=== PATIENT | female | born 1940 | race African-American/Black ===

== ENCOUNTER → 2016-09-28 | Outpatient (CLI) | payer MEDICARE ==
[~2016-09-28] MED LIST: LIDOCAINE 1% MDV 20ML VIAL As Ordered ONE
--- NOTE | 2016-09-28 15:00 | REP ---
SPECIMEN RADIOGRAPHY: Single view. HISTORY: This patient is status post stereotactic needle biopsy of the left breast for microcalcifications. FINDINGS: Specimen radiography demonstrates numerous microcalcifications in two of the removed specimens. IMPRESSION: Specimen radiography demonstrates microcalcifications from the target grouping. Signed by Brandyn Alberts MD 09/28/2016 03:21 P
--- NOTE | 2016-09-28 15:00 | REP ---
DIGITAL DIAGNOSTIC UNILATERAL LEFT BREAST MAMMOGRAPHY WITH CAD: Two views. HISTORY: Marker clip placement views post stereotactic needle biopsy for microcalcifications. Comparison mammography is from March 10, 2016. FINDINGS: The needle biopsy marker clip is in good position in relation to some remaining calcifications from the target grouping in the superior and medial quadrant of the left breast on post biopsy images. There is a 2.5 cm soft tissue density consistent with the biopsy cavity and a small amount of hematoma adjacent to the marker clip. IMPRESSION: Marker clip in good position. Some of the target microcalcifications remain. Signed by Brandyn Alberts MD 09/28/2016 03:21 P
--- NOTE | 2016-09-28 16:54 | REP ---
STEREOTACTIC LEFT BREAST BIOPSY: The procedure was performed under the direct supervision of Dr. Alberts. The patient has a history of a suspicious cluster of microcalcifications in the left breast near the 9 o'clock position seen on a previous mammogram from [facility] performed on 03/10/2016. The risks and benefits of the procedure were explained to the patient and informed consent was obtained. A cranial caudal approach was utilized. The calcifications were localized using stereotactic mammographic guidance. The skin was prepped and draped in a sterile fashion 1% Xylocaine was used as a local anesthetic. A 10-gauge suction assisted Mammotome needle was inserted and 6 core biopsy samples were obtained. Specimen radiograph demonstrates the presence of calcifications to be within the specimen. A marker clip was placed at the biopsy site. The patient tolerated the procedure well and there were no immediate complications. After the appropriate amount of monitored convalescence the patient was discharged from the department. Reviewed by EROS Thomas 09/28/2016 05:03 PEdited and Signed by Brandyn Alberts MD 09/29/2016 12:29 P
== END ==
LOC: M RADPRO 12:24
PROVIDERS: ATTEND Surgery
DX: D24.2 Benign neoplasm of left breast (principal); R92.0 Mammographic microcalcification found on diagnostic imaging of breast; I10 Essential (primary) hypertension; E78.5 Hyperlipidemia, unspecified; E11.9 Type 2 diabetes mellitus without complications; F32.9 Major depressive disorder, single episode, unspecified; F41.9 Anxiety disorder, unspecified; K57.30 Diverticulosis of large intestine without perforation or abscess without bleeding; Z79.4 Long term (current) use of insulin; Z79.84 Long term (current) use of oral hypoglycemic drugs; Z79.899 Other long term (current) drug therapy
CPT/HCPCS: 19081; 88305; G0206

== ENCOUNTER → 2016-11-16 | Outpatient (CLI) | payer MEDICAID, OTHER ==
--- NOTE | 2016-11-16 14:11 | REP ---
Clinical: Dermatitis and venous insufficiency . Technique: Haddad scale and color Doppler evaluation using linear high frequency transducer. Findings: Ultrasound examination of the right lower extremity deep venous structures from the common femoral vein to the popliteal vein demonstrates normal compressibility flow and wave patterns in response to respiration and augmentation. There is no evidence for deep venous thrombosis. Impression: No evidence for deep venous thrombosis. Signed by Julián Rapp MD 11/16/2016 02:03 P
== END ==
LOC: M RAD 12:27
DX: I83.12 Varicose veins of left lower extremity with inflammation (principal)

== ENCOUNTER 2016-11-17 12:45 | Outpatient (RCR) | payer OTHER, MEDICAID | END 2016-11-27 | LOC: M PT 12:45 | PROVIDERS: ATTEND Surgery | DX: Z51.89 Encounter for other specified aftercare (principal); I83.12 Varicose veins of left lower extremity with inflammation | CPT/HCPCS: 97162; G8978; G8979 ==

== ENCOUNTER → 2016-11-18 | Outpatient (CLI) | payer OTHER, MEDICAID ==
--- NOTE | 2016-11-18 12:31 | REP ---
LEFT LOWER EXTREMITY DUPLEX DOPPLER VENOUS ULTRASOUND WITH EVALUATION FOR VENOUS REFLUX: Real-time compression and duplex Doppler interrogation of left lower extremity deep venous system is performed. Left common femoral, superficial femoral and popliteal veins are fully compressible with transducer pressure and demonstrate normal spontaneous and phasic flow without evidence of deep venous thrombosis. Evaluation for venous reflux demonstrates reflux in the common femoral vein. There is no evidence of anterior accessory greater saphenous vein. There is significant reflux in the proximal greater saphenous vein with a duration of 4.8 seconds, AP diameter 10 mm. There is also significant reflux in the mid greater saphenous vein in the thigh, duration over 9 seconds, AP diameter 6 mm. No reflux is seen in the greater saphenous vein at the level of the knee, AP diameter 4 mm. There is no reflux in the superficial femoral vein. There is significant reflux in the left popliteal vein. There is no reflux in the lesser saphenous vein, AP diameter 5 mm. Perforating venous structure is seen in the mid to distal thigh communicating with the greater saphenous vein, with no reflux in that venous structure. The study is limited due to patient body habitus. Signed by Ayden Haddad MD 11/18/2016 12:45 P
== END ==
LOC: M RAD 10:12
DX: I83.892 Varicose veins of left lower extremity with other complications (principal)

== ENCOUNTER → 2016-12-16 | Outpatient (CLI) | payer OTHER, MEDICAID ==
[2016-12-16 13:39] LABS: ALBUMIN 3.4 GM/DL (3.2-5.2); ALBUMIN/GLOBULIN RATIO 0.81 (1.00-1.93); ALKALINE PHOSPHATASE 420 U/L (45-117); ALT/SGPT 40 U/L (12-78); ANION GAP 6 MEQ/L (8-16); AST/SGOT 28 U/L (15-37); BILIRUBIN,TOTAL 0.6 MG/DL (0.2-1.0); BLOOD UREA NITROGEN 19 MG/DL (7-18); CARBON DIOXIDE LEVEL 30 MEQ/L (21-32); CHLORIDE LEVEL 102 MEQ/L (98-107); CREATININE FOR GFR 1.03 MG/DL (0.55-1.02); GLOMERULAR FILTRATION RATE > 60.0 (>39); GLUCOSE, FASTING 162 MG/DL (83-110); POTASSIUM SERUM 4.6 MEQ/L (3.5-5.1); SODIUM LEVEL 138 MEQ/L (136-145); TOTAL PROTEIN 7.6 GM/DL (6.4-8.2)
== END ==
LOC: M LAB 11:16
PROVIDERS: ATTEND Physician Assistant Medical
DX: E11.621 Type 2 diabetes mellitus with foot ulcer (principal); E55.9 Vitamin D deficiency, unspecified; R30.0 Dysuria; E11.40 Type 2 diabetes mellitus with diabetic neuropathy, unspecified; I10 Essential (primary) hypertension; E78.2 Mixed hyperlipidemia

== ENCOUNTER → 2016-12-16 | Outpatient (CLI) | payer OTHER ==
[2016-12-16 13:44] LABS: ALBUMIN 3.5 GM/DL (3.2-5.2); ALBUMIN/GLOBULIN RATIO 0.85 (1.00-1.93); ALKALINE PHOSPHATASE 431 U/L (45-117); ALT/SGPT 40 U/L (12-78); ANION GAP 7 MEQ/L (8-16); AST/SGOT 28 U/L (15-37); BILIRUBIN,TOTAL 0.6 MG/DL (0.2-1.0); BLOOD UREA NITROGEN 20 MG/DL (7-18); CALCIUM LEVEL 9.1 MG/DL (8.8-10.2); CARBON DIOXIDE LEVEL 31 MEQ/L (21-32); CHLORIDE LEVEL 101 MEQ/L (98-107); CHOLESTEROL LEVEL 166 MG/DL (<200); CREATININE FOR GFR 1.02 MG/DL (0.55-1.02); GLOMERULAR FILTRATION RATE > 60.0 (>39); GLUCOSE, FASTING 159 MG/DL (83-110); POTASSIUM SERUM 4.7 MEQ/L (3.5-5.1); SODIUM LEVEL 139 MEQ/L (136-145); TOTAL PROTEIN 7.6 GM/DL (6.4-8.2); TRIGLYCERIDES LEVEL 45 MG/DL (<150)
== END ==
LOC: M LAB 11:35
PROVIDERS: ATTEND Emergency Medicine
DX: E11.40 Type 2 diabetes mellitus with diabetic neuropathy, unspecified (principal); I10 Essential (primary) hypertension; E78.2 Mixed hyperlipidemia; E55.9 Vitamin D deficiency, unspecified

== ENCOUNTER 2016-12-25 11:05 | Outpatient (RCR) | payer MEDICARE, MEDICAID | END 2016-12-27 | LOC: M PT 11:05 | PROVIDERS: ATTEND Surgery | DX: Z51.89 Encounter for other specified aftercare (principal); I83.12 Varicose veins of left lower extremity with inflammation; I89.0 Lymphedema, not elsewhere classified ==

== ENCOUNTER → 2017-01-27 | Outpatient (RCR) | payer MEDICARE, OTHER | LOC: M PT 12-28 11:15 | PROVIDERS: ATTEND Surgery | DX: Z51.89 Encounter for other specified aftercare (principal); I83.12 Varicose veins of left lower extremity with inflammation | CPT/HCPCS: 97140; G8978; G8979 ==

== ENCOUNTER 2017-02-03 11:15 | Outpatient (RCR) | payer MEDICARE, OTHER | END 2017-02-26 | LOC: M PT 11:15 | PROVIDERS: ATTEND Surgery | DX: Z51.89 Encounter for other specified aftercare (principal); I83.12 Varicose veins of left lower extremity with inflammation ==

== ENCOUNTER → 2017-03-30 | Outpatient (CLI) | payer MEDICARE, OTHER ==
--- NOTE | 2017-03-30 13:28 | REP ---
BILATERAL DIGITAL SCREENING MAMMOGRAM, 03/30/2017. Clinical history: Status post stereotactic biopsy 09/28/2016 with benign results for microcalcific cluster. Comparison post biopsy mammogram 09/28/2016 left breast: Diagnostic left mammogram 03/10/2016, screening mammogram 02/13/2016. Findings the standard two-view mammography performed. There are scattered fibroglandular elements in a pattern and distribution grossly unchanged and which may obscure a lesion. Lower inner quadrant left breast there is a stereotactic clip with some calcifications remaining from the clustered microcalcific group sampled in August. Small amount of soft tissue density adjacent to in an area where there was a larger hematoma postbiopsy. I see no new or dominant mass, or other areas of clustered microcalcification, architectural distortion, skin thickening or secondary sign of malignancy. A few arterial calcifications are also present. Impression: 1. BI-RADS ACR category 2 mammogram: Benign findings. No evidence of malignancy. Much improved appearance of the postbiopsy hematoma in the lower inner quadrant left breast as well as a stereotactic clip at that site. Fewer calcifications than on the screening and diagnostic mammogram last year. 2. Recommend annual mammogram for followup. This mammogram was interpreted with the aid of an FDA-approved computer-aided detection system. The patient states that she/he has not had a clinical breast exam in over a year. The patient letter being requested is M1. Signed by Abelino Ashraf MD 03/30/2017 07:02 P
[2017-03-30 13:35] LABS: ALBUMIN 3.4 GM/DL (3.2-5.2); ALBUMIN/GLOBULIN RATIO 0.76 (1.00-1.93); ALKALINE PHOSPHATASE 398 U/L (45-117); ALT/SGPT 33 U/L (12-78); ANION GAP 9 MEQ/L (8-16); AST/SGOT 34 U/L (15-37); BILIRUBIN,TOTAL 0.5 MG/DL (0.2-1.0); BLOOD UREA NITROGEN 17 MG/DL (7-18); CALCIUM LEVEL 9.3 MG/DL (8.8-10.2); CARBON DIOXIDE LEVEL 30 MEQ/L (21-32); CHLORIDE LEVEL 101 MEQ/L (98-107); CHOLESTEROL LEVEL 145 MG/DL (<200); CREATININE FOR GFR 1.09 MG/DL (0.55-1.02); GLOMERULAR FILTRATION RATE > 60.0 (>39); GLUCOSE, FASTING 114 MG/DL (83-110); POTASSIUM SERUM 4.3 MEQ/L (3.5-5.1); SODIUM LEVEL 140 MEQ/L (136-145); TOTAL PROTEIN 7.9 GM/DL (6.4-8.2); TRIGLYCERIDES LEVEL 67 MG/DL (<150)
== END ==
LOC: M RAD 10:23 → M LAB 10:23
PROVIDERS: ATTEND Emergency Medicine
DX: Z12.31 Encounter for screening mammogram for malignant neoplasm of breast (principal); Z13.820 Encounter for screening for osteoporosis; E11.40 Type 2 diabetes mellitus with diabetic neuropathy, unspecified; I10 Essential (primary) hypertension; E78.2 Mixed hyperlipidemia; E55.9 Vitamin D deficiency, unspecified; R30.0 Dysuria; Z92.89 Personal history of other medical treatment
CPT/HCPCS: 36415; 80053; 80061; 81001; 82306; 83036; 87088; 87186; G0202

== ENCOUNTER 2017-05-06 10:46 | Outpatient (RCR) | payer MEDICARE, OTHER | END 2017-05-29 | LOC: M PT 10:46 | PROVIDERS: ATTEND Surgery | DX: Z51.89 Encounter for other specified aftercare (principal); I89.0 Lymphedema, not elsewhere classified | CPT/HCPCS: 97161; G8978; G8979; G8980 ==

== ENCOUNTER → 2017-07-27 | Outpatient (CLI) | payer MEDICARE, OTHER ==
[2017-07-27 15:06] LABS: ALBUMIN 3.6 GM/DL (3.2-5.2); ALBUMIN/GLOBULIN RATIO 0.8 (1.00-1.93); BILIRUBIN,TOTAL 0.6 MG/DL (0.2-1.0); CALCIUM LEVEL 9.4 MG/DL (8.8-10.2); CREATININE FOR GFR 1.24 MG/DL (0.55-1.02); GLOMERULAR FILTRATION RATE 54.4 (>39); POTASSIUM SERUM 4.4 MEQ/L (3.5-5.1); TOTAL PROTEIN 8.1 GM/DL (6.4-8.2)
[2017-07-27 16:49] LABS: MICROSCOPIC INDICATED? MAN YES (NO)
[2017-07-27 21:18] LABS: SQUAMOUS EPITHELIAL CELL URINE LARGE AMOUNT /hpf (SMALL AMT); WBC, URINE TNTC /hpf (0-3)
[2017-07-27 21:19] LABS: BACTERIA, URINE LARGE AMOUNT; HYALINE CAST, URINE NONE SEEN /lpf (0-1); TRANSITIONAL EPI CELLS, URINE SMALL AMOUNT /hpf
[2017-07-27 21:20] LABS: MICROSCOPIC EXAM PERFORMED
== END ==
LOC: M LAB 12:03
PROVIDERS: ATTEND Emergency Medicine
DX: N30.81 Other cystitis with hematuria (principal); E11.40 Type 2 diabetes mellitus with diabetic neuropathy, unspecified; I10 Essential (primary) hypertension; E78.2 Mixed hyperlipidemia; E55.9 Vitamin D deficiency, unspecified

== ENCOUNTER 2017-09-06 11:18 | Outpatient (RCR) | payer MEDICARE, OTHER | END 2017-09-29 | LOC: M PT 11:18 | DX: Z51.89 Encounter for other specified aftercare (principal); I89.1 Lymphangitis; I83.12 Varicose veins of left lower extremity with inflammation | CPT/HCPCS: 97163 ==

== ENCOUNTER → 2018-01-21 | Outpatient (CLI) | payer MEDICARE, OTHER ==
[2018-01-21 15:02] LABS: BASO % 0.4 % (0.0-1.0); EOS # 0.1 10^3/uL (0.0-0.50); HEMATOCRIT 40.2 % (36.0-47.0); HEMOGLOBIN 12.4 g/dl (12.0-15.5); IMMATURE GRANULOCYTE % 0.3 % (0-3.0); LYMPH # 1.2 10^3/uL (1.5-4.5); LYMPH % 18.4 % (24.0-44.0); MEAN CORPUSCULAR HEMOGLOBIN 27.5 pg (27.0-33.0); MEAN CORPUSCULAR HGB CONC 30.8 g/dl (32.0-36.5); MEAN CORPUSCULAR VOLUME 89.1 fl (80.0-96.0); MONO # 0.4 10^3/uL (0.0-0.8); MONO % 6.1 % (0.0-5.0); NEUTROPHILS # 4.9 10^3/uL (1.8-7.7); NEUTROPHILS % 73.8 % (36.0-66.0); PLATELET COUNT, AUTOMATED 154 10^3/uL (150-450); RED BLOOD COUNT 4.51 10^6/uL (4.00-5.40); RED CELL DISTRIBUTION WIDTH 14.9 % (11.5-14.5); WHITE BLOOD COUNT 6.7 10^3/uL (4.0-10.0)
[2018-01-21 15:30] LABS: ESTIMATED AVERAGE GLUCOSE 203 MG/DL (60-110); HEMOGLOBIN A1c 8.7 %
[2018-01-21 15:32] LABS: ALBUMIN 3.2 GM/DL (3.2-5.2); ALBUMIN/GLOBULIN RATIO 0.74 (1.00-1.93); ALKALINE PHOSPHATASE 419 U/L (45-117); ALT/SGPT 51 U/L (12-78); ANION GAP 6 MEQ/L (8-16); AST/SGOT 33 U/L (7-37); BILIRUBIN,TOTAL 0.6 MG/DL (0.2-1.0); BLOOD UREA NITROGEN 17 MG/DL (7-18); CALCIUM LEVEL 8.8 MG/DL (8.8-10.2); CARBON DIOXIDE LEVEL 30 MEQ/L (21-32); CHLORIDE LEVEL 103 MEQ/L (98-107); CHOLESTEROL LEVEL 141 MG/DL (<200); CHOLESTEROL RISK RATIO 1.719 (<5); CREATININE FOR GFR 1.06 MG/DL (0.55-1.30); GLOMERULAR FILTRATION RATE > 60.0 (>39); GLUCOSE, FASTING 184 MG/DL (70-100); HDL CHOLESTEROL 82 MG/DL (>40); NON-HDL-C 59 MG/DL; SODIUM LEVEL 139 MEQ/L (136-145); TOTAL PROTEIN 7.5 GM/DL (6.4-8.2); TRIGLYCERIDES LEVEL 55 MG/DL (<150)
[2018-01-21 15:39] LABS: TOTAL 25(OH) VITAMIN D 37.2 NG/ML (30.0-100.0)
== END ==
LOC: M LAB 14:14
DX: I10 Essential (primary) hypertension (principal); M05.70 Rheumatoid arthritis with rheumatoid factor of unspecified site without organ or systems involvement; E78.2 Mixed hyperlipidemia; E55.9 Vitamin D deficiency, unspecified; E11.40 Type 2 diabetes mellitus with diabetic neuropathy, unspecified
CPT/HCPCS: 71046

== ENCOUNTER 2018-03-28 10:29 | Outpatient (RCR) | payer MEDICARE, OTHER | END 2018-03-29 | LOC: M PT 10:29 | DX: Z51.89 Encounter for other specified aftercare (principal); I83.12 Varicose veins of left lower extremity with inflammation; I89.0 Lymphedema, not elsewhere classified | CPT/HCPCS: 97163 ==

== ENCOUNTER 2018-10-19 09:51 | Outpatient (RCR) | payer MEDICARE, OTHER | END 2018-10-27 | LOC: M PT 09:51 | PROVIDERS: ATTEND Surgery | DX: I83.12 Varicose veins of left lower extremity with inflammation (principal) ==

== ENCOUNTER → 2018-10-19 | Outpatient (CLI) | payer MEDICARE, OTHER ==
[2018-10-19 11:26] LABS: BASO % 0.7 % (0.0-1.0); EOS # 0.1 10^3/uL (0.0-0.50); EOS % 1.5 % (0.0-3.0); HEMATOCRIT 41.5 % (36.0-47.0); HEMOGLOBIN 12.8 g/dl (12.0-15.5); LYMPH # 1.6 10^3/uL (1.5-4.5); LYMPH % 26.6 % (24.0-44.0); MEAN CORPUSCULAR HEMOGLOBIN 27.4 pg (27.0-33.0); MEAN CORPUSCULAR HGB CONC 30.8 g/dl (32.0-36.5); MEAN CORPUSCULAR VOLUME 88.7 fl (80.0-96.0); MONO # 0.4 10^3/uL (0.0-0.8); MONO % 6.9 % (0.0-5.0); NEUTROPHILS # 3.8 10^3/uL (1.8-7.7); NEUTROPHILS % 64.1 % (36.0-66.0); PLATELET COUNT, AUTOMATED 142 10^3/uL (150-450); RED BLOOD COUNT 4.68 10^6/uL (4.00-5.40); WHITE BLOOD COUNT 5.9 10^3/uL (4.0-10.0)
[2018-10-19 11:49] LABS: HEMOGLOBIN A1c 7.1 %
[2018-10-19 11:51] LABS: ALBUMIN 3.3 GM/DL (3.2-5.2); BILIRUBIN,TOTAL 0.5 MG/DL (0.2-1.0); CALCIUM LEVEL 8.9 MG/DL (8.8-10.2); CHOLESTEROL RISK RATIO 1.835 (<5); CREATININE FOR GFR 1.15 MG/DL (0.55-1.30); GLOMERULAR FILTRATION RATE 59.2 (>39); POTASSIUM SERUM 4.4 MEQ/L (3.5-5.1); TOTAL PROTEIN 7.7 GM/DL (6.4-8.2)
[2018-10-19 11:59] LABS: TOTAL 25(OH) VITAMIN D 42.3 NG/ML (30.0-100.0)
[2018-10-19 12:07] LABS: MALB URINE SIEMENS 14.9 MG/L; MAU/CREAT RATIO 8.8 MCG/MG (0.0-30.0)
== END ==
LOC: M LAB 10:38
PROVIDERS: ATTEND Emergency Medicine
DX: I10 Essential (primary) hypertension (principal); M05.70 Rheumatoid arthritis with rheumatoid factor of unspecified site without organ or systems involvement; E78.2 Mixed hyperlipidemia; E55.9 Vitamin D deficiency, unspecified; E11.40 Type 2 diabetes mellitus with diabetic neuropathy, unspecified

== ENCOUNTER 2019-04-18 10:43 | Outpatient (RCR) | payer MEDICARE, OTHER | END 2019-04-29 | LOC: M PT 10:43 | PROVIDERS: ATTEND Emergency Medicine | DX: I83.12 Varicose veins of left lower extremity with inflammation (principal); I89.0 Lymphedema, not elsewhere classified ==

== ENCOUNTER → 2019-04-18 | Outpatient (CLI) | payer MEDICARE, OTHER ==
[2019-04-18 13:07] LABS: APPEARANCE, URINE HAZY (CLEAR); BACTERIA, URINE AUTO 3+ (NEGATIVE); BILIRUBIN, URINE AUTO NEGATIVE (NEGATIVE); BLOOD, URINE BLOOD NEGATIVE (NEGATIVE); COLOR, URINE YELLOW (YELLOW); GLUCOSE, URINE (UA) AUTO NEGATIVE (NEGATIVE); KETONE, URINE AUTO NEGATIVE (NEGATIVE); LEUKOCYTE ESTERASE, URINE AUTO 2+ (NEGATIVE); MUCUS, URINE SMALL (NEGATIVE); NITRITE, URINE AUTO POSITIVE (NEGATIVE); PROTEIN, URINE AUTO NEGATIVE (NEGATIVE); RBC, URINE AUTO 2 /HPF (0-3); SPECIFIC GRAVITY URINE AUTO 1.009 (1.002-1.035); SQUAMOUS EPITHELIAL CELL UR AU 0 /HPF (0-6); UROBILINOGEN, URINE AUTO 0.2 mg/dL (0.0-2.0); WBC, URINE AUTO 43 /HPF (0-3)
[2019-04-18 13:10] LABS: BASO # 0.1 10^3/uL (0.0-0.2); BASO % 0.8 % (0.0-1.0); EOS # 0.1 10^3/uL (0.0-0.50); EOS % 2.1 % (0.0-3.0); HEMATOCRIT 41.4 % (36.0-47.0); HEMOGLOBIN 12.8 g/dl (12.0-15.5); LYMPH # 1.7 10^3/uL (1.5-4.5); MEAN CORPUSCULAR HEMOGLOBIN 27.5 pg (27.0-33.0); MEAN CORPUSCULAR HGB CONC 30.9 g/dl (32.0-36.5); MONO # 0.4 10^3/uL (0.0-0.8); MONO % 5.9 % (0.0-5.0); NEUTROPHILS # 4.3 10^3/uL (1.8-7.7); NEUTROPHILS % 64.9 % (36.0-66.0); PLATELET COUNT, AUTOMATED 168 10^3/uL (150-450); RED BLOOD COUNT 4.65 10^6/uL (4.00-5.40); WHITE BLOOD COUNT 6.6 10^3/uL (4.0-10.0)
[2019-04-18 13:47] LABS: BLOOD UREA NITROGEN 19 MG/DL (7-18); CALCIUM LEVEL 9.4 MG/DL (8.8-10.2); CARBON DIOXIDE LEVEL 29 MEQ/L (21-32); CHLORIDE LEVEL 105 MEQ/L (98-107); CHOLESTEROL LEVEL 131 MG/DL (<200); CHOLESTEROL RISK RATIO 1.723 (<5); CREATININE FOR GFR 1.09 MG/DL (0.55-1.30); GLOMERULAR FILTRATION RATE > 60.0 (>39); GLUCOSE, FASTING 146 MG/DL (70-100); HDL CHOLESTEROL 76 MG/DL (>40); LDL CHOLESTEROL 44 MG/DL (<100); NON-HDL-C 55 MG/DL; SODIUM LEVEL 139 MEQ/L (136-145); TRIGLYCERIDES LEVEL 57 MG/DL (<150)
[2019-04-18 13:48] LABS: CREATININE, URINE 76.1 MG/DL; MALB URINE SIEMENS 12.3 MG/L; MAU/CREAT RATIO 16.1 MCG/MG (0.0-30.0)
== END ==
LOC: M LAB 11:40
PROVIDERS: ATTEND Physician Assistant Medical
DX: E78.2 Mixed hyperlipidemia (principal); I10 Essential (primary) hypertension; Z00.00 Encounter for general adult medical examination without abnormal findings; R30.0 Dysuria

== ENCOUNTER → 2019-05-26 | Outpatient (CLI) | payer MEDICARE, OTHER | LOC: M LAB 11:45 | PROVIDERS: ATTEND Internal Medicine Rheumatology | DX: Z87.39 Personal history of other diseases of the musculoskeletal system and connective tissue (principal) ==

== ENCOUNTER → 2019-06-20 | Outpatient (CLI) | payer MEDICARE, MEDICAID ==
--- NOTE | 2019-06-21 04:56 | REP ---
Clinical: Rheumatoid arthritis. Technique: AP, lateral, bilateral oblique views of the right and left hand. Findings: Symmetric osteopenia is appreciated. Right hand demonstrates moderate osteoarthritic changes including subchondral sclerosis, joint space narrowing, and very subtle early spurring primarily involving the interphalangeal joints. There is moderate/advanced chronic subluxation along with subchondral sclerosis/heterogeneity and cystic changes at the first carpometacarpal joint. No significant periarticular soft tissue swelling or erosive changes and no obvious periarticular loose bodies identified. No acute fracture dislocation. Left hand demonstrates moderate osteoarthritic degenerative changes including subchondral sclerosis and joint space narrowing involving the interphalangeal joints. No periarticular soft tissue swelling, erosive changes or loose bodies are identified. There is mild/moderate chronic subluxation along the first carpometacarpal joint with cortical irregularities/subchondral heterogeneity and spurring. No acute fracture dislocation. Impression: Osteopenia and changes suggesting osteoarthritic disease. Electronically Signed by Julián Rapp MD 06/21/2019 04:47 A
== END ==
LOC: M LAB 14:36
PROVIDERS: ATTEND Internal Medicine Rheumatology
DX: M85.841 Other specified disorders of bone density and structure, right hand (principal); M85.842 Other specified disorders of bone density and structure, left hand; M19.041 Primary osteoarthritis, right hand; M19.042 Primary osteoarthritis, left hand; Z87.39 Personal history of other diseases of the musculoskeletal system and connective tissue

== ENCOUNTER → 2019-06-20 | Outpatient (CLI) | payer MEDICARE, MEDICAID ==
--- NOTE | 2019-06-20 14:55 | REPMRS ---
Patient History The patient states she has not had a clinical breast exam in over a year. Family history of liver cancer at age 85 in mother, prostate cancer at age 70 in brother. Benign radio exam breast specimen of the left breast, September 28, 2016. Benign stereotatic loc for ea lesion of the left breast, September 28, 2016. [facility] lifetime risk for breast cancer is 3.3%. Digital Mammo Screening Bilat: June 20, 2019 - Exam #: [id number] Bilateral CC and MLO view(s) were taken. Technologist: Chantelle Bray, Technologist Prior study comparison: March 30, 2017, bilateral digital mammo screening bilat performed at [facility]. FINDINGS: There are scattered fibroglandular densities. There has been no change in the appearance of the mammogram from the prior studies. There is a mild amount of residual fibroglandular tissue which is fairly symmetric. There is no interval development of dominant mass, architectural distortion, or clustered microcalcification suggestive of malignancy. Assessment: BI-RADS/ACR category 1 mammogram. Negative Mammogram. Recommendation Routine screening mammogram in 1 year (for women over age 40). This mammogram was interpreted with the aid of an FDA-approved computer-aided dectection system. Electronically Signed By: Ayden Haddad MD 06/20/19 [id number]
== END ==
LOC: M RAD 13:58
PROVIDERS: ATTEND Family Medicine
DX: Z12.31 Encounter for screening mammogram for malignant neoplasm of breast (principal); Z80.42 Family history of malignant neoplasm of prostate; Z86.018 Personal history of other benign neoplasm; M85.841 Other specified disorders of bone density and structure, right hand; M85.842 Other specified disorders of bone density and structure, left hand; M19.041 Primary osteoarthritis, right hand; M19.042 Primary osteoarthritis, left hand; Z87.39 Personal history of other diseases of the musculoskeletal system and connective tissue

== ENCOUNTER 2019-11-06 12:53 | Outpatient (RCR) | payer MEDICARE, OTHER ==
[~2019-11-06 12:53] MED LIST changes: +LIDO1CRE2 TOP; -LIDOCAINE 1% MDV 20ML VIAL As Ordered ONE
== END 2019-11-28 ==
LOC: M PT 12:53
PROVIDERS: ATTEND Emergency Medicine
DX: Z51.89 Encounter for other specified aftercare (principal); I83.12 Varicose veins of left lower extremity with inflammation; I89.0 Lymphedema, not elsewhere classified

== ENCOUNTER → 2020-01-11 | Outpatient (CLI) | payer MEDICARE | LOC: M LABSMTC 13:04 | PROVIDERS: ATTEND Family Medicine | DX: Z11.59 Encounter for screening for other viral diseases (principal) | CPT/HCPCS: C9803; U0003 ==

== ENCOUNTER → 2020-02-23 | Outpatient (CLI) | payer MEDICARE ==
[~2020-02-23] MED LIST changes: +AMMO12LO TOP; +ASPI-161 PO; +ATOR40TA75 PO; +AZEL1SPR3; +FLON1SPR; +GLIP10TA6 PO; +HYDR200T3 PO; +INCR1INH INH; +INSU100I9 SC; +LISI40TA PO; +LORA-622 PO; +METF500T13 PO; +OMEP-218 PO; +OXYB10TA23 PO; +PROAAER10 INH; +PROVEX CV PO; +REPLENEX PO; +TRIA37.53 PO; +VITA50005 PO; +[UNRECOGNIZED DRUG - CODE] PO
[2020-02-23 14:56] LABS: BASO % 0.8 % (0.0-1.0); EOS # 0.2 10^3/uL (0.0-0.5); HEMATOCRIT 38.2 % (36.0-47.0); HEMOGLOBIN 11.7 g/dl (12.0-15.5); LYMPH % 18.5 % (24.0-44.0); MEAN CORPUSCULAR HEMOGLOBIN 27.6 pg (27.0-33.0); MEAN CORPUSCULAR HGB CONC 30.6 g/dl (32.0-36.5); MEAN CORPUSCULAR VOLUME 90.1 fl (80.0-96.0); MONO # 0.3 10^3/uL (0.0-0.8); MONO % 6.3 % (0.0-5.0); NEUTROPHILS # 3.6 10^3/uL (1.5-8.5); PLATELET COUNT, AUTOMATED 167 10^3/uL (150-450); RED BLOOD COUNT 4.24 10^6/uL (4.00-5.40); WHITE BLOOD COUNT 5.2 10^3/uL (4.0-10.0)
[2020-02-23 15:16] LABS: ALBUMIN 2.9 GM/DL (3.2-5.2); ALT/SGPT 36 U/L (12-78); BILIRUBIN,TOTAL 0.6 MG/DL (0.2-1.0); BLOOD UREA NITROGEN 16 MG/DL (7-18); CALCIUM LEVEL 8.9 MG/DL (8.8-10.2); CARBON DIOXIDE LEVEL 28 MEQ/L (21-32); CHLORIDE LEVEL 106 MEQ/L (98-107); CHOLESTEROL LEVEL 127 MG/DL (<200); CHOLESTEROL RISK RATIO 1.924 (<5); CREATININE FOR GFR 0.94 MG/DL (0.55-1.30); GLOMERULAR FILTRATION RATE > 60.0 (>39); GLUCOSE, FASTING 146 MG/DL (70-100); HDL CHOLESTEROL 66 MG/DL (>40); LDL CHOLESTEROL 54 MG/DL (<100); NON-HDL-C 61 MG/DL; POTASSIUM SERUM 4.8 MEQ/L (3.5-5.1); SODIUM LEVEL 139 MEQ/L (136-145); TOTAL PROTEIN 7.2 GM/DL (6.4-8.2); TRIGLYCERIDES LEVEL 37 MG/DL (<150)
[2020-02-23 15:20] LABS: MALB URINE SIEMENS 13.5 MG/L; MAU/CREAT RATIO 8.4 MCG/MG (0.0-30.0)
== END ==
LOC: M LAB 12:36
PROVIDERS: ATTEND Physician Assistant
DX: R30.0 Dysuria (principal); N39.0 Urinary tract infection, site not specified; E78.2 Mixed hyperlipidemia; E11.621 Type 2 diabetes mellitus with foot ulcer; E11.40 Type 2 diabetes mellitus with diabetic neuropathy, unspecified; I10 Essential (primary) hypertension

== ENCOUNTER 2020-03-07 21:38 | Inpatient (IN) | payer MEDICARE ==
[~2020-03-07] VITALS: Ht 167.6 cm; Wt 167.7 kg
[~2020-03-07 21:38] MED LIST changes: -AMMO12LO TOP; -ASPI-161 PO; -ATOR40TA75 PO; -AZEL1SPR3; -FLON1SPR; -GLIP10TA6 PO; -HYDR200T3 PO; -INCR1INH INH; -INSU100I9 SC; -LISI40TA PO; -LORA-622 PO; -METF500T13 PO; -OMEP-218 PO; -OXYB10TA23 PO; -PROAAER10 INH; -PROVEX CV PO; -REPLENEX PO; -TRIA37.53 PO; -VITA50005 PO; -[UNRECOGNIZED DRUG - CODE] PO
[2020-03-07] MEDS ORDERED: NS 500 ML IV ONE (22:00)
[2020-03-07 22:22] LABS: BASO # 0.1 10^3/uL (0.0-0.2); BASO % 0.8 % (0.0-1.0); EOS # 0.2 10^3/uL (0.0-0.5); EOS % 3.1 % (0.0-3.0); HEMATOCRIT 37.3 % (36.0-47.0); HEMOGLOBIN 11.7 g/dl (12.0-15.5); LYMPH # 1.9 10^3/uL (1.5-5.0); LYMPH % 30.1 % (24.0-44.0); MEAN CORPUSCULAR HEMOGLOBIN 28.4 pg (27.0-33.0); MEAN CORPUSCULAR HGB CONC 31.4 g/dl (32.0-36.5); MEAN CORPUSCULAR VOLUME 90.5 fl (80.0-96.0); MONO # 0.4 10^3/uL (0.0-0.8); MONO % 5.9 % (0.0-5.0); NEUTROPHILS # 3.8 10^3/uL (1.5-8.5); NEUTROPHILS % 59.6 % (36.0-66.0); PLATELET COUNT, AUTOMATED 165 10^3/uL (150-450); RED BLOOD COUNT 4.12 10^6/uL (4.00-5.40); WHITE BLOOD COUNT 6.4 10^3/uL (4.0-10.0)
--- NOTE | 2020-03-07 22:36 | REPVR ---
PROCEDURE INFORMATION: Exam: CT Head Without Contrast Exam date and time: 03/07/2020 10:18 PM Age: 80 years old Clinical indication: Injury or trauma; Fall; Initial encounter; Blunt trauma (contusions or hematomas); Additional info: Fall, head injury TECHNIQUE: Imaging protocol: Computed tomography of the head without contrast. Axial and coronal reformatted images were created and reviewed. Radiation optimization: All CT scans at this facility use at least one of these dose optimization techniques: automated exposure control; mA and/or kV adjustment per patient size (includes targeted exams where dose is matched to clinical indication); or iterative reconstruction. COMPARISON: No relevant prior studies available. FINDINGS: Brain: Patchy areas of hypoattenuation in the periventricular and subcortical white matter, consistent with chronic small vessel ischemic disease. No CT evidence of acute intracranial hemorrhage or acute territorial infarction. No significant mass effect or midline shift. Basal cisterns patent. Ventricles: Prominence of the cortical sulci, cisterns and ventricular system, consistent with cerebral and cerebellar volume loss. Bones/joints: No acute osseous abnormality. Sinuses: Mild ethmoid mucosal thickening. Mastoid air cells: Grossly unremarkable. Soft tissues: Left periorbital soft tissue swelling. IMPRESSION: 1. No CT evidence of acute intracranial pathology. 2. Additional findings, as above. Electronically signed by: Salvador Barrios On 03/07/2020 22:35:27 PM
--- NOTE | 2020-03-07 22:39 | REPVR ---
PROCEDURE INFORMATION: Exam: CT Maxillofacial Without Contrast Exam date and time: 03/07/2020 10:18 PM Age: 80 years old Clinical indication: Injury or trauma; Fall; Initial encounter; Blunt trauma (contusions or hematomas); Cheek bone and orbit/periorbital; Left; Additional info: Fall, head injury TECHNIQUE: Imaging protocol: Computed tomography images of the face without contrast. Axial, coronal and sagittal reformatted images were created and reviewed. Radiation optimization: All CT scans at this facility use at least one of these dose optimization techniques: automated exposure control; mA and/or kV adjustment per patient size (includes targeted exams where dose is matched to clinical indication); or iterative reconstruction. COMPARISON: No relevant prior studies available. FINDINGS: Orbits: No acute intraorbital abnormality. Globes intact. Bones/joints: No acute fracture. Sinuses: Mild right greater than left ethmoid mucosal thickening. Soft tissues: Left periorbital soft tissue swelling. IMPRESSION: 1. No acute facial bone fracture. 2. Additional findings, as above. Electronically signed by: Salvador Barrios On 03/07/2020 22:39:18 PM
--- NOTE | 2020-03-07 22:41 | REPVR ---
PROCEDURE INFORMATION: Exam: CT Cervical Spine Without Contrast Exam date and time: 03/07/2020 10:18 PM Age: 80 years old Clinical indication: Injury or trauma; Fall; Initial encounter; Blunt trauma; Additional info: Fall, head injury TECHNIQUE: Imaging protocol: Computed tomography images of the cervical spine without contrast. Axial, coronal and sagittal reformatted images were created and reviewed. Radiation optimization: All CT scans at this facility use at least one of these dose optimization techniques: automated exposure control; mA and/or kV adjustment per patient size (includes targeted exams where dose is matched to clinical indication); or iterative reconstruction. COMPARISON: No relevant prior studies available. FINDINGS: Vertebrae: Osteopenia. Normal cervical lordosis. Minimal retrolisthesis of C3 on C4. Alignment otherwise anatomic. Dextroscoliosis. No CT evidence of acute fracture, dislocation or subluxation. Vertebral body heights maintained. Discs/Spinal canal/Neural foramina: Multilevel degenerative changes, characterized by disc space narrowing, osteophytosis and uncovertebral and facet joint hypertrophy. Mild resultant multilevel spinal canal and neural foraminal narrowing. Soft tissues: Grossly unremarkable. Lungs: Grossly unremarkable. IMPRESSION: 1. No CT evidence of acute cervical spine traumatic injury. 2. Additional findings, as above. Electronically signed by: Salvador Barrois On 03/07/2020 22:41:07 PM
[2020-03-07] MEDS ORDERED: LIDOCAINE W/EPINEPHRINE 1% 20ML VIAL SC ONE (22:45)
[2020-03-07] MEDS ORDERED: BOOSTRIX/ADACEL VACCINE (DIPHTH/PERTUSS/ACELL/TETANUS) 0.5ML SYR IM ONE (22:45)
[2020-03-07] MEDS: MORPHINE 2 MG/ML 1ML VIAL (J2270) IV PRN (23:22)
[2020-03-08] VITALS (12 sets, daily range): BP systolic 110–172; BP diastolic 64–86; O2SAT 100
--- NOTE | 2020-03-08 00:17 | REPVR ---
PROCEDURE INFORMATION: Exam: CT Left Lower Extremity Without Contrast, Knee Exam date and time: 03/07/2020 11:50 PM Age: 80 years old Clinical indication: Injury or trauma; Fall; Initial encounter; Fracture, traumatic; Closed fracture; Patella or knee; Left TECHNIQUE: Imaging protocol: CT of the Left lower extremity without contrast was performed. Exam focused on the knee. Axial, coronal and sagittal reformatted images were created and reviewed. Radiation optimization: All CT scans at this facility use at least one of these dose optimization techniques: automated exposure control; mA and/or kV adjustment per patient size (includes targeted exams where dose is matched to clinical indication); or iterative reconstruction. COMPARISON: CR Femur LEFT 03/07/2020 10:22 PM FINDINGS: Bones/joints: Osteopenia. Comminuted, moderately displaced and impacted fracture of the distal femoral metadiaphysis with apex posterior and lateral angulation at the fracture site. No definite intra-articular extension. No dislocation. Moderate tricompartmental osteoarthrosis. Small suprapatellar effusion. Soft tissues: Moderate, diffuse soft tissue swelling with a small amount of subcutaneous blood products along the posteromedial aspect of the knee. Vasculature: Moderate atherosclerotic disease. IMPRESSION: 1. Comminuted, displaced and impacted fracture of the distal femoral metadiaphysis, as described above. 2. Additional findings, as above. Electronically signed by: Salvador Barrios On 03/08/2020 00:17:01 AM
[2020-03-08] MEDS ORDERED: GLUCAGON INJ 1MG VIAL SC PRN ×2 (01:15→16:45)
[2020-03-08] MEDS ORDERED: DEXTROSE 50% 50 ML SYRINGE IV PRN ×2 (01:15→16:45)
[2020-03-08] MEDS ORDERED: GLUCOSE 4GM CHEW TABLET PO PRN ×3 (01:15→17:45)
[2020-03-08] MEDS ORDERED: ACETAMINOPHEN *IV* 1,000 MG in IV 1 EA IV PRN (01:15)
[2020-03-08] MEDS ORDERED: MORPHINE 2 MG/ML 1ML VIAL (J2270) IV PRN ×2 (01:15→04:15)
[2020-03-08] MEDS ORDERED: ATOR40TA75 PO (01:38)
[2020-03-08] MEDS ORDERED: [UNRECOGNIZED DRUG - CODE] PO (01:38)
[2020-03-08] MEDS ORDERED: FLON1SPR (01:38)
[2020-03-08] MEDS ORDERED: METF500T13 PO (01:38)
[2020-03-08] MEDS ORDERED: AZEL1SPR3 (01:38)
[2020-03-08] MEDS ORDERED: PROAAER10 INH (01:38)
[2020-03-08] MEDS ORDERED: VITA50005 PO (01:38)
[2020-03-08] MEDS ORDERED: REPLENEX PO (01:38)
[2020-03-08] MEDS ORDERED: LISI40TA PO (01:38)
[2020-03-08] MEDS ORDERED: OXYB10TA23 PO (01:38)
[2020-03-08] MEDS ORDERED: HYDR200T3 PO (01:38)
[2020-03-08] MEDS ORDERED: INCR1INH INH (01:38)
[2020-03-08] MEDS ORDERED: OMEP-218 PO (01:38)
[2020-03-08] MEDS ORDERED: INSU100I9 SC (01:38)
[2020-03-08] MEDS ORDERED: TRIA37.53 PO (01:38)
[2020-03-08] MEDS ORDERED: ASPI-161 PO (01:38)
[2020-03-08] MEDS ORDERED: AMMO12LO TOP (01:38)
[2020-03-08] MEDS ORDERED: LORA-622 PO (01:38)
[2020-03-08] MEDS ORDERED: PROVEX CV PO (01:38)
[2020-03-08] MEDS ORDERED: GLIP10TA6 PO ×2 (01:38)
[2020-03-08 01:50] LABS: INR 1.2; PROTHROMBIN TIME 14.9 SECONDS (11.8-14.0)
[2020-03-08 01:51] LABS: HEMOGLOBIN A1c 6.5 %; PARTIAL THROMBOPLASTIN TIME 29.2 SECONDS (25.0-38.4)
[2020-03-08 01:53] LABS: BLOOD UREA NITROGEN 13 MG/DL (7-18); CARBON DIOXIDE LEVEL 28 MEQ/L (21-32); CHLORIDE LEVEL 107 MEQ/L (98-107); CREATININE FOR GFR 0.93 MG/DL (0.55-1.30); FERRITIN 142 NG/ML (8-252); GLOMERULAR FILTRATION RATE > 60.0 (>39); GLUCOSE, FASTING 196 MG/DL (70-100); IRON (FE) 48 UG/DL (50-170); NT-PRO BNP 268 PG/ML (<450); PERCENT SATURATION 18.3 % (13.2-45.0); SODIUM LEVEL 140 MEQ/L (136-145); TOTAL IRON BINDING CAPACITY 263 UG/DL (250-450)
--- NOTE | 2020-03-08 02:09 | HPEPDOC ---
[facility] Medical History & Physical Date of Admission Mar 08, 2020 Date of Service: Mar 08, 2020 Primary Care Physician: Rosalia Cantu MD Attending Physician: DANIELLE MILLER MD History and Physical TIME OF SERVICE: 4:30 AM CHIEF COMPLAINT: Fall HISTORY OF PRESENT ILLNESS: This is a 80-year-old female to fall after trying to stand up to get her dinner last night. She denies having chest pain, change in her chronic dizziness, nausea, vomiting, diarrhea, fever or chills prior to the fall. As a result of the fall, she developed left distal femur fracture and will be going to the OR later on today. Currently, her left lower extremity pain is severe. 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 Siblings had/have CAD blood clots, diabetes, DVT Grandfather had lung cancer, diabetes and hypertension ALLERGIES: Please see below. HOME MEDICATIONS: Please see below. PHYSICAL EXAMINATION: Vital Signs Date Time Temp Pulse Resp B/P (MAP) Pulse Ox O2 Delivery O2 Flow Rate FiO2 03/07/20 21:55 176/77 (110) 03/07/20 22:04 97.0 95 18 93 Room Air GEN: Obese / well developed/ appears to be in pain INTEGUMENT: not flushed/ not jaundice HEENT: NCAT / lips acyanotic /mucus membranes dry CVS: RRR/NMRG/ no JVP / radial pulses intact LUNGS: able to speak full sentences without stopping to take a breath / lungs are clear to auscultation bilaterally on room air NEURO: CN 2-12 are grossly intact / speech is not dysarthric PSYCH: alert and oriented / able to understand and follow all commands LABORATORY DATA: Immature Granulocyte % (Auto) 0.5, Neutrophils (%) (Auto) 59.6, Lymphocytes (%) (Auto) 30.1, Monocytes (%) (Auto) 5.9H, Eosinophils (%) (Auto) 3.1H, Basophils ( %) (Auto) 0.8, Neutrophils # (Auto) 3.8, Lymphocytes # (Auto) 1.9, Monocytes # (Auto) 0.4, Eosinophils # (Auto) 0.2, Basophils # (Auto) 0.1, Nucleated Red Blood Cells % (auto) 0.0 03/08/20 00:17: Coronavirus (COVID-19)(PCR) NEGATIVE 03/08/20 01:13: Anion Gap 5L, Glomerular Filtration Rate > 60.0, Calcium Level 8.0L, Iron Level 48L, Total Iron Binding Capacity 263, Transferrin % Saturation 18.3, Ferritin 142, GG-Bvs-F-Type Natriuretic Peptide 268 03/08/20 01:17: Reticulocyte # (auto) 50.5, Percent Reticulocyte Count 1.4, Reticulocyte Hemoglobin Equivalent 31.6, Prothrombin Time 14.9H, Prothromb Time International Ratio 1.20, Activated Partial Thromboplast Time 29.2, Estimated Mean Plasma Glucose 140H, Hemoglobin A1c 6.5 03/08/20 01:50: Bedside Glucose (Misc Panel) 196H IMAGING: Maxillofacial CT "IMPRESSION: 1. No acute facial bone fracture. 2. Additional findings, as above." CT of the cervical spine " IMPRESSION: 1. No CT evidence of acute cervical spine traumatic injury. 2. Additional findings, as above. " CT of the left knee without contrast "IMPRESSION: 1. Comminuted, displaced and impacted fracture of the distal femoral metadiaphysis, as described above. 2. Additional findings, as above. " X-ray of hip and pelvis report pending.... Chest x-ray shows poor aeration, possible cardiomegaly and stomach close, but the final report is pending... X-ray of left femur appears to show distal left femur fracture, but the final report is pending ... X-ray of the left knee, there appears to be a distal left femur fracture, but the final report is pending... ASSESSMENT: Ms. Schultz is a 80-year-old with a history of rheumatoid arthritis, and IDDM with neuropathy, HTN, dyslipidemia, asthma, cataracts, sleep apnea, and multiple abdominal surgeries, who will be admitted for management of the left distal femur fracture. PLAN: 1. Spontaneous Left Distal Femur Fracture resulting in a Fall I was unable to identify any acute triggers of the fall Plan: admit to [facility] / NPO after midnight w IVF for surgery tomorrow / Ortho consult / PT/OT consult / pain control w Ofrimev and Morphine 2. Osteoporosis By definition the patient has osteoporosis bc of the fragility fracture The only risk factors she has for osteoporosis are vitamin D deficiency and PPI; use her TSH is wnl Plan: calcium 1000-1200mg daily / c/w Ergocalciferol 50,000 / f/u phosphorus, mag, SPEP / she can f/u her PCP for DEXA scan & repeat Vitamin D levels / d/c omeprazole 3. Perioperative Assessment Revised Cardiac Index to asses risk of MACE from surgery score = 0 = Class 1 risk Plan: pre and post-operative testing per RCI score includes BNP because she is older tracy 67, if the pro-BNP is wnl she will not need additional testing priot to proceeding with surgery, if it is elevated she will need to be put on telemetry and have troponin checked daily / per [facility] guidelines discontinue ACEI/ARBs 24H prior to surgery in patients chronically on theses meds to reduce perioperative risk of hypotension & resume ACEI/ARB on day #2 after surgery 4. NN Anemia Plan: f/u iron studies and stool occult 5. Rheumatoid Arthritis Plan: Plaquenil 6. DM2 with neuropathy Plan: f/u accuchecks & A1C / hypoglycemia protocol / sliding scale insulin / hold oral anti-glycemics 7. Chronic Hypertension Plan: c/w triamterene 37.5 and HTCZ 25 / hold lisinopril during the perioperative period / the day time team may consider starting amoldipine in if her BP becomes acutely elevated 8. Dyslipidemia Plan: atorvastatin 9.Chronic Asthma Plan: breo ellipta w albuterol PRN 10. Sleep apnea Plan: own CPAP / nocturnal O2 w pulse ox 11. Obesity BMI or 55 with co-existing DM and BERRY complicates care DVT PROPHYLAXIS: SCDs pending surgery DISPOSITION: likely transfer to ARU after more than 2 midnight's stay / PFS con sult has been placed Home Medications Scheduled Amino Acids (Complete Amino Acid Mix) 200 Gm Powder, 1 POW PO DAILY Aspirin (Aspirin EC) 81 Mg Tablet.dr, 81 MG PO DAILY Atorvastatin Calcium (Atorvastatin Calcium) 40 Mg Tablet, 40 MG PO DAILY Ergocalciferol (Vitamin D2) (Vitamin D2) 50,000 Units Cap, 50,000 UNITS PO QMONTH FIRST WEDNESDAY OF THE MONTH Fluticasone Propionate (Flonase Allergy Relief) 9.9 Ml Buena.susp, 1 SPRAY NA DAILY Glipizide (Glipizide) 10 Mg Tablet, 10 MG PO DAILY Glipizide (Glipizide) 10 Mg Tablet, 5 MG PO QPM 1700 Hydroxychloroquine Sulfate (Hydroxychloroquine Sulfate) 200 Mg Tablet, 200 MG PO BID 0800, 1700 Insulin Lispro (Insulin Lispro Kwikpen U-100) 100 Unit/1 Ml Insuln.pen, 1 DOSE SC AC PER SLIDING SCALE Lisinopril (Lisinopril) 40 Mg Tablet, 40 MG PO DAILY Loratadine (Loratadine) 10 Mg Tablet, 10 MG PO DAILY Metformin HCl (Metformin HCl) 500 Mg Tablet, 1,000 MG PO BID 0800, 1700 Omeprazole (Omeprazole) 20 Mg Capsule.dr, 20 MG PO QPM 1700 Oxybutynin Chloride (Oxybutynin Chloride ER) 10 Mg Tab.er.24, 10 MG PO DAILY Triamterene/Hydrochlorothiazid (Triamterene-Hctz 37.5-25 mg Cp) 1 Each Capsule, 1 CAP PO DAILY Umeclidinium [place] (Incruse Ellipta) 62.5 Mcg Blst.w.dev, 1 PUFF INH DAILY [Provex Cv] , 2 CAP PO BID [Replenex] , 2 TAB PO BID Scheduled PRN Albuterol Sulfate (Proair Hfa) 8.5 Gm Hfa.aer.ad, 2 PUFF INH Q4H PRN for WHEEZING/COUGHING Ammonium Lactate (Ammonium Lactate) 12% Lotion, 1 DOSE TOP BID PRN for DRY SKIN USES ON FEET AND LEGS NEEDED Azelastine HCl (Azelastine HCl) 0.1% Buena.pump, 2 SPRAY NA BID PRN for NASAL CONGESTION Allergies Coded Allergies: amoxicillin (Verified Allergy, Unknown, 08/10/19) clavulanic acid (Verified Allergy, Unknown, 08/10/19) A-FIB/CHADSVASC A-FIB History Current/History of A-Fib/PAF?: No Current PO Anticoag Therapy: No DANIELLE MILLER MD Mar 08, 2020 02:09
[2020-03-08 02:13] LABS: ALBUMIN 2.6 GM/DL (3.2-5.2); ALT/SGPT 30 U/L (12-78); BILIRUBIN,DIRECT 0.4 MG/DL (0.0-0.2); BILIRUBIN,TOTAL 0.6 MG/DL (0.2-1.0); CK-MB VALUE MASS < 1.0 NG/ML (<3.6); CPK CREATINE PHOSPHOKINASE 59 U/L (26-192); FREE T4 1.68 NG/DL (0.76-1.46); LIPASE 72 U/L (73-393); MB/CK RELATIVE INDEX 1.69 (< OR =4); TOTAL PROTEIN 6.7 GM/DL (6.4-8.2); TROPONIN I 0.04 NG/ML (< 0.10)
[2020-03-08] MEDS: LR 1,000 ML IV SCH ×2 (02:16→17:55)
[2020-03-08] MEDS: MORPHINE 2 MG/ML 1ML VIAL (J2270) IV PRN (02:24)
[2020-03-08] MEDS: HumaLOG INSULIN (NovoLOG) PER UNIT SC SCH ×5 (02:36→21:00)
[2020-03-08] MEDS ORDERED: PERCOCET 5MG/325MG TAB PO PRN (04:15)
[2020-03-08] MEDS: PERCOCET 5MG/325MG TAB PO PRN (04:30)
[2020-03-08] MEDS ORDERED: ALBUTEROL 90 MCG/ACT 8GM HFA INHALER INH PRN ×2 (05:30→06:15)
[2020-03-08] MEDS ORDERED: ONDANSETRON 4MG/2ML VIAL IV PRN ×2 (05:45→14:15)
[2020-03-08] MEDS ORDERED: AZELASTINE 137MCG NASAL SPY 30 ML (ASTELIN) PRN (06:15)
[2020-03-08] MEDS ORDERED: LACTIC ACID 12% LOTION 225 GM BTL TOP PRN (06:15)
[2020-03-08] MEDS ORDERED: CALCIUM CARBONATE 500 MG CHEW U/D PO PRN (06:15)
[2020-03-08 06:38] LABS: HEMATOCRIT 28.2 % (36.0-47.0); MEAN CORPUSCULAR HEMOGLOBIN 27.6 pg (27.0-33.0); MEAN CORPUSCULAR HGB CONC 30.5 g/dl (32.0-36.5); MEAN CORPUSCULAR VOLUME 90.4 fl (80.0-96.0); PLATELET COUNT, AUTOMATED 138 10^3/uL (150-450); RED BLOOD COUNT 3.12 10^6/uL (4.00-5.40); WHITE BLOOD COUNT 8.5 10^3/uL (4.0-10.0)
[2020-03-08 06:41] LABS: HEMOGLOBIN 8.6 g/dl (12.0-15.5)
[2020-03-08] MEDS ORDERED: ceFAZolin SOD 2 GM in IV 1 EA IV ONE (07:00)
[2020-03-08] MEDS ORDERED: ceFAZolin SOD 1 GM in D5W MINI-BAG PLUS 50 ML IV ONE (07:00)
[2020-03-08 07:03] LABS: BLOOD UREA NITROGEN 14 MG/DL (7-18); CALCIUM LEVEL 7.7 MG/DL (8.8-10.2); CARBON DIOXIDE LEVEL 28 MEQ/L (21-32); CHLORIDE LEVEL 108 MEQ/L (98-107); GLOMERULAR FILTRATION RATE > 60.0 (>39); GLUCOSE, FASTING 193 MG/DL (70-100); POTASSIUM SERUM 4.4 MEQ/L (3.5-5.1); SODIUM LEVEL 140 MEQ/L (136-145)
[2020-03-08 07:51] LABS: MAGNESIUM LEVEL 1.5 MG/DL (1.8-2.4); PHOSPHORUS LEVEL 3.1 MG/DL (2.5-4.9); TOTAL PROTEIN 5.6 GM/DL (6.4-8.2)
[2020-03-08] MEDS ORDERED: HYDROXYCHLOROQUINE 200 MG TAB PO SCH (08:00)
--- NOTE | 2020-03-08 08:20 | REP ---
REASON: Trauma. PRIORS: None. There is a comminuted distal femoral fracture and due to the limitations of the exam, I cannot completely rule out an intra-articular component. The proximal femur is completely obscured by overlying soft tissue. Findings and limitations as described above. Electronically Signed by Mihir Wong DO 03/08/2020 09:17 A
--- NOTE | 2020-03-08 08:22 | REP ---
REASON FOR EXAM: Chest pain and hypertension. COMPARISON: 01/21/2018 the latest prior. The technique utilized in obtaining the radiograph has magnified the cardiac silhouette and accentuated the interstitial markings. There is cardiomegaly accentuated by technique status quo. There is persistent elevation of the diaphragmatic surface of the right lung status quo. There is no change in the lung sr. No acute patchy parenchymal opacities or pleural effusions have developed. There is no change in the appearance of the osseous structures. IMPRESSION: Stable chronic changes as described above. Electronically Signed by Mihir Wong DO 03/08/2020 09:17 A
--- NOTE | 2020-03-08 08:24 | REP ---
REASON: Trauma. AP pelvis and frog lateral view of the left hip were obtained. Bilateral hip degenerative changes are noted. There is no acute fracture, dislocation or subluxation. Degenerative changes are seen involving the imaged portions of the spine. IMPRESSION: Chronic changes. Electronically Signed by Mihir Wong DO 03/08/2020 09:17 A
--- NOTE | 2020-03-08 08:28 | REP ---
REASON: Trauma. There is a comminuted distal femoral fracture. This limited exam shows no evidence of a definite intra-articular component. There is advanced degenerative changes seen involving the knee. IMPRESSION: Findings and limitations as described above. Electronically Signed by Mihir Wong DO 03/08/2020 09:18 A
[2020-03-08] MEDS ORDERED: ASPIRIN 81 MG ENTERIC TAB PO SCH (09:00)
[2020-03-08] MEDS ORDERED: ENTER DRUG NAME HERE (PATIENT'S OWN MED) INH SCH (09:00)
[2020-03-08] MEDS: oxyBUTYnin *DITROPAN XL* 5 MG TABCR PO SCH (09:00)
--- NOTE | 2020-03-08 09:15 | IPNPDOC ---
Date Seen The patient was seen on 03/08/20. Progress Note medical clearance -Per Dr. Dawson, Echo: aortic valve sclerosis. no aortic stenosis. normal LV function. -transfuse rbc, but medically optimized for surgery. VS, I&O, 24H, Fishbone Vital Signs/I&O Vital Signs Date Time Temp Pulse Resp B/P (MAP) Pulse Ox O2 Delivery O2 Flow Rate FiO2 03/08/20 06:00 98.2 91 18 110/72 (85) 100 Nasal Cannula 2.0 I&O- Last 24 Hours up to 6 AM 03/08/20 06:00 Intake Total 100 ml Output Total 0 ml Balance 100 ml Laboratory Data 24H LABS Laboratory Tests 2 03/07/20 22:13: Immature Granulocyte % (Auto) 0.5, Neutrophils (%) (Auto) 59.6, Lymphocytes (%) (Auto) 30.1, Monocytes (%) (Auto) 5.9H, Eosinophils (%) (Auto) 3.1H, Basophils (%) (Auto) 0.8, Neutrophils # (Auto) 3.8, Lymphocytes # (Auto) 1.9, Monocytes # (Auto) 0.4, Eosinophils # (Auto) 0.2, Basophils # (Auto) 0.1, Nucleated Red Blood Cells % (auto) 0.0, Total Bilirubin 0.6, Direct Bilirubin 0.4H, Aspartate Amino Transf (AST/SGOT) 37, Alanine Aminotransferase (ALT/SGPT) 30, Alkaline Phosphatase 384H, Total Creatine Kinase 59, Creatine Kinase MB < 1.0, Creatine Kinase MB Relative Index 1.69, Troponin I 0.04, Total Protein 6.7, Albumin 2.6L, Albumin/Globulin Ratio 0.6L, Lipase 72L, Thyroid Stimulating Hormone (TSH) 1.590, Free Thyroxine 1.68H 03/08/20 00:17: Coronavirus (COVID-19)(PCR) NEGATIVE 03/08/20 01:13: Anion Gap 5L, Glomerular Filtration Rate > 60.0, Calcium Level 8.0L, Iron Level 48L, Total Iron Binding Capacity 263, Transferrin % Saturation 18.3, Ferritin 142, AW-Bbt-Z-Type Natriuretic Peptide 268 03/08/20 01:17: Reticulocyte # (auto) 50.5, Percent Reticulocyte Count 1.4, Reticulocyte Hemoglobin Equivalent 31.6, Prothrombin Time 14.9H, Prothromb Time International Ratio 1.20, Activated Partial Thromboplast Time 29.2, Estimated Mean Plasma Glucose 140H, Hemoglobin A1c 6.5 03/08/20 01:50: Bedside Glucose (Misc Panel) 196H 03/08/20 06:07: Bedside Glucose (Misc Panel) 191H 03/08/20 06:13: Nucleated Red Blood Cells % (auto) 0.0, Anion Gap 4L, Glomerular Filtration Rate > 60.0, Calcium Level 7.7L, Phosphorus Level 3.1, Magnesium Level 1.5L, Total Protein (PEP) 5.6L CBC/BMP Laboratory Tests 03/07/20 22:13 03/08/20 01:13 03/08/20 06:13 JOY RIOS MD Mar 08, 2020 09:15
[2020-03-08] MEDS: LORATADINE 10 MG TAB PO SCH (09:54)
[2020-03-08] MEDS: DYAZIDE 37.5/25 CAP (TRIAM/HCTZ) PO SCH (09:54)
[2020-03-08] MEDS: FLUTICASONE PROP 0.05% NASAL SPRAY 16 GM (FLONASE) SCH (09:55)
[2020-03-08] MEDS: MAG SULF 1GM/100ML (MAG RUN) 1 GM in IV 1 EA IV SCH ×10 (10:07→17:00)
--- NOTE | 2020-03-08 10:37 | ECGEPIP ---
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
[2020-03-08] MEDS ORDERED: ceFAZolin 2 GM/D5W 50 ML IV BAG (J0690 PER 500MG) As Ordered ONE (10:53)
[2020-03-08] MEDS ORDERED: ceFAZolin 1GM VIAL (J0690 PER 500MG) As Ordered ONE (10:54)
[2020-03-08] MEDS: TIOTROPIUM INHALER/CAPSULE (SPIRIVA) INH SCH (11:11)
[2020-03-08] MEDS ORDERED: fentaNYL 100 MCG/2 ML INJECTION (J3010) As Ordered ONE ×4 (12:03→14:00)
[2020-03-08] MEDS ORDERED: LIDOCAINE 2% 100MG/5ML SDV (FOR ANES.) As Ordered ONE (12:27)
[2020-03-08] MEDS ORDERED: SUGAMMADEX SODIUM 500 MG/5 ML VIAL (BRIDION) As Ordered ONE (12:27)
[2020-03-08] MEDS ORDERED: propofoL 200 MG/20 ML VIAL As Ordered ONE (12:27)
[2020-03-08] MEDS ORDERED: ONDANSETRON 4MG/2ML VIAL As Ordered ONE (12:27)
[2020-03-08] MEDS ORDERED: ROCURONIUM BROMIDE 50 MG/5 ML VIAL As Ordered ONE (12:27)
[2020-03-08] MEDS ORDERED: dexameTHASONE 4 MG/ML 1ML VIAL (J1100 PER 1MG) As Ordered ONE (12:27)
[2020-03-08] MEDS ORDERED: MIDAZOLAM INJ 2MG/2ML VIAL (J2250 PER 1MG) As Ordered ONE (12:28)
[2020-03-08] MEDS ORDERED: HYDROMORPHONE HCL 0.5 MG/ 0.5 ML SYRINGE (J1170 PER 1) As Ordered ONE (14:01)
[2020-03-08] MEDS ORDERED: LR 1,000 ML IV SCH (14:15)
[2020-03-08] MEDS ORDERED: HYDROMORPHONE HCL 0.5 MG/ 0.5 ML SYRINGE (J1170 PER 1) IV PRN (14:15)
[2020-03-08] MEDS ORDERED: fentaNYL 100 MCG/2 ML INJECTION (J3010) IV PRN (14:15)
[2020-03-08] MEDS ORDERED: METOCLOPRAMIDE INJ 10MG/2ML VIAL (J2765 PER 1) IV PRN (14:15)
--- NOTE | 2020-03-08 15:32 | IPN ---
DATE: 03/08/2020 Patient has had a hip fracture and is scheduled for surgery. However, she does say that she has had dyspnea on exertion with activity. She is able to ambulate well, about 50 feet, but limited by her knees. She does not have any prior history of coronary artery disease (CAD) or myocardial infarction (SD) but does have a history of peripheral vascular disease in the past. She does have risk factors including diabetes, hypertension, dyslipidemia, and has documented history of peripheral vascular disease. Patient was found to have a systolic ejection murmur and was due to have an echocardiogram done. However, she has not had any prior history of CAD, SD, or congestive heart failure. Currently, has no shortness of breath, chest pain, pressure or tightness, lightheadedness, or dizziness. Patient's pain is currently controlled at 2/10 when she is not moving. No other issues overnight. No fever, chills, or cough. PHYSICAL EXAMINATION: VITAL SIGNS: Temperature 98.2, pulse 91, respiratory rate 18, blood pressure 110/72, 100% on two liters nasal cannula. GENERALLY: Patient is awake, alert, oriented to person, place, and time. No jugular venous distention (JVD), no thyromegaly. Dry mucous membranes with some chapped lips. LUNGS: Diminished but clear to auscultation bilaterally. HEART: S1, S2, sinus rhythm. There is a systolic ejection murmur with radiation to the carotids. ABDOMEN: Obese, soft, nontender, nondistended, positive bowel sounds. No rebound, no guarding. Patient does not have any abdominal bruits. EXTREMITIES: Chronic pitting edema. Chronic venous stasis changes. Left hip with tenderness externally rotated. LABORATORY DATA: White count 8.5, hemoglobin 8.6, hematocrit 28, platelet count 138, sodium 140, potassium 4.4, chloride 108, bicarbonate 28, BUN 14, creatinine 0.8, glucose of 193. Input of 100, output of 0. IMAGING STUDIES: CT of the extremity, comminuted moderately displaced and impacted fracture distal femoral metadiaphysis with apex posterior and lateral angulation at the fracture site. No definite intra-articular extension. Moderate tricompartmental osteoarthrosis. Small suprapatellar fusion on the left hip. ASSESSMENT AND PLAN: This is a 80-year-old female with a history of diabetes, rheumatoid arthritis, hypertension, dyslipidemia, liver abscess, asthma, peripheral vascular disease with morbid obesity, body mass index (BMI) of 55.7, and probable obstructive sleep apnea, presents to the emergency room on 03/08/2020 after a fall trying to stand up and get her dinner last night without prodromal symptoms. Patient was found to have a left femoral fracture. CURRENT ISSUES: 1. Preoperative medical clearance. At this time, patient does have risk factors for coronary artery disease but not exhibiting any symptoms of myocardial infarction (SD) or congestive heart failure. I have spoken with Dr. Cornelius Yoder who will be reading her echocardiogram, but if she does not have severe aortic stenosis she is medically cleared for surgery. An updated addendum will be added to this progress note to clear the patient. She is currently hemodynamically stable. CT of the spine due to history of rheumatoid arthritis is also negative for any atlantoaxial subluxation and would be okay for intubation. 2. Type 2 diabetes. Currently nothing by mouth. On fingersticks and hypoglycemic protocol. 3. Hypertension. Controlled and hemodynamically stable at the bedside. 4. History of rheumatoid arthritis on chronic Plaquenil. Patient had a CT of the cervical spine which does not show any atlantoaxial subluxation and would be able to proceed with intubation for surgical intervention for her left hip fracture. She is continued on hydroxychloroquine. 5. Obesity. Body mass index (BMI) of 55.7 with probable obstructive sleep apnea. Patient is to be placed obstructive sleep apnea (BERRY) protocol. High risk of hypercapnic respiratory failure post-surgery. Continue on oxygen for now. 6. History of peripheral arterial disease. On chronic aspirin to be held for now. 7. Anemia. Will check hemoccult stools type and cross. transfuse 2 units rbc. 8. History of asthma. Nebulizers as needed. Addendum will be placed regarding the results of echocardiogram. If no severe aortic stenosis on the echo, patient may proceed for surgical intervention. [facility]
[2020-03-08] MEDS: ATORVASTATIN 20 MG TAB PO SCH (16:15)
--- NOTE | 2020-03-08 18:33 | CR ---
DATE OF CONSULTATION: 03/08/2020 REASON FOR CONSULTATION: Distal femur fracture in a 80-year-old severely morbidly obese female. PRESENT ILLNESS: She is a 80-year-old female who had a mechanical fall at home, tripping in her kitchen carrying her food and landed on her left side. She struck her head and hit the left side of her face. Complains of pain on the left side of her face and her left thigh, and was transferred to the emergency room and evaluated by Dr. Cornelius Park and found to have a femur fracture on the left side, and I was called because of this injury. She lives alone here in [place], has a supportive son. She complains only of soreness of the left knee predominantly. Orthopedically does not complain of numbness or tingling of the lower extremities. Does not complain of neck pain or any other injury other than the left side of her face near her left eye. She has a past medical history of: 1. Severe morbid obesity. 2. Diabetes. 3. Hypertension. 4. Hypercholesterolemia. 5. Chronic lymphedema. 6. Asthma. 7. Sleep apnea, using continuous positive airway pressure (CPAP) machine. 8. History of angina and arrhythmia. 9. History of a liver abscess and phlebitis. 10. Presently has a colostomy in the left lower quadrant from a remote sigmoid colon resection in 1988. ALLERGIES: CIPRO and AUGMENTIN. MEDICATION LIST: As of March of 2019, she was on: - amlodipine - lisinopril - metformin - atorvastatin Previously was on hydroxychloroquine and Plaquenil, but those medications have been discontinued after visiting with rheumatology. SOCIAL HISTORY: She does not smoke or drink alcohol excessively. She is originally from [place], moved here with her son, who is retired from the [employer], many ears ago. She has a supportive daughter and son. Her daughter lives in [place]. SURGICAL HISTORY: Tonsillectomy. Colostomy in 1988. Hysterectomy in 1987. Cholecystectomy in 1978. Collar bone surgery in the remote past. PHYSICAL EXAMINATION: On examination, she is an alert female lying in her stretcher with severe obesity. Her vital signs show a temperature of 97, pulse 95, respirations are 18, blood pressure is 176/77. Her oxygen saturation on room air is 93%. She weight 154.55 kg by her report, which is 340 pounds, 66 inches tall with a body mass index (BMI) of 55. HEENT: Shows left periorbital edema. Neck: Nontender. Chest: Clear. Abdomen: Morbidly obese with a colostomy bag in the left lower quadrant. Lower Extremities: Her lower extremities were very large, and palpation about the left knee created tenderness. No crepitance was palpable. However, distally she had some mild pitting edema, but I could remarkably palpate her dorsalis pedis pulse. I could Doppler the posterior tibial pulse but her feet were well perfused. She had good and normal dorsiflexion ability of the ankles, as well as her extensor hallucis longus (EHL) and flexor hallucis longus (FHL) and sensory testing dorsum of the plantar surface of her feet were intact. Toes were pink with good capillary refill. RADIOGRAPHIC STUDIES: CT C-spine was negative for fracture. CT of her face was negative for fracture. CT of her head was negative for any acute pathology. Left femur x-rays: I did not see a left hip fracture; however, in the distal femur, you could see a comminuted distal extraarticular femur fracture above an arthritic knee. LABORATORY STUDIES: White count of 6.4, hematocrit 37.3, platelets 165. Sodium 139, potassium 4.8, chloride 106, bicarbonate 28, glucose 146, BUN 16, creatinine 0.94, calcium 8.9, bilirubin 0.6, alkaline phosphatase was elevated at 445 but was also elevated a year ago about the same level. Albumin was 2.9, cholesterol 127. She has had a rheumatoid factor in the past which was negative and a negative citrulline protein in the past, essentially negative for rheumatoid arthritis. IMPRESSION: She is a morbidly obese female with a distal femur fracture; it is comminuted, unstable. This is a very difficult challenge for the patient, and it would be very difficult to manage this unstable fracture in a closed fashion, and it is technically very difficult to consider fixing and stabilizing surgically as well. I talked to her about this dilemma, as well as her daughter who lives in [place], [place]. I think it would be very difficult for her to manage without some attempt at stabilization of her fracture, but I do not think it feasible to do this with an external bracing because of the size of her leg. It is possible we could attempt a retrograde nail insertion, but doing this type of procedure in someone like her carries significant risk of the anesthetic that is required, as well as the risk of the surgical site for infection, damage to nerves and blood vessels and technically may be very difficult to insert it properly. There is also the risk of fracture not to heal properly or to not heal at all, amongst others, which I discussed with her in detail. At conclusion of our conversation here in the emergency room this evening, I think it is best if we give it a try and to get it stabilized as best we can understanding the risks, and she understands that. We plan then to have the hospitalist see her and make sure that she is admitted properly and medically optimized, and proceed when we have proper equipment available and extra help. I will need extra assistance to manage this in the operating room.
--- NOTE | 2020-03-08 18:58 | ECHO ---
DATE OF PROCEDURE: 03/08/2020 REFERRING PHYSICIAN: Dr. Isa Smith INDICATION: Cardiac murmur, unspecified. HEIGHT: 168 cm WEIGHT: 157 kg 2D MEASUREMENTS: Left atrium: 2.8 cm Ventricular septum: 1.53 cm Posterior wall: 1.60 cm Left ventricle diastole: 4.0 cm Aortic root: 3.2 cm LVOT: 2.2 cm Inferior vena cava: 2.1 cm DOPPLER MEASUREMENTS: Trace aortic regurgitation. Mild aortic stenosis. Peak aortic valve velocity: 277 cm/s Aortic valve VTI: 54.1 cm Peak aortic valve gradient: 31 mmHg Mean aortic valve gradient: 17 mmHg LVOT velocity: 102 cm/s LVOT VTI: 24.2 cm No mitral regurgitation. No mitral stenosis. Mitral E velocity: 88.3 cm/s Mitral A velocity: 108 cm/s Mitral deceleration time: 235 ms Very mild tricuspid regurgitation. No pulmonic regurgitation. Pulmonary acceleration time: 87 ms MITRAL ANNULAR TISSUE DOPPLER: E prime septal: 6.2 cm/s E prime lateral: 6.5 cm/s DESCRIPTION: Rhythm was sinus. This was a supine acquired echocardiogram. Image quality was fair. No pericardial effusion. CONCLUSIONS: 1. Extensive focal thickening and focal calcific deposits involving a 3-cusp aortic valve with mild reduction in aortic cusp mobility. Mild aortic stenosis and trace aortic regurgitation. 2. Moderately-severe concentric left ventricle hypertrophy with normal LV systolic function. Left ventricular ejection fraction (LVEF) 70% by visual estimate. No regional wall motion abnormalities of the left ventricle. Grade 1 LV diastolic dysfunction (impaired relaxation filling pattern). 3. Suggestive of mild elevation of pulmonary artery systolic pressure. 4. Mild mitral annular calcification. No mitral regurgitation. 5. Otherwise normal appearing echocardiogram Doppler findings.
[2020-03-08] MEDS: ceFAZolin SOD 1 GM in D5W MINI-BAG PLUS 50 ML IV SCH (20:08)
[2020-03-08] MEDS: ceFAZolin SOD 2 GM in IV 1 EA IV SCH (21:45)
[2020-03-09 01:45] VITALS: BP 108/53
[2020-03-09] MEDS ORDERED: CEPACOL LOZENGE PO PRN (02:00)
[2020-03-09] MEDS: PERCOCET 5MG/325MG TAB PO PRN ×4 (02:02→18:55)
[2020-03-09] MEDS: ceFAZolin SOD 1 GM in D5W MINI-BAG PLUS 50 ML IV SCH ×2 (03:28→13:41)
[2020-03-09] MEDS: ceFAZolin SOD 2 GM in IV 1 EA IV SCH ×2 (04:39→13:42)
[2020-03-09 06:55] VITALS: BP 107/53
[2020-03-09 07:25] LABS: HEMATOCRIT 27.1 % (36.0-47.0); HEMOGLOBIN 8.5 g/dl (12.0-15.5); MEAN CORPUSCULAR HEMOGLOBIN 28.5 pg (27.0-33.0); MEAN CORPUSCULAR HGB CONC 31.4 g/dl (32.0-36.5); MEAN CORPUSCULAR VOLUME 90.9 fl (80.0-96.0); PLATELET COUNT, AUTOMATED 122 10^3/uL (150-450); RED BLOOD COUNT 2.98 10^6/uL (4.00-5.40)
--- NOTE | 2020-03-09 07:36 | REP ---
C-ARM VIEWS LEFT FEMUR: Two C-arm views left femur performed. Linear metallic structure is seen in the distal femur. Osseous structures are grossly well aligned, although there is mild distraction of fracture fragments. 2 minutes 6 seconds of fluoroscopy time is utilized. Electronically Signed by Ayden Haddad MD 03/10/2020 11:22 P
[2020-03-09 07:51] LABS: BLOOD UREA NITROGEN 19 MG/DL (7-18); CALCIUM LEVEL 7.5 MG/DL (8.8-10.2); CARBON DIOXIDE LEVEL 27 MEQ/L (21-32); CHLORIDE LEVEL 104 MEQ/L (98-107); CREATININE FOR GFR 1.07 MG/DL (0.55-1.30); GLOMERULAR FILTRATION RATE > 60.0 (>39); GLUCOSE, FASTING 180 MG/DL (70-100); POTASSIUM SERUM 4.3 MEQ/L (3.5-5.1); SODIUM LEVEL 136 MEQ/L (136-145)
[2020-03-09] MEDS: TIOTROPIUM INHALER/CAPSULE (SPIRIVA) INH SCH (07:53)
[2020-03-09] MEDS: HumaLOG INSULIN (NovoLOG) PER UNIT SC SCH ×4 (08:30→20:26)
[2020-03-09] MEDS: oxyBUTYnin *DITROPAN XL* 5 MG TABCR PO SCH (08:30)
[2020-03-09] MEDS: LORATADINE 10 MG TAB PO SCH (08:31)
[2020-03-09] MEDS: ATORVASTATIN 20 MG TAB PO SCH (08:31)
[2020-03-09] MEDS: DYAZIDE 37.5/25 CAP (TRIAM/HCTZ) PO SCH (08:31)
[2020-03-09] MEDS: MOM 30ML SUSPENSION UDC PO SCH (08:32)
[2020-03-09] MEDS: MIRALAX *UNIT DOSE* 17GM PACKET PO SCH (08:32)
[2020-03-09] MEDS: FLUTICASONE PROP 0.05% NASAL SPRAY 16 GM (FLONASE) SCH (08:33)
--- NOTE | 2020-03-09 13:15 | IPNPDOC ---
Text Note Date of Service The patient was seen on 03/09/20. NOTE Subjective: Feels ok this morning, no complaints at this time EN: Obese, NAD HEENT: NCAT, PERRLA, EOMI, MMM CVS: RRR, systolic ejection murmur LUNGS: CTAB NEURO: CN 2-12 are grossly intact, speech is not dysarthric PSYCH: AOx3 LABORATORY DATA: WBC 10 hgb 8.5 platelets 122 na 136 k 4.3 Cr 1.07 IMAGING: Maxillofacial CT "IMPRESSION: 1. No acute facial bone fracture. 2. Additional findings, as above." CT of the cervical spine " IMPRESSION: 1. No CT evidence of acute cervical spine traumatic injury. 2. Additional findings, as above. " CT of the left knee without contrast "IMPRESSION: 1. Comminuted, displaced and impacted fracture of the distal femoral metadiaphysis, as described above. 2. Additional findings, as above. " X-ray of hip and pelvis report pending.... Chest x-ray shows poor aeration, possible cardiomegaly and stomach close, but the final report is pending... X-ray of left femur appears to show distal left femur fracture, but the final report is pending ... X-ray of the left knee, there appears to be a distal left femur fracture, but the final report is pending... TTE: 1. Extensive focal thickening and focal calcific deposits involving a 3-cusp aortic valve with mild reduction in aortic cusp mobility. Mild aortic stenosis and trace aortic regurgitation. 2. Moderately-severe concentric left ventricle hypertrophy with normal LV systolic function. Left ventricular ejection fraction (LVEF) 70% by visual estimate. No regional wall motion abnormalities of the left ventricle. Grade 1 LV diastolic dysfunction (impaired relaxation filling pattern). 3. Suggestive of mild elevation of pulmonary artery systolic pressure. 4. Mild mitral annular calcification. No mitral regurgitation. 5. Otherwise normal appearing echocardiogram Doppler findings. ASSESSMENT: 80-year-old W with a history of diabetes, rheumatoid arthritis, hypertension, dyslipidemia, liver abscess, asthma, peripheral vascular disease with morbid obesity, body mass index (BMI) of 55.7, and probable BERRY, who presented on 03/08 after a mechanical fall and was found to have a left femoral fracture s/p surgery. Plan: 1. L hip fracture s/p surgery 03/08. -Pain management and DVT ppx per surgical team -PT/OT 2. Type 2 diabetes. -Consistent carb diet -On fingersticks ACHS -hypoglycemic protocol. -SSI 3. Hypertension. -Controlled and hemodynamically stable 4. History of rheumatoid arthritis on chronic Plaquenil. -s/p CT of the cervical spine which does not show any atlantoaxial subluxation and would be able to proceed with intubation for surgical intervention for her left hip fracture. -She is continued on hydroxychloroquine. 5. Obesity. Body mass index (BMI) of 55.7 with probable BERRY. -High risk of hypercapnic respiratory failure post-surgery. -Continue on oxygen for now and BERRY protocol. 6. History of peripheral arterial disease. -On chronic aspirin 7. Anemia. -s/p 2u pRBCs -f/u FOBT 8. History of asthma. -Nebulizers as needed. DVT ppx: xarelto VS,Fishbone, I+O VS, Fishbone, I+O Laboratory Tests 03/09/20 06:34 Vital Signs Date Time Temp Pulse Resp B/P (MAP) Pulse Ox O2 Delivery O2 Flow Rate FiO2 03/09/20 08:32 18 Room Air 03/09/20 06:55 98.7 81 107/53 (71) 100 2.0 03/08/20 15:00 100 I&O- Last 24 Hours up to 6 AM 03/09/20 06:00 Intake Total 3240 ml Output Total 1025 ml Balance 2215 ml PADILLA SHOEMAKER MD Mar 09, 2020 09:33
[2020-03-09 14:00] VITALS: BP 105/50
[2020-03-09] MEDS: RIVAROXABAN 10 MG TAB (XARELTO) PO SCH (18:55)
[2020-03-09 19:55] VITALS: BP 102/70
[2020-03-10] MEDS: PERCOCET 5MG/325MG TAB PO PRN ×3 (05:18→14:54)
[2020-03-10 05:21] VITALS: BP 103/52
[2020-03-10] MEDS: TIOTROPIUM INHALER/CAPSULE (SPIRIVA) INH SCH (07:25)
[2020-03-10] MEDS: MIRALAX *UNIT DOSE* 17GM PACKET PO SCH (08:58)
[2020-03-10] MEDS: MOM 30ML SUSPENSION UDC PO SCH (08:58)
[2020-03-10] MEDS: HumaLOG INSULIN (NovoLOG) PER UNIT SC SCH ×4 (08:58→21:00)
[2020-03-10] MEDS: oxyBUTYnin *DITROPAN XL* 5 MG TABCR PO SCH (08:59)
[2020-03-10] MEDS: LORATADINE 10 MG TAB PO SCH (08:59)
[2020-03-10] MEDS: DYAZIDE 37.5/25 CAP (TRIAM/HCTZ) PO SCH (08:59)
[2020-03-10] MEDS: ATORVASTATIN 20 MG TAB PO SCH (08:59)
[2020-03-10] MEDS: FLUTICASONE PROP 0.05% NASAL SPRAY 16 GM (FLONASE) SCH (09:00)
[2020-03-10 09:24] LABS: HEMATOCRIT 24.6 % (36.0-47.0); HEMOGLOBIN 7.6 g/dl (12.0-15.5); MEAN CORPUSCULAR HEMOGLOBIN 28.7 pg (27.0-33.0); MEAN CORPUSCULAR HGB CONC 30.9 g/dl (32.0-36.5); MEAN CORPUSCULAR VOLUME 92.8 fl (80.0-96.0); PLATELET COUNT, AUTOMATED 112 10^3/uL (150-450); RED BLOOD COUNT 2.65 10^6/uL (4.00-5.40); WHITE BLOOD COUNT 9.9 10^3/uL (4.0-10.0)
[2020-03-10 09:44] LABS: CALCIUM LEVEL 7.6 MG/DL (8.8-10.2); CREATININE FOR GFR 1.52 MG/DL (0.55-1.30); GLOMERULAR FILTRATION RATE 42.7 (>39); POTASSIUM SERUM 4.6 MEQ/L (3.5-5.1)
--- NOTE | 2020-03-10 13:28 | REP ---
RIGHT FEMUR: 03/09/2020. COMPARISON: Intraoperative C-arm 03/08/2020, x-ray 03/07/2020. CLINICAL HISTORY: Status post ORIF distal femoral fracture. FINDINGS: Four views are provided. There is an intramedullary jhoan extending from the distal femur to the level of the lesser trochanter where a single screw transfixes its proximal course. Distally, there is a blade-paddle device and a single screw transfixing the severely comminuted distal diametaphyseal and metaphyseal fracture. Multiple butterfly fragments are seen displaced alignment of the distal major fragment at the knee joint with the diaphysis near anatomic. Skin alissa are seen at the level of the tibial plateau. Degenerative changes are noted at the hip without acute fracture there. IMPRESSION: 1. Status post intramedullary jhoan with fixation of a severely comminuted distal femoral diametaphyseal and metaphyseal fracture with multiple butterfly fragments and that IM jhoan extending from the intercondylar notch to the level of the lesser trochanter. Alignment of the two major fragments is nearly anatomic. Electronically Signed by Abelino Ashraf MD 03/10/2020 06:57 P
--- NOTE | 2020-03-10 14:41 | IPNPDOC ---
Text Note Date of Service The patient was seen on 03/10/20. NOTE Subjective: No complaints at this time EN: Obese, NAD HEENT: NCAT, PERRLA, EOMI, MMM CVS: RRR, systolic ejection murmur LUNGS: CTAB NEURO: CN 2-12 are grossly intact, speech is not dysarthric PSYCH: AOx3 LABORATORY DATA: Reviewed Hgb 7.6 WBC 9.9 Cr 1.52 IMAGING: Maxillofacial CT "IMPRESSION: 1. No acute facial bone fracture. 2. Additional findings, as above." CT of the cervical spine " IMPRESSION: 1. No CT evidence of acute cervical spine traumatic injury. 2. Additional findings, as above. " CT of the left knee without contrast "IMPRESSION: 1. Comminuted, displaced and impacted fracture of the distal femoral metadiaphysis, as described above. 2. Additional findings, as above. " X-ray of hip and pelvis report pending.... Chest x-ray shows poor aeration, possible cardiomegaly and stomach close, but the final report is pending... X-ray of left femur appears to show distal left femur fracture, but the final report is pending ... X-ray of the left knee, there appears to be a distal left femur fracture, but the final report is pending... TTE: 1. Extensive focal thickening and focal calcific deposits involving a 3-cusp aortic valve with mild reduction in aortic cusp mobility. Mild aortic stenosis and trace aortic regurgitation. 2. Moderately-severe concentric left ventricle hypertrophy with normal LV systolic function. Left ventricular ejection fraction (LVEF) 70% by visual estimate. No regional wall motion abnormalities of the left ventricle. Grade 1 LV diastolic dysfunction (impaired relaxation filling pattern). 3. Suggestive of mild elevation of pulmonary artery systolic pressure. 4. Mild mitral annular calcification. No mitral regurgitation. 5. Otherwise normal appearing echocardiogram Doppler findings. ASSESSMENT: 80-year-old W with a history of diabetes, rheumatoid arthritis, hypertension, dyslipidemia, liver abscess, asthma, peripheral vascular disease with morbid obesity, body mass index (BMI) of 55.7, and probable BERRY, who presented on 03/08 after a mechanical fall and was found to have a left femoral fracture s/p surgery. Plan: 1. L hip fracture s/p surgery 03/08. -Pain management and DVT ppx per surgical team -PT/OT 2. Type 2 diabetes. -Consistent carb diet -On fingersticks ACHS -hypoglycemic protocol. -SSI 3. Hypertension. -Controlled and hemodynamically stable 4. History of rheumatoid arthritis on chronic Plaquenil. -s/p CT of the cervical spine which does not show any atlantoaxial subluxation and would be able to proceed with intubation for surgical intervention for her left hip fracture. -She is continued on hydroxychloroquine. 5. Obesity. Body mass index (BMI) of 55.7 with probable BERRY. -High risk of hypercapnic respiratory failure post-surgery. -Continue on oxygen for now and BERRY protocol. 6. History of peripheral arterial disease. -On chronic aspirin 7. Acute on chronic Anemia. -s/p 2u pRBCs, will give 1 more unit of blood today, with goal hgb >8 8. History of asthma. -Nebulizers as needed. 9. MEKA: likely prerenal -monitor Cr, giving blood today. DVT ppx: xarelto VS,Fishbone, I+O VS, Fishbone, I+O Vital Signs Date Time Temp Pulse Resp B/P (MAP) Pulse Ox O2 Delivery O2 Flow Rate FiO2 03/10/20 05:48 16 03/10/20 05:21 98.7 93 103/52 (69) 99 Nasal Cannula 2.0 03/08/20 15:00 100 I&O- Last 24 Hours up to 6 AM 03/10/20 06:00 Intake Total 1820 ml Output Total 400 ml Balance 1420 ml PADILLA SHOEMAKER MD Mar 10, 2020 08:38
[2020-03-10] MEDS: RIVAROXABAN 10 MG TAB (XARELTO) PO SCH (18:35)
[2020-03-10 20:06] VITALS: BP 114/54
[2020-03-10 22:28] VITALS: BP 117/55
[2020-03-10 22:43] VITALS: BP 118/56
[2020-03-10 23:28] VITALS: BP 117/57
[2020-03-11 00:27] VITALS: BP 116/57
[2020-03-11 01:32] VITALS: BP 118/57
[2020-03-11] MEDS: PERCOCET 5MG/325MG TAB PO PRN ×5 (01:36→21:25)
[2020-03-11 05:46] VITALS: BP 121/59
[2020-03-11 06:19] LABS: HEMATOCRIT 27.3 % (36.0-47.0); HEMOGLOBIN 8.6 g/dl (12.0-15.5); MEAN CORPUSCULAR HEMOGLOBIN 28.7 pg (27.0-33.0); MEAN CORPUSCULAR HGB CONC 31.5 g/dl (32.0-36.5)
[2020-03-11 06:42] LABS: CALCIUM LEVEL 7.5 MG/DL (8.8-10.2); CREATININE FOR GFR 1.24 MG/DL (0.55-1.30); POTASSIUM SERUM 4.8 MEQ/L (3.5-5.1)
[2020-03-11 07:04] LABS: PLATELET COUNT, AUTOMATED 107 10^3/uL (150-450)
[2020-03-11] MEDS: TIOTROPIUM INHALER/CAPSULE (SPIRIVA) INH SCH (07:48)
[2020-03-11] MEDS: HumaLOG INSULIN (NovoLOG) PER UNIT SC SCH ×4 (08:04→20:04)
[2020-03-11] MEDS: MIRALAX *UNIT DOSE* 17GM PACKET PO SCH (08:05)
[2020-03-11] MEDS: MOM 30ML SUSPENSION UDC PO SCH (08:07)
[2020-03-11] MEDS: ATORVASTATIN 20 MG TAB PO SCH (08:07)
[2020-03-11] MEDS: oxyBUTYnin *DITROPAN XL* 5 MG TABCR PO SCH (08:08)
[2020-03-11] MEDS: LORATADINE 10 MG TAB PO SCH (08:08)
[2020-03-11] MEDS: DYAZIDE 37.5/25 CAP (TRIAM/HCTZ) PO SCH (08:09)
[2020-03-11] MEDS: FLUTICASONE PROP 0.05% NASAL SPRAY 16 GM (FLONASE) SCH (08:09)
--- NOTE | 2020-03-11 11:40 | IPNPDOC ---
Text Note Date of Service The patient was seen on 03/11/20. NOTE Subjective: -No complaints at this time Objective: General: NAD, morbidly obese HEENT: NCAT, PERRLA, EOMI, MMM CVS: RRR, systolic ejection murmur LUNGS: CTAB NEURO: CN 2-12 are grossly intact, speech is not dysarthric PSYCH: AOx3 LABORATORY DATA: Reviewed Hgb 8.6 WBC 11 Cr 1.24 K 4.8 IMAGING: Maxillofacial CT "IMPRESSION: 1. No acute facial bone fracture. 2. Additional findings, as above." CT of the cervical spine " IMPRESSION: 1. No CT evidence of acute cervical spine traumatic injury. 2. Additional findings, as above. " CT of the left knee without contrast "IMPRESSION: 1. Comminuted, displaced and impacted fracture of the distal femoral metadiaphysis, as described above. 2. Additional findings, as above. " X-ray of hip and pelvis report pending.... Chest x-ray shows poor aeration, possible cardiomegaly and stomach close, but the final report is pending... X-ray of left femur appears to show distal left femur fracture, but the final report is pending ... X-ray of the left knee, there appears to be a distal left femur fracture, but the final report is pending... TTE: 1. Extensive focal thickening and focal calcific deposits involving a 3-cusp aortic valve with mild reduction in aortic cusp mobility. Mild aortic stenosis and trace aortic regurgitation. 2. Moderately-severe concentric left ventricle hypertrophy with normal LV systolic function. Left ventricular ejection fraction (LVEF) 70% by visual estimate. No regional wall motion abnormalities of the left ventricle. Grade 1 LV diastolic dysfunction (impaired relaxation filling pattern). 3. Suggestive of mild elevation of pulmonary artery systolic pressure. 4. Mild mitral annular calcification. No mitral regurgitation. 5. Otherwise normal appearing echocardiogram Doppler findings. ASSESSMENT: 80-year-old W with a history of diabetes, rheumatoid arthritis, hypertension, dyslipidemia, liver abscess, asthma, peripheral vascular disease with morbid obesity, body mass index (BMI) of 55.7, and probable BERRY, who presented on 03/08 after a mechanical fall and was found to have a left femoral fracture s/p surgery. Plan: 1. L hip fracture s/p surgery 03/08. -Pain management and DVT ppx per surgical team -PT/OT 2. Type 2 diabetes. -Consistent carb diet -On fingersticks ACHS -hypoglycemic protocol -SSI 3. Hypertension. -Controlled and hemodynamically stable 4. History of rheumatoid arthritis on chronic Plaquenil. -s/p CT of the cervical spine which does not show any atlantoaxial subluxation and would be able to proceed with intubation for surgical intervention for her left hip fracture. -She is continued on hydroxychloroquine. 5. Obesity. Body mass index (BMI) of 55.7 with probable BERRY. -High risk of hypercapnic respiratory failure post-surgery. -Continue on oxygen for now and BERRY protocol. 6. History of peripheral arterial disease. -On chronic aspirin 7. Acute on chronic Anemia. -s/p 3u pRBCs, goal hgb >8 8. History of asthma. -Nebulizers as needed. 9. MEKA: improved -monitor Cr DVT ppx: xarelto Dispo planning: ongoing PT/OT with pending evaluation by [facility] Brittanie MUNIZ, I+O VS, Brittanie I+O Laboratory Tests 03/10/20 09:03 03/11/20 06:01 Vital Signs Date Time Temp Pulse Resp B/P (MAP) Pulse Ox O2 Delivery O2 Flow Rate FiO2 03/11/20 06:17 16 03/11/20 05:46 98.4 91 121/59 (79) 95 Nasal Cannula 2.0 03/08/20 15:00 100 I&O- Last 24 Hours up to 6 AM 03/11/20 06:00 Intake Total 1960 ml Output Total 0 ml Balance 1960 ml PADILLA SHOEMAKER MD Mar 11, 2020 07:31
[2020-03-11 14:00] VITALS: BP 117/41
[2020-03-11] MEDS: RIVAROXABAN 10 MG TAB (XARELTO) PO SCH (17:22)
[2020-03-11 22:00] VITALS: BP 117/43
[2020-03-11 22:44] VITALS: O2SAT 100
[2020-03-12] MEDS ORDERED: diphenhydrAMINE CREAM 30GM TOP PRN (01:30)
[2020-03-12] MEDS ORDERED: diphenhydrAMINE 25MG CAP PO ONE (01:30)
[2020-03-12 05:29] VITALS: BP 116/67
[2020-03-12] MEDS: PERCOCET 5MG/325MG TAB PO PRN ×2 (05:30→12:51)
[2020-03-12] MEDS: TIOTROPIUM INHALER/CAPSULE (SPIRIVA) INH SCH (06:09)
[2020-03-12 07:04] LABS: HEMATOCRIT 28.1 % (36.0-47.0); HEMOGLOBIN 8.6 g/dl (12.0-15.5); MEAN CORPUSCULAR HEMOGLOBIN 28.5 pg (27.0-33.0); MEAN CORPUSCULAR HGB CONC 30.6 g/dl (32.0-36.5); PLATELET COUNT, AUTOMATED 126 10^3/uL (150-450); RED BLOOD COUNT 3.02 10^6/uL (4.00-5.40); WHITE BLOOD COUNT 8.3 10^3/uL (4.0-10.0)
[2020-03-12 07:21] LABS: BLOOD UREA NITROGEN 32 MG/DL (7-18); CALCIUM LEVEL 7.8 MG/DL (8.8-10.2); CARBON DIOXIDE LEVEL 28 MEQ/L (21-32); CHLORIDE LEVEL 98 MEQ/L (98-107); CREATININE FOR GFR 1.03 MG/DL (0.55-1.30); GLOMERULAR FILTRATION RATE > 60.0 (>39); GLUCOSE, FASTING 164 MG/DL (70-100); POTASSIUM SERUM 4.8 MEQ/L (3.5-5.1); SODIUM LEVEL 131 MEQ/L (136-145)
[2020-03-12] MEDS: MOM 30ML SUSPENSION UDC PO SCH (09:24)
[2020-03-12] MEDS: MIRALAX *UNIT DOSE* 17GM PACKET PO SCH (09:24)
[2020-03-12] MEDS: ATORVASTATIN 20 MG TAB PO SCH (09:25)
[2020-03-12] MEDS: HumaLOG INSULIN (NovoLOG) PER UNIT SC SCH ×4 (09:25→20:38)
[2020-03-12] MEDS: oxyBUTYnin *DITROPAN XL* 5 MG TABCR PO SCH (09:26)
[2020-03-12] MEDS: DYAZIDE 37.5/25 CAP (TRIAM/HCTZ) PO SCH (09:26)
[2020-03-12] MEDS: LORATADINE 10 MG TAB PO SCH (09:26)
[2020-03-12] MEDS: FLUTICASONE PROP 0.05% NASAL SPRAY 16 GM (FLONASE) SCH (09:26)
--- NOTE | 2020-03-12 16:14 | IPNPDOC ---
Text Note Date of Service The patient was seen on 03/12/20. NOTE Subjective: No complaints at this time Objective: General: NAD, morbidly obese HEENT: NCAT, PERRLA, EOMI, MMM CVS: RRR, systolic ejection murmur LUNGS: Bilateral basal crackles. Abdomen; obese, has colostomy bag in place, bowel sounds normal. NEURO: CN 2-12 are grossly intact, speech is not dysarthric PSYCH: AOx3 Extremities: Bilateral 2+ edema. LABORATORY DATA: Reviewed IMAGING: Maxillofacial CT "IMPRESSION: 1. No acute facial bone fracture. 2. Additional findings, as above." CT of the cervical spine " IMPRESSION: 1. No CT evidence of acute cervical spine traumatic injury. 2. Additional findings, as above. " CT of the left knee without contrast "IMPRESSION: 1. Comminuted, displaced and impacted fracture of the distal femoral metadiaphysis, as described above. 2. Additional findings, as above. " X-ray of hip and pelvis report pending.... Chest x-ray shows poor aeration, possible cardiomegaly and stomach close, but the final report is pending... X-ray of left femur appears to show distal left femur fracture, but the final report is pending ... X-ray of the left knee, there appears to be a distal left femur fracture, but the final report is pending... TTE: 1. Extensive focal thickening and focal calcific deposits involving a 3-cusp aortic valve with mild reduction in aortic cusp mobility. Mild aortic stenosis and trace aortic regurgitation. 2. Moderately-severe concentric left ventricle hypertrophy with normal LV systolic function. Left ventricular ejection fraction (LVEF) 70% by visual estimate. No regional wall motion abnormalities of the left ventricle. Grade 1 LV diastolic dysfunction (impaired relaxation filling pattern). 3. Suggestive of mild elevation of pulmonary artery systolic pressure. 4. Mild mitral annular calcification. No mitral regurgitation. 5. Otherwise normal appearing echocardiogram Doppler findings. ASSESSMENT and PLAN: 80-year-old W with a history of diabetes, rheumatoid arthritis, hypertension, dyslipidemia, liver abscess, asthma, peripheral vascular disease with morbid obesity, body mass index (BMI) of 55.7, and probable BERRY, who presented on 03/08 after a mechanical fall and was found to have a left femoral neck fracture s/p surgery. L hip fracture s/p surgery 03/08. Pain management and DVT ppx per surgical team PT/OT Continued Rehab Type 2 diabetes. Consistent carb diet On fingersticks ACHS hypoglycemic protocol SSI Hypertension. Controlled and hemodynamically stable History of rheumatoid arthritis on chronic Plaquenil. She is continued on hydroxychloroquine. Obesity. Body mass index (BMI) of 55.7 with BERRY. High risk of hypercapnic respiratory failure post-surgery. Continue on oxygen for now and BERRY protocol. CPAP when available. History of peripheral arterial disease. On chronic aspirin, Acute on chronic Anemia. s/p 3u pRBCs, goal hgb >8 History of asthma. Nebulizers as needed. 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 Mild thrombocytopenia Hyponatremia. mild on diuretics will continue for now will monitor. DVT ppx: xarelto Dispo planning: ongoing PT/OT with pending evaluation by Brittanie HESS, I+O VS, Brittanie I+O Laboratory Tests 03/12/20 06:28 Vital Signs Date Time Temp Pulse Resp B/P (MAP) Pulse Ox O2 Delivery O2 Flow Rate FiO2 03/12/20 13:21 20 03/12/20 09:30 2.0 03/12/20 05:29 97.4 81 116/67 (83) 100 Nasal Cannula 03/08/20 15:00 100 I&O- Last 24 Hours up to 6 AM 03/12/20 06:00 Intake Total 1870 ml Output Total 0 ml Balance 1870 ml JONES HERNANDEZ MD Mar 12, 2020 16:14
[2020-03-12 16:29] LABS: ALBUMIN % 47.5 % (55.8-66.1); ALPHA-1-GLOBULIN % 4.2 % (2.9-4.9); BETA-1-GLOBULINS % 7.7 % (4.7-7.2); BETA-2-GLOBULINS % 9.4 % (3.2-6.5)
[2020-03-12 16:30] LABS: ALBUMIN 2.66 GM/DL (3.29-5.55); ALPHA-1-GLOBULINS 0.24 GM/DL (0.17-0.41); ALPHA-2-GLOBULINS 0.62 GM/DL (0.42-0.99); BETA-1-GLOBULINS 0.43 GM/DL (0.28-0.60); BETA-2-GLOBULINS 0.53 GM/DL (0.19-0.55); GAMMA GLOBULIN % 20.2 % (11.1-18.8); GAMMA GLOBULINS 1.13 GM/DL (0.65-1.58)
[2020-03-12 16:45] VITALS: BP 161/59
[2020-03-12] MEDS: RIVAROXABAN 10 MG TAB (XARELTO) PO SCH (18:47)
[2020-03-12 21:20] VITALS: O2SAT 98
[2020-03-12 22:00] VITALS: BP 128/55
[2020-03-13] MEDS: PERCOCET 5MG/325MG TAB PO PRN ×3 (04:32→18:44)
[2020-03-13] MEDS: TIOTROPIUM INHALER/CAPSULE (SPIRIVA) INH SCH (05:53)
[2020-03-13 06:00] VITALS: BP 129/53
[2020-03-13 06:14] LABS: HEMATOCRIT 31.2 % (36.0-47.0); HEMOGLOBIN 9.8 g/dl (12.0-15.5); MEAN CORPUSCULAR HEMOGLOBIN 29.1 pg (27.0-33.0); MEAN CORPUSCULAR HGB CONC 31.4 g/dl (32.0-36.5); MEAN CORPUSCULAR VOLUME 92.6 fl (80.0-96.0); PLATELET COUNT, AUTOMATED 168 10^3/uL (150-450); RED BLOOD COUNT 3.37 10^6/uL (4.00-5.40); WHITE BLOOD COUNT 10.5 10^3/uL (4.0-10.0)
[2020-03-13 06:38] LABS: BLOOD UREA NITROGEN 25 MG/DL (7-18); CALCIUM LEVEL 8.4 MG/DL (8.8-10.2); CARBON DIOXIDE LEVEL 28 MEQ/L (21-32); CHLORIDE LEVEL 98 MEQ/L (98-107); GLOMERULAR FILTRATION RATE > 60.0 (>39); GLUCOSE, FASTING 177 MG/DL (70-100); POTASSIUM SERUM 5.5 MEQ/L (3.5-5.1); SODIUM LEVEL 131 MEQ/L (136-145)
[2020-03-13] MEDS ORDERED: FUROSEMIDE 40MG/4ML VIAL (J1940) IV ONE (08:00)
[2020-03-13] MEDS: MOM 30ML SUSPENSION UDC PO SCH (08:19)
[2020-03-13] MEDS: HumaLOG INSULIN (NovoLOG) PER UNIT SC SCH ×4 (08:19→20:23)
[2020-03-13] MEDS: MIRALAX *UNIT DOSE* 17GM PACKET PO SCH (08:21)
[2020-03-13] MEDS: LORATADINE 10 MG TAB PO SCH (08:22)
[2020-03-13] MEDS: ATORVASTATIN 20 MG TAB PO SCH (08:22)
[2020-03-13] MEDS: oxyBUTYnin *DITROPAN XL* 5 MG TABCR PO SCH (08:22)
[2020-03-13] MEDS: FLUTICASONE PROP 0.05% NASAL SPRAY 16 GM (FLONASE) SCH (08:25)
[2020-03-13 14:39] VITALS: BP 137/54
--- NOTE | 2020-03-13 15:02 | IPNPDOC ---
Text Note Date of Service The patient was seen on 03/13/20. NOTE Subjective: No complaints this am. now complaining of chest pain. RShe relates this to her pneumonia before. Will get EKG, CXR, cardiac markers with bmp. Patient's mobility extremely limited. Patient unable to roll over on the bed Objective: General: NAD, morbidly obese HEENT: NCAT, PERRLA, EOMI, MMM CVS: RRR, systolic ejection murmur LUNGS: Bilateral basal crackles. Abdomen; obese, has colostomy bag in place, bowel sounds normal. NEURO: CN 2-12 are grossly intact, speech is not dysarthric PSYCH: AOx3 Extremities: Bilateral 2+ edema. LABORATORY DATA: Reviewed IMAGING: Maxillofacial CT "IMPRESSION: 1. No acute facial bone fracture. 2. Additional findings, as above." CT of the cervical spine " IMPRESSION: 1. No CT evidence of acute cervical spine traumatic injury. 2. Additional findings, as above. " CT of the left knee without contrast "IMPRESSION: 1. Comminuted, displaced and impacted fracture of the distal femoral metadiaphysis, as described above. 2. Additional findings, as above. " X-ray of hip and pelvis report pending.... Chest x-ray shows poor aeration, possible cardiomegaly and stomach close, but the final report is pending... X-ray of left femur appears to show distal left femur fracture, but the final report is pending ... X-ray of the left knee, there appears to be a distal left femur fracture, but the final report is pending... TTE: 1. Extensive focal thickening and focal calcific deposits involving a 3-cusp aortic valve with mild reduction in aortic cusp mobility. Mild aortic stenosis and trace aortic regurgitation. 2. Moderately-severe concentric left ventricle hypertrophy with normal LV systolic function. Left ventricular ejection fraction (LVEF) 70% by visual estimate. No regional wall motion abnormalities of the left ventricle. Grade 1 LV diastolic dysfunction (impaired relaxation filling pattern). 3. Suggestive of mild elevation of pulmonary artery systolic pressure. 4. Mild mitral annular calcification. No mitral regurgitation. 5. Otherwise normal appearing echocardiogram Doppler findings. ASSESSMENT and PLAN: 80-year-old W with a history of diabetes, rheumatoid arthritis, hypertension, dyslipidemia, liver abscess, asthma, peripheral vascular disease with morbid obesity, body mass index (BMI) of 55.7, and probable BERRY, who presented on 03/08 after a mechanical fall and was found to have a left femoral neck fracture s/p surgery. Chest pain EKG, cardiac makers, CXR. L hip fracture s/p surgery 03/08. Pain management and DVT ppx per surgical team PT/OT Continued Rehab Hyponatremia and hyperkalemia will hold HCTZ/ triamterene and give Lasix 1 dose. will monitor. Elevated right hemidiaphragm chronic. Type 2 diabetes. Consistent carb diet On fingersticks ACHS hypoglycemic protocol SSI Hypertension. Controlled and hemodynamically stable History of rheumatoid arthritis on chronic Plaquenil. She is continued on hydroxychloroquine. Obesity. Body mass index (BMI) of 55.7 with BERRY. High risk of hypercapnic respiratory failure post-surgery. Continue on oxygen for now and BERRY protocol. CPAP when available. History of peripheral arterial disease. On chronic aspirin, Acute on chronic Anemia. s/p 3u pRBCs, goal hgb >8 History of asthma. Nebulizers as needed. 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 Mild thrombocytopenia resolved DVT ppx: xarelto Dispo planning: ongoing PT/OT with pending evaluation by Brittanie HESS I+O Brittanie MUNIZ I+O Laboratory Tests 03/13/20 05:56 Vital Signs Date Time Temp Pulse Resp B/P (MAP) Pulse Ox O2 Delivery O2 Flow Rate FiO2 03/13/20 14:50 16 03/13/20 07:39 0.5 03/13/20 06:00 98.1 91 129/53 (78) 98 Nasal Cannula 03/08/20 15:00 100 I&O- Last 24 Hours up to 6 AM 03/13/20 07:00 Intake Total 1710 ml Output Total 250 ml Balance 1460 ml JONES HERNANDEZ MD Mar 13, 2020 15:02
[2020-03-13 16:10] LABS: BLOOD UREA NITROGEN 26 MG/DL (7-18); CALCIUM LEVEL 8.7 MG/DL (8.8-10.2); CARBON DIOXIDE LEVEL 31 MEQ/L (21-32); CHLORIDE LEVEL 98 MEQ/L (98-107); CPK CREATINE PHOSPHOKINASE 52 U/L (26-192); CREATININE FOR GFR 0.95 MG/DL (0.55-1.30); GLOMERULAR FILTRATION RATE > 60.0 (>39); GLUCOSE, FASTING 235 MG/DL (70-100); MB/CK RELATIVE INDEX 1.92 (< OR =4); POTASSIUM SERUM 4.9 MEQ/L (3.5-5.1); SODIUM LEVEL 134 MEQ/L (136-145); TROPONIN I < 0.02 NG/ML (< 0.10)
[2020-03-13] MEDS: RIVAROXABAN 10 MG TAB (XARELTO) PO SCH (17:26)
[2020-03-13 20:16] VITALS: BP 140/56
[2020-03-13 21:00] VITALS: O2SAT 99
--- NOTE | 2020-03-14 00:21 | REP ---
CHEST, SINGLE VIEW: Single view of the chest is performed and compared to prior study of 03/07/2020. There is cardiomegaly. There is pulmonary venous hypertension. Linear fibroatelectasis is seen in the right lung base. There is calcification and ectasia of the thoracic aorta. Mediastinal silhouette is unchanged. IMPRESSION: Cardiomegaly and venous hypertension. Right base atelectatic change. Electronically Signed by Ayden Haddad MD 03/15/2020 10:06 A
[2020-03-14] MEDS ORDERED: diphenhydrAMINE 25MG CAP PO ONE ×2 (00:30→15:45)
[2020-03-14 05:22] VITALS: BP 134/58
[2020-03-14] MEDS: TIOTROPIUM INHALER/CAPSULE (SPIRIVA) INH SCH (07:23)
[2020-03-14 07:39] LABS: HEMATOCRIT 30.5 % (36.0-47.0); HEMOGLOBIN 9.6 g/dl (12.0-15.5); MEAN CORPUSCULAR HGB CONC 31.5 g/dl (32.0-36.5); MEAN CORPUSCULAR VOLUME 92.1 fl (80.0-96.0); PLATELET COUNT, AUTOMATED 167 10^3/uL (150-450); RED BLOOD COUNT 3.31 10^6/uL (4.00-5.40); WHITE BLOOD COUNT 8.8 10^3/uL (4.0-10.0)
[2020-03-14 08:01] LABS: BLOOD UREA NITROGEN 26 MG/DL (7-18); CALCIUM LEVEL 8.6 MG/DL (8.8-10.2); CARBON DIOXIDE LEVEL 29 MEQ/L (21-32); CHLORIDE LEVEL 97 MEQ/L (98-107); CREATININE FOR GFR 0.94 MG/DL (0.55-1.30); GLOMERULAR FILTRATION RATE > 60.0 (>39); GLUCOSE, FASTING 183 MG/DL (70-100); POTASSIUM SERUM 4.7 MEQ/L (3.5-5.1); SODIUM LEVEL 132 MEQ/L (136-145)
[2020-03-14] MEDS: ATORVASTATIN 20 MG TAB PO SCH (08:28)
[2020-03-14] MEDS: MIRALAX *UNIT DOSE* 17GM PACKET PO SCH (08:28)
[2020-03-14] MEDS: oxyBUTYnin *DITROPAN XL* 5 MG TABCR PO SCH (08:28)
[2020-03-14] MEDS: HumaLOG INSULIN (NovoLOG) PER UNIT SC SCH ×4 (08:28→21:00)
[2020-03-14] MEDS: LORATADINE 10 MG TAB PO SCH (08:28)
[2020-03-14] MEDS: MOM 30ML SUSPENSION UDC PO SCH (08:29)
[2020-03-14] MEDS: FLUTICASONE PROP 0.05% NASAL SPRAY 16 GM (FLONASE) SCH (08:29)
[2020-03-14] MEDS: PERCOCET 5MG/325MG TAB PO PRN ×2 (08:31→16:33)
[2020-03-14] MEDS ORDERED: FUROSEMIDE 40 MG TAB PO SCH (09:00)
[2020-03-14] MEDS: DYAZIDE 37.5/25 CAP (TRIAM/HCTZ) PO SCH (09:00)
--- NOTE | 2020-03-14 11:50 | IPNPDOC ---
Text Note Date of Service The patient was seen on 03/14/20. NOTE Subjective: No complaints this am. Chest pain has resolved. Feels the incentive spirometry is helping, No ekg changes, No elevation of cardia enzymes. CXR atelectasis and mild vascular congestion. Objective: General: NAD, morbidly obese HEENT: NCAT, PERRLA, EOMI, MMM CVS: RRR, systolic ejection murmur LUNGS: Bilateral basal crackles. Also crackes on michelle left ant chest wall. Abdomen; obese, has colostomy bag in place, bowel sounds normal. NEURO: CN 2-12 are grossly intact, speech is not dysarthric PSYCH: AOx3 Extremities: Bilateral 2+ edema. LABORATORY DATA: Reviewed IMAGING: Maxillofacial CT "IMPRESSION: 1. No acute facial bone fracture. 2. Additional findings, as above." CT of the cervical spine " IMPRESSION: 1. No CT evidence of acute cervical spine traumatic injury. 2. Additional findings, as above. " CT of the left knee without contrast "IMPRESSION: 1. Comminuted, displaced and impacted fracture of the distal femoral metadiaphysis, as described above. 2. Additional findings, as above. " X-ray of hip and pelvis report pending.... Chest x-ray shows poor aeration, possible cardiomegaly and stomach close, but the final report is pending... X-ray of left femur appears to show distal left femur fracture, but the final report is pending ... X-ray of the left knee, there appears to be a distal left femur fracture, but the final report is pending... TTE: 1. Extensive focal thickening and focal calcific deposits involving a 3-cusp aortic valve with mild reduction in aortic cusp mobility. Mild aortic stenosis and trace aortic regurgitation. 2. Moderately-severe concentric left ventricle hypertrophy with normal LV systolic function. Left ventricular ejection fraction (LVEF) 70% by visual estimate. No regional wall motion abnormalities of the left ventricle. Grade 1 LV diastolic dysfunction (impaired relaxation filling pattern). 3. Suggestive of mild elevation of pulmonary artery systolic pressure. 4. Mild mitral annular calcification. No mitral regurgitation. 5. Otherwise normal appearing echocardiogram Doppler findings. ASSESSMENT and PLAN: 80-year-old W with a history of diabetes, rheumatoid arthritis, hypertension, dyslipidemia, liver abscess, asthma, peripheral vascular disease with morbid obesity, body mass index (BMI) of 55.7, and probable BERRY, who presented on 03/08 after a mechanical fall and was found to have a left femoral neck fracture s/p surgery. Chest pain EKG, cardiac makers negative for any cardiac event. CXR atelectasis and congestion will give lasix bid, incentive spirometry. L hip fracture s/p surgery 03/08. Pain management and DVT ppx per surgical team PT/OT Continued Rehab Hyponatremia and hyperkalemia resolved will stop triamterone / HCTZ and start lasix bid Diastolic dysfunction and Mild Aortic stenosis possible some acute on chronic CHF. signs of fluid overload will start on lasix bid. Elevated right hemidiaphragm chronic. Type 2 diabetes. Consistent carb diet On fingersticks ACHS hypoglycemic protocol SSI Hypertension. Controlled and hemodynamically stable History of rheumatoid arthritis on chronic Plaquenil. She is continued on hydroxychloroquine. Obesity. Body mass index (BMI) of 55.7 with BERRY. High risk of hypercapnic respiratory failure post-surgery. Continue on oxygen for now and BERRY protocol. CPAP when available. History of peripheral arterial disease. On chronic aspirin, Acute on chronic Anemia. s/p 3u pRBCs, goal hgb >8 History of asthma. Nebulizers as needed. 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 Mild thrombocytopenia resolved DVT ppx: xarelto Dispo planning: ongoing PT/OT with pending evaluation by Brittanie HESS, I+O Brittanie MUNIZ I+O Laboratory Tests 03/13/20 15:28 03/14/20 07:18 Vital Signs Date Time Temp Pulse Resp B/P (MAP) Pulse Ox O2 Delivery O2 Flow Rate FiO2 03/14/20 08:31 18 Nasal Cannula 1.0 03/14/20 05:22 97.9 86 134/58 (83) 98 03/08/20 15:00 100 I&O- Last 24 Hours up to 6 AM 03/14/20 06:00 Intake Total 1920 ml Output Total 1800 ml Balance 120 ml JONES HERNANDEZ MD Mar 14, 2020 11:50
[2020-03-14] MEDS: FUROSEMIDE 40MG/4ML VIAL (J1940) IV SCH ×2 (12:18→17:51)
[2020-03-14 14:00] VITALS: BP 131/59
--- NOTE | 2020-03-14 14:59 | ECGEPIP ---
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
[2020-03-14] MEDS: RIVAROXABAN 10 MG TAB (XARELTO) PO SCH (17:52)
[2020-03-14 22:00] VITALS: BP 109/57
[2020-03-15 06:00] VITALS: BP 129/72
[2020-03-15] MEDS: TIOTROPIUM INHALER/CAPSULE (SPIRIVA) INH SCH (07:45)
[2020-03-15 08:09] LABS: BLOOD UREA NITROGEN 27 MG/DL (7-18); CALCIUM LEVEL 8.8 MG/DL (8.8-10.2); CARBON DIOXIDE LEVEL 31 MEQ/L (21-32); CHLORIDE LEVEL 97 MEQ/L (98-107); CREATININE FOR GFR 0.98 MG/DL (0.55-1.30); GLOMERULAR FILTRATION RATE > 60.0 (>39); GLUCOSE, FASTING 203 MG/DL (70-100); POTASSIUM SERUM 4.6 MEQ/L (3.5-5.1); SODIUM LEVEL 134 MEQ/L (136-145)
[2020-03-15] MEDS: FUROSEMIDE 40MG/4ML VIAL (J1940) IV SCH ×2 (08:45→17:42)
[2020-03-15] MEDS: MOM 30ML SUSPENSION UDC PO SCH (08:45)
[2020-03-15] MEDS: ATORVASTATIN 20 MG TAB PO SCH (08:46)
[2020-03-15] MEDS: HumaLOG INSULIN (NovoLOG) PER UNIT SC SCH ×4 (08:46→20:53)
[2020-03-15] MEDS: oxyBUTYnin *DITROPAN XL* 5 MG TABCR PO SCH (08:46)
[2020-03-15] MEDS: LORATADINE 10 MG TAB PO SCH (08:46)
[2020-03-15] MEDS: FLUTICASONE PROP 0.05% NASAL SPRAY 16 GM (FLONASE) SCH (08:47)
[2020-03-15] MEDS: MIRALAX *UNIT DOSE* 17GM PACKET PO SCH (08:47)
[2020-03-15] MEDS: PERCOCET 5MG/325MG TAB PO PRN ×3 (08:48→22:07)
[2020-03-15 14:00] VITALS: BP 110/61
--- NOTE | 2020-03-15 16:09 | NOCOX ---
DATE OF PROCEDURE: 03/13/2020 Study was performed on oxygen supplementation at 2 to 1 liters a minute. The total valid sampling time was approximately 7 hours and 30 minutes. The patient's oxygen saturation ranged from 100% to a low of 73%. His heart rate ranged from a high of 114 to a low of 56. The total time spent with an oxygen saturation less than 88% was 1 minute and 44 seconds. Graphically, the patient had a few episodes of variable desaturations overnight with minimal heart rate variability. IMPRESSION: Nocturnal oximetry study was performed on nasal cannula oxygen supplementation. The patient did not have significant desaturation noted overnight. On his SpO2 waveform there was a few episodes of variable desaturation noted suspicious for sleep disordered breathing. Can consider more formal sleep testing if clinically indicated.
[2020-03-15] MEDS: RIVAROXABAN 10 MG TAB (XARELTO) PO SCH (17:43)
[2020-03-15] MEDS: diphenhydrAMINE 50MG/ML VIAL (J1200) IV PRN (23:25)
[2020-03-16 06:00] VITALS: BP 160/76
[2020-03-16] MEDS: TIOTROPIUM INHALER/CAPSULE (SPIRIVA) INH SCH (07:56)
[2020-03-16] MEDS: MIRALAX *UNIT DOSE* 17GM PACKET PO SCH (08:37)
[2020-03-16] MEDS: MOM 30ML SUSPENSION UDC PO SCH (08:37)
[2020-03-16] MEDS: HumaLOG INSULIN (NovoLOG) PER UNIT SC SCH ×4 (08:38→21:00)
[2020-03-16] MEDS: FUROSEMIDE 40MG/4ML VIAL (J1940) IV SCH ×2 (08:38→17:25)
[2020-03-16] MEDS: PERCOCET 5MG/325MG TAB PO PRN ×2 (08:40→21:39)
[2020-03-16] MEDS: LORATADINE 10 MG TAB PO SCH (08:41)
[2020-03-16] MEDS: ATORVASTATIN 20 MG TAB PO SCH (08:41)
[2020-03-16] MEDS: oxyBUTYnin *DITROPAN XL* 5 MG TABCR PO SCH (08:41)
[2020-03-16] MEDS: FLUTICASONE PROP 0.05% NASAL SPRAY 16 GM (FLONASE) SCH (08:42)
[2020-03-16] MEDS: diphenhydrAMINE 50MG/ML VIAL (J1200) IV PRN (17:25)
[2020-03-16] MEDS: RIVAROXABAN 10 MG TAB (XARELTO) PO SCH (17:25)
[2020-03-17 06:00] VITALS: BP 124/64
[2020-03-17] MEDS: TIOTROPIUM INHALER/CAPSULE (SPIRIVA) INH SCH (08:15)
[2020-03-17] MEDS: MOM 30ML SUSPENSION UDC PO SCH (10:13)
[2020-03-17] MEDS: MIRALAX *UNIT DOSE* 17GM PACKET PO SCH (10:13)
[2020-03-17] MEDS: HumaLOG INSULIN (NovoLOG) PER UNIT SC SCH ×4 (10:13→19:56)
[2020-03-17] MEDS: FUROSEMIDE 40MG/4ML VIAL (J1940) IV SCH ×2 (10:16→17:44)
[2020-03-17] MEDS: PERCOCET 5MG/325MG TAB PO PRN ×2 (10:16→20:06)
[2020-03-17] MEDS: oxyBUTYnin *DITROPAN XL* 5 MG TABCR PO SCH (10:16)
[2020-03-17] MEDS: ATORVASTATIN 20 MG TAB PO SCH (10:17)
[2020-03-17] MEDS: FLUTICASONE PROP 0.05% NASAL SPRAY 16 GM (FLONASE) SCH (10:17)
[2020-03-17] MEDS: LORATADINE 10 MG TAB PO SCH (10:17)
[2020-03-17] MEDS: RIVAROXABAN 10 MG TAB (XARELTO) PO SCH (17:45)
[2020-03-17] MEDS: diphenhydrAMINE 50MG/ML VIAL (J1200) IV PRN (20:05)
[2020-03-18] MEDS: PERCOCET 5MG/325MG TAB PO PRN ×2 (03:21→12:23)
[2020-03-18 06:00] VITALS: BP 122/60
[2020-03-18 07:37] LABS: HEMATOCRIT 27.5 % (36.0-47.0); HEMOGLOBIN 8.8 g/dl (12.0-15.5); MEAN CORPUSCULAR HEMOGLOBIN 29.5 pg (27.0-33.0); MEAN CORPUSCULAR VOLUME 92.3 fl (80.0-96.0); PLATELET COUNT, AUTOMATED 205 10^3/uL (150-450); RED BLOOD COUNT 2.98 10^6/uL (4.00-5.40); WHITE BLOOD COUNT 9.4 10^3/uL (4.0-10.0)
[2020-03-18] MEDS: TIOTROPIUM INHALER/CAPSULE (SPIRIVA) INH SCH (07:55)
[2020-03-18 08:00] LABS: CALCIUM LEVEL 7.6 MG/DL (8.8-10.2); CREATININE FOR GFR 1.17 MG/DL (0.55-1.30); GLOMERULAR FILTRATION RATE 57.7 (>39); POTASSIUM SERUM 4.9 MEQ/L (3.5-5.1)
[2020-03-18] MEDS: MIRALAX *UNIT DOSE* 17GM PACKET PO SCH (08:09)
[2020-03-18] MEDS: HumaLOG INSULIN (NovoLOG) PER UNIT SC SCH ×2 (08:09→12:14)
[2020-03-18] MEDS: MOM 30ML SUSPENSION UDC PO SCH (08:09)
[2020-03-18] MEDS: oxyBUTYnin *DITROPAN XL* 5 MG TABCR PO SCH (08:10)
[2020-03-18] MEDS: LORATADINE 10 MG TAB PO SCH (08:10)
[2020-03-18] MEDS: FUROSEMIDE 40MG/4ML VIAL (J1940) IV SCH (08:10)
[2020-03-18] MEDS: ATORVASTATIN 20 MG TAB PO SCH (08:10)
[2020-03-18] MEDS: FLUTICASONE PROP 0.05% NASAL SPRAY 16 GM (FLONASE) SCH (08:11)
[2020-03-18] MEDS ORDERED: PERCOCET PO ×2 (10:09)
[2020-03-18] MEDS ORDERED: LISI10TA4 PO (10:09)
[2020-03-18] MEDS ORDERED: LASI40TA9 PO (10:09)
[2020-03-18] MEDS ORDERED: XARE10TA PO (10:09)
--- NOTE | 2020-03-18 22:25 | RO ---
DATE OF PROCEDURE: 03/08/2020 PREPROCEDURE DIAGNOSES: 1. Comminuted unstable left distal femur fracture. 2. Supermorbid obesity. POSTPROCEDURE DIAGNOSES: 1. Comminuted unstable left distal femur fracture. 2. Supermorbid obesity. PROCEDURE: Open reduction internal fixation left comminuted unstable distal femur fracture with a retrograde Synthes nail. SURGEON: Tariq Delgado MD SILK SPOOLER: None. ANESTHESIA: General endotracheal anesthesia. COMPLICATIONS: None. ESTIMATED BLOOD LOSS: 100 mL. INDICATIONS: She is a 80-year-old supermorbid female with a body mass index (BMI) of over 55, who has extremely large thighs and abdomen. She has a colostomy bag as well and chronic lymphedema. Presented after a mechanical fall at home and sustained a comminuted unstable displaced fracture of the distal femur above an arthritic knee, and presents for attempt at repair, and plan is for retrograde nailing. DESCRIPTION OF PROCEDURE: She was given 3 grams of Kefzol intravenously preoperatively, a unit of blood was also transfused, and then taken to the operating room where successful general endotracheal tube anesthetic was established. She was positioned onto the Mateo table, and because of her size, we had to use extra sled skids to help secure the right side of her body and right leg from falling off the table. Then, her pannus had to be taped upward out of the way of the proximal thigh on the left side with plans of potentially using a locking screw in that location. Once that had been secured, we performed a formal sterile prep, first of the thigh and then the leg was elevated and the posterior aspect of the thigh was prepped, and then sterile drapes were placed, and the leg was placed back down onto the sterile drapes. Then, we prepped the remaining portions of the lower leg in the usual fashion. A medium size triangle was used to support the operative leg to help with closed reduction of the femur. At this point, fluoroscopic imaging was performed in the AP and lateral planes, confirming that we could get reasonable reduction of this highly comminuted unstable fracture. Then, under fluoroscopic guidance, I estimated the incision through the tendon approach to the starting point of the distal femur. The starting point was right at the junction of Blumensaat's line with the anterior intercondylar notch. I advanced the pin, and then under a combination of AP and lateral planes, fluoroscopic imaging, I manipulated the fracture as best I could and tried to get it as anatomic as possible and advancing the guide pin across the fracture site. Once I was satisfied that I could get a reasonable reduction, I opened the distal end of the femur with a 13 mm drill and then exchanged the guide pin for the ball-tip guide pin, and then again passed the guide pin up to the lesser trochanteric area on the proximal femur. I then measured for a 380 mm jhoan and then looked at the diameter of the femoral shaft, and it looked as if 15 mm was roughly the diameter. Thus, I estimated I would be using a 13 mm diameter nail. But for safe keeping, I did first pass the 12 mm reamer. There was no bony cortical contact. Then, I passed the 13, had slight contact, and then passed the 14 and had just a little bit more bony contact, so I felt the 13 mm nail was appropriate. The nail was opened and then inserted. I did have to add a bolster underneath the knee to help bring her out of some extension deformity of the fracture site, as well as add a little varus thrust to help more anatomically reduce the fracture as I advanced the nail. Once the nail was felt to be in good position, the drill guides were attached to the U-shaped portion of the nail and a small stab incision was made. We advanced the drill sleeve down to the lateral femoral cortex and drilled under fluoroscopic imaging and measured for a 68 mm locking screw, and that was advanced under fluoroscopic imaging with good purchase. I then used the drill sleeve for the twist blade and made a small incision and advanced the guide against the lateral femoral cortex, drilled with a drill pin and measured for a 75 mm twist blade. I opened the lateral cortex with a drill and then advanced the twist blade under fluoroscopic imaging with a guide pin. Then, I secured it to the interlocking end cap through the distal end of the femur. Fluoroscopic imaging at this point confirmed I felt the reduction was very reasonable in the AP and lateral planes. I then turned our attention to the proximal locking hole. I got a perfect napaimute on the AP view. Then, I made a small stab incision, and advanced bluntly down to the femur, and then used the endotracheal tube to advance down to the femur and then introduce the drill through the endotracheal tube. And then under fluoroscopic imaging after getting perfect circles, I advanced the drill across the fracture sit and I measured initially for a 40. The screw was passed using the securing screw cryogenic transport driver, and I froglegged the leg to get the lateral, and the screw was too long. Thus, I had to remove that by carefully inserting the capturing screwdriver back to the screw head and unscrewed it and removed it, and then replaced it with a 36 mm depth screw. Excellent purchase was provided, and the screw was noted to be in good position. At this point, I felt that no further fixation was necessary. I did not plan to dynamize this fracture because it seemed to be well impacted already. Thus, I left it with a single statically locked construct proximally. At this point, I copiously irrigated all the wounds, closed the patellar tendon defect with a #0 PDS suture, closed the peritenon with a #0 PDS suture as well, then closed the deep subdermal tissues with a #2-0 PDS suture, as well as the lateral wound, and then closed the skin incisions with alissa and covered them with Optifoam dressings. The patient was then transferred to her bed, and then awakened from general endotracheal tube anesthesia after having tolerated the procedure well, transferred to the recovery room in stable condition. There are no intraoperative complications.
[2020-04-01] MEDS ORDERED: VITAMIN D 50,000 UNITS CAPSULE (ERGOCALCIFEROL 1.25MG) PO SCH (09:00)
== END 2020-03-18 14:20 | DRG 480 ==
LOC: M ED 21:38 → M ED INP 03-08 01:15 → ENRESERV 03-08 02:13 → M MS5PR 03-08 03:40
PROVIDERS: ADMIT Internal Medicine; ATTEND Internal Medicine Nephrology
PROC: 30233N1 Transfusion of Nonautologous Red Blood Cells into Peripheral Vein, Percutaneous Approach (ICD-10-PCS; 2020-03-08)
PROC: 0QSC06Z Reposition Left Lower Femur with Intramedullary Internal Fixation Device, Open Approach (ICD-10-PCS; principal; 2020-03-08 15:30)
DX: M84.452A Pathological fracture, left femur, initial encounter for fracture (principal); I50.33 Acute on chronic diastolic (congestive) heart failure; Z68.43 Body mass index [BMI] 50.0-59.9, adult; N17.9 Acute kidney failure, unspecified; E87.1 Hypo-osmolality and hyponatremia; J98.11 Atelectasis; M06.9 Rheumatoid arthritis, unspecified; E66.01 Morbid (severe) obesity due to excess calories; E11.40 Type 2 diabetes mellitus with diabetic neuropathy, unspecified; I11.0 Hypertensive heart disease with heart failure; E78.5 Hyperlipidemia, unspecified; Z79.899 Other long term (current) drug therapy; Z79.82 Long term (current) use of aspirin; Z79.4 Long term (current) use of insulin; Z88.0 Allergy status to penicillin; Z88.8 Allergy status to other drugs, medicaments and biological substances; Z93.3 Colostomy status; D64.9 Anemia, unspecified; D69.6 Thrombocytopenia, unspecified; E87.5 Hyperkalemia

== ENCOUNTER 2020-03-28 11:30 | Inpatient (IN) | payer MEDICARE, MEDICAID ==
[~2020-03-28 11:30] MED LIST changes: +AMMO12LO TOP; +ASPI-161 PO; +ATOR40TA75 PO; +AZEL1SPR3; +FLON1SPR; +GLIP10TA6 PO; +HYDR200T3 PO; +INCR1INH INH; +INSU100I9 SC; +LASI40TA9 PO; +LISI10TA4 PO; +LISI40TA PO; +LORA-622 PO; +METF500T13 PO; +OMEP-218 PO; +OXYB10TA23 PO; +PERCOCET PO; +PROAAER10 INH; +PROVEX CV PO; +REPLENEX PO; +TRIA37.53 PO; +VITA50005 PO; +XARE10TA PO; +[UNRECOGNIZED DRUG - CODE] PO
[2020-03-28] MEDS ORDERED: FLUTICASONE PROP 0.05% NASAL SPRAY 16 GM (FLONASE) ONE (11:31)
[2020-03-28] MEDS ORDERED: RIVAROXABAN 20 MG TAB (XARELTO) As Ordered ONE (17:30)
[2020-03-28] MEDS ORDERED: ATORVASTATIN 20 MG TAB As Ordered ONE (17:30)
[2020-03-28] MEDS ORDERED: ATORVASTATIN 20 MG TAB ONE (17:30)
[2020-03-28] MEDS ORDERED: DEXTROSE 50% 50 ML SYRINGE ONE (17:30)
[2020-03-28] MEDS ORDERED: ASPIRIN 81 MG CHEW TABLET As Ordered ONE (17:30)
[2020-03-28] MEDS ORDERED: RIVAROXABAN 10 MG TAB (XARELTO) ONE (17:30)
[2020-03-28] MEDS ORDERED: RIVAROXABAN 20 MG TAB (XARELTO) ONE (17:30)
[2020-03-28] MEDS ORDERED: ASPIRIN 81 MG CHEW TABLET ONE (17:30)
[2020-03-28] MEDS ORDERED: ACETAMINOPHEN TAB 650MG DOSE (2X325MG) ONE (17:30)
[2020-03-28] MEDS ORDERED: ACETAMINOPHEN TAB 650MG DOSE (2X325MG) As Ordered ONE (17:32)
[2020-03-28] MEDS ORDERED: RIVAROXABAN 10 MG TAB (XARELTO) As Ordered ONE (17:38)
[2020-03-28] MEDS ORDERED: DEXTROSE 50% 50 ML SYRINGE As Ordered ONE (18:01)
[2020-03-29] MEDS ORDERED: LIDOCAINE 1% MDV 20ML VIAL ONE (08:33)
[2020-03-29] MEDS ORDERED: ACETAMINOPHEN TAB 650MG DOSE (2X325MG) ONE ×2 (08:33→16:48)
[2020-03-29] MEDS ORDERED: LIDOCAINE 1% MDV 20ML VIAL As Ordered ONE (08:36)
[2020-03-29] MEDS ORDERED: ACETAMINOPHEN TAB 650MG DOSE (2X325MG) As Ordered ONE ×2 (10:01→16:49)
[2020-03-29] MEDS ORDERED: oxyBUTYnin *DITROPAN XL* 5 MG TABCR ONE (11:00)
[2020-03-29] MEDS ORDERED: RIVAROXABAN 10 MG TAB (XARELTO) ONE (11:00)
[2020-03-29] MEDS ORDERED: ASPIRIN 81 MG CHEW TABLET ONE (16:48)
[2020-03-29] MEDS ORDERED: ATORVASTATIN 20 MG TAB As Ordered ONE (16:48)
[2020-03-29] MEDS ORDERED: ASPIRIN 81 MG CHEW TABLET As Ordered ONE (16:48)
[2020-03-29] MEDS ORDERED: ATORVASTATIN 20 MG TAB ONE (16:48)
[2020-03-30] MEDS ORDERED: TIOTROPIUM INHALER/CAPSULE (SPIRIVA) ONE (09:00)
[2020-03-30] MEDS ORDERED: HumaLOG INSULIN (NovoLOG) PER UNIT As Ordered ONE (17:06)
[2020-03-30] MEDS ORDERED: HumaLOG INSULIN (NovoLOG) PER UNIT ONE (17:06)
[2020-03-30] MEDS ORDERED: LevoFLOXacin 500MG/100ML IV BAG (J1956 PER 250MG) ONE (20:40)
[2020-03-30] MEDS ORDERED: LevoFLOXacin 500MG/100ML IV BAG (J1956 PER 250MG) As Ordered ONE (20:40)
[2020-03-30] MEDS ORDERED: ACETAMINOPHEN TAB 650MG DOSE (2X325MG) ONE (20:40)
[2020-03-30] MEDS ORDERED: ACETAMINOPHEN TAB 650MG DOSE (2X325MG) As Ordered ONE (20:40)
[2020-03-31] MEDS ORDERED: TIOTROPIUM INHALER/CAPSULE (SPIRIVA) ONE (09:00)
[2020-03-31] MEDS ORDERED: POTASSIUM CHLORIDE 10 MEQ SR TABLET As Ordered ONE (10:31)
[2020-03-31] MEDS ORDERED: ATORVASTATIN 20 MG TAB As Ordered ONE (10:32)
[2020-03-31] MEDS ORDERED: POTASSIUM CHLORIDE 10 MEQ SR TABLET ONE (10:32)
[2020-03-31] MEDS ORDERED: HumaLOG INSULIN (NovoLOG) PER UNIT ONE ×3 (10:32→17:48)
[2020-03-31] MEDS ORDERED: ACETAMINOPHEN TAB 650MG DOSE (2X325MG) ONE ×2 (10:32→21:12)
[2020-03-31] MEDS ORDERED: ATORVASTATIN 20 MG TAB ONE (10:32)
[2020-03-31] MEDS ORDERED: FUROSEMIDE 40MG/4ML VIAL (J1940) ONE (10:32)
[2020-03-31] MEDS ORDERED: ASPIRIN 81 MG ENTERIC TAB ONE (10:32)
[2020-03-31] MEDS ORDERED: HumaLOG INSULIN (NovoLOG) PER UNIT As Ordered ONE ×3 (10:33→17:48)
[2020-03-31] MEDS ORDERED: ASPIRIN 81 MG ENTERIC TAB As Ordered ONE (10:33)
[2020-03-31] MEDS ORDERED: FUROSEMIDE 40MG/4ML VIAL (J1940) As Ordered ONE (10:34)
[2020-03-31] MEDS ORDERED: ACETAMINOPHEN TAB 650MG DOSE (2X325MG) As Ordered ONE ×2 (11:19→23:55)
[2020-03-31] MEDS ORDERED: IRON SUCROSE 100MG 5ML VIAL (J1756 PER 1MG) ONE (12:00)
[2020-03-31] MEDS ORDERED: LevoFLOXacin 500MG/100ML IV BAG (J1956 PER 250MG) ONE (21:12)
[2020-03-31] MEDS ORDERED: LevoFLOXacin 500MG/100ML IV BAG (J1956 PER 250MG) As Ordered ONE (21:12)
[2020-04-01] MEDS ORDERED: RIVAROXABAN 10 MG TAB (XARELTO) ONE (08:10)
[2020-04-01] MEDS ORDERED: FUROSEMIDE 40MG/4ML VIAL (J1940) ONE (08:10)
[2020-04-01] MEDS ORDERED: HumaLOG INSULIN (NovoLOG) PER UNIT ONE ×3 (08:10→17:09)
[2020-04-01] MEDS ORDERED: ATORVASTATIN 20 MG TAB As Ordered ONE (08:10)
[2020-04-01] MEDS ORDERED: FUROSEMIDE 40MG/4ML VIAL (J1940) As Ordered ONE ×2 (08:10→22:01)
[2020-04-01] MEDS ORDERED: ATORVASTATIN 20 MG TAB ONE (08:10)
[2020-04-01] MEDS ORDERED: ASPIRIN 81 MG ENTERIC TAB ONE (08:10)
[2020-04-01] MEDS ORDERED: oxyBUTYnin *DITROPAN XL* 5 MG TABCR ONE (08:10)
[2020-04-01] MEDS ORDERED: oxyBUTYnin *DITROPAN XL* 5 MG TABCR As Ordered ONE (08:11)
[2020-04-01] MEDS ORDERED: RIVAROXABAN 10 MG TAB (XARELTO) As Ordered ONE (08:12)
[2020-04-01] MEDS ORDERED: HumaLOG INSULIN (NovoLOG) PER UNIT As Ordered ONE ×3 (08:12→17:09)
[2020-04-01] MEDS ORDERED: ASPIRIN 81 MG ENTERIC TAB As Ordered ONE (08:12)
[2020-04-01] MEDS ORDERED: ACETAMINOPHEN TAB 650MG DOSE (2X325MG) As Ordered ONE ×3 (10:44→22:23)
[2020-04-01] MEDS ORDERED: ACETAMINOPHEN TAB 650MG DOSE (2X325MG) ONE ×3 (10:44→20:01)
[2020-04-01] MEDS ORDERED: IRON SUCROSE 100MG 5ML VIAL (J1756 PER 1MG) ONE (12:00)
[2020-04-01] MEDS ORDERED: VANCOMYCIN 1000MG/20ML VIAL As Ordered ONE ×2 (13:43→22:01)
[2020-04-01] MEDS ORDERED: VANCOMYCIN 1000MG/20ML VIAL ONE ×2 (13:43→20:01)
[2020-04-01] MEDS ORDERED: VANCOMYCIN 750MG/25ML VIAL ONE (15:40)
[2020-04-01] MEDS ORDERED: VANCOMYCIN 750MG/25ML VIAL As Ordered ONE (15:40)
[2020-04-02] MEDS ORDERED: VANCOMYCIN 1000MG/20ML VIAL ONE (06:11)
[2020-04-02] MEDS ORDERED: MAGNESIUM SULFATE 1GM/100ML D5W BAG (10MG/ML) As Ordered ONE ×4 (06:11→19:44)
[2020-04-02] MEDS ORDERED: MAGNESIUM SULFATE 1GM/100ML D5W BAG (10MG/ML) ONE ×4 (06:11→19:44)
[2020-04-02] MEDS ORDERED: VANCOMYCIN 1000MG/20ML VIAL As Ordered ONE (07:38)
[2020-04-02] MEDS ORDERED: oxyBUTYnin *DITROPAN XL* 5 MG TABCR ONE (08:22)
[2020-04-02] MEDS ORDERED: RIVAROXABAN 10 MG TAB (XARELTO) ONE (08:22)
[2020-04-02] MEDS ORDERED: ASPIRIN 81 MG ENTERIC TAB ONE (08:22)
[2020-04-02] MEDS ORDERED: FUROSEMIDE 40MG/4ML VIAL (J1940) ONE (08:22)
[2020-04-02] MEDS ORDERED: ATORVASTATIN 20 MG TAB As Ordered ONE (08:22)
[2020-04-02] MEDS ORDERED: HumaLOG INSULIN (NovoLOG) PER UNIT ONE ×3 (08:22→17:30)
[2020-04-02] MEDS ORDERED: ATORVASTATIN 20 MG TAB ONE (08:22)
[2020-04-02] MEDS ORDERED: oxyBUTYnin *DITROPAN XL* 5 MG TABCR As Ordered ONE (08:22)
[2020-04-02] MEDS ORDERED: RIVAROXABAN 10 MG TAB (XARELTO) As Ordered ONE (08:23)
[2020-04-02] MEDS ORDERED: ASPIRIN 81 MG ENTERIC TAB As Ordered ONE (08:23)
[2020-04-02] MEDS ORDERED: HumaLOG INSULIN (NovoLOG) PER UNIT As Ordered ONE ×3 (08:23→17:31)
[2020-04-02] MEDS ORDERED: TIOTROPIUM INHALER/CAPSULE (SPIRIVA) ONE (09:00)
[2020-04-02] MEDS ORDERED: FUROSEMIDE 40MG/4ML VIAL (J1940) As Ordered ONE (09:09)
[2020-04-02] MEDS ORDERED: ACETAMINOPHEN 325 MG TAB As Ordered ONE ×2 (10:27→21:12)
[2020-04-02] MEDS ORDERED: IRON SUCROSE 100MG 5ML VIAL (J1756 PER 1MG) ONE (12:00)
[2020-04-02] MEDS ORDERED: ACETAMINOPHEN 325 MG TAB ONE ×2 (12:00→21:11)
[2020-04-02] MEDS ORDERED: POTASSIUM CHLORIDE 10 MEQ SR TABLET As Ordered ONE (15:15)
[2020-04-02] MEDS ORDERED: VANCOMYCIN 750MG/25ML VIAL ONE (15:15)
[2020-04-02] MEDS ORDERED: POTASSIUM CHLORIDE 10 MEQ SR TABLET ONE (15:15)
[2020-04-02] MEDS ORDERED: VANCOMYCIN 750MG/25ML VIAL As Ordered ONE (16:08)
[2020-04-02] MEDS ORDERED: VANCOMYCIN 500MG/10ML VIAL ONE (17:30)
[2020-04-02] MEDS ORDERED: VANCOMYCIN 500MG/10ML VIAL As Ordered ONE (17:30)
[2020-04-02] MEDS ORDERED: FUROSEMIDE 100MG/10ML VIAL (J1940) ONE (21:11)
[2020-04-02] MEDS ORDERED: FUROSEMIDE 100MG/10ML VIAL (J1940) As Ordered ONE (21:11)
[2020-04-03] MEDS ORDERED: VANCOMYCIN 750MG/25ML VIAL As Ordered ONE (03:59)
[2020-04-03] MEDS ORDERED: VANCOMYCIN 750MG/25ML VIAL ONE (03:59)
[2020-04-03] MEDS ORDERED: ACETAMINOPHEN 325 MG TAB ONE (03:59)
[2020-04-03] MEDS ORDERED: ACETAMINOPHEN 325 MG TAB As Ordered ONE (04:50)
[2020-04-03] MEDS ORDERED: VANCOMYCIN 500MG/10ML VIAL As Ordered ONE (05:28)
[2020-04-03] MEDS ORDERED: VANCOMYCIN 500MG/10ML VIAL ONE (05:28)
[2020-04-03] MEDS ORDERED: TIOTROPIUM INHALER/CAPSULE (SPIRIVA) ONE (09:00)
[2020-04-03] MEDS ORDERED: RIVAROXABAN 10 MG TAB (XARELTO) ONE (09:12)
[2020-04-03] MEDS ORDERED: ATORVASTATIN 20 MG TAB ONE (09:12)
[2020-04-03] MEDS ORDERED: FUROSEMIDE 40MG/4ML VIAL (J1940) As Ordered ONE (09:12)
[2020-04-03] MEDS ORDERED: HumaLOG INSULIN (NovoLOG) PER UNIT ONE ×2 (09:12→13:20)
[2020-04-03] MEDS ORDERED: oxyBUTYnin *DITROPAN XL* 5 MG TABCR ONE (09:12)
[2020-04-03] MEDS ORDERED: ASPIRIN 81 MG ENTERIC TAB ONE (09:12)
[2020-04-03] MEDS ORDERED: FUROSEMIDE 40MG/4ML VIAL (J1940) ONE (09:12)
[2020-04-03] MEDS ORDERED: oxyBUTYnin *DITROPAN XL* 5 MG TABCR As Ordered ONE (09:13)
[2020-04-03] MEDS ORDERED: ATORVASTATIN 20 MG TAB As Ordered ONE (09:13)
[2020-04-03] MEDS ORDERED: HumaLOG INSULIN (NovoLOG) PER UNIT As Ordered ONE ×2 (09:14→13:20)
[2020-04-03] MEDS ORDERED: ASPIRIN 81 MG ENTERIC TAB As Ordered ONE (09:14)
[2020-04-03] MEDS ORDERED: RIVAROXABAN 10 MG TAB (XARELTO) As Ordered ONE (09:14)
[2020-05-05 11:52] LABS: INR 1.19; PROTHROMBIN TIME 15.4 SECONDS (11.8-14.0)
[2020-05-05 12:23] LABS: APPEARANCE, URINE CLEAR (CLEAR); BACTERIA, URINE AUTO 1+ (NEGATIVE); BILIRUBIN, URINE AUTO NEGATIVE (NEGATIVE); BLOOD, URINE BLOOD NEGATIVE (NEGATIVE); COLOR, URINE YELLOW (YELLOW); GLUCOSE, URINE (UA) AUTO NEGATIVE (NEGATIVE); KETONE, URINE AUTO NEGATIVE (NEGATIVE); LEUKOCYTE ESTERASE, URINE AUTO 1+ (NEGATIVE); MUCUS, URINE SMALL (NEGATIVE); NITRITE, URINE AUTO NEGATIVE (NEGATIVE); PROTEIN, URINE AUTO NEGATIVE (NEGATIVE); RBC, URINE AUTO 1 /HPF (0-3); SPECIFIC GRAVITY URINE AUTO 1.004 (1.002-1.035); SQUAMOUS EPITHELIAL CELL UR AU 0 /HPF (0-6); UROBILINOGEN, URINE AUTO 0.2 mg/dL (0.0-2.0); WBC, URINE AUTO 1 /HPF (0-3)
[2020-05-05 13:41] LABS: BASO % 0.3 % (0.0-1.0); EOS # 0.1 10^3/uL (0.0-0.5); EOS % 1.1 % (0.0-3.0); HEMATOCRIT 32.2 % (36.0-47.0); HEMOGLOBIN 10.7 g/dl (12.0-15.5); LYMPH # 0.7 10^3/uL (1.5-5.0); LYMPH % 9.4 % (24.0-44.0); MEAN CORPUSCULAR HEMOGLOBIN 29.2 pg (27.0-33.0); MEAN CORPUSCULAR HGB CONC 33.2 g/dl (32.0-36.5); MONO # 0.5 10^3/uL (0.0-0.8); MONO % 6.7 % (0.0-5.0); NEUTROPHILS # 5.8 10^3/uL (1.5-8.5); NEUTROPHILS % 81.9 % (36.0-66.0); PLATELET COUNT, AUTOMATED 292 10^3/uL (150-450); RED BLOOD COUNT 3.66 10^6/uL (4.00-5.40); WHITE BLOOD COUNT 7.1 10^3/uL (4.0-10.0)
[2020-05-16 01:37] LABS: HEMOGLOBIN A1c 5.8 %
--- NOTE | 2020-05-17 09:08 | REP ---
CT OF THE HEAD WITHOUT CONTRAST: HISTORY: Altered mental status. TECHNIQUE: Axial noncontrast images from the skull base to the vertex with coronal reformations. FINDINGS: Mild age related atrophy and periventricular leukomalacia noted. The ventricles, sulci and cisterns are symmetric and relatively normal. Haddad-white differentiation is maintained. No acute intracranial hemorrhage, mass or mass effect. No extra-axial fluid collection. The calvarium is intact. The paranasal sinuses and mastoid air cells are clear. IMPRESSION: Negative noncontrast head CT. No evidence for acute intracranial pathology or trauma/injury MTDD
--- NOTE | 2020-05-17 09:11 | REP ---
PORTABLE CHEST X-RAY: SINGLE VIEW: COMPARISON: None available. HISTORY: Altered mental status. This report was delayed due to a malware attack on this facility. FINDINGS: Monitoring electrodes are seen. There are surgical clips in the left upper quadrant of the abdomen. Cardiomegaly is observed. The right hemidiaphragm is elevated. Pulmonary vasculature is somewhat congested. No infiltrate is seen. IMPRESSION: Cardiomyopathy and congestion of the pulmonary vasculature. Elevated right hemidiaphragm MTDD
--- NOTE | 2020-05-20 09:28 | REP ---
PICC LINE INSERTION WITH SITE-RITE: The procedure was performed under the direct supervision of Dr. Alberts. The risks and benefits of the procedure were explained to the patient and informed consent was obtained. The procedure was performed in the ICU at the bedside. PROCEDURE: The right basilic vein was localized using ultrasound guidance. The skin was prepped and draped in a sterile fashion. 1% lidocaine was used as a local anesthetic. Using ultrasound guidance, the basilic vein was cannulated and a 0.018 guidewire was inserted. The needle was removed and a 5.5 Syriac dilator and peel-away sheath was inserted over the guidewire. A 5.5 Syriac dual lumen catheter was cut to a length of 41 cm. The dilator was removed and the catheter was inserted over the guidewire. A portable chest X-ray was performed and the image demonstrates the tip of the catheter to be at the junction of the innominate vein and the superior vena cava. The peel-away sheath was removed and the catheter was flushed with heparinized saline, as per hospital protocol. The catheter was affixed to the skin and a sterile dressing was applied. The patient tolerated the procedure well and there were no immediate complications. JOLENE
[2020-05-20 14:26] LABS: HEMATOCRIT 27.5 % (36.0-47.0); HEMOGLOBIN 8.9 g/dl (12.0-15.5); MEAN CORPUSCULAR HGB CONC 32.4 g/dl (32.0-36.5); MEAN CORPUSCULAR VOLUME 89.6 fl (80.0-96.0); PLATELET COUNT, AUTOMATED 211 10^3/uL (150-450); RED BLOOD COUNT 3.07 10^6/uL (4.00-5.40); WHITE BLOOD COUNT 6.7 10^3/uL (4.0-10.0)
[2020-05-21 13:46] LABS: HEMOGLOBIN 8.2 g/dl (12.0-15.5); MEAN CORPUSCULAR HGB CONC 31.5 g/dl (32.0-36.5); MEAN CORPUSCULAR VOLUME 91.9 fl (80.0-96.0); PLATELET COUNT, AUTOMATED 190 10^3/uL (150-450); RED BLOOD COUNT 2.83 10^6/uL (4.00-5.40); WHITE BLOOD COUNT 5.5 10^3/uL (4.0-10.0)
[2020-05-22 09:36] LABS: HEMATOCRIT 26.8 % (36.0-47.0); HEMOGLOBIN 8.5 g/dl (12.0-15.5); MEAN CORPUSCULAR HGB CONC 31.7 g/dl (32.0-36.5); MEAN CORPUSCULAR VOLUME 91.5 fl (80.0-96.0); PLATELET COUNT, AUTOMATED 181 10^3/uL (150-450); RED BLOOD COUNT 2.93 10^6/uL (4.00-5.40); WHITE BLOOD COUNT 5.6 10^3/uL (4.0-10.0)
--- NOTE | 2020-05-28 12:06 | ECGEPIP ---
NORMAL SINUS RHYTHM WITH SINUS ARRHYTHMIA DELAYED ANTERIOR R WAVE PROGRESSION COMPARISON NOT AVAILABLE SEE SCANNED DOWNTIME REPORT MTDD
[2020-05-29 15:41] LABS: PERCENT SATURATION 32.2 % (13.2-45.0)
[2020-06-01 08:37] LABS: HEMOGLOBIN 9.3 g/dl (12.0-15.5); MEAN CORPUSCULAR HEMOGLOBIN 29.4 pg (27.0-33.0); MEAN CORPUSCULAR HGB CONC 32.1 g/dl (32.0-36.5); MEAN CORPUSCULAR VOLUME 91.8 fl (80.0-96.0); PLATELET COUNT, AUTOMATED 179 10^3/uL (150-450); RED BLOOD COUNT 3.16 10^6/uL (4.00-5.40); WHITE BLOOD COUNT 5.5 10^3/uL (4.0-10.0)
[2020-06-07 12:55] LABS: AMPHETAMINES LEVEL URINE NEGATIVE (NEGATIVE); BARBITURATES URINE NEGATIVE (NEGATIVE); BENZODIAZEPINES URINE NEGATIVE (NEGATIVE); CANNABINOIDS URINE NEGATIVE (NEGATIVE); COCAINE METABOLITE URINE NEGATIVE (NEGATIVE); METHADONE URINE NEGATIVE (NEGATIVE); OPIATES URINE NEGATIVE (NEGATIVE); PHENCYCLIDINE URINE NEGATIVE (NEGATIVE)
[2020-06-07 12:56] LABS: CREATININE FOR GFR 1.29 MG/DL (0.55-1.30); GLOMERULAR FILTRATION RATE 51.6 (>39); POTASSIUM SERUM 4.7 MEQ/L (3.5-5.1)
[2020-06-07 12:57] LABS: ALBUMIN 2.3 GM/DL (3.2-5.2); BILIRUBIN,TOTAL 1.1 MG/DL (0.2-1.0); CALCIUM LEVEL 8.3 MG/DL (8.8-10.2); CK-MB VALUE MASS 1.4 NG/ML (<3.6); MB/CK RELATIVE INDEX 3.11 (< OR =4); TOTAL PROTEIN 7.3 GM/DL (6.4-8.2); TROPONIN I 0.05 NG/ML (< 0.10)
--- NOTE | 2020-06-07 15:22 | ECHO ---
DATE OF PROCEDURE: 03/29/2020 Age: 80 Gender: Female Height: 67 inches Weight: 360 pounds Body surface area: 2.59 meters squared. INPATIENT ICU ROOM: 3206 REFERRING PHYSICIAN: Dr. Rodriguez INDICATION: CVA MEASURMENTS: 2-D measurements: RV - 4.4 cm LV - 4.3 cm Septum 1.3 cm Posterior wall 1.3 cm Aortic root 3.6 cm LA - 4.0 cm LVEF 75% DOPPLER MEASUREMENTS:: AV 3.28 10 meters per second LVOT 1.09 meters per second LVOT diameter 1.8 cm MEAN: AV systolic gradient 25 mmHg Dimensional index 0.30. MV E 134, A 126, E/E ratio 1.1 Early mitral V acceleration time 214 milliseconds E prime medial 7.6, A prime medial 10.4, E prime lateral 8.7. Average E/E prime ratio 16.4/PCWP-22.3 mmHg. PV 1.0 meters per second Pulmonary acceleration time 108 milliseconds. RVSP 71 mmHg IVC 2.5 cm COMMENTS: Normal sinus rhythm without any ventricular conduction disturbance. M-mode and 2 dimensional echocardiography was performed with pulse, continuous wave, color flow and tissue Doppler studies. Mild concentric left ventricular hypertrophy with hyperkinetic wall motion. Mildly dilated left atrium with grade 2 LV diastolic dysfunction and elevated estimated mean left atrial pressure. Mild to moderately dilated right heart chambers with normal wall motion and severe pulmonary hypertension. Prominently dilated IVC with reduced respiratory collapse in keeping with elevated central venous pressures/right heart failure. Normal aortic dimensions. Mild moderate calcific aortic stenosis with only trace insufficiency. Could not rule out a small vegetation. Moderate mitral annular calcification without inflow tract obstruction. Minimally trace insufficiency. Normal appearing tricuspid valve with moderate insufficiency. No apparent pericardial effusion. Especially in light of the aortic valvular findings, would recommend consideration of a transesophageal echocardiogram to rule out vegetation. MTDD
[2020-06-09 14:37] LABS: HEMATOCRIT 29.2 % (36.0-47.0); HEMOGLOBIN 9.1 g/dl (12.0-15.5); MEAN CORPUSCULAR HEMOGLOBIN 28.9 pg (27.0-33.0); MEAN CORPUSCULAR HGB CONC 31.2 g/dl (32.0-36.5); MEAN CORPUSCULAR VOLUME 92.7 fl (80.0-96.0); PLATELET COUNT, AUTOMATED 181 10^3/uL (150-450); RED BLOOD COUNT 3.15 10^6/uL (4.00-5.40); WHITE BLOOD COUNT 5.3 10^3/uL (4.0-10.0)
[2020-06-19 09:37] LABS: OSMOLALITY URINE 133 MOSM/KG (500-800)
[2020-06-22 09:27] LABS: ALBUMIN 1.8 GM/DL (3.2-5.2); ALT/SGPT 20 U/L (12-78); BILIRUBIN,TOTAL 0.7 MG/DL (0.2-1.0); BLOOD UREA NITROGEN 26 MG/DL (7-18); CALCIUM LEVEL 7.5 MG/DL (8.8-10.2); CARBON DIOXIDE LEVEL 26 MEQ/L (21-32); CHLORIDE LEVEL 92 MEQ/L (98-107); CREATININE FOR GFR 0.94 MG/DL (0.55-1.30); GLOMERULAR FILTRATION RATE > 60.0 (>39); GLUCOSE, FASTING 96 MG/DL (70-100); SODIUM LEVEL 126 MEQ/L (136-145); TOTAL PROTEIN 5.3 GM/DL (6.4-8.2)
[2020-06-22 09:29] LABS: BLOOD UREA NITROGEN 27 MG/DL (7-18); CALCIUM LEVEL 7.8 MG/DL (8.8-10.2); CARBON DIOXIDE LEVEL 30 MEQ/L (21-32); CHLORIDE LEVEL 88 MEQ/L (98-107); GLOMERULAR FILTRATION RATE > 60.0 (>39); GLUCOSE, FASTING 80 MG/DL (70-100); POTASSIUM SERUM 4.6 MEQ/L (3.5-5.1); SODIUM LEVEL 123 MEQ/L (136-145)
[2020-06-22 09:33] LABS: ALBUMIN 2.1 GM/DL (3.2-5.2); ALT/SGPT 18 U/L (12-78); BILIRUBIN,TOTAL 0.7 MG/DL (0.2-1.0); BLOOD UREA NITROGEN 24 MG/DL (7-18); CALCIUM LEVEL 7.9 MG/DL (8.8-10.2); CARBON DIOXIDE LEVEL 29 MEQ/L (21-32); CHLORIDE LEVEL 91 MEQ/L (98-107); CREATININE FOR GFR 0.88 MG/DL (0.55-1.30); GLOMERULAR FILTRATION RATE > 60.0 (>39); GLUCOSE, FASTING 94 MG/DL (70-100); POTASSIUM SERUM 4.8 MEQ/L (3.5-5.1); SODIUM LEVEL 124 MEQ/L (136-145); TOTAL PROTEIN 5.6 GM/DL (6.4-8.2)
[2020-06-23 13:29] LABS: ALBUMIN 1.9 GM/DL (3.2-5.2); ALT/SGPT 19 U/L (12-78); BILIRUBIN,TOTAL 0.8 MG/DL (0.2-1.0); BLOOD UREA NITROGEN 17 MG/DL (7-18); CALCIUM LEVEL 7.5 MG/DL (8.8-10.2); CARBON DIOXIDE LEVEL 28 MEQ/L (21-32); CHLORIDE LEVEL 98 MEQ/L (98-107); CREATININE FOR GFR 0.72 MG/DL (0.55-1.30); FERRITIN 390 NG/ML (8-252); GLOMERULAR FILTRATION RATE > 60.0 (>39); GLUCOSE, FASTING 192 MG/DL (70-100); IRON (FE) 45 UG/DL (50-170); PERCENT SATURATION 19.6 % (13.2-45.0); POTASSIUM SERUM 4.5 MEQ/L (3.5-5.1); SODIUM LEVEL 130 MEQ/L (136-145); TOTAL IRON BINDING CAPACITY 230 UG/DL (250-450); TOTAL PROTEIN 5.2 GM/DL (6.4-8.2)
[2020-06-25 10:02] LABS: ALBUMIN 1.7 GM/DL (3.2-5.2); BLOOD UREA NITROGEN 13 MG/DL (7-18); CALCIUM LEVEL 7.6 MG/DL (8.8-10.2); CARBON DIOXIDE LEVEL 30 MEQ/L (21-32); CHLORIDE LEVEL 99 MEQ/L (98-107); CREATININE FOR GFR 0.73 MG/DL (0.55-1.30); GLOMERULAR FILTRATION RATE > 60.0 (>39); GLUCOSE, FASTING 146 MG/DL (70-100); PHOSPHORUS LEVEL 2.7 MG/DL (2.5-4.9); POTASSIUM SERUM 4.3 MEQ/L (3.5-5.1); SODIUM LEVEL 131 MEQ/L (136-145)
[2020-06-25 11:08] LABS: MAGNESIUM LEVEL 1.6 MG/DL (1.8-2.4); VANCOMYCIN LEVEL TROUGH 18.1 UG/ML (10.0-20.0)
[2020-06-25 11:08] LABS: BLOOD UREA NITROGEN 13 MG/DL (7-18); CALCIUM LEVEL 7.6 MG/DL (8.8-10.2); CARBON DIOXIDE LEVEL 31 MEQ/L (21-32); CHLORIDE LEVEL 100 MEQ/L (98-107); CREATININE FOR GFR 0.73 MG/DL (0.55-1.30); GLOMERULAR FILTRATION RATE > 60.0 (>39); GLUCOSE, FASTING 166 MG/DL (70-100); MAGNESIUM LEVEL 1.2 MG/DL (1.8-2.4); POTASSIUM SERUM 3.9 MEQ/L (3.5-5.1); SODIUM LEVEL 135 MEQ/L (136-145); TROPONIN I < 0.02 NG/ML (< 0.10)
[2020-06-26 12:13] LABS: HEMATOCRIT 29.6 % (36.0-47.0); HEMOGLOBIN 9.7 g/dl (12.0-15.5); INR 1.43; MEAN CORPUSCULAR HGB CONC 32.8 g/dl (32.0-36.5); MEAN CORPUSCULAR VOLUME 88.4 fl (80.0-96.0); PARTIAL THROMBOPLASTIN TIME 29.5 SECONDS (24.2-38.5); PLATELET COUNT, AUTOMATED 238 10^3/uL (150-450); PROTHROMBIN TIME 17.7 SECONDS (12.5-14.3); RED BLOOD COUNT 3.35 10^6/uL (4.00-5.40); WHITE BLOOD COUNT 7.1 10^3/uL (4.0-10.0)
[2020-06-26 16:24] LABS: BLOOD UREA NITROGEN 13 MG/DL (7-18); GLUCOSE, FASTING 183 MG/DL (70-100)
[2020-06-26 16:25] LABS: CALCIUM LEVEL 7.7 MG/DL (8.8-10.2); CARBON DIOXIDE LEVEL 33 mmol/L (20-29); CHLORIDE LEVEL 99 MEQ/L (98-107); CREATININE FOR GFR 0.67 MG/DL (0.55-1.30); GLOMERULAR FILTRATION RATE > 60.0 (>39); MAGNESIUM LEVEL 1.6 MG/DL (1.8-2.4); POTASSIUM SERUM 3.9 MEQ/L (3.5-5.1); SODIUM LEVEL 134 MEQ/L (136-145)
[2020-06-28 06:47] LABS: ALBUMIN 1.9 GM/DL (3.2-5.2); ALT/SGPT 26 U/L (12-78); BILIRUBIN,TOTAL 0.9 MG/DL (0.2-1.0); BLOOD UREA NITROGEN 13 MG/DL (7-18); CALCIUM LEVEL 7.6 MG/DL (8.8-10.2); CARBON DIOXIDE LEVEL 31 MEQ/L (21-32); CHLORIDE LEVEL 98 MEQ/L (98-107); CREATININE FOR GFR 0.68 MG/DL (0.55-1.30); GLOMERULAR FILTRATION RATE > 60.0 (>39); GLUCOSE, FASTING 157 MG/DL (70-100); POTASSIUM SERUM 4.3 MEQ/L (3.5-5.1); SODIUM LEVEL 130 MEQ/L (136-145); TOTAL PROTEIN 5.2 GM/DL (6.4-8.2)
== END 2020-04-03 10:00 | disposition home or self-care (01) | DRG 638 ==
LOC: M ED 11:30 → M ICU 13:00
PROVIDERS: ADMIT Internal Medicine Nephrology; ATTEND Internal Medicine Nephrology
PROC: 02HV33Z Insertion of Infusion Device into Superior Vena Cava, Percutaneous Approach (ICD-10-PCS; principal; 2020-03-29)
DX: E11.649 Type 2 diabetes mellitus with hypoglycemia without coma (principal); G93.40 Encephalopathy, unspecified; N39.0 Urinary tract infection, site not specified; E87.1 Hypo-osmolality and hyponatremia; I10 Essential (primary) hypertension; Z79.899 Other long term (current) drug therapy; M06.9 Rheumatoid arthritis, unspecified; G47.33 Obstructive sleep apnea (adult) (pediatric); D64.9 Anemia, unspecified; I35.0 Nonrheumatic aortic (valve) stenosis; E86.1 Hypovolemia; Z93.3 Colostomy status; J45.909 Unspecified asthma, uncomplicated; E78.5 Hyperlipidemia, unspecified; E11.51 Type 2 diabetes mellitus with diabetic peripheral angiopathy without gangrene; Z66 Do not resuscitate

== ENCOUNTER → 2020-04-05 | Outpatient (REF) | payer MEDICARE, MEDICAID ==
[2020-07-04 13:51] LABS: ALBUMIN 1.9 GM/DL (3.2-5.2); BLOOD UREA NITROGEN 16 MG/DL (7-18); CALCIUM LEVEL 7.9 MG/DL (8.8-10.2); CARBON DIOXIDE LEVEL 33 MEQ/L (21-32); CHLORIDE LEVEL 98 MEQ/L (98-107); CREATININE FOR GFR 0.84 MG/DL (0.55-1.30); GLOMERULAR FILTRATION RATE > 60.0 (>39); GLUCOSE, FASTING 224 MG/DL (70-100); PHOSPHORUS LEVEL 3.4 MG/DL (2.5-4.9); POTASSIUM SERUM 3.7 MEQ/L (3.5-5.1); SODIUM LEVEL 136 MEQ/L (136-145)
[2020-07-04 13:52] LABS: BLOOD UREA NITROGEN 16 MG/DL (7-18); CARBON DIOXIDE LEVEL 33 MEQ/L (21-32); CHLORIDE LEVEL 98 MEQ/L (98-107); CREATININE FOR GFR 0.82 MG/DL (0.55-1.30); GLOMERULAR FILTRATION RATE > 60.0 (>39); GLUCOSE, FASTING 205 MG/DL (70-100); PHOSPHORUS LEVEL 3.3 MG/DL (2.5-4.9); POTASSIUM SERUM 3.8 MEQ/L (3.5-5.1); SODIUM LEVEL 136 MEQ/L (136-145)
== END ==
LOC: SKLAB5 13:01
PROVIDERS: ATTEND Internal Medicine
DX: E87.1 Hypo-osmolality and hyponatremia (principal)

== ENCOUNTER → 2020-04-11 | Outpatient (REF) | payer MEDICARE, MEDICAID ==
[2020-07-06 12:09] LABS: BLOOD UREA NITROGEN 29 MG/DL (7-18); CALCIUM LEVEL 8.2 MG/DL (8.8-10.2); CARBON DIOXIDE LEVEL 36 MEQ/L (21-32); CHLORIDE LEVEL 99 MEQ/L (98-107); CREATININE FOR GFR 1.08 MG/DL (0.55-1.30); GLOMERULAR FILTRATION RATE > 60.0 (>39); GLUCOSE, FASTING 110 MG/DL (70-100); PHOSPHORUS LEVEL 3.5 MG/DL (2.5-4.9); POTASSIUM SERUM 3.9 MEQ/L (3.5-5.1); SODIUM LEVEL 138 MEQ/L (136-145)
== END ==
LOC: SKLAB5 09:54
PROVIDERS: ATTEND Internal Medicine
DX: E87.1 Hypo-osmolality and hyponatremia (principal)

== ENCOUNTER → 2020-04-18 | Outpatient (REF) | payer MEDICARE, MEDICAID ==
[2020-04-18 13:35] LABS: ALBUMIN 2.1 GM/DL (3.2-5.2); CALCIUM LEVEL 8.7 MG/DL (8.8-10.2); CREATININE FOR GFR 1.29 MG/DL (0.55-1.30); GLOMERULAR FILTRATION RATE 51.6 (>39); PHOSPHORUS LEVEL 3.8 MG/DL (2.5-4.9)
== END ==
LOC: SKLAB5 10:00
PROVIDERS: ATTEND Internal Medicine
DX: E87.1 Hypo-osmolality and hyponatremia (principal)

== ENCOUNTER → 2020-04-25 | Outpatient (REF) ==
[2020-04-25 11:01] LABS: ALBUMIN 2.3 GM/DL (3.2-5.2); BLOOD UREA NITROGEN 35 MG/DL (7-18); CALCIUM LEVEL 8.5 MG/DL (8.8-10.2); CARBON DIOXIDE LEVEL 37 MEQ/L (21-32); CHLORIDE LEVEL 99 MEQ/L (98-107); CREATININE FOR GFR 1.12 MG/DL (0.55-1.30); GLOMERULAR FILTRATION RATE > 60.0 (>39); GLUCOSE, FASTING 77 MG/DL (70-100); PHOSPHORUS LEVEL 3.9 MG/DL (2.5-4.9); POTASSIUM SERUM 4.5 MEQ/L (3.5-5.1); SODIUM LEVEL 138 MEQ/L (136-145)
== END ==
LOC: SKLAB5 07:34
PROVIDERS: ATTEND Internal Medicine
DX: I50.9 Heart failure, unspecified (principal)

== ENCOUNTER → 2020-05-02 | Outpatient (REF) ==
[2020-05-02 10:20] LABS: HEMOGLOBIN 10.4 g/dl (12.0-15.5); MEAN CORPUSCULAR HEMOGLOBIN 29.8 pg (27.0-33.0); MEAN CORPUSCULAR HGB CONC 30.6 g/dl (32.0-36.5); MEAN CORPUSCULAR VOLUME 97.4 fl (80.0-96.0); PLATELET COUNT, AUTOMATED 166 10^3/uL (150-450); RED BLOOD COUNT 3.49 10^6/uL (4.00-5.40); WHITE BLOOD COUNT 7.3 10^3/uL (4.0-10.0)
[2020-05-02 11:18] LABS: ALBUMIN 2.2 GM/DL (3.2-5.2); CALCIUM LEVEL 8.8 MG/DL (8.8-10.2); CREATININE FOR GFR 1.14 MG/DL (0.55-1.30); GLOMERULAR FILTRATION RATE 59.5 (>39); PHOSPHORUS LEVEL 4.3 MG/DL (2.5-4.9); POTASSIUM SERUM 3.9 MEQ/L (3.5-5.1)
== END ==
LOC: SKLAB5 06:42
PROVIDERS: ATTEND Internal Medicine
DX: D64.9 Anemia, unspecified (principal); N18.9 Chronic kidney disease, unspecified

== ENCOUNTER → 2020-05-29 | Outpatient (REF) | payer MEDICARE, MEDICAID ==
[2020-05-29 11:09] LABS: APPEARANCE, URINE TURBID (CLEAR); BACTERIA, URINE AUTO 2+ (NEGATIVE); BILIRUBIN, URINE AUTO NEGATIVE (NEGATIVE); BLOOD, URINE BLOOD 1+ (NEGATIVE); COLOR, URINE YELLOW (YELLOW); GLUCOSE, URINE (UA) AUTO NEGATIVE (NEGATIVE); KETONE, URINE AUTO NEGATIVE (NEGATIVE); LEUKOCYTE ESTERASE, URINE AUTO 3+ (NEGATIVE); NITRITE, URINE AUTO POSITIVE (NEGATIVE); PROTEIN, URINE AUTO 1+ mg/dL (NEGATIVE); RBC, URINE AUTO 12 /HPF (0-3); SPECIFIC GRAVITY URINE AUTO 1.006 (1.002-1.035); SQUAMOUS EPITHELIAL CELL UR AU 0 /HPF (0-6); UROBILINOGEN, URINE AUTO 0.2 mg/dL (0.0-2.0); WBC, URINE AUTO TNTC /HPF (0-3)
[2020-05-29 11:21] LABS: ALBUMIN 2.1 GM/DL (3.2-5.2); CALCIUM LEVEL 8.7 MG/DL (8.8-10.2); CREATININE FOR GFR 1.2 MG/DL (0.55-1.30); MAGNESIUM LEVEL 1.9 MG/DL (1.8-2.4); PHOSPHORUS LEVEL 4.3 MG/DL (2.5-4.9); POTASSIUM SERUM 4.8 MEQ/L (3.5-5.1)
== END ==
LOC: SKLAB5 09:31
PROVIDERS: ATTEND Internal Medicine
DX: N18.9 Chronic kidney disease, unspecified (principal)

== ENCOUNTER → 2020-05-30 | Outpatient (REF) | payer MEDICARE, MEDICAID | LOC: SKLAB5 10:12 | PROVIDERS: ATTEND Internal Medicine | DX: N39.0 Urinary tract infection, site not specified (principal) ==

== ENCOUNTER → 2020-06-06 | Outpatient (REF) | payer MEDICAID, MEDICARE ==
[2020-06-06 09:19] LABS: BLOOD UREA NITROGEN 31 MG/DL (7-18); CALCIUM LEVEL 8.8 MG/DL (8.8-10.2); CARBON DIOXIDE LEVEL 34 MEQ/L (21-32); CHLORIDE LEVEL 99 MEQ/L (98-107); GLOMERULAR FILTRATION RATE > 60.0 (>39); GLUCOSE, FASTING 117 MG/DL (70-100); POTASSIUM SERUM 3.9 MEQ/L (3.5-5.1); SODIUM LEVEL 138 MEQ/L (136-145)
== END ==
LOC: SKLAB5 08:00
PROVIDERS: ATTEND Internal Medicine
DX: E11.9 Type 2 diabetes mellitus without complications (principal)

== ENCOUNTER → 2020-07-04 | Outpatient (REF) | payer MEDICARE, MEDICAID ==
[2020-07-04 09:44] LABS: ALBUMIN 2.2 GM/DL (3.2-5.2); BLOOD UREA NITROGEN 35 MG/DL (7-18); CALCIUM LEVEL 9.2 MG/DL (8.8-10.2); CARBON DIOXIDE LEVEL 33 MEQ/L (21-32); CHLORIDE LEVEL 100 MEQ/L (98-107); CREATININE FOR GFR 1.11 MG/DL (0.55-1.30); GLOMERULAR FILTRATION RATE > 60.0 (>39); GLUCOSE, FASTING 100 MG/DL (70-100); PHOSPHORUS LEVEL 4.9 MG/DL (2.5-4.9); POTASSIUM SERUM 4.1 MEQ/L (3.5-5.1); SODIUM LEVEL 139 MEQ/L (136-145)
== END ==
LOC: SKLAB5 08:14
PROVIDERS: ATTEND Internal Medicine
DX: N18.30 Chronic kidney disease, stage 3 unspecified (principal)

== ENCOUNTER → 2020-07-17 | Outpatient (REF) | payer MEDICARE, MEDICAID ==
[~2020-07-17] MED LIST changes: +ACET500T15 PO; +AMMO12CR7 TOP; +APAP500T10 PO; +ELIQ5TAB PO; +ENEMENE PR; +FLUT11IN INH; +LISI10TA22 PO; -LISI10TA4 PO; -LISI40TA PO; +LISI40TA4 PO; +MAGN400T2 PO; +METF-729 PO; +MILKSUS3 PO; +MIRA3350 PO; +ONDA-83 PO; +POTA1TAB23 PO; +SENN1TAB41 PO; +TORS10TA3 PO
== END ==
LOC: SKLAB5 07-16 15:05 → EDSTATUS 08-20 09:46
PROVIDERS: ATTEND Internal Medicine
DX: Z20.828 Contact with and (suspected) exposure to other viral communicable diseases (principal)

== ENCOUNTER → 2020-07-18 | Outpatient (REF) | payer MEDICARE, MEDICAID ==
[~2020-07-18] MED LIST changes: -ACET500T15 PO; -AMMO12CR7 TOP; -APAP500T10 PO; -ELIQ5TAB PO; -ENEMENE PR; -FLUT11IN INH; -LISI10TA22 PO; +LISI10TA4 PO; +LISI40TA PO; -LISI40TA4 PO; -MAGN400T2 PO; -METF-729 PO; -MILKSUS3 PO; -MIRA3350 PO; -ONDA-83 PO; -POTA1TAB23 PO; -SENN1TAB41 PO; -TORS10TA3 PO
[2020-07-18 13:02] LABS: HEMOGLOBIN A1c 6.2 %
== END ==
LOC: SKLAB5 07:00
PROVIDERS: ATTEND Internal Medicine
DX: E11.9 Type 2 diabetes mellitus without complications (principal)

== ENCOUNTER → 2020-07-24 | Outpatient (REF) | payer MEDICARE, MEDICAID ==
[~2020-07-24] MED LIST changes: +ACET500T15 PO; +AMMO12CR7 TOP; +APAP500T10 PO; +ELIQ5TAB PO; +ENEMENE PR; +FLUT11IN INH; +LISI10TA22 PO; -LISI10TA4 PO; -LISI40TA PO; +LISI40TA4 PO; +MAGN400T2 PO; +METF-729 PO; +MILKSUS3 PO; +MIRA3350 PO; +ONDA-83 PO; +POTA1TAB23 PO; +SENN1TAB41 PO; +TORS10TA3 PO
== END ==
LOC: SKLAB5 08:00
PROVIDERS: ATTEND Internal Medicine
DX: Z20.828 Contact with and (suspected) exposure to other viral communicable diseases (principal)

== ENCOUNTER → 2020-07-27 | Outpatient (REF) | payer MEDICARE, MEDICAID ==
[~2020-07-27] MED LIST changes: -ELIQ5TAB PO; -LISI10TA22 PO; +LISI10TA4 PO; +LISI40TA PO; -LISI40TA4 PO
--- NOTE | 2020-07-27 12:27 | REP ---
INDICATION: VOMITTING/ABDOMINAL DISTENTION W/ CONSTIPATION COMPARISON: None. TECHNIQUE: Portable supine views of the abdomen and pelvis. FINDINGS: Examination is significantly limited by portable technique and incomplete evaluation of the abdomen and pelvis. There is evidence for colostomy and fecal stasis. No obvious obstruction pattern suggested. Skeletal structures demonstrate degenerative changes and osteopenia. IMPRESSION: Limited examination suggesting fecal stasis and ostomy. No definite obstruction. <Electronically signed by Julián Rapp > 07/27/20 [id number]
== END ==
LOC: SKLAB5 11:42
PROVIDERS: ATTEND Nurse Practitioner Family
DX: R11.10 Vomiting, unspecified (principal); R14.0 Abdominal distension (gaseous); K59.00 Constipation, unspecified

== ENCOUNTER 2020-07-28 16:59 | Inpatient (IN) | payer MEDICARE, MEDICAID ==
[~2020-07-28] VITALS: Ht 167.6 cm; Wt 154.6 kg
[~2020-07-28 16:59] MED LIST changes: -ACET500T15 PO; -AMMO12CR7 TOP; -APAP500T10 PO; -ENEMENE PR; -FLUT11IN INH; -MAGN400T2 PO; -METF-729 PO; -MILKSUS3 PO; -MIRA3350 PO; -ONDA-83 PO; -POTA1TAB23 PO; -SENN1TAB41 PO; -TORS10TA3 PO
[2020-07-28 18:04] LABS: HEMATOCRIT 41.4 % (36.0-47.0); HEMOGLOBIN 13.1 g/dl (12.0-15.5); MEAN CORPUSCULAR HEMOGLOBIN 29.2 pg (27.0-33.0); MEAN CORPUSCULAR HGB CONC 31.6 g/dl (32.0-36.5); MEAN CORPUSCULAR VOLUME 92.2 fl (80.0-96.0); PLATELET COUNT, AUTOMATED 207 10^3/uL (150-450); RED BLOOD COUNT 4.49 10^6/uL (4.00-5.40); WHITE BLOOD COUNT 19.5 10^3/uL (4.0-10.0)
[2020-07-28 18:36] LABS: BILIRUBIN,TOTAL 0.6 MG/DL (0.2-1.0); CALCIUM LEVEL 9.3 MG/DL (8.8-10.2); CREATININE FOR GFR 1.54 MG/DL (0.55-1.30); POTASSIUM SERUM 4.6 MEQ/L (3.5-5.1); TOTAL PROTEIN 7.3 GM/DL (6.4-8.2)
[2020-07-28] MEDS ORDERED: POTA1TAB23 PO (18:37)
[2020-07-28] MEDS ORDERED: ENEMENE PR (18:37)
[2020-07-28] MEDS ORDERED: SENN1TAB41 PO (18:37)
[2020-07-28] MEDS ORDERED: MILKSUS3 PO (18:37)
[2020-07-28] MEDS ORDERED: METF-729 PO (18:37)
[2020-07-28] MEDS ORDERED: APAP500T10 PO (18:37)
[2020-07-28] MEDS ORDERED: ACET500T15 PO (18:37)
[2020-07-28] MEDS ORDERED: MAGN400T2 PO (18:37)
[2020-07-28] MEDS ORDERED: TORS10TA3 PO (18:37)
[2020-07-28] MEDS ORDERED: ONDA-83 PO (18:37)
[2020-07-28] MEDS ORDERED: MIRA3350 PO (18:37)
[2020-07-28] MEDS ORDERED: AMMO12CR7 TOP (18:37)
[2020-07-28 18:40] LABS: ATYPICAL LYMPH 1 % (0-5); LYMPHOCYTES 4 % (16-44); METAMYELOCYTES 1 % (0-0); MONOCYTES 5 % (0-5); NEUTROPHILS 75 % (28-66)
[2020-07-28 18:41] LABS: PLATELET ESTIMATE NORMAL (NORMAL)
[2020-07-28] MEDS ORDERED: ISOVUE-370 76% 100ML VIAL As Ordered ONE (18:50)
--- NOTE | 2020-07-28 19:29 | REPVR ---
PROCEDURE INFORMATION: Exam: CT Abdomen And Pelvis With Contrast Exam date and time: 07/28/2020 7:17 PM Age: 80 years old Clinical indication: Abdominal pain; Additional info: Pain/distended/constipation TECHNIQUE: Imaging protocol: Computed tomography of the abdomen and pelvis with intravenous contrast. Radiation optimization: All CT scans at this facility use at least one of these dose optimization techniques: automated exposure control; mA and/or kV adjustment per patient size (includes targeted exams where dose is matched to clinical indication); or iterative reconstruction. Contrast material: ISO 370; Contrast volume: 100 ml; Contrast route: INTRAVENOUS (IV); COMPARISON: CR Hip,AP,LAT to include Pelvis 03/07/2020 10:22 PM FINDINGS: Liver: Normal. No mass. Gallbladder and bile ducts: There has been a cholecystectomy. Pancreas: Normal. No ductal dilation. Spleen: Normal. No splenomegaly. Adrenal glands: Normal. No mass. Kidneys and ureters: Normal. No hydronephrosis. Stomach and bowel: Surgical clips demonstrated near the GE junction of the stomach. 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 Appendix: No evidence of appendicitis. Intraperitoneal space: Unremarkable. No free air. No significant fluid collection. Vasculature: The aortoiliac vessels demonstrate mild atherosclerotic calcification. Lymph nodes: Unremarkable. No enlarged lymph nodes. Urinary bladder: Unremarkable as visualized. Reproductive: There has been a hysterectomy. Bones/joints: Severe central spinal stenosis L3-L4 and L4-L5. Soft tissues: Mid ventral abdominal wall hernia at the umbilicus contains a loop of the colon without evidence of incarceration. There is soft tissue edema demonstrated in the abdominal wall, flanks and buttock regions consistent with anasarca. Other findings: Osteoporosis. IMPRESSION: 1. There has been a cholecystectomy. 2. 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 3. Mid ventral abdominal wall hernia at the umbilicus contains a loop of the colon without evidence of incarceration. 4. There has been a hysterectomy. 5. Anasarca. Electronically signed by: Guillermo Juarez On 07/28/2020 19:29:26 PM
--- NOTE | 2020-07-28 20:45 | ECGEPIP ---
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
[2020-07-28] MEDS ORDERED: SODIUM CHLORIDE 0.9% 1000ML IV STA (21:57)
[2020-07-28] MEDS ORDERED: MOM 30ML SUSPENSION UDC PO PRN (22:00)
[2020-07-28] MEDS ORDERED: GLUCAGON INJ 1MG VIAL SC PRN (22:00)
[2020-07-28] MEDS ORDERED: MAALOX 30 ML SUSP *UDC PO PRN (22:00)
[2020-07-28] MEDS ORDERED: GLUCOSE 4GM CHEW TABLET PO PRN (22:00)
[2020-07-28] MEDS ORDERED: ACETAMINOPHEN TAB 650MG DOSE (2X325MG) PO PRN (22:00)
[2020-07-28] MEDS ORDERED: DEXTROSE 50% 50 ML SYRINGE IV PRN (22:00)
--- NOTE | 2020-07-28 22:06 | HPEPDOC ---
[facility] Medical History & Physical Date of Admission Jul 28, 2020 Date of Service: Jul 28, 2020 Primary Care Physician: ARTURO PARKS Attending Physician: DANIELLE MILLER MD History and Physical TIME OF SERVICE: 1055pm CHIEF COMPLAINT: vomiting HISTORY OF PRESENT ILLNESS: This 80 yr was last admitted on March 08 2 March 18 for open reduction internal fixation left comminuted unstable distal femur fracture with a retrograde Synthes nail after having a mechanical fall. She was discharged to senior living for rehabilitation and had been doing well until the last 2 days where she developed what she describes as "continuous" episodes of bloody vomiting. She had less output from her stoma,and denied having abdominal pain. REVIEW OF SYSTEMS: 12 point review of systems negative except as listed in HPI PMH/PSH Osteoporosis / Left distal femoral fracture Chronic HFpEF (grade 1) Mild Aortic Rheumatoid arthritis on Plaquenil IDDM2 with neuropathy Hypertension Dyslipidemia History of sepsis 2/2 liver abscess Cataracts Asthma PVD Class 3 Obesity Sleep apnea on CPAP Chronically elevated right hemidiaphragm Tonsillectomy Hysterectomy complicated by perforation of sigmoid colon requiring colostomy placement Cholecystectomy Collarbone surgery SOCIAL HISTORY: She doesn't smoke Her son lives in [place] & her daughter lives in [facility] FAMILY HISTORY: Father at 85, had diabetes Mother at 85, had liver cancer and diabetes Siblings had/have CAD blood clots, diabetes, DVT Grandfather had lung cancer, diabetes and hypertension ALLERGIES: Please see below. HOME MEDICATIONS: Please see below. PHYSICAL EXAMINATION: VITAL SIGNS: Please see below. GEN: obese/ well developed/ NAD INTEGUMENT: not flushed/ not jaundice / no rashes / no skin lesions HEENT: NG to suction in place draining brownish/red fluid /mucus membranes slightly and pink / sclera anicteric CVS: RRR/NMRG/ radial pulses intact LUNGS: able to speak full sentences without stopping to take a breath / lungs are clear to auscultation bilaterally on room air ABDOMEN: Contour ( obese) / there are no masses or lesions / bowel sounds are hypoactive / soft & not tender with palpation MSK/EXTREMITIES: NCAT NEURO: CN 2-12 are grossly intact / speech is not dysarthric PSYCH: alert and oriented to person place and time/ able to understand and follow all commands LABORATORY DATA: 07/28/20 17:12 11/29/20 17:12: Neutrophils (%) (Auto) , Nucleated Red Blood Cells % (auto) 0.0, Neutrophils 75H, Band Neutrophils 14H, Lymphocytes (Manual) 4L, Monocytes (Manual) 5, Metamyelocytes 1H, Atypical Lymphocytes 1, Platelet Estimate NORMAL, Anion Gap 9, Glomerular Filtration Rate 42.0, Calcium Level 9.3, Total Bilirubin 0.6, Aspartate Amino Transf (AST/SGOT) 33, Alanine Aminotransferase (ALT/SGPT) 54, Alkaline Phosphatase 626H, Total Protein 7.3, Albumin 2.0L, Albumin/Globulin Ratio 0.4L IMAGING: CT abd/pelvis "Other findings: Osteoporosis.....IMPRESSION: 1. There has been a cholecystectomy. 2. 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 3. Mid ventral abdominal wall hernia at the umbilicus contains a loop of the colon without evidence of incarceration. 4. There has been a hysterectomy. 5. Anasarca." MICROBIOLOGY: Please see below. ASSESSMENT: Ms. Schultz is a 80-year-old with a history of rheumatoid arthritis, and IDDM with neuropathy, HTN, dyslipidemia, asthma, cataracts, sleep apnea, osteoporosis with recent left distal femur fracture and multiple abdominal surgeries, who will be admitted for management of sepsis, proximal SBO, & MEKA. PLAN: 1. Sepsis Source likely abdominal SIRS criteria: HR 104 / bands 14% / WBC 19.5 QSOFA score = 1 = not high risk She is full code Plan: admit to pCU / telemetry / Sepsis protocol w add on lactic acid / Cefepime and Metronidazole / IVF /f/u blood cx, / Acetaminophen PRN for fever / target MAP at of least 65 to 70 / f/u Is and Os with target UOP of at least 0.5 ml/kg/H / f/u FSBS w target serum glucose 140-180 while acutely ill 2. SBO Per CT findings Plan: Admit to general medical floor/NG to suction/NPO/IVF /morphine PRN for pain /f/u w / follow-up repeat KUB and electrolytes in the morning / hold non-essential PO meds including stool softeners 3. MEKA Likely pre-renal 2/2 vomiting Cr 1.11 at baseline, today it is 1.54 Plan: monitor UOP/ IVF / f/u ulytes for FENa or FEUrea / renal US / hold torsemide & metformin 4. Lactic acidosis Likely 2/2 sepsis and dehydration Her serum CO2 is wnl Plan: abx/ IVF / trend latic acid 5. Hyponatremia Likely due to dehydration & chronic diuretic use Plan: f/u Uosmo, Griffin, Uosmo/ IVF 6. Osteoporosis Per CT and based on hx of fragility fracture Elevated alk Phos likely due to recent fx Plan: f/u her PCP for appropriate work-up and to start anti-resorptive meds/ she is on Ergocalceiferol 7. Rheumatoid Arthritis Plan: Plaquenil 8. DM2 with neuropathy a1C 6.2% on Jul 18 Plan: f/u accuchecks Q6 while NPO/ hypoglycemia protocol / sliding scale insulin / hold metformin 9. Chronic Hypertension Plan: hold torsemide/ the day time team may consider starting IV metoprolol if her BP becomes acutely elevated 10.Chronic Asthma Plan:umeclinidum bromide, albuterol PRN / per ESTEPHANIE 2019 guidelines for Asthma will add inhaled corticosteroid as part of maintenance/ chronic regimen 11. Sleep apnea Plan: own CPAP / nocturnal O2 w pulse ox 12. Obesity She has lost weight, her BMI is 52.9, during the previous admission it was 55 She has co-existing DM, HTN and BERRY which complicates her care DVT PROPHYLAXIS: SCDs pending surgery DISPOSITION: likely transfer back to [place] after more than 2 midnight's stay / PFS consult has been placed Home Medications Scheduled Acetaminophen (Acetaminophen) 500 Mg Tablet, 500 MG PO BID Ammonium Lactate (Ammonium Lactate) 12% Cream..g., 1 DOSE TOP DAILY Aspirin (Aspirin EC) 81 Mg Tablet.dr, 81 MG PO DAILY Atorvastatin Calcium (Atorvastatin Calcium) 40 Mg Tablet, 40 MG PO QHS Azelastine HCl (Azelastine HCl) 0.1% [place].pump, 2 SPRAY NA BID Ergocalciferol (Vitamin D2) (Vitamin D2) 50,000 Units Cap, 50,000 UNITS PO QMONTH FIRST WEDNESDAY OF THE MONTH Fluticasone Propionate (Flovent Hfa) 110 Mcg/Act Aer.w.adap, 2 PUFF INH BID Hydroxychloroquine Sulfate (Hydroxychloroquine Sulfate) 200 Mg Tablet, 200 MG PO BID Loratadine (Loratadine) 10 Mg Tablet, 10 MG PO DAILY Magnesium Oxide (Magnesium Oxide) 400 Mg Tablet, 400 MG PO BID Metformin HCl (Metformin ER Osmotic) 500 Mg Tab.er.24, 500 MG PO BID Oxybutynin Chloride (Oxybutynin Chloride ER) 10 Mg Tab.er.24, 10 MG PO DAILY Polyethylene Glycol 3350 (Miralax) 119 Gm Powder, 17 GM PO DAILY dilute in 8 ounces of water or juice Potassium Chloride (Potassium Chloride) 10 Meq Tablet.er, 20 MEQ PO DAILY Sennosides/Docusate Sodium (Senna-S Tablet) 1 Each Tablet, 2 TAB PO BID Torsemide (Torsemide) 10 Mg Tablet, 30 MG PO BID 0800/1400 Umeclidinium [place] (Incruse Ellipta) 62.5 Mcg Blst.w.dev, 1 PUFF INH DAILY Scheduled PRN Acetaminophen (Acetaminophen) 500 Mg Tablet, 1,000 MG PO Q8H PRN for PAIN Albuterol Sulfate (Proair Hfa) 8.5 Gm Hfa.aer.ad, 2 PUFF INH Q4H PRN for WHEEZING/COUGHING Magnesium Hydroxide (Milk of Magnesia) 400 Mg/5 Ml Oral.susp, 2,400 MG PO DAILY PRN for CONSTIPATION Ondansetron HCl (Ondansetron HCl) 4 Mg Tablet, 4 MG PO Q8H PRN for NAUSEA OR VOMITING Sodium Phosphate,[place]-Dibasic (Enema) 133 Ml Enema, 1 AKILA [place] DAILY PRN for CONSTIPATION Allergies Coded Allergies: amoxicillin (Verified Allergy, Unknown, 08/10/19) clavulanic acid (Verified Allergy, Unknown, 08/10/19) A-FIB/CHADSVASC A-FIB History Current/History of A-Fib/PAF?: No Current PO Anticoag Therapy: No DANIELLE MILLER MD Jul 28, 2020 22:06
[2020-07-28] MEDS ORDERED: CIPROFLOXACIN 400 MG in IV 1 EA IV ONE (22:15)
[2020-07-28] MEDS ORDERED: metroNIDAZOLE 750 MG in IV 1 EA IV ONE (22:15)
[2020-07-28 22:23] LABS: PARTIAL THROMBOPLASTIN TIME 28.2 SECONDS (24.2-38.5)
[2020-07-28 22:27] LABS: INR 1.11; PROTHROMBIN TIME 14.5 SECONDS (12.5-14.3)
[2020-07-28] MEDS ORDERED: NS IV ONE (23:00)
[2020-07-29] VITALS: BP 148/67
[2020-07-29] MEDS: HumaLOG INSULIN (NovoLOG) PER UNIT SC SCH ×4 (00:58→18:00)
[2020-07-29] MEDS ORDERED: ALBUTEROL 90 MCG/ACT 8GM HFA INHALER INH PRN (01:00)
[2020-07-29] MEDS ORDERED: FLUT11IN INH (01:10)
[2020-07-29] MEDS: metroNIDAZOLE 500 MG in IV 1 EA IV SCH ×3 (03:03→15:44)
[2020-07-29 04:00] VITALS: BP 135/71
[2020-07-29] MEDS ORDERED: VANCOMYCIN HCL 1,000 MG, VIAL MATE ADAPTER 1 EACH in D5W 250 ML IV ONE ×2 (04:00→05:00)
[2020-07-29 05:06] LABS: HEMATOCRIT 41.4 % (36.0-47.0); MEAN CORPUSCULAR HEMOGLOBIN 28.7 pg (27.0-33.0); MEAN CORPUSCULAR HGB CONC 31.4 g/dl (32.0-36.5); MEAN CORPUSCULAR VOLUME 91.4 fl (80.0-96.0); PLATELET COUNT, AUTOMATED 174 10^3/uL (150-450); RED BLOOD COUNT 4.53 10^6/uL (4.00-5.40)
[2020-07-29 05:25] LABS: BILIRUBIN,TOTAL 0.6 MG/DL (0.2-1.0); CALCIUM LEVEL 8.6 MG/DL (8.8-10.2); CREATININE FOR GFR 1.4 MG/DL (0.55-1.30); GLOMERULAR FILTRATION RATE 46.9 (>39); MAGNESIUM LEVEL 2.1 MG/DL (1.8-2.4); POTASSIUM SERUM 4.2 MEQ/L (3.5-5.1); TOTAL PROTEIN 7.1 GM/DL (6.4-8.2)
[2020-07-29] MEDS ORDERED: ACETAMINOPHEN 500 MG TAB NG ONE (05:45)
[2020-07-29] MEDS ORDERED: ACETAMINOPHEN 650MG ER TAB (TYLENOL ARTHRITIS) PO ONE (05:45)
[2020-07-29] MEDS: FLUTICASONE HFA 110 MCG 12 GM INHALER (FLOVENT) INH SCH ×2 (07:27→19:42)
[2020-07-29 07:34] VITALS: BP 138/63
[2020-07-29] MEDS: MORPHINE 2 MG/ML 1ML VIAL (J2270) IV PRN ×3 (08:42→15:44)
[2020-07-29] MEDS ORDERED: HYDROXYCHLOROQUINE 200 MG TAB PO SCH (09:00)
[2020-07-29] MEDS ORDERED: oxyBUTYnin *DITROPAN XL* 5 MG TABCR PO SCH (09:00)
[2020-07-29] MEDS ORDERED: ENTER DRUG NAME HERE (PATIENT'S OWN MED) INH SCH (09:00)
[2020-07-29] MEDS: NS 1,000 ML IV SCH ×3 (10:16→21:12)
[2020-07-29] MEDS: AZELASTINE 137MCG NASAL SPY 30 ML (ASTELIN) SCH ×2 (10:17→20:03)
[2020-07-29] MEDS: LACTIC ACID 12% LOTION 225 GM BTL TOP SCH (10:18)
[2020-07-29] MEDS: ONDANSETRON 4MG/2ML VIAL IV SCH ×3 (10:18→20:03)
--- NOTE | 2020-07-29 11:17 | REP ---
INDICATION: brissa COMPARISON: 08/21/2019 TECHNIQUE: Real time scale ultrasound examination using curved array transducer. FINDINGS: The bilateral kidneys are normal in contour, echogenicity, and reniform shape without hydronephrosis, nephrolithiasis, cystic or mass lesion. Right kidney measures 8.6 x 5.1 x 5.3 cm. Left kidney measures 10.7 x 4.7 x 5.1 cm. IMPRESSION: Somewhat asymmetric atrophic appearance of the right kidney. No hydronephrosis. <Electronically signed by Julián Rapp > 07/29/20 1117
--- NOTE | 2020-07-29 11:29 | REP ---
INDICATION: f/u on proximal SBO COMPARISON: 07/27/2020 TECHNIQUE: Supine view of the abdomen and pelvis. FINDINGS: Current examination demonstrates relatively nonspecific bowel gas pattern. Postsurgical changes noted. Contrast in the urinary tract system consistent with recent CT. IMPRESSION: Nonspecific bowel gas pattern. <Electronically signed by Julián Rapp > 07/29/20 1126
--- NOTE | 2020-07-29 11:34 | IPNPDOC ---
Text Note Date of Service The patient was seen on 07/29/20. NOTE SUBJECTIVE: The patient was seen at bedside. She is tired, and reports that she slept poorly last night. She has a grade 4/10 achy pain in the LLQ. She vomited once last night, and has low energy. She currently feels nauseous, has been burping and has some headache. OBJECTIVE: VITALS: See below GENERAL: The patient is a kind woman, NAD but is very tired. She is morbidly obese and bedridden. HEENT: There is an NG tube through the L nostril. Normocephalic, atraumatic. CV: RRR. S1 and S2 sounds are noted. No S3 or S4 sounds are appreciated. No murmurs, gallops or rubs are appreciated. LUNGS: Lungs are clear to auscultation bilaterally. No wheezes, rales or rhonchi are noted. Chest rise is symmetrical on inhalation. ABDOMEN: There is a colostomy in the LLQ. Bowel sounds are absent in all hour quadrants. The abdomen is obese, soft, and nondistended. EXTREMITIES: There is some swelling to the legs b/l. There is trace edema to the legs. No ulcers or lesions are noted. NEURO: No focal neurological deficits noted. PSYCH: AAOx3. Normal mood/affect. ASSESSMENT/PLAN: The patient is a 80yo female with a colostomy and a past medical history of rheumatoid arthritis, IDDM, HTN, HLD, and osteoporosis with recent left distal femur fracture, who presented as a transfer from the long term for bloody vomitus. She was found to have a bowel obstruction, and elevated WBC suspicious for sepsis. 1. 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 -Continue IV morphine for pain, IV zofran for nausea. -Continue IV fluids -Continue to hold oral meds -Lactic acid trended down to 2.3. Trend lactic acid q12h. -Surgery consulted, appreciate their input and recommendations 2. Sepsis -SIRS criteria met at admission. -HR 106, WBC reduced from 19.5 to 13. Patient is afebrile. RR 20. -Lactic Acid has decreased from 2.9 to 2.3. -Possible abdominal source of infection. -Blood cultures pending -Continue cefepime and metronidazole day #2 -Discontinue vancomycin 3. MEKA -Likely pre-renal -Creatinine 1.1 at baseline. Today Cr is reduced from 1.53 to 1.40 -Continue IV fluids. -Obtain urine electrolytes for FENa. -Hold nephrotoxic drugs, including torsemide and metformin. 4. Osteoporosis -Patient has a hx of distal L femur fracture -Alk Phos is 510. ALT and AST normal. -Hold Ergocalceiferol until patient can resume oral medications. 5. Rheumatoid Arthritis -Well controlled on home Plaquenil, resume once tolerating orals 6 IDDM2 with neuropathy -Well controlled on home medications, will hold during admission. -Hbg A1c 6.2% -POC Glucose checks q6h while NPO. Sliding scale insulin. 7. HTN -BP is 117/58 today. Torsemide held due to MEKA -Continue to hold Torsemide until resolution of MEKA. Consider IV antihypertensives if BP elevates. DVT PROPHYLAXIS: Surgery pending. SCDs DISPOSITION: pending clinical improvement, possible surgical intervention, plan to return to long term on discharge VS,Rodrigobone, I+O VS, Fishbone, I+O Laboratory Tests 07/28/20 17:12 07/29/20 04:50 Vital Signs Date Time Temp Pulse Resp B/P (MAP) Pulse Ox O2 Delivery O2 Flow Rate FiO2 07/29/20 08:52 20 07/29/20 08:42 Room Air 07/29/20 07:34 98.5 93 138/63 (88) 97 I&O- Last 24 Hours up to 6 AM 07/29/20 06:00 Intake Total 0 ml Output Total 0 ml Balance 0 ml GME ATTESTATION GME ATTESTATION My faculty preceptor for this patient encounter was physically present during the encounter and was fully available. All aspects of the patient interview, examination, medical decision making process, and medical care plan development were reviewed and approved by the faculty preceptor. The faculty preceptor is aware and concurs with the plan as stated in the body of this note and will attest to such by his/her cosignature. ATTENDING NOTE Pt was seen and examined at the bedside with the residents/students at the bedside by me personally. Agree with the assessment and plan. ASUNCION GEORGE Jul 29, 2020 11:34 SAMANTHA CAMPBELL D.O. Jul 29, 2020 15:46 CADY ESCOBAR MD Aug 05, 2020 11:13
[2020-07-29 12:18] VITALS: BP 117/58
[2020-07-29] MEDS: CEFEPIME HCL 2 GM in D5W MINI-BAG PLUS 50 ML IV SCH (12:52)
[2020-07-29] MEDS: TIOTROPIUM INHALER/CAPSULE (SPIRIVA) INH SCH (13:57)
[2020-07-29] MEDS ORDERED: NS 500 ML IV ONE (15:00)
[2020-07-29 16:00] VITALS: BP 133/67
--- NOTE | 2020-07-29 16:27 | CR.PDOC ---
General Surgery Consultation Date of Consultation 07/29/20 History and Physical CONSULT REPORT FOR: hospitalist service REASON FOR CONSULTATION: small bowel obstruction, parastomal hernia HISTORY OF PRESENT ILLNESS: Patient is a 80 F with a long standing colostomy (since 1988) following sigmoid perforation and has never been reversed. She has a long standing hernia around the colostomy site and also at the midline complicated with her morbid obesity. No prior repairs. She denies any previous episode of incarceration, bowel obstruction from her hernia. She is a resident of [facility] and was brought in to the emergency room last night with 2 days history of nausea, vomiting, abdominal distention, still with some semi liquid ouput from her ostomy. On speaking to her she reports she has a colostomy placed following a colon injury during hysterectomy which was done in [place]. She was quite ill at that time and took about 6 months to fully recover. She had an open wound in the midline abdomen that healed secondarily. Because it took a while for full recovery, she wasn't considered for reversal of her colostomy which is submitted had been in place since then. She has noted a long-standing hernia around the ostomy and also in the midline around her bellybutton but she denies any prior history of incarceration of her hernia nor of other bowel obstructions. She has not had any other intra-abdominal procedures following the laparotomy and colostomy placement. PAST MEDICAL HISTORY: 1. Morbid obesity with a BMI of 51.7 2. Diabetes 3. Obstructive sleep apnea on CPAP 4. Asthma 5. Chronic leg swelling and wound secondary to chronic venous insufficiency and lymphadenitis PAST SURGICAL HISTORY: INCLUDES: 1. Tonsillectomy 2. Hysterectomy 3. Colostomy placement following expiratory laparotomy 4. Cholecystectomy 5. IM Campbell left distal femoral fracture. PREVIOUS ANESTHESIA REACTIONS: Denies any previous problems with anesthesia ALLERGIES: Please see below. FAMILY HISTORY: Noncontributory. HOME MEDICATIONS: Please see below. REVIEW OF SYSTEMS: GENERAL: Patient was in her usual state of health prior to 2 days ago. She has been admitted to [facility] since her mechanical fall causing a left distal femoral fracture in February. Reports mainly bedridden though she could manage to transfer herself out of bed with about a 2 person assist. HEENT: [Denies blurred vision and double vision. Denies ear symptoms. Denies hoarseness]. NECK: Denies any neck pain CARDIOVASCULAR: [Denies chest pain and palpitations]. MUSCULOSKELETAL: Reports a history of rheumatoid arthritis though currently no joint swelling. SKIN: [Denies rash]. NEUROLOGIC: [Denies headache, stroke and transient ischemic attack]. HEMATOLOGY/ONCOLOGY: [Denies bleeding or clotting disorder]. Patient not on any blood thinners at the moment HEART: [Denies any chest pains, palpitations, paroxysmal dyspnea, orthopnea]. PULMONARY: [Denies chronic cough, dyspnea and wheezing]. GASTROINTESTINAL: See HPI. GENITOURINARY: [Denies dysuria, frequency, hematuria and nocturia]. ENDOCRINE: [Denies polydipsia, polyphagia, polyuria, heat or cold intolerance]. INFECTIOUS: [Denies any recent upper respiratory tract infection, UTI, need for use of antibiotics]. NUTRITION: Reports a fair appetite. PHYSICAL EXAMINATION: VITALS SIGNS: Please see below. GENERAL APPEARANCE: 72-year-old female, seen laying in bed relatively comfortable in appearance. She is pleasant and operative. Use of a large body habitus though the way her extra subcutaneous tissue flaps tells me that she has had some recent weight loss. SKIN: Warm and dry. HEENT: [Normocephalic, atraumatic. [place] palpebral conjunctiva, anicteric sclerae. Lips and mucosa appear mildly dry]. NECK: [Supple, no thyromegaly. No obvious jugular venous distention]. LUNGS: [Clear to auscultation bilaterally. No wheezing appreciated]. HEART: [No chest wall abnormalities. Regular rate and rhythm with no murmurs appreciated]. ABDOMEN: Abdomen is morbidly obese abdomen. She has a left side lower colostomy. The colostomy is flush to the skin has some semiliquid brown stool. Roughly about another 6-8 cm of bulging around the stoma which is not fully reducible though the area is soft. Mild discomfort with manipulation of the herniating portion around the ostomy. She has a midline incision scar. Around the umbilicus is a smaller hernia that is reducible. She is nontender in the midline or on the right lower quadrant area. She has a very floppy, and large but loose subcutaneous tissue and skin draping to the sides and to the upper thigh area/suprapubic area. No active hold. EXTREMITIES: Significant bilateral extremity swelling up to the mid thigh area which appears chronic with darkening of the skin on the lower portion of the extremities consistent with chronic venous insufficiency. ANCILLARIES: . LABORATORY DATA: Please see below. IMAGING STUDIES: CT abdomen and pelvis They reviewed the images myself and this shows an obstructed pattern related to distended loops of bowel inside of the stoma which is pushing somewhat the colostomy. No free air or fluid can be visualized. She overall has a small body cavity and a large subcutaneous tissue around her body/peritoneal cavity. . IMPRESSION AND PLAN: Colostomy status Parastomal hernia Midline incisional hernia Small bowel obstruction This is a tough case as the patient does have a long-standing colostomy and now fairly bedridden and so not a candidate for reversal of her colostomy. 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 She has multiple loops of small bowel herniating through this though it is not clear whether this is acute or chronic in appearance. My guess is this will be chronically herniating through the large 6 x 6 cm hernia defect around her colostomy. Despite this her colostomy continues to work and there are no skin or appliance issues related to the prior stomal hernia. She also has a smaller incisional hernia at the midline which was containing a nonobstructed loop of the transverse colon. Clinically this is reducible. She probably also has a primary fat-containing umbilical her christina. Aside from being bedridden she is morbidly obese with a BMI of 51.7. With a permanent colostomy, a durable and successful hernia repair on a BMI of 51.7 is very very low and in an elective basis she is not considered a candidate for hernia repair but again this is not a elective situation that she continues to show bowel obstruction as well as possibly some sort of chronic incarceration or may even the acutely worsening chronic incarceration of small bowel causing bowel obstruction in the prior stomal hernia. Thus, if she does not resolve this with NG tube bowel decompression short period of bowel rest she will need some operative intervention and I will have started looking for time to perform her surgery. So tentatively she will be scheduled on although if she does resolve her bowel obstruction and her hernia reduces spontaneously or with the help of the bowel decompression, IV hold off on none urgent repair on her. Vital Signs Vital Signs Date Time Temp Pulse Resp B/P (MAP) Pulse Ox O2 Delivery O2 Flow Rate FiO2 07/29/20 04:00 98.2 96 18 135/71 (92) 95 Room Air I&Os I&O- Last 24 Hours up to 6 AM 07/29/20 06:00 Intake Total 0 ml Balance 0 ml Laboratory Data Labs 24H Laboratory Tests 2 07/28/20 17:12: Neutrophils (%) (Auto) , Nucleated Red Blood Cells % (auto) 0.0, Neutrophils 75H, Band Neutrophils 14H, Lymphocytes (Manual) 4L, Monocytes (Manual) 5, Metamyelocytes 1H, Atypical Lymphocytes 1, Platelet Estimate NORMAL, Prothrombin Time 14.5H, Prothromb Time International Ratio 1.11, Activated Partial Thromboplast Time 28.2, Anion Gap 9, Glomerular Filtration Rate 42.0, Osmolality 305H, Lactic Acid Level 2.9*H, Calcium Level 9.3, Total Bilirubin 0.6, Aspartate Amino Transf (AST/SGOT) 33, Alanine Aminotransferase (ALT/SGPT) 54, Alkaline Phosphatase 626H, Total Protein 7.3, Albumin 2.0L, Albumin/Globulin Ratio 0.4L 07/28/20 22:11: Coronavirus (COVID-19)(PCR) NEGATIVE 07/28/20 23:48: Lactic Acid Level 2.6*H 07/29/20 00:48: Bedside Glucose (Misc Panel) 242H 07/29/20 04:50: Nucleated Red Blood Cells % (auto) 0.0, Anion Gap 8, Glomerular Filtration Rate 46.9, Lactic Acid Followup at 4 Hours 2.3*H, Calcium Level 8.6L, Magnesium Level 2.1, Total Bilirubin 0.6, Aspartate Amino Transf (AST/SGOT) 22, Alanine Aminotransferase (ALT/SGPT) 43, Alkaline Phosphatase 510H, Total Protein 7.1, Albumin 2.0L, Albumin/Globulin Ratio 0.4L 07/29/20 05:56: Bedside Glucose (Misc Panel) 224H CBC/BMP Laboratory Tests 07/28/20 17:12 07/29/20 04:50 Microbiology Microbiology 07/28/20 Blood Culture, Received Pending 07/28/20 Blood Culture, Received Pending Home Medications Scheduled Acetaminophen (Acetaminophen) 500 Mg Tablet, 500 MG PO BID, (Reported) Ammonium Lactate (Ammonium Lactate) 12% Cream..g., 1 DOSE TOP DAILY, (Reported) Aspirin (Aspirin EC) 81 Mg Tablet.dr, 81 MG PO DAILY, (Reported) Atorvastatin Calcium (Atorvastatin Calcium) 40 Mg Tablet, 40 MG PO QHS, (Repor elin) Azelastine HCl (Azelastine HCl) 0.1% [place].pump, 2 SPRAY NA BID, (Reported) Ergocalciferol (Vitamin D2) (Vitamin D2) 50,000 Units Cap, 50,000 UNITS PO QMONTH, (Reported) FIRST WEDNESDAY OF THE MONTH Fluticasone Propionate (Flovent Hfa) 110 Mcg/Act Aer.w.adap, 2 PUFF INH BID Hydroxychloroquine Sulfate (Hydroxychloroquine Sulfate) 200 Mg Tablet, 200 MG PO BID, (Reported) Loratadine (Loratadine) 10 Mg Tablet, 10 MG PO DAILY, (Reported) Magnesium Oxide (Magnesium Oxide) 400 Mg Tablet, 400 MG PO BID, (Reported) Metformin HCl (Metformin ER Osmotic) 500 Mg Tab.er.24, 500 MG PO BID, (Reported) Oxybutynin Chloride (Oxybutynin Chloride ER) 10 Mg Tab.er.24, 10 MG PO DAILY, (Reported) Polyethylene Glycol 3350 (Miralax) 119 Gm Powder, 17 GM PO DAILY, (Reported) dilute in 8 ounces of water or juice Potassium Chloride (Potassium Chloride) 10 Meq Tablet.er, 20 MEQ PO DAILY, (Reported) Sennosides/Docusate Sodium (Senna-S Tablet) 1 Each Tablet, 2 TAB PO BID, (Reported) Torsemide (Torsemide) 10 Mg Tablet, 30 MG PO BID, (Reported) 0800/1400 Umeclidinium [place] (Incruse Ellipta) 62.5 Mcg Blst.w.dev, 1 PUFF INH DAILY, (Reported) Scheduled PRN Acetaminophen (Acetaminophen) 500 Mg Tablet, 1,000 MG PO Q8H PRN for PAIN, (Reported) Albuterol Sulfate (Proair Hfa) 8.5 Gm Hfa.aer.ad, 2 PUFF INH Q4H PRN for WHEEZING/COUGHING, (Reported) Magnesium Hydroxide (Milk of Magnesia) 400 Mg/5 Ml Oral.susp, 2,400 MG PO DAILY PRN for CONSTIPATION, (Reported) Ondansetron HCl (Ondansetron HCl) 4 Mg Tablet, 4 MG PO Q8H PRN for NAUSEA OR VOMITING, (Reported) Sodium Phosphate,[place]-Dibasic (Enema) 133 Ml Enema, 1 AKILA CA DAILY PRN for CONST IPATION, (Reported) Allergies Coded Allergies: amoxicillin (Verified Allergy, Unknown, 08/10/19) clavulanic acid (Verified Allergy, Unknown, 08/10/19) ALTON GILLIAM MD Jul 29, 2020 07:21
--- NOTE | 2020-07-29 16:36 | ECGEPIP ---
[facility] Test Date: 2020-07-29 Pat Name: SARAH SILVA Department: Room: [place] [address] Gender: Female Outreach Rep: SHILPA : 1940 Requested By: SAMANTHA CAMPBELL D.O. Order Number: [id number] Reading MD: Joselyn Perales Measurements Intervals [place] Rate: 106 P: 36 [place]: 132 QRS: 1 QRSD: 102 T: 71 QT: 349 QTc: 464 Interpretive Statements SINUS TACHYCARDIA POSSIBLE ANTERIOR MYOCARDIAL INFARCTION, PROBABLY OLD POSSIBLE LVH,LAE SIMILAR TO 07/28/20 Electronically Signed on 07-29-2020 16:35:20 EST by Joselyn Perales
[2020-07-29 19:43] LABS: BASO % 0.4 % (0.0-1.0); EOS # 0.2 10^3/uL (0.0-0.5); EOS % 2.1 % (0.0-3.0); HEMATOCRIT 39.7 % (36.0-47.0); HEMOGLOBIN 12.2 g/dl (12.0-15.5); LYMPH # 2.1 10^3/uL (1.5-5.0); LYMPH % 21.4 % (24.0-44.0); MEAN CORPUSCULAR HEMOGLOBIN 28.7 pg (27.0-33.0); MEAN CORPUSCULAR HGB CONC 30.7 g/dl (32.0-36.5); MEAN CORPUSCULAR VOLUME 93.4 fl (80.0-96.0); MONO # 0.8 10^3/uL (0.0-0.8); MONO % 7.8 % (0.0-5.0); NEUTROPHILS # 6.5 10^3/uL (1.5-8.5); NEUTROPHILS % 67.9 % (36.0-66.0); PLATELET COUNT, AUTOMATED 167 10^3/uL (150-450); RED BLOOD COUNT 4.25 10^6/uL (4.00-5.40); WHITE BLOOD COUNT 9.6 10^3/uL (4.0-10.0)
[2020-07-29 19:48] LABS: ALBUMIN 2.2 GM/DL (3.2-5.2); BILIRUBIN,TOTAL 0.5 MG/DL (0.2-1.0); CALCIUM LEVEL 8.4 MG/DL (8.8-10.2); CREATININE FOR GFR 1.53 MG/DL (0.55-1.30); GLOMERULAR FILTRATION RATE 42.3 (>39); POTASSIUM SERUM 3.9 MEQ/L (3.5-5.1); TOTAL PROTEIN 6.3 GM/DL (6.4-8.2)
[2020-07-29 20:00] VITALS: BP 106/57
[2020-07-30] VITALS: BP 104/55
[2020-07-30] MEDS: metroNIDAZOLE 500 MG in IV 1 EA IV SCH ×4 (00:18→23:41)
[2020-07-30] MEDS: HumaLOG INSULIN (NovoLOG) PER UNIT SC SCH ×5 (00:20→23:44)
[2020-07-30] MEDS: CEPACOL LOZENGE PO PRN ×2 (00:22→22:20)
[2020-07-30] MEDS: ONDANSETRON 4MG/2ML VIAL IV SCH ×4 (03:48→22:20)
[2020-07-30 04:00] VITALS: BP 98/61
[2020-07-30] MEDS ORDERED: VANCOMYCIN HCL 1,000 MG, VIAL MATE ADAPTER 1 EACH in D5W 250 ML IV SCH (05:00)
[2020-07-30 06:00] LABS: BASO % 0.5 % (0.0-1.0); EOS # 0.2 10^3/uL (0.0-0.5); EOS % 2.3 % (0.0-3.0); HEMATOCRIT 38.6 % (36.0-47.0); HEMOGLOBIN 12.2 g/dl (12.0-15.5); LYMPH # 2.4 10^3/uL (1.5-5.0); LYMPH % 28.3 % (24.0-44.0); MEAN CORPUSCULAR HEMOGLOBIN 29.5 pg (27.0-33.0); MEAN CORPUSCULAR HGB CONC 31.6 g/dl (32.0-36.5); MEAN CORPUSCULAR VOLUME 93.2 fl (80.0-96.0); MONO # 0.9 10^3/uL (0.0-0.8); NEUTROPHILS # 5.1 10^3/uL (1.5-8.5); NEUTROPHILS % 58.7 % (36.0-66.0); PLATELET COUNT, AUTOMATED 180 10^3/uL (150-450); RED BLOOD COUNT 4.14 10^6/uL (4.00-5.40); WHITE BLOOD COUNT 8.6 10^3/uL (4.0-10.0)
[2020-07-30 06:44] LABS: ALBUMIN 2.2 GM/DL (3.2-5.2); BILIRUBIN,TOTAL 0.5 MG/DL (0.2-1.0); CALCIUM LEVEL 8.1 MG/DL (8.8-10.2); CREATININE FOR GFR 1.96 MG/DL (0.55-1.30); GLOMERULAR FILTRATION RATE 31.8 (>39); MAGNESIUM LEVEL 2.3 MG/DL (1.8-2.4); POTASSIUM SERUM 4.1 MEQ/L (3.5-5.1); TOTAL PROTEIN 5.9 GM/DL (6.4-8.2)
[2020-07-30] MEDS: TIOTROPIUM INHALER/CAPSULE (SPIRIVA) INH SCH (07:12)
[2020-07-30] MEDS: FLUTICASONE HFA 110 MCG 12 GM INHALER (FLOVENT) INH SCH ×2 (07:13→19:41)
[2020-07-30 08:00] VITALS: BP 100/52
[2020-07-30] MEDS: LACTIC ACID 12% LOTION 225 GM BTL TOP SCH (08:45)
[2020-07-30] MEDS: NS 1,000 ML IV SCH (08:45)
[2020-07-30] MEDS: AZELASTINE 137MCG NASAL SPY 30 ML (ASTELIN) SCH ×2 (08:45→21:30)
--- NOTE | 2020-07-30 08:57 | IPNPDOC ---
Text Note Date of Service The patient was seen on 07/30/20. NOTE SUBJECTIVE: The patient was seen at bedside. She is tired but feeling much better than yesterday. She has more energy and is not as sore. She still reports an achy 4/10 pain in the left abdomen, and states that the pain is a 10/10 when pressing on the ostomy. She has had some nausea that comes and goes, but it is reduced from yesterday. Mouth is dry, and she has a sore throat. OBJECTIVE: VITALS: See below GENERAL: NAD but is very tired. She is morbidly obese and bedridden after a fracture last February. HEENT: There is an NG tube through the L nostril. NC, AT CV: RRR. S1 and S2 sounds are noted. No S3 or S4 sounds are appreciated. No murmurs, gallops or rubs are appreciated. LUNGS: Lungs are clear to auscultation bilaterally. No wheezes, rales or rhonchi are noted. Chest rise is symmetrical on inhalation. ABDOMEN: There is a colostomy in the LUQ. Bowel sounds are absent in all four quadrants. The abdomen is obese, soft, and nondistended. EXTREMITIES: There is some swelling to the legs b/l. There is trace edema to the legs. No ulcers or lesions are noted. NEURO: No focal neurological deficits noted. PSYCH: AAOx3. Normal mood/affect. ASSESSMENT/PLAN: The patient is a 80yo female with a colostomy and a past medical history of rheumatoid arthritis, IDDM, HTN, HLD, and osteoporosis with recent left distal femur fracture, who presented as a transfer from the halfway for bloody vomitus. She was found to have a bowel obstruction, and elevated WBC suspicious for sepsis. She has had her stomach drained, and is pending surgery if she does not clinically improve by , as per Dr. Groves. 1. 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 1.8L of fluid drained from NG suction. -Continue IV morphine for pain and IV zofran for nausea. -Continue IV fluids for maintenance while NPO -Continue to hold oral meds -Last Lactic acid trended down to 1.1. -Surgery consulted, appreciate their input and recommendations. Scheduled for possible surgical intervention on 08/[address] Groves 2. Sepsis -HR intermittently tachycardic up to 130s, WBC reduced from 13 to 8.6. Patient is afebrile. RR 18. -Lactic Acid has decreased from 2.3 to 1.1 -Possible abdominal source of infection. -Blood cultures negative for growth -Continue cefepime and metronidazole day #3 3. MEKA -Likely pre-renal -Creatinine 1.1 at baseline. Today Cr is elevated 1.40 to 1.96, and GFR has decreased to 31.8. -Continue IV fluids. -Obtain urine electrolytes for FENa. -Hold nephrotoxic drugs, including torsemide and metformin. 4. Osteoporosis -Patient has a hx of distal L femur fracture -Alk Phos is down from 510 to 398. ALT and AST normal. -Hold Ergocalceiferol until patient can resume oral medications. 5. Rheumatoid Arthritis -Well controlled on home Plaquenil, resume once tolerating orals 6 IDDM2 with neuropathy -Well controlled on home medications, will hold during admission. -Hbg A1c 6.2% -FSBS q6h while NPO. Sliding scale insulin. 7. HTN -BP is 98/61 today. Torsemide held due to MEKA -Continue to hold Torsemide until resolution of MEKA. Consider IV antihypertensives if BP elevates. DVT PROPHYLAXIS: Heparin SC 5000 units q12h DISPOSITION: Pending clinical improvement with possible surgical intervention. Plan is to return the patient to the halfway on discharge. VS,Fishbone, I+O VS, Fishbone, I+O Laboratory Tests 07/29/20 18:56 07/29/20 19:00 07/30/20 05:37 Vital Signs Date Time Temp Pulse Resp B/P (MAP) Pulse Ox O2 Delivery O2 Flow Rate FiO2 07/30/20 04:00 97.6 117 18 98/61 (73) 90 Room Air I&O- Last 24 Hours up to 6 AM 07/30/20 06:00 Intake Total 9040 ml Output Total 1000 ml Balance 8040 ml GME ATTESTATION GME ATTESTATION My faculty preceptor for this patient encounter was physically present during the encounter and was fully available. All aspects of the patient interview, examination, medical decision making process, and medical care plan development were reviewed and approved by the faculty preceptor. The faculty preceptor is aware and concurs with the plan as stated in the body of this note and will attest to such by his/her cosignature. ATTENDING NOTE Pt was seen and examined at the bedside with the residents/students at the bedside by me personally. Agree with the assessment and plan. ASUNCION GEORGE Jul 30, 2020 08:56 SAMANTHA CAMPBELL D.O. Jul 30, 2020 16:03 CADY ESCOBAR MD Aug 05, 2020 11:14
[2020-07-30] MEDS: HEPARIN SOD (PORCINE) 5000UNITS/ML 1ML VIAL/SYRINGE SQ SCH ×2 (09:00→21:30)
[2020-07-30 12:00] VITALS: BP 103/61
[2020-07-30] MEDS: CEFEPIME HCL 2 GM in D5W MINI-BAG PLUS 50 ML IV SCH (12:42)
[2020-07-30] MEDS: D5W/0.45% SODIUM CHLORIDE 1,000 ML IV SCH ×2 (13:29→22:24)
[2020-07-30] MEDS: MORPHINE 2 MG/ML 1ML VIAL (J2270) IV PRN ×2 (14:08→21:30)
[2020-07-30 16:00] VITALS: BP 119/57
--- NOTE | 2020-07-30 17:29 | IPNPDOC ---
Text Note Date of Service The patient was seen on 07/30/20. NOTE Looks more comfortable this morning, NGT drained 1200 past 24 hours. not much new output from her colostomy. She denies nausea, VS stable comfortable skin warm and dry abdomen: less distended, the parastomal hernia is less prominent, minimal stool and air in bag, not reducible unclear if chronically not reducible. nontender on palpation. impression: VS,Rodrigobone, I+O VS, Rodrigobone, I+O Laboratory Tests 07/29/20 18:56 07/29/20 19:00 07/30/20 05:37 Vital Signs Date Time Temp Pulse Resp B/P (MAP) Pulse Ox O2 Delivery O2 Flow Rate FiO2 07/30/20 16:00 98.9 98 8 119/57 (77) 95 Room Air I&O- Last 24 Hours up to 6 AM 07/30/20 06:00 Intake Total 9040 ml Output Total 1000 ml Balance 8040 ml ALTON GILLIAM MD Jul 30, 2020 17:29
[2020-07-30 19:26] LABS: BASO # 0.1 10^3/uL (0.0-0.2); BASO % 0.7 % (0.0-1.0); EOS # 0.2 10^3/uL (0.0-0.5); EOS % 1.9 % (0.0-3.0); HEMATOCRIT 38.2 % (36.0-47.0); HEMOGLOBIN 11.9 g/dl (12.0-15.5); LYMPH # 1.9 10^3/uL (1.5-5.0); LYMPH % 21.6 % (24.0-44.0); MEAN CORPUSCULAR HEMOGLOBIN 29.2 pg (27.0-33.0); MEAN CORPUSCULAR HGB CONC 31.2 g/dl (32.0-36.5); MEAN CORPUSCULAR VOLUME 93.6 fl (80.0-96.0); MONO # 0.9 10^3/uL (0.0-0.8); MONO % 10.2 % (0.0-5.0); NEUTROPHILS # 5.8 10^3/uL (1.5-8.5); NEUTROPHILS % 65.1 % (36.0-66.0); PLATELET COUNT, AUTOMATED 157 10^3/uL (150-450); RED BLOOD COUNT 4.08 10^6/uL (4.00-5.40); WHITE BLOOD COUNT 8.9 10^3/uL (4.0-10.0)
[2020-07-30 20:00] VITALS: BP 132/68
[2020-07-30 20:53] LABS: ALBUMIN 2.3 GM/DL (3.2-5.2); BILIRUBIN,TOTAL 0.4 MG/DL (0.2-1.0); CALCIUM LEVEL 8.2 MG/DL (8.8-10.2); CREATININE FOR GFR 2.4 MG/DL (0.55-1.30); GLOMERULAR FILTRATION RATE 25.2 (>39); POTASSIUM SERUM 4.2 MEQ/L (3.5-5.1); TOTAL PROTEIN 6.6 GM/DL (6.4-8.2)
[2020-07-31 04:00] VITALS: BP 128/63
[2020-07-31] MEDS: ONDANSETRON 4MG/2ML VIAL IV SCH ×4 (05:21→23:49)
[2020-07-31] MEDS: HumaLOG INSULIN (NovoLOG) PER UNIT SC SCH ×4 (05:21→23:50)
[2020-07-31] MEDS: MORPHINE 2 MG/ML 1ML VIAL (J2270) IV PRN ×2 (05:27→10:54)
[2020-07-31] MEDS: D5W/0.45% SODIUM CHLORIDE 1,000 ML IV SCH (05:40)
[2020-07-31] MEDS: CEPACOL LOZENGE PO PRN ×4 (06:00→23:50)
[2020-07-31 06:44] LABS: SODIUM,RANDOM URINE < 10 MEQ/L; UREA NITROGEN RANDOM URINE 335 MG/DL
[2020-07-31 06:47] LABS: APPEARANCE, URINE CLOUDY (CLEAR); BACTERIA, URINE AUTO NEGATIVE (NEGATIVE); BILIRUBIN, URINE AUTO 1+ (NEGATIVE); BLOOD, URINE BLOOD NEGATIVE (NEGATIVE); COLOR, URINE AMBER (YELLOW); GLUCOSE, URINE (UA) AUTO NEGATIVE (NEGATIVE); KETONE, URINE AUTO TRACE mg/dL (NEGATIVE); LEUKOCYTE ESTERASE, URINE AUTO 1+ (NEGATIVE); NITRITE, URINE AUTO NEGATIVE (NEGATIVE); PROTEIN, URINE AUTO 1+ mg/dL (NEGATIVE); RBC, URINE AUTO 4 /HPF (0-3); SPECIFIC GRAVITY URINE AUTO 1.032 (1.002-1.035); SQUAMOUS EPITHELIAL CELL UR AU 17 /HPF (0-6); UROBILINOGEN, URINE AUTO 0.2 mg/dL (0.0-2.0); WBC, URINE AUTO 6 /HPF (0-3)
[2020-07-31 07:29] LABS: BASO # 0.1 10^3/uL (0.0-0.2); BASO % 0.7 % (0.0-1.0); EOS # 0.3 10^3/uL (0.0-0.5); EOS % 3.8 % (0.0-3.0); HEMATOCRIT 39.6 % (36.0-47.0); HEMOGLOBIN 11.8 g/dl (12.0-15.5); LYMPH # 2.1 10^3/uL (1.5-5.0); MEAN CORPUSCULAR HEMOGLOBIN 28.4 pg (27.0-33.0); MEAN CORPUSCULAR HGB CONC 29.8 g/dl (32.0-36.5); MEAN CORPUSCULAR VOLUME 95.4 fl (80.0-96.0); MONO # 0.7 10^3/uL (0.0-0.8); MONO % 10.6 % (0.0-5.0); NEUTROPHILS # 3.8 10^3/uL (1.5-8.5); NEUTROPHILS % 54.6 % (36.0-66.0); PLATELET COUNT, AUTOMATED 139 10^3/uL (150-450); RED BLOOD COUNT 4.15 10^6/uL (4.00-5.40); WHITE BLOOD COUNT 6.9 10^3/uL (4.0-10.0)
[2020-07-31 07:49] LABS: ALBUMIN 2.1 GM/DL (3.2-5.2); BILIRUBIN,TOTAL 0.3 MG/DL (0.2-1.0); CALCIUM LEVEL 7.9 MG/DL (8.8-10.2); CREATININE FOR GFR 2.84 MG/DL (0.55-1.30); GLOMERULAR FILTRATION RATE 20.7 (>39); POTASSIUM SERUM 3.6 MEQ/L (3.5-5.1); TOTAL PROTEIN 6.1 GM/DL (6.4-8.2)
[2020-07-31 08:00] VITALS: BP 123/58
[2020-07-31] MEDS: TIOTROPIUM INHALER/CAPSULE (SPIRIVA) INH SCH (08:12)
[2020-07-31] MEDS: FLUTICASONE HFA 110 MCG 12 GM INHALER (FLOVENT) INH SCH ×2 (08:12→19:56)
--- NOTE | 2020-07-31 08:20 | IPNPDOC ---
Text Note Date of Service The patient was seen on 07/31/20. NOTE S Patient was seen at bedside today. She noted her abd pain, N/V has improved. She reported about 6 episodes of nausea over the past day and usually occurs after using oral foam swabs to wet her mouth (to address her throat dryness). After nausea episodes, she usually bring up small amount of clear mucoid fluids. She denied abd pain at rest and reported some abd pain when she was turned on bed overnight. Per nursing staff, 200cc of gabriel colored urine and 200cc of greenish gastric content were collected overnight. It was noted that patient's external catheter failed yesterday evening and leaked into patient's bed. Review of Systems CONSTITUTIONAL: Denies chills, fever HEENT: Denies headaches, dizziness, but noted throat dryness (which patient manages but using oral swabs) CARDIOVASCULAR: Denies chest pain, palpitations RESPIRATORY: Denies wheezing, dyspnea, cough or hemoptysis GASTROINTESTINAL: Denies diarrhea, melena, hematochezia, but noted nausea, vomiting (small amount of clear mucoid fluids) and abd pain GENITAOURINARY: Denies dysuria, hematuria, urinary frequency, or retention. SKIN: Denies skin changes, rash, lesions, jaundice, bruising MUSCULOSKELETAL: Denies weakness, muscle or joint pain. NEUROLOGICAL: Denies focal weakness, numbness, tingling, change in Speech O Physical Examination VITAL SIGNS: See below GENERAL APPEARANCE: Alert & oriented x3, No Acute Distress. Patient morbidly obese, supine on bed with head elevated, appearance consistent with stated age. HEENT Exam: Normocephalic and atraumatic, PERRL, without sclera icteric, mucous membr. moist/pink, pharynx normal. NG tube in place in the left nostril with 150cc blackish-green fluid in the reservoir. NECK: Supple without lymphadenopathy, JVD, thyromegaly LUNGS: Clear to auscultation bilaterally with full breath sounds without rales, wheezing, and crackles. CARDIOVASCULAR: Regular rate and rhythm, normal S1 & S2 without gallops, murmurs, rubs. ABDOMEN: Obese abdomen with healed midline surgical scar and umbilical hernia noted. Colostomy bag noted in LLQ with approx. 20cc of soft mushy brown stool inside. Parastomal site mildly distended with mild tenderness upon deep palpat ion, rest of the abdomen soft, non-tender, non-distended. Bowel sounds absent in RU/LQ, hypoactive bowel sounds present GERSON/LQ. EXTREMITIES: 2+ pulses in all extremities. Trace pitting edema bilaterally extending up to 1/4 of tibia distally, worse on the left, LLE mildly tender to palpation. No clubbing, cyanosis. SKIN: Normal turgor and temperature. Dry skin in BLE. MUSCULOSKELETAL: Able to move all extremities without notable weakness. NEUROLOGICAL: Normal speech with intact sensation PSYCHIATRIC: Normal mood. 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 She was found to have bowel obstruction and NG tube was placed. 1. SBO with large parastomal hernia - Patient symptomatically improved but obstruction unresponsive to gastric decompression - Will take patient to the OR tomorrow morning for surgery - Cont NPO and NG tube 2. MEKA - Cr trend up to 2.84, baseline is 1.1 - FENa of 0.2% suggestive of pre-renal cause - Managed by internal medicine team - Cont maintenance fluid and hold nephrotoxic medications DVT Prophylaxis: Heparin SC 5000 units q12h Diet: NPO VS,Fishbone, I+O VS, Fishbone, I+O Laboratory Tests 07/30/20 19:09 07/30/20 19:56 07/31/20 07:01 Vital Signs Date Time Temp Pulse Resp B/P (MAP) Pulse Ox O2 Delivery O2 Flow Rate FiO2 07/31/20 05:37 18 07/31/20 05:27 Room Air 07/31/20 04:00 98.2 91 128/63 (84) 96 I&O- Last 24 Hours up to 6 AM 07/31/20 06:00 Intake Total 700 ml Output Total 1200 ml Balance -500 ml GME ATTESTATION GME ATTESTATION My faculty preceptor for this patient encounter was physically present during the encounter and was fully available. All aspects of the patient interview, examination, medical decision making process, and medical care plan development were reviewed and approved by the faculty preceptor. The faculty preceptor is aware and concurs with the plan as stated in the body of this note and will attest to such by his/her cosignature. ANDREA DUMONT OMS-3 Jul 31, 2020 08:20
[2020-07-31] MEDS: HEPARIN SOD (PORCINE) 5000UNITS/ML 1ML VIAL/SYRINGE SQ SCH ×2 (08:53→20:15)
[2020-07-31] MEDS: LACTIC ACID 12% LOTION 225 GM BTL TOP SCH (08:53)
[2020-07-31] MEDS: AZELASTINE 137MCG NASAL SPY 30 ML (ASTELIN) SCH ×2 (08:53→20:14)
[2020-07-31] MEDS: metroNIDAZOLE 500 MG in IV 1 EA IV SCH ×3 (08:54→23:49)
--- NOTE | 2020-07-31 09:11 | REP ---
INDICATION: ffup sbo. COMPARISON: July 29, 2020.. TECHNIQUE: KUB: Two views presented. FINDINGS: NG tube remains in place in the gastric fundal region. There are scattered surgical clips in the left abdomen. Bowel gas pattern is unremarkable. No small bowel dilation is appreciated. An air-filled loop of terminal ileum is seen and there is some gas in the nondistended right colon. Contrast enhancement in the kidneys persists and contrast enhanced urine is seen in the urinary bladder. Most recent CT, a contrast dose was July 28, 2020. Persistence of contrast enhancement may indicate renal insufficiency. No mass or organomegaly is seen. The known left lower quadrant colostomy is excluded from the left lateral margin of the field of view. IMPRESSION: No dilated small or large bowel loops are seen. Postoperative changes. NG tube in the gastric fundus. Persistent nephrogram phase contrast enhancement of the kidneys may correlate with renal insufficiency. <Electronically signed by Papi Alberts > 07/31/20 0907
[2020-07-31] MEDS: MIRALAX *UNIT DOSE* 17GM PACKET PO SCH ×2 (09:30→20:14)
[2020-07-31 10:20] VITALS: BP 119/64
[2020-07-31] MEDS ORDERED: NS 1,000 ML IV ONE (10:30)
[2020-07-31] MEDS ORDERED: MORPHINE 2 MG/ML 1ML VIAL (J2270) As Ordered ONE (10:42)
[2020-07-31] MEDS ORDERED: CEPACOL LOZENGE As Ordered ONE (10:42)
[2020-07-31] MEDS ORDERED: ONDANSETRON 4MG/2ML VIAL As Ordered ONE (10:43)
[2020-07-31] MEDS: D5W/0.9% SODIUM CHLORIDE 1,000 ML IV SCH (10:53)
--- NOTE | 2020-07-31 11:05 | IPNPDOC ---
Text Note Date of Service The patient was seen on 07/31/20. NOTE SUBJECTIVE: The patient was seen at bedside. She is feeling much better than yesterday, and reports a reduction in pain in her ostomy and improved energy levels. The nausea is reduced. Mouth dryness has been relieved with lozenges. She reports pain in her lateral L leg where she fractured her leg last February. OBJECTIVE: VITALS: See below GENERAL: NAD. She is morbidly obese, and bedridden after a fracture last February. HEENT: There is an NG tube through the L nostril. NC and AT. Mucus membranes are moist. CV: RRR. S1 and S2 sounds are noted. No S3 or S4 sounds are appreciated. No murmurs, gallops or rubs are appreciated. LUNGS: Lungs are clear to auscultation bilaterally. No wheezes, rales or rhonchi are noted. Chest rise is symmetrical on inhalation. ABDOMEN: There is a colostomy in the LUQ. Bowel sounds are absent in all four quadrants. The abdomen is obese, soft, and nondistended. EXTREMITIES: Trace swelling to the legs b/l. No ulcers or lesions are noted. There is a scar on the L knee, but no swelling or redness. NEURO: No focal neurological deficits noted. PSYCH: AAOx3. Normal mood and affect. ASSESSMENT/PLAN: The patient is a 80yo female with a colostomy and a past medical history of rheumatoid arthritis, IDDM, HTN, HLD, and osteoporosis with recent left distal femur fracture, who presented as a transfer from the long term for bloody vomitus. She was found to have a bowel obstruction. She has an NG tube, and is pending surgery if she does not clinically improve by Jul 02, as per Dr. Groves. 1. 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 2.6L of fluid cumulatively drained from NG suction. -Continue IV morphine for pain and IV zofran for nausea. -Continue IV fluids for maintenance while NPO -Continue to hold oral meds -Lactic acid trended down to 1.1. -Surgery consulted, appreciate their input and recommendations. Scheduled for possible surgical intervention on 08/[address] Barayuga 2. Sepsis -Tachycardia improved past 24 hours, WBC reduced from 8.6 to 6.9. Patient is afebrile. RR 18. -Last lactic acid 1.1. -Possible abdominal source of infection. -Blood cultures x2 negative for growth -Continue cefepime and metronidazole day #4 3. MEKA 2/2 contrast induced nephropathy -Likely pre-renal based on FENa -Cr continues to trend up to 2.84, baseline is 1.1 -Trend of Cr increase correlates to suspected contrast induced nephropathy with acute increase 2 days after contrast was given -Renal U/S showed right atrophic kidney -XR abdomen continues to show contrast in the left kidney pelvis, [address] with contrast -Hold nephrotoxic drugs, including torsemide and metformin. -Will give 1L NS bolus and continue maintenance fluids D5/NS 100ml/hr 4. Osteoporosis -Patient has a hx of distal L femur fracture -Alk Phos is down from 398 to 349. ALT and AST normal. -Hold Ergocalceiferol until patient can resume oral medications. 5. Rheumatoid Arthritis -Well controlled on home Plaquenil, resume once tolerating orals 6 IDDM2 with neuropathy -Well controlled on home medications, will hold during admission. -Hbg A1c 6.2% -FSBS q6h while NPO. Sliding scale insulin. 7. HTN -BP is 128/63 today. Torsemide held due to MEKA -Continue to hold Torsemide until resolution of MEKA. Consider IV antihypertensives if BP elevates. DVT PROPHYLAXIS: Heparin SC 5000 units q12h DISPOSITION: Pending clinical improvement with possible surgical intervention. Plan is to return the patient to the long term on discharge. VS,Rodrigobone, I+O VS, Fishbone, I+O Laboratory Tests 07/30/20 19:09 07/30/20 19:56 07/31/20 07:01 Vital Signs Date Time Temp Pulse Resp B/P (MAP) Pulse Ox O2 Delivery O2 Flow Rate FiO2 07/31/20 08:00 98.7 86 18 123/58 (79) 90 Room Air I&O- Last 24 Hours up to 6 AM 07/31/20 06:00 Intake Total 700 ml Output Total 1200 ml Balance -500 ml GME ATTESTATION GME ATTESTATION My faculty preceptor for this patient encounter was physically present during the encounter and was fully available. All aspects of the patient interview, examination, medical decision making process, and medical care plan development were reviewed and approved by the faculty preceptor. The faculty preceptor is aware and concurs with the plan as stated in the body of this note and will attest to such by his/her cosignature. ATTENDING NOTE Pt was seen and examined at the bedside with the residents/students at the bedside by me personally. Agree with the assessment and plan. ASUNCION GEORGE Jul 31, 2020 11:05 SAMANTHA CAMPBELL D.O. Jul 31, 2020 12:28 CADY ESCOBAR MD Aug 05, 2020 11:18
[2020-07-31] MEDS: CEFEPIME HCL 2 GM in D5W MINI-BAG PLUS 50 ML IV SCH (13:05)
[2020-07-31 14:00] VITALS: BP 103/57
[2020-07-31 18:00] VITALS: BP 102/58
[2020-07-31 19:12] LABS: BASO % 0.5 % (0.0-1.0); EOS # 0.2 10^3/uL (0.0-0.5); EOS % 3.6 % (0.0-3.0); HEMATOCRIT 40.3 % (36.0-47.0); HEMOGLOBIN 12.2 g/dl (12.0-15.5); LYMPH # 1.8 10^3/uL (1.5-5.0); LYMPH % 28.6 % (24.0-44.0); MEAN CORPUSCULAR HGB CONC 30.3 g/dl (32.0-36.5); MONO # 0.5 10^3/uL (0.0-0.8); MONO % 8.7 % (0.0-5.0); NEUTROPHILS # 3.6 10^3/uL (1.5-8.5); NEUTROPHILS % 58.3 % (36.0-66.0); WHITE BLOOD COUNT 6.1 10^3/uL (4.0-10.0)
[2020-07-31 19:26] LABS: ALBUMIN 1.7 GM/DL (3.2-5.2); BILIRUBIN,TOTAL 0.4 MG/DL (0.2-1.0); CALCIUM LEVEL 7.8 MG/DL (8.8-10.2); CREATININE FOR GFR 2.81 MG/DL (0.55-1.30); POTASSIUM SERUM 3.8 MEQ/L (3.5-5.1)
[2020-07-31 19:44] LABS: PLATELET COUNT, AUTOMATED 65 10^3/uL (150-450)
[2020-07-31 22:00] VITALS: BP 113/57
[2020-08-01] VITALS (9 sets, daily range): BP systolic 109–152; BP diastolic 56–83
[2020-08-01] MEDS: D5W/0.9% SODIUM CHLORIDE 1,000 ML IV SCH ×2 (01:47→06:30)
[2020-08-01] MEDS: ONDANSETRON 4MG/2ML VIAL IV SCH ×4 (05:38→22:29)
[2020-08-01] MEDS: CEPACOL LOZENGE PO PRN (05:38)
[2020-08-01] MEDS: HumaLOG INSULIN (NovoLOG) PER UNIT SC SCH ×3 (05:39→18:00)
[2020-08-01 06:27] LABS: BASO % 0.3 % (0.0-1.0); EOS # 0.2 10^3/uL (0.0-0.5); EOS % 3.5 % (0.0-3.0); HEMATOCRIT 38.4 % (36.0-47.0); HEMOGLOBIN 11.9 g/dl (12.0-15.5); LYMPH # 1.7 10^3/uL (1.5-5.0); LYMPH % 29.2 % (24.0-44.0); MEAN CORPUSCULAR HEMOGLOBIN 29.6 pg (27.0-33.0); MEAN CORPUSCULAR VOLUME 95.5 fl (80.0-96.0); MONO # 0.5 10^3/uL (0.0-0.8); MONO % 8.5 % (0.0-5.0); NEUTROPHILS # 3.4 10^3/uL (1.5-8.5); NEUTROPHILS % 58.3 % (36.0-66.0); PLATELET COUNT, AUTOMATED 133 10^3/uL (150-450); RED BLOOD COUNT 4.02 10^6/uL (4.00-5.40); WHITE BLOOD COUNT 5.8 10^3/uL (4.0-10.0)
[2020-08-01 06:56] LABS: ALBUMIN 2.1 GM/DL (3.2-5.2); BILIRUBIN,TOTAL 0.4 MG/DL (0.2-1.0); CALCIUM LEVEL 7.7 MG/DL (8.8-10.2); CREATININE FOR GFR 2.87 MG/DL (0.55-1.30); GLOMERULAR FILTRATION RATE 20.5 (>39); POTASSIUM SERUM 3.6 MEQ/L (3.5-5.1); TOTAL PROTEIN 5.8 GM/DL (6.4-8.2)
[2020-08-01] MEDS: TIOTROPIUM INHALER/CAPSULE (SPIRIVA) INH SCH (07:11)
[2020-08-01] MEDS: FLUTICASONE HFA 110 MCG 12 GM INHALER (FLOVENT) INH SCH ×2 (07:11→19:42)
[2020-08-01] MEDS: HEPARIN SOD (PORCINE) 5000UNITS/ML 1ML VIAL/SYRINGE SQ SCH ×2 (08:26→21:22)
[2020-08-01] MEDS: metroNIDAZOLE 500 MG in IV 1 EA IV SCH ×2 (08:26→16:00)
[2020-08-01] MEDS: MIRALAX *UNIT DOSE* 17GM PACKET PO SCH ×2 (08:26→21:21)
[2020-08-01] MEDS: LACTIC ACID 12% LOTION 225 GM BTL TOP SCH (08:29)
[2020-08-01] MEDS: AZELASTINE 137MCG NASAL SPY 30 ML (ASTELIN) SCH ×2 (08:30→21:22)
[2020-08-01] MEDS ORDERED: BUPIVACAINE HCL 0.25% 10ML VIAL As Ordered ONE (09:07)
[2020-08-01] MEDS ORDERED: BUPIVACAINE HCL 0.25% 30ML VIAL As Ordered ONE (09:07)
[2020-08-01] MEDS ORDERED: BUPIVACAINE LIPOSOME/PF 1.3% 20ML VIAL (13.3MG/ML)(EXPAREL)(C9290 PER1MG) As Ordered ONE (09:07)
[2020-08-01] MEDS ORDERED: LIDOCAINE 1% SDV 30ML VIAL As Ordered ONE (09:07)
[2020-08-01] MEDS ORDERED: propofoL 200 MG/20 ML VIAL As Ordered ONE (09:26)
[2020-08-01] MEDS ORDERED: LIDOCAINE 2% 100MG/5ML SDV (FOR ANES.) As Ordered ONE (09:26)
[2020-08-01] MEDS ORDERED: ROCURONIUM BROMIDE 50 MG/5 ML VIAL As Ordered ONE ×2 (09:26→12:02)
[2020-08-01] MEDS ORDERED: MIDAZOLAM INJ 2MG/2ML VIAL (J2250 PER 1MG) As Ordered ONE (09:27)
[2020-08-01] MEDS ORDERED: fentaNYL 250 MCG/5 ML INJECTION (J3010) As Ordered ONE (09:27)
--- NOTE | 2020-08-01 10:44 | IPNPDOC ---
Text Note Date of Service The patient was seen on 08/01/20. NOTE SUBJECTIVE: Patient was seen and examined this morning at bedside. She denies any worsening of her pain or nausea. Her sore throat is improved with the cepacol. She understand she will be going down to surgery this morning with Dr. Groves. OBJECTIVE: VITAL SIGNS: See below GENERAL: Alert, comfortable, morbidly obese, in no acute distress HEENT: Normocephalic, atraumatic, EOMI, moist mucous membranes NECK: Supple, trachea midline, no lymphadenopathy, no JVD CARDIOVASCULAR: Regular rate and rhythm, normal S1 and S2. No murmurs, rubs, or gallops RESPIRATORY: Clear to auscultation bilaterally with equal air entry bilaterally. No wheezing, rhonchi, or rales. ABDOMEN: Abdomen is obese and soft. Colostomy presented in the L lateral a bdominal wall with parastomal hernia which is tender to palpation and not easily reduced. No bowel sounds are appreciated. EXTREMITIES: Trace to 1+ bilateral leg edema. Pulses 2+/4 in bilateral upper and lower extremities NEUROLOGIC: Alert and oriented x3 to person, place and time. No focal deficits appreciated PSYCHIATRIC: Mood and affect appropriate ASSESSMENT/PLAN: The patient is a 80yo female with a colostomy and a past medical history of rheumatoid arthritis, IDDM, HTN, HLD, and osteoporosis with recent left distal femur fracture, who presented [facility] a [facility] from the [facility] for bloody vomitus. She was found to have a bowel obstruction. She has an NG tube, and is pending surgery if she does not clinically improve by Jul 02, as per Dr. Groves. # SBO -CT shows parastomal hernia with proximal small bowel obstruction -Lactic acid trended down to 1.1. -NPO, and continue NG tube with suction. -Continue IV morphine for pain and IV zofran for nausea. Continue to hold oral meds -Continue IV fluids for maintenance while NPO -Surgery consulted, appreciate their input and recommendations. Scheduled for surgical intervention this morning with Dr. Groves # Sepsis, improved -Tachycardia improved past 24 hours, WBC reduced from 8.6 to 6.9. Patient is a febrile. RR 18. -Last lactic acid 1.1. -Possible abdominal source of infection. -Blood cultures x2 negative for growth -Continue cefepime and metronidazole day #6 # MEKA 2/2 contrast induced nephropathy -Likely pre-renal based on FENa -Cr appears to be stabilizing at 2.87, baseline is 1.1 -Trend of Cr increase correlates to suspected contrast induced nephropathy with acute increase 2 days after contrast was given -Renal U/S showed right atrophic kidney -XR abdomen continues to show contrast in the left kidney pelvis, [address] with contrast -Hold nephrotoxic drugs, including torsemide and metformin. -Continue maintenance fluids D5/NS 100ml/hr # Osteoporosis -Patient has a hx of distal L femur fracture -Alk Phos is down from 398 to 349. ALT and AST normal. -Hold Ergocalceiferol until patient can resume oral medications. # Rheumatoid Arthritis -Well controlled on home Plaquenil, resume once tolerating orals # IDDM2 with neuropathy -Well controlled on home medications, will hold during admission. -Hbg A1c 6.2% -FSBS q6h while NPO. Sliding scale insulin. # HTN -BP is 128/63 today. Torsemide held due to MEKA -Continue to hold Torsemide until resolution of MEKA. Consider IV antihypertensives if BP elevates. DVT PROPHYLAXIS: Heparin SC 5000 units q12h DISPOSITION: Pending surgical intervention, will return to [facility] on discharge when clinically improved VS,Gwendolyne, I+O VS, Rodrigobone, I+O Laboratory Tests 07/31/20 18:54 08/01/20 06:13 Vital Signs Date Time Temp Pulse Resp B/P (MAP) Pulse Ox O2 Delivery O2 Flow Rate FiO2 08/01/20 06:00 97.4 91 21 109/59 (76) 93 Room Air I&O- Last 24 Hours up to 6 AM 08/01/20 06:00 Intake Total 3090 ml Output Total 960 ml Balance 2130 ml SAMANTHA CAMPBELL D.O. Aug 01, 2020 09:22
[2020-08-01] MEDS ORDERED: dexameTHASONE 4 MG/ML 1ML VIAL (J1100 PER 1MG) As Ordered ONE (10:59)
[2020-08-01] MEDS ORDERED: ONDANSETRON 4MG/2ML VIAL As Ordered ONE ×2 (11:48→18:04)
[2020-08-01] MEDS ORDERED: ACETAMINOPHEN 1000MG 100ML IV BTL (OFIRMEV) (J0131 PER 10MG) As Ordered ONE (11:49)
[2020-08-01] MEDS ORDERED: SUGAMMADEX SODIUM 500 MG/5 ML VIAL (BRIDION) As Ordered ONE ×2 (11:49→11:50)
[2020-08-01] MEDS ORDERED: METOCLOPRAMIDE INJ 10MG/2ML VIAL (J2765 PER 1) As Ordered ONE (11:49)
[2020-08-01] MEDS ORDERED: PHENYLephrine HCL 500 MCG/5 ML (100MCG/ML) SYRINGE (J2370) As Ordered ONE (12:26)
[2020-08-01] MEDS ORDERED: ePHEDrine SULFATE 25 MG/5 ML(5MG/ML) SYRINGE As Ordered ONE (12:28)
[2020-08-01] MEDS: CEFEPIME HCL 2 GM in D5W MINI-BAG PLUS 50 ML IV SCH (12:55)
[2020-08-01] MEDS ORDERED: fentaNYL 100 MCG/2 ML INJECTION (J3010) As Ordered ONE (17:03)
--- NOTE | 2020-08-01 17:50 | POST-OPPD ---
Postoperative Procedure Note Date Of Procedure: Aug 01, 2020 PREOPERATIVE DIAGNOSIS: small bowel obstruction, parastomal hernia POSTOPERATIVE DIAGNOSIS: same FINDINGS: mulitple loops of small bowel and omentum incarcerated within a 6 x 4 cm parastomal hernia, PROCEDURE: Robotic Assisted Laparoscopic lysis of adhesion, release of inca rcerated bowel, primary repair of parastomal hernia SURGEON: Alton Groves MD SHAREPOINT CONSULTANT: Elvia Harris NP ANESTHESIA: General anesthesia SPECIMENS: none ESTIMATED BLOOD LOSS: 100 mL DRAINS: 10 flat SUE drain at the parastomal hernia site COMPLICATIONS: none, extubated, stable to PACU POSTOPERATIVE CONDITION: stable ALTON GROVES MD Aug 01, 2020 17:50
[2020-08-01] MEDS ORDERED: oxyCODONE 5MG TAB PO PRN (18:30)
[2020-08-01] MEDS ORDERED: fentaNYL 100 MCG/2 ML INJECTION (J3010) IV PRN (18:30)
[2020-08-01] MEDS ORDERED: METOCLOPRAMIDE INJ 10MG/2ML VIAL (J2765 PER 1) IV PRN (18:30)
[2020-08-01] MEDS ORDERED: LR 1,000 ML IV SCH (18:30)
[2020-08-01] MEDS ORDERED: HYDROMORPHONE HCL 0.5 MG/ 0.5 ML SYRINGE (J1170 PER 1) IV PRN (18:30)
[2020-08-01] MEDS ORDERED: ONDANSETRON 4MG/2ML VIAL IV PRN (18:30)
[2020-08-01] MEDS: LR 1,000 ML IV SCH (19:19)
[2020-08-01 20:31] LABS: ALBUMIN 2.2 GM/DL (3.2-5.2); BILIRUBIN,TOTAL 0.6 MG/DL (0.2-1.0); CREATININE FOR GFR 2.92 MG/DL (0.55-1.30); GLOMERULAR FILTRATION RATE 20.1 (>39); POTASSIUM SERUM 4.4 MEQ/L (3.5-5.1); TOTAL PROTEIN 6.6 GM/DL (6.4-8.2)
[2020-08-02] VITALS: BP 154/82
[2020-08-02] MEDS: HumaLOG INSULIN (NovoLOG) PER UNIT SC SCH ×4 (00:11→18:28)
[2020-08-02 01:00] VITALS: BP 135/79
[2020-08-02] MEDS: LR 1,000 ML IV SCH ×4 (02:00→23:16)
[2020-08-02 04:58] LABS: BASO % 0.1 % (0.0-1.0); EOS % 0.2 % (0.0-3.0); HEMATOCRIT 34.7 % (36.0-47.0); HEMOGLOBIN 10.7 g/dl (12.0-15.5); LYMPH # 1.4 10^3/uL (1.5-5.0); LYMPH % 16.2 % (24.0-44.0); MEAN CORPUSCULAR HEMOGLOBIN 29.2 pg (27.0-33.0); MEAN CORPUSCULAR HGB CONC 30.8 g/dl (32.0-36.5); MEAN CORPUSCULAR VOLUME 94.8 fl (80.0-96.0); MONO # 0.8 10^3/uL (0.0-0.8); MONO % 8.9 % (0.0-5.0); NEUTROPHILS # 6.4 10^3/uL (1.5-8.5); NEUTROPHILS % 74.1 % (36.0-66.0); PLATELET COUNT, AUTOMATED 157 10^3/uL (150-450); RED BLOOD COUNT 3.66 10^6/uL (4.00-5.40); WHITE BLOOD COUNT 8.6 10^3/uL (4.0-10.0)
[2020-08-02] MEDS: ONDANSETRON 4MG/2ML VIAL IV SCH (05:00)
--- NOTE | 2020-08-02 05:08 | ROOPDOC ---
[facility] Report Of Operation Report of Operation DATE OF PROCEDURE: 08/03/20 PREOPERATIVE DIAGNOSIS: small bowel obstruction, parastomal hernia POSTOPERATIVE DIAGNOSIS: same FINDINGS: mulitple loops of small bowel and omentum incarcerated within a 6 x 4 cm parastomal hernia, PROCEDURE: Robotic Assisted Laparoscopic lysis of adhesion, release of in carcerated bowel, primary repair of parastomal hernia SURGEON: Kwabena Groves MD LOG RAFTER: Elvia Harris NP ANESTHESIA: General anesthesia SPECIMENS: none ESTIMATED BLOOD LOSS: 100 mL DRAINS: 10 flat SUE drain at the parastomal hernia site COMPLICATIONS: none, extubated, stable to PACU POSTOPERATIVE CONDITION: stable PROCEDURE NOTE: extensive adhesions of bowel to abdominal wall, bowel to bowel, essentially coccooning of the bowels within fibrous sacs of adhesions, tight incarceration of small bowel with thick adhesions of the small bowel to the hernia sac (add modifier 22). Total of 6 hrs for lysis of adhesions. DESCRIPTION OF PROCEDURE: Patient has already been receiving cefepime and metronidazole since her admission and this was continued perioperatively. She was brought to the operating room, placed supine on the table. Bilateral compression boots placed on both lower extremities were DVT prophylaxis. She received a dose of heparin 5000 units subcutaneously this morning for chemical prophylaxis for DVT. Gen. endotracheal anesthesia was established. She already came in with a Pitts catheter in place. I placed a 24 Cypriot Pitts catheter through her ostomy and a sterile occlusive dressing placed on top of the course of the pitts catheter and colostomy. her abdomen then widely prepped and draped in usual sterile fashion. her right arm was tucked the bed was flexed to increase the space to work on her abdomen.We paused for a surgical timeout using both pre-incision safety checklist to verify correct patient, procedure site and additional clinical information prior to beginning the procedure I initially tried again and tree via a Veress needle technique. Even with using a long Veress needle I was unable to establish pneumoperitoneum even though p lacement is confirmed with saline drop technique. I then used a 5 mm Kii Fios with a direct optical entry over the right upper quadrant area to successfully get inside of the belly. Insufflation and started to pressure 15 mmHg. Patient has a lot of this chronic fibrous adhesions preventing distention of the intra- abdominal space that I have to manually breakdown initially with my laparoscope to create space. After this looking around, I could see the transverse colon adhered to the midline upper abdomen entering into the midline incisional hernia and this appears decompressed. The small bowel is difficult to examine as the whole of the small bowel as it is encased in this thick fibrous coccoon like adhesions matted together. I continued to use the laparoscope to create space over the right side of the abdomen enough that I could introduce a long 5 mm trocar for working ports. Initially using this to port site use the laparoscopic dean mainly for cold cutting and creating further space inferiorly. I switched the initial 5 mm trocar for an 8 mm robotic trocar. I placed another long 8mm trocar through her thick lower abdominal wall pannus and was barely able to get into the abdomen this way. The second trocar was then exchanged for another 8 mm port. With this 3 ports I then positioned the da Rufino robotic tower in place and . I primarily used a forceps bipolar forceps connected to bipolar cautery and lap scopic scissors connected to a monopolar cautery and an 8 mm robotic camera. Then scrubbed in to control of the camera and instruments at the surgeon's console while my assistant speech language pathologist remains at bedside for adjustment of the robotic arms and instrument exchange. I continued working taking down the adhesions to the abdominal wall. The parastomal area is not visible as there is a matted loop of bowel and transverse colon on my view adhered to the midline incisional hernia so started working around this. I lysed the adhesions dropping the incarcerated omentum as well as the transverse colon off the anterior abdominal wall. After doing this I was able to create space over the left upper quadrant area with visualization of the left lobe of the liver. I was able to visualize my initial entry point with a Veress in this fashion I did not see any known injury. Patient was repositioned in a mild Trendelenburg position roughly about 8 tilted towards the right side to start working around the parastomal hernia area. Again bowels are matted including that of the omentum and this seems to be encased in this thick fibrous scar tissue/hernia sac. With my assistant speech language pathologist pushing on the parastomal area and this will not self reduce. I tried to create space around the parastomal hernia to try to get a sense of the configuration of the bowels as well as that of the hernia itself and this only proved partially successful. I was able to gain more space over towards the right side. I started cutting on the fibrous sac bit by bit as my assistant speech language pathologist places pressure on the abdominal wall to help me define the course of the bowels that are going in through this. Initially the bowels were decompressed but does be slowly reduced them from the parastomal hernia the s tarted getting more distended. There is a loop of omentum in the middle of all this and as I was trying to reduce them got into some bleeding with breaking of the crossing vessels within the omentum which was cauterized to control it. Once again a sense of the configuration of the bowel I slowly made my way around this while my assistant speech language pathologist has reducing the bowel from the hernia. At this point I asked one of my partners to help me make sense of the configuration of the bowel. Dr. Gold came in to provide some input on how to get around the incarcerated loops of bowel. This portion of the case took primarily about 4-5 hours to eventually reduce the bowel out of the hernia. The left over adhesions to the hernia sac was eventually able to be divided as we were able to reduce the bowels into the abdome. But upon full reduction of the small bowel there is no longer space left over inside of the abdominal cavity most likely both a reflection of a loss of domain but also more likely from the distention of the small bowel. At this point I decided to just close the parastomal defect. This is roughly about 6 x 5 cm. The underlying peritoneum was not so robot and likewise the muscle layers were not so evident. Full-thickness bites were created using a #0 Stratafix which I ran back and forth to eventually close the defect but not to strangulate the colostomy. The colostomy remains viable. Prior to doing this I scrubbed back in and inserted a 10 flat SUE drain in the left this coming off from the bottom of the colostomy and left the drain inside of the hernia defect expecting seroma to form around the area. After the defect was closed I chose not to place a mesh as I did not have any space to do this with the distended loops of bowel likewise with my concern that the bowels have been severely traumatized with the manipulation that it might put the mesh at risk for infection despite not grossly seeing any traumatic injury to the small bowel wall. I was not able to run the whole of the small bowel course as they remain adhered to one another and hadto work around the distended loops of bowel. At this point the procedure was terminated I scrubbed back in. The abdomen was deflated. All ports were removed. Skin incisions closed with 4-0 Monocryl in subsequent fashion. I secured the drain to the skin with 2-0 silk. Dermabond was used for dressing. Throughout the procedure patient remained stable and had made adequate urine. Patient was successfully awakened, extubated and brought to recovery room in stable condition. KWABENA GROVES MD Aug 02, 2020 05:08
[2020-08-02 05:22] LABS: ALBUMIN 2.1 GM/DL (3.2-5.2); BILIRUBIN,TOTAL 0.4 MG/DL (0.2-1.0); CALCIUM LEVEL 7.4 MG/DL (8.8-10.2); CREATININE FOR GFR 2.66 MG/DL (0.55-1.30); GLOMERULAR FILTRATION RATE 22.4 (>39); POTASSIUM SERUM 3.9 MEQ/L (3.5-5.1); TOTAL PROTEIN 5.6 GM/DL (6.4-8.2)
[2020-08-02 06:00] VITALS: BP 117/57
[2020-08-02] MEDS: ONDANSETRON 4 MG ORAL DISINTEGRATING TAB SL PRN (06:14)
[2020-08-02] MEDS: TIOTROPIUM INHALER/CAPSULE (SPIRIVA) INH SCH (07:17)
[2020-08-02] MEDS: FLUTICASONE HFA 110 MCG 12 GM INHALER (FLOVENT) INH SCH ×2 (07:17→20:32)
--- NOTE | 2020-08-02 09:09 | IPNPDOC ---
Text Note Date of Service The patient was seen on 08/02/20. NOTE Patient is POD1 after robotic assisted lap lysis of adhesion, reduction of in carcerated bowel from her parastomal hernia and primary parastomal hernia repair Patient with extensive luminal adhesions, very distended loops of small bowel. Over all doing well, quite comfortable lying down on bed, denies nausea VS stable O2 sats mid 90s on 2L NC nontachycardic, afebrile NGT not functioning clear breath sounds, slight shallow breath, no wheezing nontachycardic, regular rhythm abdomen is markedly obese, seems uniformly midly distended, parastomal hernia repair site seems intact, SUE drain within hernia sac only minimal serosanguenous ouput. Port sites dry. No point tenderness on palpation Plan: Patient is getting picc line today, will start her on tpn. I dont expect her bowels to work for the next few days to a week reinsert NGT agreee with incentives, try entereg dvt prophylaxis I have stopped the abx as there are no focus of infections I/O NGT ostomy 0 VS,Fishbone, I+O VS, Fishbone, I+O Laboratory Tests 08/01/20 19:18 08/02/20 04:43 Vital Signs Date Time Temp Pulse Resp B/P (MAP) Pulse Ox O2 Delivery O2 Flow Rate FiO2 08/02/20 06:00 98.0 90 18 117/57 (77) 100 Room Air 08/01/20 18:40 2 I&O- Last 24 Hours up to 6 AM 08/02/20 06:00 Intake Total 1619 ml Output Total 425 ml Balance 1194 ml ALTON GILLIAM MD Aug 02, 2020 09:09
[2020-08-02] MEDS: HEPARIN SOD (PORCINE) 5000UNITS/ML 1ML VIAL/SYRINGE SQ SCH ×2 (09:45→20:38)
[2020-08-02] MEDS: MIRALAX *UNIT DOSE* 17GM PACKET PO SCH ×2 (09:46→20:38)
[2020-08-02] MEDS: PERCOCET 5MG/325MG TAB PO PRN ×2 (09:46→17:03)
[2020-08-02] MEDS: LACTIC ACID 12% LOTION 225 GM BTL TOP SCH (09:47)
[2020-08-02] MEDS: AZELASTINE 137MCG NASAL SPY 30 ML (ASTELIN) SCH ×2 (09:47→20:39)
[2020-08-02] MEDS: ALVIMOPAN 12 MG CAPSULE (ENTEREG) PO SCH ×2 (10:17→20:38)
--- NOTE | 2020-08-02 11:37 | IPNPDOC ---
Text Note Date of Service The patient was seen on 08/02/20. NOTE SUBJECTIVE: The patient was seen at bedside. She is post op day #1 from parastomal hernia repair. She says that her abdominal pain is returning. She denies nausea or headache. Overnight her IV infiltrated and had to be removed. Multiple attempts were made to attain IV access but all were unsuccessful. OBJECTIVE: VITALS: See below GENERAL: The patient is lying in bed, uncomfortable but in no acute distress. She is morbidly obese. HEENT: Normocephalic, atraumatic, EOMI, moist mucous membranes CV: RRR. S1 and S2 are noted, and no murmurs gallops or rubs are appreciated. LUNGS: Lungs are clear to auscultation bilaterally. No rales, rhonchi or wheezing were noted. Chest rise is symmetrical with inhalation. ABDOMEN: Soft, obese, nondistended. Bowel sounds are absent. There is a colostomy at the LUQ, the parastomal hernia has been repaired. Tender to palpation just medial to the ostomy. EXTREMITIES: Trace edema is noted in the legs bilaterally. Pulses 2+/4 in bilateral upper and lower extremities NEURO: No focal deficits noted PSYCH: AAOx3, normal mood/affect. ASSESSMENT/PLAN: Mrs. Schultz is a 80yo female with a past medical history of IDDM, HTN, HLD, rheumatoid arthritis and osteoporosis with recent left distal femur fracture. She presented to the ED from the half-way with bloody vomitus, and was found to have a SBO and parastoma hernia. She is post op day #1 from parastomal hernia repair. # SBO 2/2 parastomal hernia -Surgery consulted, appreciate their input and recommendations. -s/p parastomal hernia repair, post op day #1 -Continues as NPO with NG tube to LIS per surgery. -Continue IV morphine for pain and IV zofran for nausea. Continue to hold oral meds -Will start on TPN today for nutrition while she remains NPO. # MEKA 2/2 contrast induced nephropathy -Likely pre-renal based on FENa -Cr improved to 2.6 (from 2.9). Baseline prior to admission was 1.1. -Renal U/S showed right atrophic kidney -XR abdomen continued to show contrast in the left kidney pelvis, [address] with contrast -Hold nephrotoxic drugs, including torsemide and metformin. -Continue maintenance fluids LR at 125 ml/hr # Poor peripheral access - hx of cut down on the left arm so we are unable to use this for IV access - ordered PICC line placement for today # Sepsis, improved -initially met SIRS criteria on admission -s/p IV abx with cefepime and metronidazole for 6 days for possible abdominal source -Dr. Groves did not see any evidence of infection during surgery and abx have been discontinued # HTN -BP is 117/57 today. Torsemide held due to MEKA -Continue to hold Torsemide until resolution of MEKA. Consider IV antihypertensives if BP elevates. # IDDM2 with neuropathy -Well controlled on home medications, will hold during admission. -Hbg A1c 6.2% -FSBS q6h while NPO. Sliding scale insulin. # Osteoporosis -Patient has a hx of distal L femur fracture -Alk Phos is down to 342. ALT and AST normal. -Hold Ergocalceiferol until patient can resume oral medications. # Rheumatoid Arthritis -Well controlled on home Plaquenil, resume once tolerating orals DVT PROPHYLAXIS: Heparin SC 5000 units q12h DISPOSITION: Pending post-op clinical improvement, tolerance of oral diet when appropriate, will return to half-way on discharge when clinically improved VS,Rodrigobone, I+O VS, Fishbone, I+O Laboratory Tests 08/01/20 19:18 08/02/20 04:43 Vital Signs Date Time Temp Pulse Resp B/P (MAP) Pulse Ox O2 Delivery O2 Flow Rate FiO2 08/02/20 10:16 16 08/02/20 06:00 98.0 90 117/57 (77) 100 Room Air 08/01/20 18:40 2 I&O- Last 24 Hours up to 6 AM 08/02/20 06:00 Intake Total 1619 ml Output Total 425 ml Balance 1194 ml GME ATTESTATION GME ATTESTATION My faculty preceptor for this patient encounter was physically present during the encounter and was fully available. All aspects of the patient interview, examination, medical decision making process, and medical care plan development were reviewed and approved by the faculty preceptor. The faculty preceptor is aware and concurs with the plan as stated in the body of this note and will attest to such by his/her cosignature. ASUNCION GEORGE Aug 02, 2020 11:37 SAMANTHA CAMPBELL D.O. Aug 02, 2020 11:56
[2020-08-02 12:25] LABS: MAGNESIUM LEVEL 2.7 MG/DL (1.8-2.4); PHOSPHORUS LEVEL 5.3 MG/DL (2.5-4.9)
[2020-08-02] MEDS ORDERED: LIDOCAINE 1% MDV 20ML VIAL As Ordered ONE (13:00)
[2020-08-02 14:00] VITALS: BP 133/69
--- NOTE | 2020-08-02 14:44 | REP ---
PROCEDURE NAME: PICC LINE INSERTION W/SITERITE CLINICAL INFORMATION: poor peripheral access, right arm only. COMPARISON: None. PROCEDURE DESCRIPTION: The procedure was performed by EROS Deal, under the direct supervision of Dr. Alberts. The risks and benefits of the procedure were explained to the patient and an informed consent was obtained both verbally and written. Directly prior to the start of the procedure a formal time-out was completed in the procedure room. The right basilic vein was localized using ultrasound guidance. The skin was prepped and draped in sterile fashion. Two ML of 1% lidocaine 10 mg/mL was used as a local anesthetic. Using ultrasound guidance the right basilic vein was cannulated, and a 0.018 guidewire was inserted and advanced to the level of SVC using fluoroscopic guidance. The needle was removed and a 5.5 Tristanian dilator and peel-away sheath was inserted over the guidewire. A 5.5 Tristanian dual lumen catheter was cut to a length of 35 cm. The dilator was removed and the catheter was inserted over the guidewire with the tip ending at the level of the SVC. The peel-away sheath was removed and the catheter was flushed with heparinized saline as per hospital protocol. The catheter was affixed to the skin and a sterile dressing was applied. The patient tolerated the procedure well and there were no immediate complications. CONCLUSION: PICC line insertion into the right basilic vein. 0.1 minutes of fluoroscopy time was utilized for this procedure. Some fluoroscopic images are performed with last image hold technology. These images require no additional radiation. <Electronically signed by Ruth Cunningham > 08/02/20 1438 <Electronically signed by Papi Alberts > 08/02/20 1447
[2020-08-02 18:00] VITALS: BP 134/71
[2020-08-02] MEDS ORDERED: MULTIVITAMIN -ADULT INJECTION 10 ML, CR/CU/SE/MN/ZN INJ 1 ML in AMINO AC/ELECTROLYTE/DE... IV SCH (18:00)
[2020-08-02] MEDS ORDERED: FAT EMULSION IV 20% 500 ML IV SCH (18:00)
[2020-08-02] MEDS: SODIUM CHLORIDE 0.9% INJ 10 ML SYR IV SCH (18:28)
[2020-08-02 22:00] VITALS: BP 126/63
[2020-08-03] MEDS: HumaLOG INSULIN (NovoLOG) PER UNIT SC SCH ×4 (00:17→18:22)
[2020-08-03] MEDS: CEPACOL LOZENGE PO PRN ×4 (00:24→21:31)
[2020-08-03 02:00] VITALS: BP 115/65
[2020-08-03 06:00] VITALS: BP 160/87
[2020-08-03] MEDS: SODIUM CHLORIDE 0.9% INJ 10 ML SYR IV SCH ×2 (06:00→18:20)
[2020-08-03 06:16] LABS: BASO % 0.3 % (0.0-1.0); EOS # 0.2 10^3/uL (0.0-0.5); EOS % 1.9 % (0.0-3.0); HEMATOCRIT 37.4 % (36.0-47.0); HEMOGLOBIN 11.6 g/dl (12.0-15.5); LYMPH # 1.4 10^3/uL (1.5-5.0); LYMPH % 17.1 % (24.0-44.0); MEAN CORPUSCULAR HEMOGLOBIN 29.6 pg (27.0-33.0); MEAN CORPUSCULAR VOLUME 95.4 fl (80.0-96.0); MONO # 0.7 10^3/uL (0.0-0.8); MONO % 8.9 % (0.0-5.0); NEUTROPHILS # 5.7 10^3/uL (1.5-8.5); NEUTROPHILS % 71.2 % (36.0-66.0); PLATELET COUNT, AUTOMATED 152 10^3/uL (150-450); RED BLOOD COUNT 3.92 10^6/uL (4.00-5.40)
[2020-08-03 06:40] LABS: ALBUMIN 2.1 GM/DL (3.2-5.2); BILIRUBIN,DIRECT 0.2 MG/DL (0.0-0.2); BILIRUBIN,TOTAL 0.4 MG/DL (0.2-1.0); CREATININE FOR GFR 1.85 MG/DL (0.55-1.30); MAGNESIUM LEVEL 2.6 MG/DL (1.8-2.4); PHOSPHORUS LEVEL 2.9 MG/DL (2.5-4.9); POTASSIUM SERUM 3.4 MEQ/L (3.5-5.1); TOTAL PROTEIN 5.9 GM/DL (6.4-8.2)
[2020-08-03] MEDS: FLUTICASONE HFA 110 MCG 12 GM INHALER (FLOVENT) INH SCH ×2 (08:11→19:48)
[2020-08-03] MEDS: TIOTROPIUM INHALER/CAPSULE (SPIRIVA) INH SCH (08:11)
[2020-08-03] MEDS: PERCOCET 5MG/325MG TAB PO PRN (08:20)
[2020-08-03] MEDS: HEPARIN SOD (PORCINE) 5000UNITS/ML 1ML VIAL/SYRINGE SQ SCH ×2 (08:21→20:16)
[2020-08-03] MEDS: AZELASTINE 137MCG NASAL SPY 30 ML (ASTELIN) SCH ×2 (08:22→20:18)
[2020-08-03] MEDS: ALVIMOPAN 12 MG CAPSULE (ENTEREG) PO SCH ×2 (08:22→20:15)
[2020-08-03] MEDS: LACTIC ACID 12% LOTION 225 GM BTL TOP SCH (08:22)
[2020-08-03] MEDS: MIRALAX *UNIT DOSE* 17GM PACKET PO SCH ×2 (08:28→20:16)
--- NOTE | 2020-08-03 08:56 | IPNPDOC ---
Text Note Date of Service The patient was seen on 08/03/20. NOTE SUBJECTIVE: The patient was seen at bedside on Med/Surg. She is post op day #2 from parastomal hernia repair. Yesterday, a PICC line was placed and TPN initiated. No events overnight. Continues to demonstrate resolution of her contrast-induced nephropathy as her creatinine has continued to return to fall from 2.66 to 1.85, GFR also improved from 22.4-34. Patient reports that she is comfortable and that her abdominal pain is well controlled this time. OBJECTIVE: VITALS: See below GENERAL: The patient is lying in bed, uncomfortable but in no acute distress. She is morbidly obese. HEENT: Normocephalic, atraumatic, EOMI, moist mucous membranes CV: RRR. S1 and S2 are noted, and no murmurs gallops or rubs are appreciated. LUNGS: Lungs are clear to auscultation bilaterally. No rales, rhonchi or wheezing were noted. Chest rise is symmetrical with inhalation. ABDOMEN: Soft, obese, nondistended. Bowel sounds are absent. There is a colostomy at the LUQ, the parastomal hernia has been repaired. Tender to palpation just medial to the ostomy. EXTREMITIES: Trace edema is noted in the legs bilaterally. Pulses 2+/4 in bilateral upper and lower extremities NEURO: No focal deficits noted PSYCH: AAOx3, normal mood/affect. ASSESSMENT: Mrs. Schultz is a 80yo female with a past medical history of IDDM, HTN, HLD, rheumatoid arthritis and osteoporosis with recent left distal femur fracture. She presented to the ED from the longterm with bloody vomitus, and was found to have a SBO and parastoma hernia. She is post op day #2 from parastomal hernia repair. PLAN: #SBO 2/2 parastomal hernia -Surgery consulted, appreciate their input and recommendations. -s/p parastomal hernia repair, post op day #1 -Continues as NPO with NG tube to LIS per surgery. -Continue IV morphine for pain and IV zofran for nausea. Continue to hold oral meds -TPN via PICC. #MEKA 2/2 contrast induced nephropathy -Likely pre-renal based on FENa -Cr improved to 1.85 (from 2.6). Baseline prior to admission was 1.1. -Renal U/S showed right atrophic kidney -XR abdomen continued to show contrast in the left kidney pelvis, [address] with contrast -Hold nephrotoxic drugs, including torsemide and metformin. -Continue maintenance fluids LR at 125 ml/hr #Poor peripheral access - hx of cut down on the left arm so we are unable to use this for IV access - Right-sided PICC in place, TPN. May be used for draws. #Sepsis, improved -initially met SIRS criteria on admission -s/p IV abx with cefepime and metronidazole for 6 days for possible abdominal source -Dr. Groves did not see any evidence of infection during surgery and abx have been discontinued #HTN -Blood pressure has been well controlled, all medications have been held -Consider IV antihypertensives if BP elevates. #IDDM2 with neuropathy -Well controlled on home medications, will hold during admission. -Hbg A1c 6.2% -FSBS q6h while NPO. Sliding scale insulin. #Osteoporosis -Patient has a hx of distal L femur fracture -Alk Phos is down to 342. ALT and AST normal. -Hold Ergocalceiferol until patient can resume oral medications. # Rheumatoid Arthritis -Well controlled on home Plaquenil, resume once tolerating orals DVT PROPHYLAXIS: Heparin SC 5000 units q12h DISPOSITION: Pending post-op clinical improvement, tolerance of oral diet when appropriate, will return to longterm on discharge when clinically improved VS,Fishbone, I+O VS, Fishbone, I+O Laboratory Tests 08/03/20 05:59 Vital Signs Date Time Temp Pulse Resp B/P (MAP) Pulse Ox O2 Delivery O2 Flow Rate FiO2 08/03/20 08:20 18 08/03/20 06:00 97.4 100 160/87 (111) 94 Room Air 08/01/20 18:40 2 I&O- Last 24 Hours up to 6 AM 08/03/20 06:00 Intake Total 0 ml Output Total 2325 ml Balance -2325 ml GME ATTESTATION GME ATTESTATION My faculty preceptor for this patient encounter was physically present during the encounter and was fully available. All aspects of the patient interview, examination, medical decision making process, and medical care plan development were reviewed and approved by the faculty preceptor. The faculty preceptor is aware and concurs with the plan as stated in the body of this note and will attest to such by his/her cosignature. ATTENDING NOTE I, Teofilo Mcgarry, saw and evaluated the patient. I agree with the findings and the plan of care as documented in the resident's note. NIKHIL MARTIN DO Aug 03, 2020 08:56 TEOFILO MCGARRY DO Aug 03, 2020 18:51
[2020-08-03 10:00] VITALS: BP 143/65
[2020-08-03] MEDS: LR 1,000 ML IV SCH (10:00)
[2020-08-03] MEDS ORDERED: CHLORASEPTIC SPRAY MT PRN ×2 (13:00→14:15)
[2020-08-03 14:00] VITALS: BP 141/65
[2020-08-03] MEDS: CHLORASEPTIC SPRAY MT PRN ×2 (16:09→20:16)
[2020-08-03 18:00] VITALS: BP 154/78
[2020-08-03] MEDS ORDERED: FAT EMULSION IV 20% 500 ML IV SCH (18:00)
[2020-08-03] MEDS ORDERED: AMINO AC/ELECTROLYTE/DEX/CALC 2,000 ML IV SCH (18:00)
[2020-08-03 22:00] VITALS: BP 147/85
[2020-08-04] MEDS: HumaLOG INSULIN (NovoLOG) PER UNIT SC SCH ×4 (00:40→17:41)
[2020-08-04] MEDS: CHLORASEPTIC SPRAY MT PRN ×3 (00:40→19:56)
[2020-08-04 02:00] VITALS: BP 151/88
[2020-08-04 06:00] VITALS: BP 144/80
[2020-08-04] MEDS: MORPHINE 2 MG/ML 1ML VIAL (J2270) IV PRN ×2 (06:08→12:27)
[2020-08-04] MEDS: SODIUM CHLORIDE 0.9% INJ 10 ML SYR IV SCH ×2 (06:10→17:40)
[2020-08-04] MEDS: CEPACOL LOZENGE PO PRN (06:17)
[2020-08-04 06:48] LABS: BASO % 0.3 % (0.0-1.0); EOS # 0.2 10^3/uL (0.0-0.5); EOS % 2.4 % (0.0-3.0); HEMATOCRIT 37.3 % (36.0-47.0); HEMOGLOBIN 11.2 g/dl (12.0-15.5); LYMPH # 2.1 10^3/uL (1.5-5.0); LYMPH % 23.5 % (24.0-44.0); MEAN CORPUSCULAR HEMOGLOBIN 28.6 pg (27.0-33.0); MEAN CORPUSCULAR VOLUME 95.2 fl (80.0-96.0); MONO # 0.9 10^3/uL (0.0-0.8); MONO % 9.7 % (0.0-5.0); NEUTROPHILS # 5.6 10^3/uL (1.5-8.5); NEUTROPHILS % 63.3 % (36.0-66.0); PLATELET COUNT, AUTOMATED 138 10^3/uL (150-450); RED BLOOD COUNT 3.92 10^6/uL (4.00-5.40); WHITE BLOOD COUNT 8.9 10^3/uL (4.0-10.0)
[2020-08-04 07:49] LABS: ALBUMIN 1.9 GM/DL (3.2-5.2); BILIRUBIN,DIRECT 0.2 MG/DL (0.0-0.2); BILIRUBIN,TOTAL 0.2 MG/DL (0.2-1.0); CALCIUM LEVEL 8.1 MG/DL (8.8-10.2); CREATININE FOR GFR 1.16 MG/DL (0.55-1.30); GLOMERULAR FILTRATION RATE 58.3 (>39); MAGNESIUM LEVEL 2.4 MG/DL (1.8-2.4); PHOSPHORUS LEVEL 2.4 MG/DL (2.5-4.9); POTASSIUM SERUM 3.4 MEQ/L (3.5-5.1); TOTAL PROTEIN 6.3 GM/DL (6.4-8.2)
[2020-08-04] MEDS ORDERED: BISACODYL 10 MG SUPP XX ONE (09:00)
[2020-08-04] MEDS: ALVIMOPAN 12 MG CAPSULE (ENTEREG) PO SCH ×2 (09:40→19:57)
[2020-08-04] MEDS: MIRALAX *UNIT DOSE* 17GM PACKET PO SCH ×2 (09:40→19:57)
[2020-08-04] MEDS: LACTIC ACID 12% LOTION 225 GM BTL TOP SCH (09:40)
[2020-08-04] MEDS: HEPARIN SOD (PORCINE) 5000UNITS/ML 1ML VIAL/SYRINGE SQ SCH ×2 (09:40→19:58)
[2020-08-04] MEDS: AZELASTINE 137MCG NASAL SPY 30 ML (ASTELIN) SCH ×2 (09:41→19:57)
[2020-08-04 10:00] VITALS: BP 156/79
[2020-08-04] MEDS: FLUTICASONE HFA 110 MCG 12 GM INHALER (FLOVENT) INH SCH ×2 (11:06→20:34)
[2020-08-04] MEDS: TIOTROPIUM INHALER/CAPSULE (SPIRIVA) INH SCH (11:06)
--- NOTE | 2020-08-04 12:31 | REP ---
INDICATION: follow up sbo. COMPARISON: Comparison radiographs July 31, 2020.. FINDINGS: Upright chest radiograph shows extrathoracic soft tissue emphysema along the right chest wall extending into the supraclavicular soft tissues. There is a right-sided PICC line in place. In place. NG tube enters the left upper quadrant. There is no evidence of infiltrate. Right hemidiaphragm is somewhat elevated. No free air is visible. Supine and cross-table lateral views of the abdomen show no evidence of free intraperitoneal air. There is a surgical drain in the left lower quadrant. There are 2 or 3 loops of air-filled mildly dilated small bowel in the central abdomen. There is a paucity of distal bowel gas. Sutures are noted in the right lower quadrant. Extrathoracic soft tissue emphysema is seen along the right lateral abdomen wall. IMPRESSION: There is no evidence of free air. There are 2 or 3 dilated loops of small bowel in the central abdomen consistent with some degree of small bowel obstruction. A paucity of distal bowel gas is seen. There is extra thoracic soft tissue emphysema along the right lateral abdominal and chest wall.. <Electronically signed by Papi Alberts > 08/04/20 0049
[2020-08-04 14:00] VITALS: BP 156/79
[2020-08-04] MEDS: ONDANSETRON 4 MG ORAL DISINTEGRATING TAB SL PRN (16:14)
[2020-08-04] MEDS ORDERED: FAT EMULSION IV 20% 500 ML IV SCH (18:00)
[2020-08-04] MEDS ORDERED: POTASSIUM CHLORIDE IV SCH (18:00)
[2020-08-04] MEDS ORDERED: [UNRECOGNIZED DRUG - OTHER] IV SCH (18:00)
[2020-08-04] MEDS ORDERED: INSULIN HUMAN REGULAR IV SCH (18:00)
[2020-08-04 22:00] VITALS: BP 157/80
--- NOTE | 2020-08-04 22:44 | IPNPDOC ---
Subjective Date Seen The patient was seen on 08/04/20. Subjective Chief Complaint/HPI Mrs. Schultz is a 80 year old female with rheumatoid arthritis, IDDM2, and obesity who is here for SBO s/p parastomal hernia repair. Today is post op day 3. She was seen in the morning. Denied any fever, chest pain, or dyspnea. There was no output from NGT and she felt like she could eat. Objective Physical Examination General Exam: Positive: Alert, Cooperative, No Acute Distress Eye Exam: Positive: EOMI; Negative: Sclera icteric ENT Exam: Positive: Atraumatic Neck Exam: Positive: Supple Chest Exam: Positive: Clear to auscultation Heart Exam: Positive: Rate Normal; Negative: Regular Rhythm Abdomen Exam: Positive: BS Hypoactive, Soft Extremity Exam: Positive: Edema Neuro Exam: Positive: Cranial Nerves 3-12 NL Psych Exam: Positive: Mental status NL, Mood NL Assessment /Plan Assessment Mrs. Schultz is a 80 year old female with rheumatoid arthritis, IDDM2, and obesity who is here for SBO s/p parastomal hernia repair. She is post op day 3 from repair. General surgery following, recommendations appreciated. NGT removed today. Pending ability to tolerate orals Plan/VTE VTE Prophylaxis Ordered?: Yes Plan 1. SBO 2/2 parastomal hernia -Surgery following, recommendations appreciated -Post op day 3 -NG tube removed today -Continue NPO status 2. MEKA 2/2 DORIS -Creatinine peaked at 2.92 -Near baseline, Today 1.16 -Avoid nephrotoxic drugs, maintain stable blood pressure, supportive care 3. IDDM2 with neuropathy -Continue insulin regimen and glucose checks 4. Rheumatoid arthritis -Previously controlled with Plaquenil, restart when able to take oral medication 5. DVT ppx -Heparin Disposition: Pending improvement in clinical status. Will return to long-term VS, I&O, 24H, Fishbone Vital Signs/I&O Vital Signs Date Time Temp Pulse Resp B/P (MAP) Pulse Ox O2 Delivery O2 Flow Rate FiO2 08/04/20 14:00 98.1 100 18 156/79 (104) 94 Room Air 08/01/20 18:40 2 I&O- Last 24 Hours up to 6 AM 08/04/20 06:00 Intake Total 1843 ml Output Total 1400 ml Balance 443 ml Laboratory Data 24H LABS Laboratory Tests 2 08/03/20 23:48: Bedside Glucose (Misc Panel) 276H 08/04/20 05:49: Bedside Glucose (Misc Panel) 236H 08/04/20 06:34: Immature Granulocyte % (Auto) 0.8, Neutrophils (%) (Auto) 63.3, Lymphocytes (%) (Auto) 23.5L, Monocytes (%) (Auto) 9.7H, Eosinophils (%) (Auto) 2.4, Basophils (%) (Auto) 0.3, Neutrophils # (Auto) 5.6, Lymphocytes # (Auto) 2.1, Monocytes # (Auto) 0.9H, Eosinophils # (Auto) 0.2, Basophils # (Auto) 0.0, Nucleated Red Blood Cells % (auto) 0.0, Anion Gap 5L, Glomerular Filtration Rate 58.3, Calcium Level 8.1L, Phosphorus Level 2.4L, Magnesium Level 2.4, Total Bilirubin 0.2, Direct Bilirubin 0.2, Aspartate Amino Transf (AST/SGOT) 10, Alanine Aminotransferase (ALT/SGPT) 13, Alkaline Phosphatase 338H, Total Protein 6.3L, Albumin 1.9L, Albumin/Globulin Ratio 0.4L 08/04/20 11:36: Bedside Glucose (Misc Panel) 301H 08/04/20 16:50: Bedside Glucose (Misc Panel) 254H CBC/BMP Laboratory Tests 08/04/20 06:34 Microbiology Microbiology 07/28/20 Blood Culture - Final, Complete NO GROWTH AFTER 5 DAYS 07/28/20 Blood Culture - Final, Complete NO GROWTH AFTER 5 DAYS KHLOE FORTE DO Aug 04, 2020 22:44
[2020-08-05] MEDS: HumaLOG INSULIN (NovoLOG) PER UNIT SC SCH ×4 (00:51→18:26)
[2020-08-05 02:00] VITALS: BP 147/76
[2020-08-05] MEDS: SODIUM CHLORIDE 0.9% INJ 10 ML SYR IV SCH ×2 (05:02→18:12)
[2020-08-05] MEDS: ONDANSETRON 4 MG ORAL DISINTEGRATING TAB SL PRN ×4 (05:07→20:44)
[2020-08-05] MEDS: PERCOCET 5MG/325MG TAB PO PRN ×2 (05:08→18:13)
[2020-08-05 06:00] VITALS: BP 142/73
[2020-08-05 06:22] LABS: BASO % 0.4 % (0.0-1.0); EOS # 0.2 10^3/uL (0.0-0.5); EOS % 2.1 % (0.0-3.0); HEMATOCRIT 37.3 % (36.0-47.0); HEMOGLOBIN 11.4 g/dl (12.0-15.5); LYMPH # 1.7 10^3/uL (1.5-5.0); LYMPH % 21.9 % (24.0-44.0); MEAN CORPUSCULAR HEMOGLOBIN 29.4 pg (27.0-33.0); MEAN CORPUSCULAR HGB CONC 30.6 g/dl (32.0-36.5); MEAN CORPUSCULAR VOLUME 96.1 fl (80.0-96.0); MONO # 0.8 10^3/uL (0.0-0.8); MONO % 10.3 % (0.0-5.0); NEUTROPHILS % 64.3 % (36.0-66.0); PLATELET COUNT, AUTOMATED 148 10^3/uL (150-450); RED BLOOD COUNT 3.88 10^6/uL (4.00-5.40); WHITE BLOOD COUNT 7.7 10^3/uL (4.0-10.0)
[2020-08-05 06:41] LABS: ALBUMIN 1.9 GM/DL (3.2-5.2); ALT/SGPT 15 U/L (12-78); BILIRUBIN,DIRECT 0.2 MG/DL (0.0-0.2); BILIRUBIN,TOTAL 0.2 MG/DL (0.2-1.0); BLOOD UREA NITROGEN 33 MG/DL (7-18); CALCIUM LEVEL 8.1 MG/DL (8.8-10.2); CARBON DIOXIDE LEVEL 27 MEQ/L (21-32); CHLORIDE LEVEL 111 MEQ/L (98-107); GLOMERULAR FILTRATION RATE > 60.0 (>39); GLUCOSE, FASTING 285 MG/DL (70-100); MAGNESIUM LEVEL 2.3 MG/DL (1.8-2.4); PHOSPHORUS LEVEL 2.4 MG/DL (2.5-4.9); POTASSIUM SERUM 3.4 MEQ/L (3.5-5.1); SODIUM LEVEL 141 MEQ/L (136-145); TOTAL PROTEIN 5.9 GM/DL (6.4-8.2)
[2020-08-05] MEDS ORDERED: CHLORASEPTIC SPRAY MT PRN (09:00)
[2020-08-05] MEDS ORDERED: POTASSIUM CHLORIDE 10 MEQ SR TABLET PO ONE (09:15)
[2020-08-05] MEDS: TIOTROPIUM INHALER/CAPSULE (SPIRIVA) INH SCH (09:17)
[2020-08-05] MEDS: FLUTICASONE HFA 110 MCG 12 GM INHALER (FLOVENT) INH SCH ×2 (09:18→19:26)
[2020-08-05 10:00] VITALS: BP 144/73
[2020-08-05] MEDS: AZELASTINE 137MCG NASAL SPY 30 ML (ASTELIN) SCH ×2 (10:06→20:37)
[2020-08-05] MEDS: MIRALAX *UNIT DOSE* 17GM PACKET PO SCH ×2 (10:06→20:36)
[2020-08-05] MEDS: ALVIMOPAN 12 MG CAPSULE (ENTEREG) PO SCH ×2 (10:07→20:36)
[2020-08-05] MEDS: LACTIC ACID 12% LOTION 225 GM BTL TOP SCH (10:07)
[2020-08-05] MEDS: HEPARIN SOD (PORCINE) 5000UNITS/ML 1ML VIAL/SYRINGE SQ SCH ×2 (10:08→20:36)
[2020-08-05] MEDS: CHLORASEPTIC SPRAY MT PRN (10:09)
--- NOTE | 2020-08-05 10:16 | IPNPDOC ---
Text Note Date of Service The patient was seen on 08/05/20. NOTE SUBJECTIVE: Mrs. Schultz was seen at beside. She reports intermittent pain around her ostomy which is controlled well with her current pain meds. Denies current pain. The NG tube was taken out yesterday, and her voice is hoarse. She reports a improvement of her nausea. OBJECTIVE: VITALS: See below GENERAL: Alert, lying in bed, uncomfortable but in no acute distress. She is morbidly obese. She whispers only, and her voice is hoarse. HEENT: Normocephalic, atraumatic, EOMI, moist mucous membranes CV: RRR, S1 and S2 sounds are appreciated. No murmurs, gallops or rubs are appreciated. LUNGS: lungs are clear to auscultation bilaterally. No wheezing, rhonchi, or rales are noted. ABDOMEN: Soft, obese, nondistended. Bowel sounds are absent. There is a colostomy at the LUQ, the parastomal hernia has been repaired. Tender to palpation just medial to the ostomy. Mild generalized tenderness over the abdomen. EXTREMITIES: There is trace bilateral leg edema. Radial pulses are equal and 2+ SKIN: Skin appears dry with dry lips and face NEUROLOGIC: AAOx3. No focal deficits appreciated PSYCHIATRIC: Normal mood and affect ASSESSMENT/PLAN: Mrs. Schultz is a 80 yo female with past medical history of rheumatoid arthritis, IDDM, HTN, HLD, and osteoporosis with recent left distal femur fracture who presented to the ED from the group home with bloody vomitus, found to have a SBO and parastomal hernia. She is currently status post hernia repair surgery. # SBO 2/2 parastomal hernia -Surgery consulted, appreciate their input and recommendations. -s/p parastomal hernia repair, post op day #4 -Currently NPO, will discuss diet progression with surgery. Continue TPN while she remains NPO. -Continue IV morphine for pain and IV zofran for nausea. -Continue maintenance fluids while NPO # MEKA 2/2 contrast induced nephropathy, resolved -Likely pre-renal based on FENa -Cr improved to 0.9. Baseline prior to admission was 1.1. -Renal U/S showed right atrophic kidney -Hold nephrotoxic drugs, including torsemide and metformin. # Poor peripheral access - hx of cut down on the left arm so we are unable to use this for IV access - PICC line in place, remove prior to discharge # Sepsis, resolved -initially met SIRS criteria on admission -s/p IV abx with cefepime and metronidazole for 6 days for possible abdominal source -Dr. Groves did not see any evidence of infection during surgery and abx have been discontinued # HTN -Continue to hold Torsemide until tolerating PO meds. # IDDM2 with neuropathy -Well controlled on home medications, will hold during admission. -Hbg A1c 6.2% -FSBS q6h while NPO. Sliding scale insulin. # Osteoporosis -Patient has a hx of distal L femur fracture -Hold Ergocalceiferol until patient can resume oral medications. # Rheumatoid Arthritis -Well controlled on home Plaquenil, resume once tolerating orals DVT PROPHYLAXIS: Heparin SC 5000 units q12h DISPOSITION: Pending post-op clinical improvement, tolerance of oral diet when appropriate, will return to group home on discharge when clinically improved VS,Fishbone, I+O VS, Fishbone, I+O Laboratory Tests 08/05/20 05:41 Vital Signs Date Time Temp Pulse Resp B/P (MAP) Pulse Ox O2 Delivery O2 Flow Rate FiO2 08/05/20 06:07 18 08/05/20 06:00 97.8 92 142/73 (96) 95 Room Air 08/01/20 18:40 2 I&O- Last 24 Hours up to 6 AM 08/05/20 06:00 Intake Total 0 ml Output Total 1925 ml Balance -1925 ml GME ATTESTATION GME ATTESTATION My faculty preceptor for this patient encounter was physically present during the encounter and was fully available. All aspects of the patient interview, examination, medical decision making process, and medical care plan development were reviewed and approved by the faculty preceptor. The faculty preceptor is aware and concurs with the plan as stated in the body of this note and will attest to such by his/her cosignature. ATTENDING NOTE I, Khloe Mcgarry, personally performed the physical exam and medical decision making and discussed the management with the Medical Student. I reviewed the Medical Students note and hereby verify the history, physical exam, and medical decision making documented by the Medical Student, the documented findings, and plan of care. ASUNCION GEORGE Aug 05, 2020 10:16 SAMANTHA CAMPBELL D.O. Aug 05, 2020 11:13 KHLOE MCGARRY DO Aug 05, 2020 16:25
--- NOTE | 2020-08-05 11:44 | IPNPDOC ---
Text Note Date of Service The patient was seen on 08/05/20. NOTE Patient so far tolerating removal of her ngt yesterday. Though after I saw her the nurse informed me that she threw up some bilious material this morning. She denies any nausea at the time I saw her, voice is hoarse this morning. VS stable Comfortable hoarse voice Relatively clear breath sounds, no wheezing very obese abdomen, seems less distended that it was a couple of days back, relatively soft, uniform distention, colostomy on left side is viable, has soft, nonformed brown stools in the bag now though only scant air in the bag. nontender on palpation, katy drain small amount of light pink serosanguenous fluid XR mid abdomen with 2 or 3 loops of mild distention Impression/Plan POD RA extensive lap lysis of adhesion, release of incarcerated small bowel from parastoma hernia, primary repair of parastomal hernia will advance to clears continue tpn - continue with insulin, kcl in tpn dvt prophylaxis VS,Fishbone, I+O VS, Fishbone, I+O Laboratory Tests 08/05/20 05:41 Vital Signs Date Time Temp Pulse Resp B/P (MAP) Pulse Ox O2 Delivery O2 Flow Rate FiO2 08/05/20 10:00 97.9 94 20 144/73 (96) 94 Room Air 08/01/20 18:40 2 I&O- Last 24 Hours up to 6 AM 08/05/20 06:00 Intake Total 0 ml Output Total 1925 ml Balance -1925 ml ALTON GILLIAM MD Aug 05, 2020 11:44
[2020-08-05 14:00] VITALS: BP 149/86
[2020-08-05 18:00] VITALS: BP 148/85
[2020-08-05] MEDS ORDERED: FAT EMULSION IV 20% 500 ML IV SCH (18:00)
[2020-08-05] MEDS ORDERED: MULTIVITAMIN -ADULT INJECTION 10 ML, CR/CU/SE/MN/ZN INJ 1 ML, POTASSIUM CHLORIDE INJ 40... IV SCH ×5 (18:00)
[2020-08-05 22:00] VITALS: BP 154/85
[2020-08-06] VITALS (11 sets, daily range): BP systolic 116–154; BP diastolic 61–86; O2SAT 94–97
[2020-08-06] MEDS: HumaLOG INSULIN (NovoLOG) PER UNIT SC SCH ×5 (00:20→23:59)
[2020-08-06] MEDS: ONDANSETRON 4 MG ORAL DISINTEGRATING TAB SL PRN ×2 (03:58→09:35)
[2020-08-06] MEDS: PERCOCET 5MG/325MG TAB PO PRN (03:59)
[2020-08-06] MEDS: SODIUM CHLORIDE 0.9% INJ 10 ML SYR IV SCH ×2 (05:41→17:53)
[2020-08-06 06:47] LABS: BASO % 0.2 % (0.0-1.0); EOS % 0.2 % (0.0-3.0); HEMOGLOBIN 12.2 g/dl (12.0-15.5); LYMPH # 0.8 10^3/uL (1.5-5.0); LYMPH % 8.6 % (24.0-44.0); MEAN CORPUSCULAR HGB CONC 30.5 g/dl (32.0-36.5); MONO # 0.9 10^3/uL (0.0-0.8); MONO % 10.1 % (0.0-5.0); NEUTROPHILS # 7.4 10^3/uL (1.5-8.5); NEUTROPHILS % 80.5 % (36.0-66.0); PLATELET COUNT, AUTOMATED 164 10^3/uL (150-450); RED BLOOD COUNT 4.21 10^6/uL (4.00-5.40); WHITE BLOOD COUNT 9.2 10^3/uL (4.0-10.0)
[2020-08-06 07:09] LABS: ALT/SGPT 25 U/L (12-78); BILIRUBIN,DIRECT 0.2 MG/DL (0.0-0.2); BILIRUBIN,TOTAL 0.4 MG/DL (0.2-1.0); BLOOD UREA NITROGEN 38 MG/DL (7-18); CALCIUM LEVEL 8.1 MG/DL (8.8-10.2); CARBON DIOXIDE LEVEL 25 MEQ/L (21-32); CHLORIDE LEVEL 110 MEQ/L (98-107); CREATININE FOR GFR 0.98 MG/DL (0.55-1.30); GLOMERULAR FILTRATION RATE > 60.0 (>39); GLUCOSE, FASTING 366 MG/DL (70-100); MAGNESIUM LEVEL 2.3 MG/DL (1.8-2.4); PHOSPHORUS LEVEL 2.3 MG/DL (2.5-4.9); POTASSIUM SERUM 4.2 MEQ/L (3.5-5.1); SODIUM LEVEL 140 MEQ/L (136-145); TOTAL PROTEIN 6.3 GM/DL (6.4-8.2)
[2020-08-06] MEDS: FLUTICASONE HFA 110 MCG 12 GM INHALER (FLOVENT) INH SCH ×2 (07:35→19:20)
[2020-08-06] MEDS: TIOTROPIUM INHALER/CAPSULE (SPIRIVA) INH SCH (07:35)
--- NOTE | 2020-08-06 09:07 | IPNPDOC ---
Text Note Date of Service The patient was seen on 08/06/20. NOTE SUBJECTIVE: Mrs. Schultz was seen at beside. Yesterday she vomited after drinking CocaCola, but she has been able to tolerate water and aniceto vee. Her abdominal pain returned after vomiting, and she reports moderate intermittent pain around her ostomy. Her voice remains hoarse with soreness in her throat. She states her nausea is about the same. She reports she has been passing gas through her ostomy bag. OBJECTIVE: VITALS: See below GENERAL: Alert, lying in bed, uncomfortable but in no acute distress. She is morbidly obese. She whispers only, and her voice is hoarse. HEENT: Normocephalic, atraumatic, EOMI, moist mucous membranes CV: RRR, S1 and S2 sounds are appreciated. No murmurs, gallops or rubs are appreciated. LUNGS: lungs are clear to auscultation bilaterally. No wheezing, rhonchi, or rales are noted. ABDOMEN: Soft, obese, nondistended. Hypoactive bowel sounds. There is a colostomy at the LUQ, the parastomal hernia has been repaired. Tender to palpation just medial to the ostomy. Mild generalized tenderness over the abdomen. EXTREMITIES: There is trace bilateral leg edema. Radial pulses are equal and 2+ SKIN: Skin appears dry with dry lips and face NEUROLOGIC: AAOx3. No focal deficits appreciated PSYCHIATRIC: Normal mood and affect ASSESSMENT/PLAN: Mrs. Schultz is a 80 yo female with past medical history of rheumatoid arthritis, IDDM, HTN, HLD, and osteoporosis with recent left distal femur fracture who presented to the ED from the shelter with bloody vomitus, found to have a SBO and parastomal hernia. She is currently status post hernia repair surgery. # SBO 2/2 parastomal hernia -Surgery consulted, appreciate their input and recommendations. -s/p parastomal hernia repair, post op day #5 -Clear liquid diet started yesterday. Is tolerating water and aniceto vee well. Progressed to full liquids diet by surgery. -Continue IV morphine for pain and IV zofran for nausea. -Continue TPN at this time until she is tolerating diet # HTN -BP 154/84 today. Torsemide paxton been held since admission. -continue to avoid diuretics at this point as she has poor oral intake -will start on lisinopril to assist with blood pressure control. # IDDM2 with neuropathy -Well controlled on home medications, will hold during admission. -Hbg A1c 6.2% -FSBS q6h until eating regular meals. Sliding scale insulin. # MEKA 2/2 contrast induced nephropathy, resolved -Likely pre-renal based on FENa -Cr improved to 0.98. Baseline prior to admission was 1.1. -Renal U/S showed right atrophic kidney # Poor peripheral access - hx of cut down on the left arm so we are unable to use this for IV access - PICC line in place, remove prior to discharge # Osteoporosis -Patient has a hx of distal L femur fracture -Ergocalceiferol 50,000 units once a month # Rheumatoid Arthritis -Well controlled on home Plaquenil, will restart today DVT PROPHYLAXIS: Heparin SC 5000 units q12h DISPOSITION: Pending post-op clinical improvement, tolerance of oral diet, will return to shelter on discharge when clinically improved VS,Fishbone, I+O VS, Fishbone, I+O Laboratory Tests 08/06/20 05:56 Vital Signs Date Time Temp Pulse Resp B/P (MAP) Pulse Ox O2 Delivery O2 Flow Rate FiO2 08/06/20 06:00 97.1 103 38 154/84 (107) 94 Room Air 08/01/20 18:40 2 I&O- Last 24 Hours up to 6 AM 08/06/20 06:00 Intake Total 2485 ml Output Total 2495 ml Balance -10 ml GME ATTESTATION GME ATTESTATION My faculty preceptor for this patient encounter was physically present during the encounter and was fully available. All aspects of the patient interview, examination, medical decision making process, and medical care plan development were reviewed and approved by the faculty preceptor. The faculty preceptor is aware and concurs with the plan as stated in the body of this note and will attest to such by his/her cosignature. ATTENDING NOTE Attending attestation: Patient seen and examined independently. Agree with student's note. ASUNCION GEORGE Aug 06, 2020 09:07 SAMANTHA CAMPBELL D.O. Aug 06, 2020 12:54 ISHMAEL SANCHEZ MD Aug 07, 2020 06:45
[2020-08-06] MEDS: ALVIMOPAN 12 MG CAPSULE (ENTEREG) PO SCH ×2 (09:28→21:28)
[2020-08-06] MEDS: MIRALAX *UNIT DOSE* 17GM PACKET PO SCH ×2 (09:28→21:00)
[2020-08-06] MEDS: HEPARIN SOD (PORCINE) 5000UNITS/ML 1ML VIAL/SYRINGE SQ SCH ×2 (09:28→21:30)
[2020-08-06] MEDS: LACTIC ACID 12% LOTION 225 GM BTL TOP SCH (09:29)
[2020-08-06] MEDS: AZELASTINE 137MCG NASAL SPY 30 ML (ASTELIN) SCH ×2 (09:29→21:29)
[2020-08-06] MEDS: METOCLOPRAMIDE INJ 10MG/2ML VIAL (J2765 PER 1) IV SCH ×3 (10:37→21:30)
[2020-08-06] MEDS: HYDROXYCHLOROQUINE 200 MG TAB PO SCH ×2 (14:36→21:29)
[2020-08-06] MEDS ORDERED: INSULIN LISPRO IV SCH (18:00)
[2020-08-06] MEDS ORDERED: CALC IV SCH ×2 (18:00)
[2020-08-06] MEDS ORDERED: INSULIN HUMAN REGULAR IV SCH (18:00)
[2020-08-06] MEDS ORDERED: ELECTROLYTE IV SCH ×2 (18:00)
[2020-08-06] MEDS ORDERED: AMINO AC IV SCH ×2 (18:00)
[2020-08-06] MEDS ORDERED: FAT EMULSION IV 20% 500 ML IV SCH ×2 (18:00)
[2020-08-06] MEDS ORDERED: DEX IV SCH ×2 (18:00)
[2020-08-06] MEDS: SODIUM CHLORIDE 0.9% INJ 10 ML SYR IV PRN (21:28)
[2020-08-06] MEDS: lisinopriL 10 MG TAB PO SCH (21:28)
[2020-08-06] MEDS: ACETAMINOPH W/CODEINE #3 TAB UD PO PRN (22:59)
[2020-08-07 02:00] VITALS: BP 117/56
[2020-08-07] MEDS: METOCLOPRAMIDE INJ 10MG/2ML VIAL (J2765 PER 1) IV SCH ×4 (05:45→21:30)
[2020-08-07] MEDS: HumaLOG INSULIN (NovoLOG) PER UNIT SC SCH ×3 (05:46→18:02)
[2020-08-07] MEDS: SODIUM CHLORIDE 0.9% INJ 10 ML SYR IV SCH ×2 (05:46→18:03)
[2020-08-07 06:00] VITALS: BP 117/56
[2020-08-07 06:49] LABS: HEMATOCRIT 33.7 % (36.0-47.0); MEAN CORPUSCULAR HEMOGLOBIN 28.4 pg (27.0-33.0); MEAN CORPUSCULAR HGB CONC 29.4 g/dl (32.0-36.5); MEAN CORPUSCULAR VOLUME 96.6 fl (80.0-96.0); PLATELET COUNT, AUTOMATED 134 10^3/uL (150-450); RED BLOOD COUNT 3.49 10^6/uL (4.00-5.40); WHITE BLOOD COUNT 6.3 10^3/uL (4.0-10.0)
[2020-08-07 06:54] LABS: HEMOGLOBIN 9.9 g/dl (12.0-15.5)
[2020-08-07 07:17] LABS: ALBUMIN 1.6 GM/DL (3.2-5.2); ALT/SGPT 49 U/L (12-78); BILIRUBIN,DIRECT 0.1 MG/DL (0.0-0.2); BILIRUBIN,TOTAL 0.2 MG/DL (0.2-1.0); BLOOD UREA NITROGEN 38 MG/DL (7-18); CALCIUM LEVEL 8.1 MG/DL (8.8-10.2); CARBON DIOXIDE LEVEL 26 MEQ/L (21-32); CHLORIDE LEVEL 110 MEQ/L (98-107); CREATININE FOR GFR 0.89 MG/DL (0.55-1.30); GLOMERULAR FILTRATION RATE > 60.0 (>39); GLUCOSE, FASTING 194 MG/DL (70-100); MAGNESIUM LEVEL 2.3 MG/DL (1.8-2.4); PHOSPHORUS LEVEL 2.5 MG/DL (2.5-4.9); POTASSIUM SERUM 3.4 MEQ/L (3.5-5.1); SODIUM LEVEL 139 MEQ/L (136-145); TOTAL PROTEIN 5.6 GM/DL (6.4-8.2)
[2020-08-07] MEDS: MIRALAX *UNIT DOSE* 17GM PACKET PO SCH ×2 (07:18→09:00)
--- NOTE | 2020-08-07 07:28 | IPNPDOC ---
Text Note Date of Service The patient was seen on 08/06/20. NOTE Patient slowly improving, now with output from her colostomy but still with e pisodes of nausea and not able to tolerate much oral intake because of the nausea, otherwise stable postoperatively. Plan: I have added scheduled doses of reglan to address the nausea, will try full liquids otherwise continue TPN VS,Fishbone, I+O VS, Fishbone, I+O Laboratory Tests 08/07/20 05:48 Vital Signs Date Time Temp Pulse Resp B/P (MAP) Pulse Ox O2 Delivery O2 Flow Rate FiO2 08/07/20 06:00 97.8 88 17 117/56 (76) 97 Nasal Cannula 0.5 I&O- Last 24 Hours up to 6 AM 08/07/20 06:00 Intake Total 1360 ml Output Total 3895 ml Balance -2535 ml ALTON GILLIAM MD Aug 07, 2020 07:28
[2020-08-07] MEDS ORDERED: POTASSIUM CHLORIDE 10 MEQ SR TABLET PO ONE (08:00)
[2020-08-07 08:12] LABS: HEPATITIS B SURFACE ANTIGEN NEGATIVE (NEGATIVE)
[2020-08-07 08:31] LABS: HEPATITIS B CORE ANTIBODY IGM NEGATIVE (NEGATIVE)
[2020-08-07 08:33] LABS: HEPATITIS A ANTIBODY IGM NEGATIVE (NEGATIVE)
[2020-08-07] MEDS: HEPARIN SOD (PORCINE) 5000UNITS/ML 1ML VIAL/SYRINGE SQ SCH ×2 (08:49→21:13)
[2020-08-07] MEDS: ALVIMOPAN 12 MG CAPSULE (ENTEREG) PO SCH (08:49)
[2020-08-07] MEDS: HYDROXYCHLOROQUINE 200 MG TAB PO SCH ×2 (08:49→21:12)
[2020-08-07] MEDS: LACTIC ACID 12% LOTION 225 GM BTL TOP SCH (08:50)
[2020-08-07] MEDS: AZELASTINE 137MCG NASAL SPY 30 ML (ASTELIN) SCH ×2 (08:50→21:13)
--- NOTE | 2020-08-07 08:51 | REP ---
INDICATION: elevated LFT. COMPARISON: Abdomen and pelvis CT dated 07/28/2020 TECHNIQUE: Multiple real-time ultrasonographic images FINDINGS: The patient has a cholecystectomy. There is no intrahepatic or extrahepatic biliary duct dilatation. The common duct measures 5.4 mm in diameter. The The hepatic parenchyma is homogeneous and otherwise unremarkable. There are limited views of the pancreas. The visualized areas of the pancreas are unremarkable. The right kidney is normal size measuring 10.1 x 5.6 x 5.0 cm. There is no right renal calculus or hydronephrosis there is no right renal solid or cystic mass. There is no right upper quadrant abdominal free fluid. IMPRESSION: Cholecystectomy. Otherwise, negative right upper quadrant abdominal ultrasound. Portions of the pancreas are not visualized. <Electronically signed by Ayden Dennison > 08/07/20 4544
[2020-08-07 10:00] VITALS: BP 135/71
--- NOTE | 2020-08-07 10:41 | IPNPDOC ---
Text Note Date of Service The patient was seen on 08/07/20. NOTE Patient seen this morning, looks quite comfortable. Denies any severe nausea. She tolerated aniceto vee and water this morning. Her colostomy continues to have loose liquid brown stool. HD stable, afebrile 97.8 88 17 117/56 Patient laying on bed, looks very comfortable Warm and dry skin Abdomen looks mildly distended but uniform contour of the body wall, does not suggest any hernia incarceration. The area around the stoma is relatively flat in contour. There is a SUE drain in there with a very light pink serosanguineous fluid drainage. The colostomy is fairly flat on the wall with loose brown stool and a lot of gas in the bag. Impression and plan: POD6 RA extensive lysis of adhesions, reduction and repair of parastomal hernia (primary repair no mesh) She is starting to demonstrate signs of bowel function though this does not seem to be effective yet as she is barely able to tolerate small amounts of liquids and she gets nauseated. I have started her on scheduled doses of Reglan to see if we can improve her food tolerance. I would like her to try some soft solid foods and try some high-protein containing foods. I will slow down on the laxatives for now. We can remove the SUE drain which is within the hernia site as this has not been putting out much. Unfortunately she does not ambulate so we will not be able to address that. Overall she seems to be progressing accordingly but slowly. VS,Fishbone, I+O VS, Fishbone, I+O Laboratory Tests 08/07/20 05:48 Vital Signs Date Time Temp Pulse Resp B/P (MAP) Pulse Ox O2 Delivery O2 Flow Rate FiO2 08/07/20 06:00 97.8 88 17 117/56 (76) 97 Nasal Cannula 0.5 I&O- Last 24 Hours up to 6 AM 08/07/20 06:00 Intake Total 1360 ml Output Total 3895 ml Balance -2535 ml ALTON GILLIAM MD Aug 07, 2020 10:41
--- NOTE | 2020-08-07 11:13 | IPNPDOC ---
Text Note Date of Service The patient was seen on 08/07/20. NOTE SUBJECTIVE: Mrs. Schultz was seen at beside. She reports having slept very well last night. Her voice is recovering and is able to speak well today. She had pain this morning, but is well controlled with current pain medications and she was not in pain at the time of interview. She reports loose stools and gas through her ostomy bag yesterday, but no blood. She is tolerating water, gingerale and jello well. OBJECTIVE: VITALS: See below GENERAL: Alert, lying in bed, uncomfortable but in no acute distress. She is morbidly obese. HEENT: Normocephalic, atraumatic, EOMI, moist mucous membranes CV: RRR, S1 and S2 sounds are appreciated. No murmurs, gallops or rubs are appreciated. LUNGS: lungs are clear to auscultation bilaterally. No wheezing, rhonchi, or rales are noted. ABDOMEN: Soft, obese, nondistended. Hypoactive bowel sounds. There is a colostomy at the LUQ, the parastomal hernia has been repaired. Tender to palpation just medial to the ostomy. Mild generalized tenderness over the abdomen. EXTREMITIES: There is trace bilateral leg edema. Radial pulses are equal and 2+ SKIN: Skin appears dry with dry lips and face NEUROLOGIC: AAOx3. No focal deficits appreciated PSYCHIATRIC: Normal mood and affect ASSESSMENT/PLAN: Mrs. Schultz is a 80 yo female with past medical history of rheumatoid arthritis, IDDM, HTN, HLD, and osteoporosis with recent left distal femur fracture who presented to the ED from the [facility] with bloody vomitus, found to have a SBO and parastomal hernia. She is currently status post hernia repair surgery. #SBO 2/2 parastomal hernia -Surgery consulted, appreciate their input and recommendation -s/p parastomal hernia repair, postop day #6 -Currently tolerating clear liquid diet well. Progressed to soft food diet by surgery -Continue TPN until she is tolerating adequate diet -Continue IV morphine for pain and IV zofran for nausea #HTN -hold home torsemide. continue to avoid diuretics at this point as she has poor oral intake -continue lisinopril for blood pressure control. #Elevated LFTs -Alk phos, AST, and ALT are trending up -Liver US showed no pathology. -Continue to trend daily # Chronic anemia -Hbg dropped from 12.2 to 9.9 in past 24hrs -Repeat H/H at noon -No obvious signs of bleeding. 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 Baseline prior to admission was 1.1 -Renal U/S showed right atrophic kidney # Poor peripheral access - history of a cut down the left arm so we are unable to use this for IV access - PICC line in place, remove prior to discharge # Osteoporosis -Patient has a hx of distal L femur fracture -Ergocalceiferol 50,000 units once a month # Rheumatoid Arthritis -Well controlled on home Plaquenil, will restart today DVT PROPHYLAXIS: Heparin SC 5000 units q12h DISPOSITION: Pending post-op clinical improvement, tolerance of oral diet, will return to [facility] on discharge when clinically improved VS,Fishbone, I+O VS, Fishbone, I+O Laboratory Tests 08/07/20 05:48 Vital Signs Date Time Temp Pulse Resp B/P (MAP) Pulse Ox O2 Delivery O2 Flow Rate FiO2 08/07/20 06:00 97.8 88 17 117/56 (76) 97 Nasal Cannula 0.5 I&O- Last 24 Hours up to 6 AM 08/07/20 06:00 Intake Total 1360 ml Output Total 3895 ml Balance -2535 ml GME ATTESTATION GME ATTESTATION My faculty preceptor for this patient encounter was physically present during the encounter and was fully available. All aspects of the patient interview, examination, medical decision making process, and medical care plan development were reviewed and approved by the faculty preceptor. The faculty preceptor is aware and concurs with the plan as stated in the body of this note and will attest to such by his/her cosignature. ATTENDING NOTE Attending attestation: Patient seen and examined independently. Agree with student's note. ASUNCION GEORGE Aug 07, 2020 11:13 SAMANTHA CAMPBELL D.O. Aug 07, 2020 19:16 ISHMAEL SANCHEZ MD Aug 08, 2020 07:07
[2020-08-07] MEDS: TIOTROPIUM INHALER/CAPSULE (SPIRIVA) INH SCH (11:50)
[2020-08-07] MEDS: FLUTICASONE HFA 110 MCG 12 GM INHALER (FLOVENT) INH SCH ×2 (11:50→19:10)
[2020-08-07 12:28] LABS: HEMATOCRIT 36.8 % (36.0-47.0); HEMOGLOBIN 11.2 g/dl (12.0-15.5)
[2020-08-07 14:00] VITALS: BP 135/71
[2020-08-07] MEDS ORDERED: [UNRECOGNIZED DRUG - MIXTURE] IV SCH ×4 (18:00)
[2020-08-07] MEDS ORDERED: FAT EMULSION IV 20% 500 ML IV SCH (18:00)
[2020-08-07] MEDS: lisinopriL 10 MG TAB PO SCH (21:12)
[2020-08-07] MEDS: SODIUM CHLORIDE 0.9% INJ 10 ML SYR IV PRN (21:13)
[2020-08-07 22:00] VITALS: BP 131/66
[2020-08-07 22:53] VITALS: O2SAT 96
[2020-08-08] VITALS (7 sets, daily range): BP systolic 132–143; BP diastolic 61–69; O2SAT 98–100
[2020-08-08] MEDS: HumaLOG INSULIN (NovoLOG) PER UNIT SC SCH ×5 (00:22→22:03)
[2020-08-08] MEDS: ACETAMINOPH W/CODEINE #3 TAB UD PO PRN (00:59)
[2020-08-08] MEDS: SODIUM CHLORIDE 0.9% INJ 10 ML SYR IV SCH ×2 (05:01→17:29)
[2020-08-08] MEDS: METOCLOPRAMIDE INJ 10MG/2ML VIAL (J2765 PER 1) IV SCH ×4 (05:01→22:56)
[2020-08-08 06:27] LABS: HEMATOCRIT 33.1 % (36.0-47.0); HEMOGLOBIN 9.9 g/dl (12.0-15.5); MEAN CORPUSCULAR HEMOGLOBIN 28.8 pg (27.0-33.0); MEAN CORPUSCULAR HGB CONC 29.9 g/dl (32.0-36.5); MEAN CORPUSCULAR VOLUME 96.2 fl (80.0-96.0); PLATELET COUNT, AUTOMATED 152 10^3/uL (150-450); RED BLOOD COUNT 3.44 10^6/uL (4.00-5.40); WHITE BLOOD COUNT 9.3 10^3/uL (4.0-10.0)
[2020-08-08 07:06] LABS: ALBUMIN 1.7 GM/DL (3.2-5.2); ALT/SGPT 36 U/L (12-78); BILIRUBIN,DIRECT 0.1 MG/DL (0.0-0.2); BILIRUBIN,TOTAL 0.2 MG/DL (0.2-1.0); BLOOD UREA NITROGEN 38 MG/DL (7-18); CALCIUM LEVEL 7.6 MG/DL (8.8-10.2); CARBON DIOXIDE LEVEL 27 MEQ/L (21-32); CHLORIDE LEVEL 109 MEQ/L (98-107); CREATININE FOR GFR 0.74 MG/DL (0.55-1.30); GLOMERULAR FILTRATION RATE > 60.0 (>39); GLUCOSE, FASTING 200 MG/DL (70-100); MAGNESIUM LEVEL 2.1 MG/DL (1.8-2.4); PHOSPHORUS LEVEL 3.1 MG/DL (2.5-4.9); POTASSIUM SERUM 3.9 MEQ/L (3.5-5.1); SODIUM LEVEL 139 MEQ/L (136-145); TOTAL PROTEIN 5.3 GM/DL (6.4-8.2)
[2020-08-08] MEDS: FLUTICASONE HFA 110 MCG 12 GM INHALER (FLOVENT) INH SCH ×2 (07:55→19:43)
[2020-08-08] MEDS: TIOTROPIUM INHALER/CAPSULE (SPIRIVA) INH SCH (07:55)
[2020-08-08] MEDS ORDERED: GLUCOSE 4GM CHEW TABLET PO PRN (09:00)
[2020-08-08] MEDS ORDERED: DEXTROSE 50% 50 ML SYRINGE IV PRN (09:00)
[2020-08-08] MEDS ORDERED: GLUCAGON INJ 1MG VIAL SC PRN (09:00)
[2020-08-08] MEDS: HYDROXYCHLOROQUINE 200 MG TAB PO SCH ×2 (09:32→21:59)
[2020-08-08] MEDS: HEPARIN SOD (PORCINE) 5000UNITS/ML 1ML VIAL/SYRINGE SQ SCH ×2 (09:32→22:00)
[2020-08-08] MEDS: MIRALAX *UNIT DOSE* 17GM PACKET PO SCH (09:32)
[2020-08-08] MEDS: AZELASTINE 137MCG NASAL SPY 30 ML (ASTELIN) SCH ×2 (09:33→22:00)
[2020-08-08] MEDS: LACTIC ACID 12% LOTION 225 GM BTL TOP SCH (09:34)
--- NOTE | 2020-08-08 10:18 | IPNPDOC ---
Text Note Date of Service The patient was seen on 08/08/20. NOTE Patient seen and examined this morning. She was reporting some abdominal dis comfort. She was able to tolerate some more solid food yesterday. No episodes of nausea or vomiting being reported. Her colostomy continues to function with mostly loose stools as well as gas in the ostomy. No other events noted for the past 24 hours. She remains on TPN. VS stable Examination Overall looks comfortable. Skin is warm and dry. Clear breath sounds auscultation bilaterally, no wheezing Regular heart rate and rhythm Abdomen is obese. Hard to really examine for degree of distention but she still does have some persistent mild distention centrally and abdomen is tympanitic to percussion. I removed the drain yesterday at the parastomal hernia site and the contour around the hernia site still remains uniformed to the whole of the abdomen. Colostomy is working with gas and semiliquid stool. Impression and plan Patient is now postoperative day #7 following a very complicated extensive lysis of adhesion and reduction of her small bowel that is broadly adhered and incarcerated in her parastomal hernia. The hernia was repaired primarily. She is now has consistent bowel function though probably not perfect yet Sr. is some degree of distention of the abdomen. She is able to tolerate more food with the help of Reglan. I have added Ensure to her diet. We will get some nutritional assessment. As long she is tolerating oral food, I would like to hold off on further TPN after this batch and see how she does orally. VS,Fishbone, I+O VS, Fishbone, I+O Laboratory Tests 08/07/20 12:10 08/08/20 05:25 Vital Signs Date Time Temp Pulse Resp B/P (MAP) Pulse Ox O2 Delivery O2 Flow Rate FiO2 08/08/20 06:18 98 Room Air 08/08/20 06:00 96.9 85 18 132/63 (86) 0.5 I&O- Last 24 Hours up to 6 AM 08/08/20 06:00 Intake Total 990 ml Output Total 2050 ml Balance -1060 ml ALTON GILLIAM MD Aug 08, 2020 10:18
--- NOTE | 2020-08-08 12:12 | REP ---
INDICATION: calf pain r/o dvt COMPARISON: None. TECHNIQUE: Real time compression and duplex Doppler interrogation of the bilateral lower extremity deep venous system is performed. FINDINGS: Bilaterally, the common femoral, superficial femoral and popliteal veins are fully compressible with transducer pressure and demonstrate normal spontaneous and phasic flow, without evidence of deep venous thrombosis. The study is limited due to patient body habitus. IMPRESSION: No evidence of deep venous thrombosis of the bilateral lower extremity femoral popliteal venous system. <Electronically signed by Ayden Haddad > 08/08/20 [id number]
--- NOTE | 2020-08-08 13:52 | IPNPDOC ---
Text Note Date of Service The patient was seen on 08/08/20. NOTE SUBJECTIVE: Patient was seen and examined at bedside. She states her appetite continues to improve. She was able to eat scrambled eggs this morning. She denies abdominal pain currently but states she has intermittent pain. She continues to have output in her colostomy bag. She also notes right leg pain which has been bother her overnight. No increased swelling or redness per patient. OBJECTIVE: VITAL SIGNS: See below GENERAL: Morbidly obese female, alert, comfortable, in no acute distress HEENT: Normocephalic, atraumatic, EOMI, moist mucous membranes CARDIOVASCULAR: Regular rate and rhythm, normal S1 and S2. No murmurs, rubs, or gallops RESPIRATORY: Clear to auscultation bilaterally with equal air entry bilaterally. No wheezing, rhonchi, or rales. ABDOMEN: Soft, obese, nondistended. Hypoactive bowel sounds. There is a colosto my at the LUQ, the parastomal hernia has been repaired. Tender to palpation just medial to the ostomy. Mild generalized tenderness over the abdomen. EXTREMITIES: 1+ pitting edema in bilateral lower extremities. Pulses 2+/4 in bilateral upper and lower extremities. bilateral calf tenderness to palpation NEUROLOGIC: Alert and oriented x3 to person, place and time. No focal deficits appreciated PSYCHIATRIC: Mood and affect appropriate ASSESSMENT/PLAN: 80 year old female with past medical history of rheumatoid arthritis, IDDM, HTN, HLD, and osteoporosis with recent left distal femur fracture who presented [facility] the ED [facility] with bloody vomitus, found to have a SBO and parastomal hernia. She is now status post parastomal hernia repair, slowly advancing diet as tolerated. #SBO 2/2 parastomal hernia -Surgery consulted, appreciate their input and recommendation -s/p parastomal hernia repair, postop day #7 -Currently tolerating soft food diet. Nutrition eval ordered. -Oral intake is improved, can likely d/c the TPN today -Continue Tylenol with codeine for pain. IV reglan and SL zofran for nausea # Bilateral calf tenderness -mildly worsened swelling bilaterally as well as tenderness - r/o DVT with U/S #HTN -hold home torsemide. continue to avoid diuretics at this point as she has poor oral intake -continue lisinopril for blood pressure control. #Elevated LFTs -Alk phos, AST, and ALT are trending up -Liver US showed no pathology. -Continue to trend daily # Chronic anemia -No obvious signs of bleeding. 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 Baseline prior to admission was 1.1 -Renal U/S showed right atrophic kidney # Poor peripheral access - history of a cut down the left arm so we are unable to use this for IV access - PICC line in place, remove prior to discharge # Osteoporosis -Patient has a hx of distal L femur fracture -Ergocalceiferol 50,000 units once a month # Rheumatoid Arthritis -Well controlled on home Plaquenil, will restart today DVT PROPHYLAXIS: Heparin SC 5000 units q12h DISPOSITION: Pending post-op clinical improvement, tolerance of oral diet, will return to [facility] on discharge when clinically improved VS,Rodrigobone, I+O VS, Fishbone, I+O Laboratory Tests 08/08/20 05:25 Vital Signs Date Time Temp Pulse Resp B/P (MAP) Pulse Ox O2 Delivery O2 Flow Rate FiO2 08/08/20 11:34 99.5 08/08/20 10:00 95 21 133/69 (90) 98 Room Air 08/08/20 06:00 0.5 I&O- Last 24 Hours up to 6 AM 08/08/20 06:00 Intake Total 990 ml Output Total 2050 ml Balance -1060 ml SAMANTHA CAMPBELL D.O. Aug 08, 2020 12:53
[2020-08-08 14:14] LABS: HEMATOCRIT 34.6 % (36.0-47.0); HEMOGLOBIN 10.8 g/dl (12.0-15.5)
[2020-08-08] MEDS: lisinopriL 10 MG TAB PO SCH (21:59)
[2020-08-08] MEDS: SODIUM CHLORIDE 0.9% INJ 10 ML SYR IV PRN (22:57)
[2020-08-09] MEDS: METOCLOPRAMIDE INJ 10MG/2ML VIAL (J2765 PER 1) IV SCH (05:38)
[2020-08-09] MEDS: SODIUM CHLORIDE 0.9% INJ 10 ML SYR IV SCH ×2 (05:39→17:37)
[2020-08-09 06:00] VITALS: BP 151/66
[2020-08-09 06:13] LABS: HEMATOCRIT 31.2 % (36.0-47.0); HEMOGLOBIN 9.9 g/dl (12.0-15.5); MEAN CORPUSCULAR HEMOGLOBIN 29.9 pg (27.0-33.0); MEAN CORPUSCULAR HGB CONC 31.7 g/dl (32.0-36.5); MEAN CORPUSCULAR VOLUME 94.3 fl (80.0-96.0); PLATELET COUNT, AUTOMATED 146 10^3/uL (150-450); RED BLOOD COUNT 3.31 10^6/uL (4.00-5.40)
[2020-08-09 06:44] LABS: ALBUMIN 1.8 GM/DL (3.2-5.2); ALT/SGPT 30 U/L (12-78); BILIRUBIN,DIRECT 0.2 MG/DL (0.0-0.2); BILIRUBIN,TOTAL 0.2 MG/DL (0.2-1.0); BLOOD UREA NITROGEN 34 MG/DL (7-18); CALCIUM LEVEL 7.9 MG/DL (8.8-10.2); CARBON DIOXIDE LEVEL 26 MEQ/L (21-32); CHLORIDE LEVEL 111 MEQ/L (98-107); GLOMERULAR FILTRATION RATE > 60.0 (>39); GLUCOSE, FASTING 219 MG/DL (70-100); MAGNESIUM LEVEL 2.1 MG/DL (1.8-2.4); PHOSPHORUS LEVEL 3.5 MG/DL (2.5-4.9); POTASSIUM SERUM 4.6 MEQ/L (3.5-5.1); PREALBUMIN 10.1 MG/DL (20.0-40.0); SODIUM LEVEL 139 MEQ/L (136-145); TOTAL PROTEIN 5.3 GM/DL (6.4-8.2)
[2020-08-09] MEDS: FLUTICASONE HFA 110 MCG 12 GM INHALER (FLOVENT) INH SCH ×2 (07:21→18:09)
[2020-08-09] MEDS: TIOTROPIUM INHALER/CAPSULE (SPIRIVA) INH SCH (07:21)
[2020-08-09] MEDS: HYDROXYCHLOROQUINE 200 MG TAB PO SCH ×2 (08:11→21:27)
[2020-08-09] MEDS: HumaLOG INSULIN (NovoLOG) PER UNIT SC SCH ×4 (08:12→21:26)
[2020-08-09] MEDS: MIRALAX *UNIT DOSE* 17GM PACKET PO SCH (08:12)
[2020-08-09] MEDS: HEPARIN SOD (PORCINE) 5000UNITS/ML 1ML VIAL/SYRINGE SQ SCH ×2 (08:12→21:27)
[2020-08-09] MEDS: AZELASTINE 137MCG NASAL SPY 30 ML (ASTELIN) SCH ×2 (08:13→21:31)
[2020-08-09] MEDS: LACTIC ACID 12% LOTION 225 GM BTL TOP SCH (08:13)
--- NOTE | 2020-08-09 09:00 | IPNPDOC ---
Text Note Date of Service The patient was seen on 08/09/20. NOTE SUBJECTIVE: The patient was seen and examined at bedside. She reports that she had not slept well the previous night. She had just finished a breakfast of eggs and pancakes without nausea or vomiting. She is experiencing an intermittent achy pain that runs across her stomach which is controlled with pain medications. She also reports R lateral leg pain that has been bothering her. OBJECTIVE: VITALS: See below GENERAL: Morbidly obese female, alert, comfortable, in no acute distress HEENT: Normocephalic, atraumatic, EOMI, moist mucous membranes CARDIOVASCULAR: Regular rate and rhythm, normal S1 and S2. No murmurs, rubs, or gallops RESPIRATORY: Clear to auscultation bilaterally with equal air entry bilaterally. No wheezing, rhonchi, or rales. ABDOMEN: Soft, obese, nondistended. Bowel sounds present. There is a colostomy at the LUQ, the parastomal hernia has been repaired. Mild generalized tenderness over the abdomen. EXTREMITIES: 1+ pitting edema in bilateral lower extremities. Pulses 2+/4 in bilateral upper and lower extremities. bilateral calf tenderness to palpation NEUROLOGIC: Alert and oriented x3 to person, place and time. No focal deficits appreciated PSYCHIATRIC: Mood and affect appropriate ASSESSMENT/PLAN: 80 year old female with past medical history of rheumatoid arthritis, IDDM, HTN, HLD, and osteoporosis with recent left distal femur fracture who [facility] with [facility], found to have a SBO and parastomal hernia. She is now status post parastomal hernia repair, slowly advancing diet as tolerated. #SBO 2/2 parastomal hernia -Surgery consulted, appreciate their input and recommendation -s/p parastomal hernia repair, postop day #8 -Currently tolerating soft food diet. Nutrition eval ordered. s/p TPN for nutrition -Continue Tylenol with codeine for pain. IV Reglan and SL Zofran for nausea # Bilateral calf tenderness - swelling and tenderness stable - U/S negative for DVT bilaterally #HTN -hold home torsemide. may restart if swelling worsens. -continue lisinopril for blood pressure control. #Elevated LFTs -Liver US showed no pathology. -Hepatitis profile negative -AST and ALT improved, Alk Phos remains elevated. Unclear etiology. -Continue to trend daily # Chronic anemia -No obvious signs of bleeding. No blood in colostomy, and surgical wounds are healing well -Consider transfusion for Hg less than 7.0 or symptomatic acute anemia -Monitor CBC daily #IDDM2 with neuropathy -Well controlled on home medications, continue to hold. Hbg A1c 6.2% -FSBS ACHS with SSI coverage for glucose control. Hypoglycemic protocol. 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 Baseline prior to admission was 1.1 -Renal U/S showed right atrophic kidney # Poor peripheral access - history of a cut down the left arm so we are unable to use this for IV access - PICC line in place, remove prior to discharge # Osteoporosis -Patient has a hx of distal L femur fracture -Ergocalceiferol 50,000 units once a month # Rheumatoid Arthritis -continue home Plaquenil DVT PROPHYLAXIS: Heparin SC 5000 units q12h DISPOSITION: Pending clinical improvement, PT/OT eval, will return to [facility] on discharge when clinically improved VS,Gwendolyne, I+O VS, Rodrigobone, I+O Laboratory Tests 08/08/20 14:05 08/09/20 05:28 Vital Signs Date Time Temp Pulse Resp B/P (MAP) Pulse Ox O2 Delivery O2 Flow Rate FiO2 08/09/20 06:00 97.6 94 18 151/66 (94) 96 Room Air 08/08/20 06:00 0.5 I&O- Last 24 Hours up to 6 AM 08/09/20 06:00 Intake Total 1650 ml Output Total 2050 ml Balance -400 ml GME ATTESTATION GME ATTESTATION My faculty preceptor for this patient encounter was physically present during the encounter and was fully available. All aspects of the patient interview, examination, medical decision making process, and medical care plan development were reviewed and approved by the faculty preceptor. The faculty preceptor is aware and concurs with the plan as stated in the body of this note and will attest to such by his/her cosignature. ATTENDING NOTE Attending note Patient seen and examined independently. Agree with student's note. ASUNCION GEORGE Aug 09, 2020 09:00 SAMANTHA CAMPBELL D.O. Aug 09, 2020 11:03 ISHMAEL SANCHEZ MD Aug 10, 2020 18:03
--- NOTE | 2020-08-09 11:12 | IPNPDOC ---
Text Note Date of Service The patient was seen on 08/09/20. NOTE I saw the patient this morning and she appears to have finished her breakfast. She has been tolerating regular foods at least for the past 24 hours now without any nausea or vomiting. Her colostomy continues to function. She reports some mild vague mid abdominal discomfort. On examination She looks very comfortable Awake, alert and oriented Warm dry skin Lung sounds are clear to auscultation bilaterally, no wheezing. Abdomen is protuberant and obese still looks somewhat distended but soft especially at the mid abdomen. Abdominal contour looks uniform and appropriate including that around the colostomy. Colostomy is functioning with a more semi- formed stool. Impression and plan She is now postop day 8 following an extensive lysis of the lesion, reduction of the incarcerated small bowel in her large peristomal hernia and primary repair of the parastomal hernia She continues to do well and has been tolerating oral diet at least for the past 24 hours, liquids for the past 72 hours. I will stop the regular doses of Reglan and just put her on an as-needed basis and see how she does over the next couple of days but overall she seems to be doing well. When medically stable she can be discharged back to [facility]. She will start PT and OT work again w [facility] she has been mainly bedridden for though all of the hospital stay. I have instructed her to continue with the ensure. VS,Fishbone, I+O VS, Fishbone, I+O Laboratory Tests 08/08/20 14:05 08/09/20 05:28 Vital Signs Date Time Temp Pulse Resp B/P (MAP) Pulse Ox O2 Delivery O2 Flow Rate FiO2 08/09/20 06:00 97.6 94 18 151/66 (94) 96 Room Air 08/08/20 06:00 0.5 I&O- Last 24 Hours up to 6 AM 08/09/20 06:00 Intake Total 1650 ml Output Total 2050 ml Balance -400 ml ALTON GILLIAM MD Aug 09, 2020 11:12
[2020-08-09] MEDS ORDERED: METOCLOPRAMIDE 5 MG TAB PO PRN (11:15)
[2020-08-09 14:00] VITALS: BP 155/67
[2020-08-09] MEDS: lisinopriL 10 MG TAB PO SCH (21:28)
[2020-08-09] MEDS: ACETAMINOPH W/CODEINE #3 TAB UD PO PRN (21:31)
[2020-08-09 22:00] VITALS: BP 155/68
[2020-08-10] MEDS: SODIUM CHLORIDE 0.9% INJ 10 ML SYR IV SCH ×2 (05:03→17:10)
[2020-08-10] MEDS: TIOTROPIUM INHALER/CAPSULE (SPIRIVA) INH SCH (05:40)
[2020-08-10] MEDS: FLUTICASONE HFA 110 MCG 12 GM INHALER (FLOVENT) INH SCH ×2 (05:40→18:39)
[2020-08-10 06:00] VITALS: BP 131/56
[2020-08-10 06:33] LABS: HEMATOCRIT 30.9 % (36.0-47.0); HEMOGLOBIN 9.4 g/dl (12.0-15.5); MEAN CORPUSCULAR HEMOGLOBIN 28.9 pg (27.0-33.0); MEAN CORPUSCULAR HGB CONC 30.4 g/dl (32.0-36.5); MEAN CORPUSCULAR VOLUME 95.1 fl (80.0-96.0); PLATELET COUNT, AUTOMATED 142 10^3/uL (150-450); RED BLOOD COUNT 3.25 10^6/uL (4.00-5.40)
[2020-08-10 07:06] LABS: ALBUMIN 1.8 GM/DL (3.2-5.2); ALT/SGPT 36 U/L (12-78); BILIRUBIN,DIRECT 0.2 MG/DL (0.0-0.2); BILIRUBIN,TOTAL 0.3 MG/DL (0.2-1.0); BLOOD UREA NITROGEN 25 MG/DL (7-18); CALCIUM LEVEL 7.5 MG/DL (8.8-10.2); CARBON DIOXIDE LEVEL 26 MEQ/L (21-32); CHLORIDE LEVEL 109 MEQ/L (98-107); CREATININE FOR GFR 0.72 MG/DL (0.55-1.30); GLOMERULAR FILTRATION RATE > 60.0 (>39); GLUCOSE, FASTING 236 MG/DL (70-100); MAGNESIUM LEVEL 1.8 MG/DL (1.8-2.4); PHOSPHORUS LEVEL 3.5 MG/DL (2.5-4.9); POTASSIUM SERUM 4.4 MEQ/L (3.5-5.1); SODIUM LEVEL 139 MEQ/L (136-145); TOTAL PROTEIN 5.3 GM/DL (6.4-8.2)
[2020-08-10] MEDS: HEPARIN SOD (PORCINE) 5000UNITS/ML 1ML VIAL/SYRINGE SQ SCH ×2 (08:39→22:20)
[2020-08-10] MEDS: HYDROXYCHLOROQUINE 200 MG TAB PO SCH ×2 (08:39→22:20)
[2020-08-10] MEDS: MIRALAX *UNIT DOSE* 17GM PACKET PO SCH (08:39)
[2020-08-10] MEDS: HumaLOG INSULIN (NovoLOG) PER UNIT SC SCH ×4 (08:40→22:23)
[2020-08-10] MEDS: AZELASTINE 137MCG NASAL SPY 30 ML (ASTELIN) SCH ×2 (08:42→22:24)
[2020-08-10] MEDS: LACTIC ACID 12% LOTION 225 GM BTL TOP SCH (08:42)
--- NOTE | 2020-08-10 10:18 | IPNPDOC ---
Text Note Date of Service The patient was seen on 08/10/20. NOTE SUBJECTIVE: Patient was seen and examined at bedside. She states her appetite continues to improve. She was able to eat scrambled eggs this morning. She denies abdominal pain currently but states she has intermittent pain. She continues to have output in her colostomy bag. She also notes right leg pain which has been bother her overnight. No increased swelling or redness per patient. OBJECTIVE: VITAL SIGNS: See below GENERAL: Morbidly obese female, alert, comfortable, in no acute distress HEENT: Normocephalic, atraumatic, EOMI, moist mucous membranes CARDIOVASCULAR: Regular rate and rhythm, normal S1 and S2. No murmurs, rubs, or gallops RESPIRATORY: Clear to auscultation bilaterally with equal air entry bilaterally. No wheezing, rhonchi, or rales. ABDOMEN: Soft, obese, nondistended. Hypoactive bowel sounds. There is a colosto my at the LUQ, the parastomal hernia has been repaired. Tender to palpation just medial to the ostomy. Mild generalized tenderness over the abdomen. EXTREMITIES: 1+ pitting edema in bilateral lower extremities. Pulses 2+/4 in bilateral upper and lower extremities. bilateral calf tenderness to palpation NEUROLOGIC: Alert and oriented x3 to person, place and time. No focal deficits appreciated PSYCHIATRIC: Mood and affect appropriate ASSESSMENT/PLAN: 80 year old female with past medical history of rheumatoid arthritis, IDDM, HTN, HLD, and osteoporosis with recent left distal femur fracture who presented to the ED from the [facility] with bloody vomitus, found to have a SBO and parastomal hernia. She is now status post parastomal hernia repair, slowly advancing diet as tolerated. #SBO 2/2 parastomal hernia -Surgery consulted, appreciate their input and recommendation -s/p parastomal hernia repair, postop day #9 -Currently tolerating soft food diet. Nutrition eval ordered. s/p TPN for nutrition -Continue Tylenol with codeine for pain. IV Reglan and SL Zofran for nausea #HTN -torsemide 30 mg held due to poor oral intake and MEKA. these have resolved and she has some edema - will restart a smaller dose of torsemide (10mg) today and monitor her renal function daily -continue lisinopril which was added during this admission for BP control #Elevated LFTs -Alk phos, AST, and ALT are trending up -Liver US showed no pathology. -Continue to trend daily # Chronic anemia -No obvious signs of bleeding. 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 Baseline prior to admission was 1.1 -Renal U/S showed right atrophic kidney # Poor peripheral access - history of a cut down the left arm so we are unable to use this for IV access - PICC line in place, remove prior to discharge # Osteoporosis -Patient has a hx of distal L femur fracture -Ergocalceiferol 50,000 units once a month # Rheumatoid Arthritis -continue home Plaquenil DVT PROPHYLAXIS: Heparin SC 5000 units q12h DISPOSITION: will return to residential on discharge when clinically improved Attending note: Patient seen and examined independently. Agree with resident's note. VS,Fishbone, I+O VS, Fishbone, I+O Laboratory Tests 08/10/20 06:16 Vital Signs Date Time Temp Pulse Resp B/P (MAP) Pulse Ox O2 Delivery O2 Flow Rate FiO2 08/10/20 06:00 98.7 89 18 131/56 (81) 97 Room Air 08/08/20 06:00 0.5 I&O- Last 24 Hours up to 6 AM 08/10/20 06:00 Intake Total 1670 ml Output Total 2600 ml Balance -930 ml SAMANTHA CAMPBELL D.O. Aug 10, 2020 10:18 ISHMAEL SANCHEZ MD Aug 10, 2020 18:09
[2020-08-10] MEDS: TORSEMIDE 10 MG TABLET PO SCH (10:42)
[2020-08-10 14:00] VITALS: BP 148/72
[2020-08-10 22:00] VITALS: BP 115/3
[2020-08-10] MEDS: lisinopriL 10 MG TAB PO SCH (22:23)
[2020-08-10] MEDS: ACETAMINOPH W/CODEINE #3 TAB UD PO PRN (22:33)
[2020-08-11 06:00] VITALS: BP 102/53
[2020-08-11] MEDS: SODIUM CHLORIDE 0.9% INJ 10 ML SYR IV SCH (06:00)
[2020-08-11 06:45] LABS: HEMATOCRIT 29.7 % (36.0-47.0); HEMOGLOBIN 9.2 g/dl (12.0-15.5); MEAN CORPUSCULAR HEMOGLOBIN 29.1 pg (27.0-33.0); PLATELET COUNT, AUTOMATED 140 10^3/uL (150-450); RED BLOOD COUNT 3.16 10^6/uL (4.00-5.40); WHITE BLOOD COUNT 8.2 10^3/uL (4.0-10.0)
[2020-08-11 07:13] LABS: ALBUMIN 1.7 GM/DL (3.2-5.2); ALT/SGPT 44 U/L (12-78); BILIRUBIN,DIRECT 0.2 MG/DL (0.0-0.2); BILIRUBIN,TOTAL 0.4 MG/DL (0.2-1.0); BLOOD UREA NITROGEN 23 MG/DL (7-18); CALCIUM LEVEL 7.6 MG/DL (8.8-10.2); CARBON DIOXIDE LEVEL 27 MEQ/L (21-32); CHLORIDE LEVEL 110 MEQ/L (98-107); CREATININE FOR GFR 0.73 MG/DL (0.55-1.30); GLOMERULAR FILTRATION RATE > 60.0 (>39); GLUCOSE, FASTING 194 MG/DL (70-100); MAGNESIUM LEVEL 1.8 MG/DL (1.8-2.4); PHOSPHORUS LEVEL 3.4 MG/DL (2.5-4.9); POTASSIUM SERUM 4.5 MEQ/L (3.5-5.1); SODIUM LEVEL 140 MEQ/L (136-145); TOTAL PROTEIN 5.3 GM/DL (6.4-8.2)
[2020-08-11] MEDS: FLUTICASONE HFA 110 MCG 12 GM INHALER (FLOVENT) INH SCH ×2 (07:49→18:06)
[2020-08-11] MEDS: TIOTROPIUM INHALER/CAPSULE (SPIRIVA) INH SCH (07:50)
[2020-08-11] MEDS: HEPARIN SOD (PORCINE) 5000UNITS/ML 1ML VIAL/SYRINGE SQ SCH (08:07)
[2020-08-11] MEDS: HumaLOG INSULIN (NovoLOG) PER UNIT SC SCH ×4 (08:07→21:13)
[2020-08-11] MEDS: MIRALAX *UNIT DOSE* 17GM PACKET PO SCH (08:07)
[2020-08-11] MEDS: TORSEMIDE 10 MG TABLET PO SCH (08:07)
[2020-08-11] MEDS: HYDROXYCHLOROQUINE 200 MG TAB PO SCH ×2 (08:07→21:12)
[2020-08-11] MEDS: AZELASTINE 137MCG NASAL SPY 30 ML (ASTELIN) SCH ×2 (08:08→21:12)
[2020-08-11] MEDS: LACTIC ACID 12% LOTION 225 GM BTL TOP SCH (08:08)
--- NOTE | 2020-08-11 09:23 | IPNPDOC ---
Text Note Date of Service The patient was seen on 08/11/20. NOTE SUBJECTIVE: Patient seen and examined at bedside. Overnight events significant for right upper extremity swelling. She does note some minimal pain also with her right upper extremity. She continues to tolerate her diet. No other new medical complaints OBJECTIVE: VITAL SIGNS: See below GENERAL: Morbidly obese female, alert, comfortable, in no acute distress HEENT: Normocephalic, atraumatic, EOMI, moist mucous membranes CARDIOVASCULAR: +S1S2, RRR, soft systolic murmur RESPIRATORY: CTA B/L ABDOMEN: Soft, obese, ND, NT; colostomy at the LUQ, the parastomal hernia has been repaired. EXTREMITIES: significant RUE swelling; b/l LE chronic venous stasis changes with edema A/P: 80F with PMHx RA, IDDM, HTN, HLD, OP with recent left distal femur fracture who presented to the ED from the group home with bloody vomitus, found to have a SBO and parastomal hernia. She is now status post parastomal hernia repair, tolerating diet. #SBO 2/2 parastomal hernia -Surgery consulted, appreciate their input and recommendation -s/p parastomal hernia repair, postop day #10 -Currently tolerating soft food diet. Nutrition eval ordered. s/p TPN for nutrition -Continue Tylenol with codeine for pain. IV Reglan and SL Zofran for nausea #RUE swelling - US shows extensive non-occlusive thrombus in subclavian/axillary system - PICC line in place - will discontinue - start therapeutic lovenox #HTN - home torsemide 30 mg held due to poor oral intake and MEKA - restarted torsemide 10 daily -continue lisinopril which was added during this admission for BP control #Elevated ALP -Liver US showed no pathology. -Continue to trend # Chronic anemia - slowly trending down -No obvious signs of bleeding. 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 Baseline prior to admission was 1.1 -Renal U/S showed right atrophic kidney # Poor peripheral access - history of a cut down the left arm so we are unable to use this for IV access - PICC line in place - given swelling will consider discontinuing - US pending # Osteoporosis -Patient has a hx of distal L femur fracture -Ergocalceiferol 50,000 units once a month # Rheumatoid Arthritis -continue home Plaquenil DVT PROPHYLAXIS: Heparin SC 5000 units q12h DISPOSITION: will return to group home on discharge when clinically improved VS,Fishbone, I+O VS, Fishbone, I+O Laboratory Tests 08/11/20 06:25 Vital Signs Date Time Temp Pulse Resp B/P (MAP) Pulse Ox O2 Delivery O2 Flow Rate FiO2 08/11/20 06:00 98.0 88 18 102/53 (69) 96 08/10/20 22:00 Nasal Cannula 0.5 I&O- Last 24 Hours up to 6 AM 08/11/20 06:00 Intake Total 1220 ml Output Total 2750 ml Balance -1530 ml ISHMAEL SANCHEZ MD Aug 11, 2020 09:22
--- NOTE | 2020-08-11 10:23 | REP ---
INDICATION: swelling/eval dvt COMPARISON: None. TECHNIQUE: Real time compression and duplex Doppler evaluation of the Right upper extremity deep venous system is performed. FINDINGS: The mid right basilic and brachial veins could not be seen due to overlying bandaging material. There is nonocclusive thrombus seen the visualized subclavian vein axillary vein. There is also nonocclusive thrombus the basilic and cephalic veins diffusely. No thrombus is seen in the brachial veins. IMPRESSION: Nonocclusive thrombus throughout the visualized right subclavian and axillary veins, as well as throughout the visualized cephalic and basilic veins. <Electronically signed by Ayden Haddad > 08/11/20 [id number]
[2020-08-11 14:00] VITALS: BP 97/40
[2020-08-11 15:22] VITALS: BP 112/60
[2020-08-11] MEDS: ENOXAPARIN 100MG/1ML SYRINGE (J1650 PER 10MG) SC SCH (21:11)
[2020-08-11] MEDS: lisinopriL 10 MG TAB PO SCH (21:12)
[2020-08-11 22:00] VITALS: BP 131/56
[2020-08-12] MEDS: ACETAMINOPH W/CODEINE #3 TAB UD PO PRN (04:43)
[2020-08-12 06:00] VITALS: BP 125/55
[2020-08-12 06:28] LABS: HEMATOCRIT 30.4 % (36.0-47.0); HEMOGLOBIN 9.6 g/dl (12.0-15.5); MEAN CORPUSCULAR HEMOGLOBIN 29.8 pg (27.0-33.0); MEAN CORPUSCULAR HGB CONC 31.6 g/dl (32.0-36.5); MEAN CORPUSCULAR VOLUME 94.4 fl (80.0-96.0); PLATELET COUNT, AUTOMATED 145 10^3/uL (150-450); RED BLOOD COUNT 3.22 10^6/uL (4.00-5.40); WHITE BLOOD COUNT 8.2 10^3/uL (4.0-10.0)
[2020-08-12 06:55] LABS: ALBUMIN 1.8 GM/DL (3.2-5.2); ALT/SGPT 56 U/L (12-78); BILIRUBIN,DIRECT 0.2 MG/DL (0.0-0.2); BILIRUBIN,TOTAL 0.6 MG/DL (0.2-1.0); BLOOD UREA NITROGEN 22 MG/DL (7-18); CALCIUM LEVEL 7.9 MG/DL (8.8-10.2); CARBON DIOXIDE LEVEL 28 MEQ/L (21-32); CHLORIDE LEVEL 108 MEQ/L (98-107); CREATININE FOR GFR 0.77 MG/DL (0.55-1.30); GLOMERULAR FILTRATION RATE > 60.0 (>39); GLUCOSE, FASTING 231 MG/DL (70-100); MAGNESIUM LEVEL 1.6 MG/DL (1.8-2.4); PHOSPHORUS LEVEL 3.2 MG/DL (2.5-4.9); POTASSIUM SERUM 4.9 MEQ/L (3.5-5.1); SODIUM LEVEL 138 MEQ/L (136-145); TOTAL PROTEIN 5.7 GM/DL (6.4-8.2)
[2020-08-12] MEDS: TIOTROPIUM INHALER/CAPSULE (SPIRIVA) INH SCH (07:47)
[2020-08-12] MEDS: FLUTICASONE HFA 110 MCG 12 GM INHALER (FLOVENT) INH SCH ×2 (07:47→17:50)
[2020-08-12] MEDS: HumaLOG INSULIN (NovoLOG) PER UNIT SC SCH ×4 (08:40→21:00)
[2020-08-12] MEDS: MIRALAX *UNIT DOSE* 17GM PACKET PO SCH (08:40)
[2020-08-12] MEDS: TORSEMIDE 10 MG TABLET PO SCH (08:41)
[2020-08-12] MEDS: HYDROXYCHLOROQUINE 200 MG TAB PO SCH ×2 (08:41→21:10)
[2020-08-12] MEDS: ENOXAPARIN 100MG/1ML SYRINGE (J1650 PER 10MG) SC SCH ×2 (08:41→21:12)
[2020-08-12] MEDS: LACTIC ACID 12% LOTION 225 GM BTL TOP SCH (08:42)
[2020-08-12] MEDS: AZELASTINE 137MCG NASAL SPY 30 ML (ASTELIN) SCH ×2 (08:42→21:12)
--- NOTE | 2020-08-12 11:19 | IPNPDOC ---
Subjective Date Seen The patient was seen on 08/12/20. Subjective Chief Complaint/HPI Pt was seen at bedside this am. Pt was eating her breakfast and seems to be tolerating a PO diet. She's does not have any acute complaints from overnight or this a.m. Denies any CP, SOB, abdominal pain, fever chills, n/v/d. The stoma site does not look infected and no pus around site. REVIEW OF SYSTEMS: Constitutional: Subjective fevers, chills, malaise, fatigue. No weight change ENT/Mouth: No Hearing Changes, No Ear Pain, No Nasal Congestion, No Sinus Pain, No Hoarseness, No sore throat, No Rhinorrhea, No Swallowing Difficulty Cardiovascular: Reports some chest pain in center of his chest, off-and-on Respiratory: No Cough, No Wheezing, No Dyspnea Gastrointestinal: No Nausea, No Vomiting, No Diarrhea, No Constipation, No Pain, No Heartburn, No Anorexia, No Dysphagia, No Hematochezia, No Melena Genitourinary: No Dysuria Musculoskeletal: No Arthralgias, No Myalgias, No Joint Swelling, No Joint Stiffness, No Back Pain, No Neck Pain Skin: No Skin Lesions, Some tenderness in bilateral groin at surgical site Neuro: No Weakness, No Numbness, No Paresthesias, No Loss of Consciousness, No Syncope, No Dizziness, No Headache, No Coordination Changes, No Recent Falls Psych: No Anxiety/Panic, No Depression, No Insomnia, No Personality Changes, No Delusions Heme/Lymph: No Bruising, No Bleeding, No Transfusions History, No Lymphadenopathy Endocrine: No Polyuria, No Polydipsia, No Temperature Intolerance PHYSICAL EXAM: VITAL SIGNS: Please see below GENERAL: Morbidly obese female, alert, comfortable, in no acute distress HEENT: Normocephalic, atraumatic, EOMI, moist mucous membranes CARDIOVASCULAR: Regular rate and rhythm, normal S1 and S2. No murmurs, rubs, or gallops RESPIRATORY: Clear to auscultation bilaterally with equal air entry bilaterally. No wheezing, rhonchi, or rales. ABDOMEN: Soft, obese, nondistended. Hypoactive bowel sounds. There is a colostomy at the LUQ, the parastomal hernia has been repaired. Tender to palpation just medial to the ostomy. Mild generalized tenderness over the abdomen. EXTREMITIES: RUE is swollen 2/2 to DVT which is being treated with therapeutic lovenox. Pulses 2+/4 in bilateral upper and lower extremities. bilateral calf tenderness to palpation NEUROLOGIC: Alert and oriented x3 to person, place and time. No focal deficits appreciated PSYCHIATRIC: Mood and affect appropriate Objective Physical Examination General Exam: Positive: Alert, Cooperative, No Acute Distress Eye Exam: Positive: EOMI; Negative: Sclera icteric ENT Exam: Positive: Atraumatic Neck Exam: Positive: Supple Chest Exam: Positive: Clear to auscultation Heart Exam: Positive: Rate Normal; Negative: Regular Rhythm Abdomen Exam: Positive: BS Hypoactive, Soft Extremity Exam: Positive: Edema Neuro Exam: Positive: Cranial Nerves 3-12 NL Psych Exam: Positive: Mental status NL, Mood NL Assessment /Plan Assessment This is an elderly 80 y.o female with PMHx RA, IDDM, HTN, HLD, OP with recent left distal femur fracture who presented to the ED from the custodial with bloody vomitus, and found to have a SBO and parastomal hernia. She is now status post parastomal hernia repair and tolerating diet. During hospitalization, she was found to have an RUE DVT for which she was started on heparin and now currently on therapeutic lovenox. #SBO 2/2 parastomal hernia -Surgery consulted, appreciate their input and recommendation -s/p parastomal hernia repair, postop day #10 -Currently tolerating solid food diet. Nutrition eval ordered. s/p TPN for nutrition -Continue Tylenol with codeine for pain. IV Reglan and SL Zofran for nausea #RUE DVT - US shows extensive non-occlusive thrombus in subclavian/axillary system - PICC line in place - will discontinue - Continue therapeutic Lovenox #HTN - Bp controlled 125/55 - She has 2+ lower extr edema but seems to be euvolemic at this point - Continue lisinopril which was added during this admission for BP control - Continue torsemide at current regimen #MEKA (resolved) - BUN/Cr 22/0.77 - continue current dose of torsemide - Seems to be in euvolemic state without significant lower extr edema in bilat extr - RUE swelling 2/2 to DVT #Elevated ALP -Liver US showed no pathology -LDH continues to be elevated in the 900s today #HypoMg2+ - 1.6 this am. - repleted with 400mg PO X2 doses - Will continue to monitor lytes closely and replete as needed # Chronic anemia -Stable h/h at this point 9.6/30.4 -No obvious signs of bleeding appreciated. 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 Baseline prior to admission was 1.1 -Renal U/S showed right atrophic kidney # Poor peripheral access - history of a cut down the left arm so we are unable to use this for IV access - PICC line d/c'd due to DVT in RUE confirmed by U/S # Osteoporosis -Patient has a hx of distal L femur fracture -Ergocalceiferol 50,000 units once a month # Rheumatoid Arthritis -continue home Plaquenil DVT PROPHYLAXIS: Lovenox therpauetically dosed GI PPX: none DIET: Regular Fluids: none Code status: Full DISPOSITION: will return to custodial on discharge when clinically improved. Plan/VTE VTE Prophylaxis Ordered?: Yes VS, I&O, 24H, Fishbone Vital Signs/I&O Vital Signs Date Time Temp Pulse Resp B/P (MAP) Pulse Ox O2 Delivery O2 Flow Rate FiO2 08/12/20 06:00 98.0 90 18 125/55 (78) 93 08/11/20 14:00 Room Air 08/10/20 22:00 0.5 I&O- Last 24 Hours up to 6 AM 08/12/20 06:00 Intake Total 2950 ml Output Total 2750 ml Balance 200 ml Laboratory Data 24H LABS Laboratory Tests 2 08/11/20 11:39: Bedside Glucose (Misc Panel) 274H 08/11/20 16:35: Bedside Glucose (Misc Panel) 312H 08/11/20 20:33: Bedside Glucose (Misc Panel) 318H 08/12/20 05:45: Nucleated Red Blood Cells % (auto) 0.0, Anion Gap 2L, Glomerular Filtration Rate > 60.0, Calcium Level 7.9L, Phosphorus Level 3.2, Magnesium Level 1.6L, Total Bilirubin 0.6, Direct Bilirubin 0.2, Aspartate Amino Transf (AST/SGOT) 54H, Alanine Aminotransferase (ALT/SGPT) 56, Alkaline Phosphatase 907H, Total Protein 5.7L, Albumin 1.8L, Albumin/Globulin Ratio 0.5L CBC/BMP Laboratory Tests 08/12/20 05:45 GME ATTESTATION GME ATTESTATION My faculty preceptor for this patient encounter was physically present during the encounter and was fully available. All aspects of the patient interview, examination, medical decision making process, and medical care plan development were reviewed and approved by the faculty preceptor. The faculty preceptor is aware and concurs with the plan as stated in the body of this note and will attest to such by his/her cosignature. Devaughn Ragsdale DO Aug 12, 2020 11:19
[2020-08-12] MEDS: MAGNESIUM OXIDE 400 MG TAB (MAG-OX) PO SCH ×2 (11:59→14:39)
[2020-08-12 14:00] VITALS: BP 131/70
[2020-08-12] MEDS ORDERED: MAGNESIUM OXIDE 400 MG TAB (MAG-OX) As Ordered ONE (14:38)
[2020-08-12 21:12] VITALS: BP 143/71
[2020-08-12] MEDS: lisinopriL 10 MG TAB PO SCH (21:12)
[2020-08-12 22:00] VITALS: BP 138/71
[2020-08-13] MEDS ORDERED: CHLORASEPTIC SPRAY MT PRN (03:30)
[2020-08-13 06:00] VITALS: BP 135/66
[2020-08-13 06:56] LABS: HEMATOCRIT 29.1 % (36.0-47.0); HEMOGLOBIN 9.1 g/dl (12.0-15.5); MEAN CORPUSCULAR HEMOGLOBIN 29.4 pg (27.0-33.0); MEAN CORPUSCULAR HGB CONC 31.3 g/dl (32.0-36.5); MEAN CORPUSCULAR VOLUME 94.2 fl (80.0-96.0); PLATELET COUNT, AUTOMATED 149 10^3/uL (150-450); RED BLOOD COUNT 3.09 10^6/uL (4.00-5.40); WHITE BLOOD COUNT 6.8 10^3/uL (4.0-10.0)
[2020-08-13 07:20] LABS: ALBUMIN 1.7 GM/DL (3.2-5.2); ALT/SGPT 57 U/L (12-78); BILIRUBIN,DIRECT 0.2 MG/DL (0.0-0.2); BILIRUBIN,TOTAL 0.5 MG/DL (0.2-1.0); BLOOD UREA NITROGEN 20 MG/DL (7-18); CALCIUM LEVEL 7.6 MG/DL (8.8-10.2); CARBON DIOXIDE LEVEL 26 MEQ/L (21-32); CHLORIDE LEVEL 110 MEQ/L (98-107); CREATININE FOR GFR 0.65 MG/DL (0.55-1.30); GLOMERULAR FILTRATION RATE > 60.0 (>39); GLUCOSE, FASTING 179 MG/DL (70-100); MAGNESIUM LEVEL 1.5 MG/DL (1.8-2.4); PHOSPHORUS LEVEL 2.9 MG/DL (2.5-4.9); POTASSIUM SERUM 4.9 MEQ/L (3.5-5.1); SODIUM LEVEL 141 MEQ/L (136-145); TOTAL PROTEIN 5.4 GM/DL (6.4-8.2)
[2020-08-13] MEDS: MAG SULF 1GM/100ML (MAG RUN) 1 GM in IV 1 EA IV SCH ×2 (08:00→09:00)
[2020-08-13] MEDS: FLUTICASONE HFA 110 MCG 12 GM INHALER (FLOVENT) INH SCH (08:00)
[2020-08-13] MEDS: TIOTROPIUM INHALER/CAPSULE (SPIRIVA) INH SCH (08:00)
[2020-08-13] MEDS: HYDROXYCHLOROQUINE 200 MG TAB PO SCH (08:01)
[2020-08-13] MEDS: TORSEMIDE 10 MG TABLET PO SCH (08:01)
[2020-08-13] MEDS: ENOXAPARIN 100MG/1ML SYRINGE (J1650 PER 10MG) SC SCH (08:02)
[2020-08-13] MEDS: MIRALAX *UNIT DOSE* 17GM PACKET PO SCH (08:02)
[2020-08-13] MEDS: AZELASTINE 137MCG NASAL SPY 30 ML (ASTELIN) SCH (08:02)
[2020-08-13] MEDS: HumaLOG INSULIN (NovoLOG) PER UNIT SC SCH (08:02)
[2020-08-13] MEDS: LACTIC ACID 12% LOTION 225 GM BTL TOP SCH (08:03)
[2020-08-13] MEDS: ACETAMINOPH W/CODEINE #3 TAB UD PO PRN (08:16)
--- NOTE | 2020-08-13 09:12 | DS.PDOC ---
Discharge Summary General Date of Admission Jul 28, 2020 at 21:57 Date of Discharge 08/13/2020 Attending Physician: SELAM CLIFTON MD Specialist/Consultants Involve: ALTON GROVES MD Discharge Summary PROCEDURES PERFORMED DURING STAY: 08/03/2020 Robotic Assisted Laparoscopic lysis of adhesion, release of incarcerated bowel, primary repair of parastomal hernia with Dr. Groves ADMITTING DIAGNOSES: 1. vomiting DISCHARGE DIAGNOSES: 1. Small bowel obstruction, RUE DVT COMPLICATIONS/CHIEF COMPLAINT: Small Bowel Obstruction, Parastomal Hernia. HISTORY OF PRESENT ILLNESS: This 80 yr was last admitted on March 08 2 March 18 for open reduction internal fixation left comminuted unstable distal femur fracture with a retrograde Synthes nail after having a mechanical fall. She was discharged to longterm for rehabilitation and had been doing well until the last 2 days where she developed what she describes as "continuous" episodes of bloody vomiting. She had less output from her stoma,and denied having abdominal pain. HOSPITAL COURSE: Pt is a 80 y/o morbidly obese female with multiple co-morbidities. She has a long standing hernia around the colostomy site and also at the midline complicated with her morbid obesity. Dr. Groves (General surgery was consulted and an robotic assisted lap lysis of adhesion, release of the incarcerated bowel and primary repair of the parastomal hernia without complications. She was able to transition from NPO diet to a regular diet and has tolerated it very well. During hospitalization, her RUE was swollen and she developed a DVT confirmed on an ultrasound Doppler (see imaging report below). This may be secondary to her PICC line on her R side which was discontinued. She was started on heparin and then to therapeutic lovenox. She is discharged with eliquis and instructions provided on how to take this new medication. She also had elevated LFTs and alk phos however liver ultrasound and hep panel all within normal limits and shes instructed to follow up with her PCP within 3-5 days of hospital discharge. DISCHARGE MEDICATIONS: Please see below. ALLERGIES: Please see below. PHYSICAL EXAMINATION ON DISCHARGE: VITALS: See below GENERAL: The patient is lying in bed, uncomfortable but in no acute distress. She is morbidly obese. HEENT: Normocephalic, atraumatic, EOMI, moist mucous membranes CV: RRR. S1 and S2 are noted, and no murmurs gallops or rubs are appreciated. LUNGS: Lungs are clear to auscultation bilaterally. No rales, rhonchi or wheezing were noted. Chest rise is symmetrical with inhalation. ABDOMEN: Soft, obese, nondistended. Bowel sounds are absent. There is a colostom y at the LUQ, the parastomal hernia has been repaired. Tender to palpation just medial to the ostomy. EXTREMITIES: Trace edema is noted in the legs bilaterally. Pulses 2+/4 in bilateral upper and lower extremities NEURO: No focal deficits noted PSYCH: AAOx3, normal mood/affect. LABORATORY DATA: Please see below. IMAGING: Abd XR 08/02/2020: No dilated small or large bowel loops are seen. Postoperative changes. NG tube in the gastric fundus. Persistent nephrogram phase contrast enhancement of the kidneys may correlate with renal insufficiency. Abd XR 08/04/2020: There is no evidence of free air. There are 2 or 3 dilated loops of small bowel in the central abdomen consistent with some degree of small bowel obstruction. A paucity of distal bowel gas is seen. There is extra thoracic soft tissue emphysema along the right lateral abdominal and chest wall. Liver u/s 08/07: Cholecystectomy. Otherwise, negative right upper quadrant abdominal ultrasound. Portions of the pancreas are not visualized. b/l upper extr venous Doppler 08/08: No evidence of deep venous thrombosis of the bilateral lower extremity femoral popliteal venous system. b/l upper extr venous Doppler 08/11: Nonocclusive thrombus throughout the visualized right subclavian and axillary veins, as well as throughout the visualized cephalic and basilic veins ACTIVITY: As tolerated DIET: regular DISCHARGE PLAN: back to [facility] DISPOSITION: stable DISCHARGE INSTRUCTIONS: 1. take new medication eliquis as directed in the discharge instructions ITEMS TO FOLLOWUP ON ON OUTPATIENT: 1. PCP within 3-5 days of hospital discharge TIME SPENT ON DISCHARGE: 40 minutes. Vital Signs/I&Os Vital Signs Date Time Temp Pulse Resp B/P (MAP) Pulse Ox O2 Delivery O2 Flow Rate FiO2 08/13/20 08:16 18 Room Air 08/13/20 06:00 98.4 93 135/66 (89) 93 08/10/20 22:00 0.5 I&O- Last 24 Hours up to 6 AM 08/13/20 05:59 Intake Total 1140 ml Output Total 2275 ml Balance -1135 ml Laboratory Data Labs 24H Laboratory Tests 2 08/12/20 11:42: Bedside Glucose (Misc Panel) 224H 08/12/20 16:31: Bedside Glucose (Misc Panel) 307H 08/12/20 20:57: Bedside Glucose (Misc Panel) 200H 08/13/20 06:17: Nucleated Red Blood Cells % (auto) 0.0, Anion Gap 5L, Glomerular Filtration Rate > 60.0, Calcium Level 7.6L, Phosphorus Level 2.9, Magnesium Level 1.5L, Total Bilirubin 0.5, Direct Bilirubin 0.2, Aspartate Amino Transf (AST/SGOT) 53H, Alanine Aminotransferase (ALT/SGPT) 57, Alkaline Phosphatase 878H, Total Protein 5.4L, Albumin 1.7L, Albumin/Globulin Ratio 0.5L CBC/BMP Laboratory Tests 08/13/20 06:17 FSBS Laboratory Tests Test 08/12/20 11:42 08/12/20 16:31 08/12/20 20:57 Range/Units Bedside Glucose (Misc Panel) 224 307 200 83-110 MG/DL Discharge Medications Scheduled Acetaminophen (Acetaminophen) 500 Mg Tablet, 500 MG PO BID, (Reported) Ammonium Lactate (Ammonium Lactate) 12% Cream..g., 1 DOSE TOP DAILY, (Reported) Apixaban (Eliquis) 5 Mg Tablet, 5 MG PO BID Take 10mg PO BID for 7 days; then take 5mg PO BID for the rest of the course for a total course of 30days. Aspirin (Aspirin EC) 81 Mg Tablet.dr, 81 MG PO DAILY, (Reported) Atorvastatin Calcium (Atorvastatin Calcium) 40 Mg Tablet, 40 MG PO QHS, (Reported) Azelastine HCl (Azelastine HCl) 0.1% [place].pump, 2 SPRAY NA BID, (Reported) Ergocalciferol (Vitamin D2) (Vitamin D2) 50,000 Units Cap, 50,000 UNITS PO QMONTH, (Reported) FIRST WEDNESDAY OF THE MONTH Fluticasone Propionate (Flovent Hfa) 110 Mcg/Act Aer.w.adap, 2 PUFF INH BID Hydroxychloroquine Sulfate (Hydroxychloroquine Sulfate) 200 Mg Tablet, 200 MG PO BID, (Reported) Loratadine (Loratadine) 10 Mg Tablet, 10 MG PO DAILY, (Reported) Magnesium Oxide (Magnesium Oxide) 400 Mg Tablet, 400 MG PO BID, (Reported) Metformin HCl (Metformin ER Osmotic) 500 Mg Tab.er.24, 500 MG PO BID, (Reported) Oxybutynin Chloride (Oxybutynin Chloride ER) 10 Mg Tab.er.24, 10 MG PO DAILY, (Reported) Polyethylene Glycol 3350 (Miralax) 119 Gm Powder, 17 GM PO DAILY, (Reported) dilute in 8 ounces of water or juice Potassium Chloride (Potassium Chloride) 10 Meq Tablet.er, 20 MEQ PO DAILY, (Reported) Sennosides/Docusate Sodium (Senna-S Tablet) 1 Each Tablet, 2 TAB PO BID, (Reported) Torsemide (Torsemide) 10 Mg Tablet, 30 MG PO BID, (Reported) 0800/1400 [facility] (Incruse Ellipta) 62.5 Mcg Blst.w.dev, 1 PUFF INH DAILY, (Reported) Scheduled PRN Acetaminophen (Acetaminophen) 500 Mg Tablet, 1,000 MG PO Q8H PRN for PAIN, (Reported) Albuterol Sulfate (Proair Hfa) 8.5 Gm Hfa.aer.ad, 2 PUFF INH Q4H PRN for WHEEZING/COUGHING, (Reported) Magnesium Hydroxide (Milk of Magnesia) 400 Mg/5 Ml Oral.susp, 2,400 MG PO DAILY PRN for CONSTIPATION, (Reported) Ondansetron HCl (Ondansetron HCl) 4 Mg Tablet, 4 MG PO Q8H PRN for NAUSEA OR VOMITING, (Reported) Sodium Phosphate,Ravalli-Dibasic (Enema) 133 Ml Enema, 1 AKILA OK DAILY PRN for CONSTIPATION, (Reported) Allergies Coded Allergies: amoxicillin (Verified Allergy, Unknown, 08/10/19) clavulanic acid (Verified Allergy, Unknown, 08/10/19) GME ATTESTATION GME ATTESTATION My faculty preceptor for this patient encounter was physically present during the encounter and was fully available. All aspects of the patient interview, examination, medical decision making process, and medical care plan development were reviewed and approved by the faculty preceptor. The faculty preceptor is aware and concurs with the plan as stated in the body of this note and will attest to such by his/her cosignature. ATTENDING NOTE I, Selam Clifton, have independently examined this patient and performed my own physical exam, as well as reviewed the documentation and edited where necessary. I have discussed in detail with the resident / student the findings and plan of treatment as documented by the resident / student and edited their note. I agree with their findings and treatment plan and have edited their documentation. I will continue to follow the patient during this hospital stay. Time spent on discharge 35 minutes Devaughn Ragsdale DO Aug 13, 2020 09:12 SELAM CLIFTON MD Aug 13, 2020 14:59
[2020-08-13] MEDS ORDERED: MAGNESIUM OXIDE 400 MG TAB (MAG-OX) PO ONE (09:15)
[2020-08-13] MEDS ORDERED: ELIQ5TAB PO (09:43)
[2020-08-13 10:00] VITALS: BP 117/65
[2020-08-13] MEDS ORDERED: APIXABAN 5 MG TAB (ELIQUIS) PO SCH (21:00)
== END 2020-08-13 12:38 | DRG 854 ==
LOC: M ED 16:59 → M ED INP 21:57 → ENRESERV 23:08 → M PCU 23:58 → M MSPAV 07-31 10:20
PROVIDERS: ADMIT Internal Medicine; ATTEND Internal Medicine
PROC: 02HV33Z Insertion of Infusion Device into Superior Vena Cava, Percutaneous Approach (ICD-10-PCS; 2020-08-02)
PROC: 3E0436Z Introduction of Nutritional Substance into Central Vein, Percutaneous Approach (ICD-10-PCS; 2020-08-02)
PROC: 0DNU4ZZ Release Omentum, Percutaneous Endoscopic Approach (ICD-10-PCS; principal; 2020-08-03)
PROC: 0WQF4ZZ Repair Abdominal Wall, Percutaneous Endoscopic Approach (ICD-10-PCS; 2020-08-03)
PROC: 8E0W4CZ Robotic Assisted Procedure of Trunk Region, Percutaneous Endoscopic Approach (ICD-10-PCS; 2020-08-03)
DX: A41.9 Sepsis, unspecified organism (principal); I50.32 Chronic diastolic (congestive) heart failure; N17.9 Acute kidney failure, unspecified; E87.2 Acidosis; E87.1 Hypo-osmolality and hyponatremia; Z68.43 Body mass index [BMI] 50.0-59.9, adult; K43.3 Parastomal hernia with obstruction, without gangrene; T82.868A Thrombosis due to vascular prosthetic devices, implants and grafts, initial encounter; M81.0 Age-related osteoporosis without current pathological fracture; M06.9 Rheumatoid arthritis, unspecified; E11.40 Type 2 diabetes mellitus with diabetic neuropathy, unspecified; I11.0 Hypertensive heart disease with heart failure; E78.5 Hyperlipidemia, unspecified; J45.909 Unspecified asthma, uncomplicated; E11.51 Type 2 diabetes mellitus with diabetic peripheral angiopathy without gangrene; E66.9 Obesity, unspecified; N14.1 Nephropathy induced by other drugs, medicaments and biological substances; R49.0 Dysphonia; T50.8X5A Adverse effect of diagnostic agents, initial encounter; G47.33 Obstructive sleep apnea (adult) (pediatric); Z90.49 Acquired absence of other specified parts of digestive tract; Z79.84 Long term (current) use of oral hypoglycemic drugs; Z79.899 Other long term (current) drug therapy; Z88.0 Allergy status to penicillin; Z88.8 Allergy status to other drugs, medicaments and biological substances; I88.9 Nonspecific lymphadenitis, unspecified; Z87.81 Personal history of (healed) traumatic fracture; Z74.01 Bed confinement status; Y83.1 Surgical operation with implant of artificial internal device as the cause of abnormal reaction of the patient, or of later complication, without mention of misadventure at the time of the procedure; E83.42 Hypomagnesemia; D64.9 Anemia, unspecified; Z20.828 Contact with and (suspected) exposure to other viral communicable diseases

== ENCOUNTER → 2020-07-28 | Outpatient (REF) | payer MEDICARE, MEDICAID ==
[2020-07-28 15:48] LABS: HEMATOCRIT 43.5 % (36.0-47.0); HEMOGLOBIN 13.6 g/dl (12.0-15.5); MEAN CORPUSCULAR HEMOGLOBIN 28.8 pg (27.0-33.0); MEAN CORPUSCULAR HGB CONC 31.3 g/dl (32.0-36.5); MEAN CORPUSCULAR VOLUME 92.2 fl (80.0-96.0); PLATELET COUNT, AUTOMATED 194 10^3/uL (150-450); RED BLOOD COUNT 4.72 10^6/uL (4.00-5.40); WHITE BLOOD COUNT 18.9 10^3/uL (4.0-10.0)
[2020-07-28 16:19] LABS: CALCIUM LEVEL 9.1 MG/DL (8.8-10.2); CREATININE FOR GFR 1.48 MG/DL (0.55-1.30); POTASSIUM SERUM 8.6 MEQ/L (3.5-5.1)
== END ==
LOC: SKLAB5 14:42
PROVIDERS: ATTEND Nurse Practitioner Family
DX: R11.2 Nausea with vomiting, unspecified (principal); K59.00 Constipation, unspecified

== ENCOUNTER → 2020-08-01 | Outpatient (REF) | payer MEDICARE, MEDICAID ==
[~2020-08-01] MED LIST changes: +ACET500T15 PO; +AMMO12CR7 TOP; +APAP500T10 PO; +ENEMENE PR; +FLUT11IN INH; +MAGN400T2 PO; +METF-729 PO; +MILKSUS3 PO; +MIRA3350 PO; +ONDA-83 PO; +POTA1TAB23 PO; +SENN1TAB41 PO; +TORS10TA3 PO
== END ==
LOC: SKLAB5 08:05
PROVIDERS: ATTEND Internal Medicine
DX: Z53.9 Procedure and treatment not carried out, unspecified reason (principal)

== ENCOUNTER → 2020-08-16 | Outpatient (REF) | payer MEDICAID, MEDICARE ==
[~2020-08-16] MED LIST changes: +ELIQ5TAB PO
--- NOTE | 2020-08-16 16:59 | REP ---
INDICATION: PAIN. COMPARISON: 03/29/2020 as well as other prior exams. TECHNIQUE: SINGLE PORTABLE AP VIEW OF THE CHEST WAS PERFORMED. FINDINGS: Cardiomegaly is unchanged. The mediastinal silhouette is unchanged. There is again mild elevation of the right hemidiaphragm with slight blunting of the right costophrenic angle. Mildly prominent interstitial markings bilaterally are stable. No new infiltrate is seen. IMPRESSION: Stable cardiomegaly and chronic lung changes. No new infiltrate. <Electronically signed by Ayden Haddad > 08/16/20 [id number]
== END ==
LOC: SKLAB5 10-17 08:07
PROVIDERS: ATTEND Internal Medicine
DX: I51.7 Cardiomegaly (principal); R91.8 Other nonspecific abnormal finding of lung field; M54.9 Dorsalgia, unspecified; R07.9 Chest pain, unspecified

== ENCOUNTER → 2020-08-17 | Outpatient (REF) | LOC: SKLAB5 17:05 | PROVIDERS: ATTEND Internal Medicine | DX: Z20.828 Contact with and (suspected) exposure to other viral communicable diseases (principal) ==

== ENCOUNTER → 2020-08-20 | Outpatient (REF) ==
[2020-08-20 11:29] LABS: HEMATOCRIT 33.5 % (36.0-47.0); HEMOGLOBIN 10.2 g/dl (12.0-15.5); MEAN CORPUSCULAR HEMOGLOBIN 29.5 pg (27.0-33.0); MEAN CORPUSCULAR HGB CONC 30.4 g/dl (32.0-36.5); MEAN CORPUSCULAR VOLUME 96.8 fl (80.0-96.0); PLATELET COUNT, AUTOMATED 202 10^3/uL (150-450); RED BLOOD COUNT 3.46 10^6/uL (4.00-5.40)
[2020-08-20 12:10] LABS: BLOOD UREA NITROGEN 16 MG/DL (7-18); CALCIUM LEVEL 7.8 MG/DL (8.8-10.2); CARBON DIOXIDE LEVEL 33 MEQ/L (21-32); CHLORIDE LEVEL 101 MEQ/L (98-107); GLOMERULAR FILTRATION RATE > 60.0 (>39); GLUCOSE, FASTING 273 MG/DL (70-100); POTASSIUM SERUM 4.4 MEQ/L (3.5-5.1); SODIUM LEVEL 136 MEQ/L (136-145)
== END ==
LOC: SKLAB5 08:08
PROVIDERS: ATTEND Internal Medicine
DX: D64.9 Anemia, unspecified (principal); I50.9 Heart failure, unspecified

== ENCOUNTER → 2020-08-21 | Outpatient (REF) | LOC: SKLAB5 05:59 | PROVIDERS: ATTEND Internal Medicine | DX: Z20.828 Contact with and (suspected) exposure to other viral communicable diseases (principal) ==

== ENCOUNTER → 2020-08-26 | Outpatient (REF) ==
--- NOTE | 2020-08-27 06:08 | ECGEPIP ---
[facility] Test Date: 2020-08-26 Pat Name: SARAH SILVA Department: Room: - Gender: Female Supervisor Grips: : 1940 Requested By: ARTURO PARKS [facility] Order Number: [id number] Reading MD: Fidencio Mcgovern Measurements Intervals [place] Rate: 77 P: 57 ND: 165 QRS: 11 QRSD: 100 T: 34 QT: 401 QTc: 454 Interpretive Statements Normal sinus rhythm Suspect prior anterior wall myocardial infarction Nonspecific ST-T wave abnormalities No significant change since prior tracing of 07/29/2020 Electronically Signed on 08-27-2020 6:07:49 EST by Fidencio Mcgovern
== END ==
LOC: SKLAB5 12:13
PROVIDERS: ATTEND Internal Medicine
DX: R94.31 Abnormal electrocardiogram [ECG] [EKG] (principal); R06.02 Shortness of breath; R09.02 Hypoxemia; R00.0 Tachycardia, unspecified

== ENCOUNTER → 2020-08-26 | Outpatient (CLI) | payer MEDICARE, MEDICAID ==
[~2020-08-26] MED LIST changes: +ISOVUE-370 76% 100ML VIAL As Ordered ONE
--- NOTE | 2020-08-26 15:12 | REP ---
INDICATION: SOB ELEVATED D DIMER ? PE. COMPARISON: CT study performed without contrast on July 18, 2014.. TECHNIQUE: Contrast dose: 75 ML of Isovue [address] technique: Helical scanning is acquired and overlapping 1.5 mm and contiguous 3 mm axial images are reformatted. In addition, maximum intensity projection and multiplanar re-formation images are generated in sagittal and coronal imaging projections. FINDINGS: There is good opacification in the pulmonary arterial tree. There is no evidence of vessel cut off or filling defect to suggest pulmonary embolus. Homogeneous opacity is seen in the thoracic aorta. There is no evidence of aneurysm or dissection. Lung window settings demonstrate a small quantity of right pleural fluid. The right hemidiaphragm is elevated. There is some linear platelike atelectasis on the right. No infiltrate or mass lesion is observed. No hilar or mediastinal mass or adenopathy is observed. No pericardial effusion is seen. Cardiomegaly is observed. In the upper abdomen, there are surgical clips in the left upper quadrant. No adrenal mass is seen. no bony destructive lesion is appreciated. IMPRESSION: No CT evidence of pulmonary embolus. Cardiomegaly. Elevation of the right hemidiaphragm with discoid atelectasis on the right. <Electronically signed by Papi Alberts > 08/26/20 [id number]
== END ==
LOC: M RAD 14:21
PROVIDERS: ATTEND Nurse Practitioner Family
DX: I51.7 Cardiomegaly (principal); J98.11 Atelectasis; R00.0 Tachycardia, unspecified; R06.02 Shortness of breath; R09.02 Hypoxemia
CPT/HCPCS: 71275; Q9967

== ENCOUNTER → 2020-08-27 | Outpatient (REF) ==
[~2020-08-27] MED LIST changes: -ISOVUE-370 76% 100ML VIAL As Ordered ONE
[2020-08-27 10:05] LABS: HEMATOCRIT 32.2 % (36.0-47.0); HEMOGLOBIN 9.6 g/dl (12.0-15.5); MEAN CORPUSCULAR HEMOGLOBIN 28.5 pg (27.0-33.0); MEAN CORPUSCULAR HGB CONC 29.8 g/dl (32.0-36.5); MEAN CORPUSCULAR VOLUME 95.5 fl (80.0-96.0); PLATELET COUNT, AUTOMATED 203 10^3/uL (150-450); RED BLOOD COUNT 3.37 10^6/uL (4.00-5.40); WHITE BLOOD COUNT 7.3 10^3/uL (4.0-10.0)
[2020-08-27 10:45] LABS: BLOOD UREA NITROGEN 13 MG/DL (7-18); CALCIUM LEVEL 8.3 MG/DL (8.8-10.2); CARBON DIOXIDE LEVEL 35 MEQ/L (21-32); CHLORIDE LEVEL 97 MEQ/L (98-107); CREATININE FOR GFR 0.78 MG/DL (0.55-1.30); GLOMERULAR FILTRATION RATE > 60.0 (>39); GLUCOSE, FASTING 239 MG/DL (70-100); NT-PRO BNP 725 PG/ML (<450); POTASSIUM SERUM 4.2 MEQ/L (3.5-5.1); SODIUM LEVEL 135 MEQ/L (136-145)
== END ==
LOC: SKLAB5 10:06
PROVIDERS: ATTEND Internal Medicine
DX: I50.9 Heart failure, unspecified (principal)

== ENCOUNTER → 2020-08-28 | Outpatient (REF) | LOC: SKLAB5 06:31 | PROVIDERS: ATTEND Internal Medicine | DX: Z20.828 Contact with and (suspected) exposure to other viral communicable diseases (principal) ==

== ENCOUNTER → 2020-08-29 | Outpatient (REF) ==
[2020-08-29 10:00] LABS: HEMATOCRIT 32.8 % (36.0-47.0); HEMOGLOBIN 9.7 g/dl (12.0-15.5); MEAN CORPUSCULAR HEMOGLOBIN 29.3 pg (27.0-33.0); MEAN CORPUSCULAR HGB CONC 29.6 g/dl (32.0-36.5); MEAN CORPUSCULAR VOLUME 99.1 fl (80.0-96.0); PLATELET COUNT, AUTOMATED 184 10^3/uL (150-450); RED BLOOD COUNT 3.31 10^6/uL (4.00-5.40); WHITE BLOOD COUNT 6.8 10^3/uL (4.0-10.0)
[2020-08-29 10:28] LABS: BLOOD UREA NITROGEN 15 MG/DL (7-18); CALCIUM LEVEL 8.3 MG/DL (8.8-10.2); CARBON DIOXIDE LEVEL 37 MEQ/L (21-32); CHLORIDE LEVEL 98 MEQ/L (98-107); CREATININE FOR GFR 0.83 MG/DL (0.55-1.30); GLOMERULAR FILTRATION RATE > 60.0 (>39); GLUCOSE, FASTING 151 MG/DL (70-100); MAGNESIUM LEVEL 1.9 MG/DL (1.8-2.4); POTASSIUM SERUM 4.4 MEQ/L (3.5-5.1); SODIUM LEVEL 137 MEQ/L (136-145)
== END ==
LOC: SKLAB5 06:19
PROVIDERS: ATTEND Internal Medicine

== ENCOUNTER → 2020-09-04 | Outpatient (REF) | LOC: SKLAB5 07:02 | PROVIDERS: ATTEND Internal Medicine | DX: Z11.52 Encounter for screening for COVID-19 (principal) ==

== ENCOUNTER → 2020-09-05 | Outpatient (REF) ==
[2020-09-05 10:55] LABS: BASO % 0.5 % (0.0-1.0); EOS # 0.2 10^3/uL (0.0-0.5); EOS % 2.1 % (0.0-3.0); HEMATOCRIT 33.8 % (36.0-47.0); LYMPH # 2.1 10^3/uL (1.5-5.0); LYMPH % 28.3 % (24.0-44.0); MEAN CORPUSCULAR HEMOGLOBIN 29.3 pg (27.0-33.0); MEAN CORPUSCULAR HGB CONC 29.6 g/dl (32.0-36.5); MEAN CORPUSCULAR VOLUME 99.1 fl (80.0-96.0); MONO # 0.5 10^3/uL (0.0-0.8); NEUTROPHILS # 4.7 10^3/uL (1.5-8.5); NEUTROPHILS % 62.8 % (36.0-66.0); PLATELET COUNT, AUTOMATED 142 10^3/uL (150-450); RED BLOOD COUNT 3.41 10^6/uL (4.00-5.40); WHITE BLOOD COUNT 7.6 10^3/uL (4.0-10.0)
[2020-09-05 12:49] LABS: BLOOD UREA NITROGEN 13 MG/DL (7-18); CARBON DIOXIDE LEVEL 33 MEQ/L (21-32); CHLORIDE LEVEL 97 MEQ/L (98-107); CREATININE FOR GFR 0.74 MG/DL (0.55-1.30); GLOMERULAR FILTRATION RATE > 60.0 (>39); GLUCOSE, FASTING 220 MG/DL (70-100); IRON (FE) 46 UG/DL (50-170); MAGNESIUM LEVEL 1.7 MG/DL (1.8-2.4); PERCENT SATURATION 26.1 % (13.2-45.0); PHOSPHORUS LEVEL 4.4 MG/DL (2.5-4.9); POTASSIUM SERUM 4.2 MEQ/L (3.5-5.1); SODIUM LEVEL 135 MEQ/L (136-145); TOTAL IRON BINDING CAPACITY 176 UG/DL (250-450)
== END ==
LOC: SKLAB5 09:00
PROVIDERS: ATTEND Internal Medicine
DX: N17.9 Acute kidney failure, unspecified (principal)

== ENCOUNTER → 2020-09-10 | Outpatient (REF) ==
[2020-09-10 09:31] LABS: HEMATOCRIT 32.3 % (36.0-47.0); HEMOGLOBIN 9.7 g/dl (12.0-15.5); MEAN CORPUSCULAR VOLUME 96.7 fl (80.0-96.0); PLATELET COUNT, AUTOMATED 150 10^3/uL (150-450); RED BLOOD COUNT 3.34 10^6/uL (4.00-5.40); WHITE BLOOD COUNT 7.4 10^3/uL (4.0-10.0)
[2020-09-10 10:02] LABS: BLOOD UREA NITROGEN 14 MG/DL (7-18); CALCIUM LEVEL 8.1 MG/DL (8.8-10.2); CARBON DIOXIDE LEVEL 35 MEQ/L (21-32); CHLORIDE LEVEL 98 MEQ/L (98-107); CREATININE FOR GFR 0.83 MG/DL (0.55-1.30); GLOMERULAR FILTRATION RATE > 60.0 (>39); GLUCOSE, FASTING 222 MG/DL (70-100); MAGNESIUM LEVEL 1.7 MG/DL (1.8-2.4); POTASSIUM SERUM 4.2 MEQ/L (3.5-5.1); SODIUM LEVEL 137 MEQ/L (136-145)
== END ==
LOC: SKLAB5 12:29
PROVIDERS: ATTEND Internal Medicine
DX: N18.9 Chronic kidney disease, unspecified (principal)

== ENCOUNTER → 2020-09-11 | Outpatient (REF) | LOC: SKLAB5 06:41 | PROVIDERS: ATTEND Internal Medicine | DX: Z20.822 Contact with and (suspected) exposure to COVID-19 (principal) ==

== ENCOUNTER → 2020-09-18 | Outpatient (REF) | payer MEDICARE, MEDICAID ==
[~2020-09-18] MED LIST changes: +LISI10TA22 PO; -LISI10TA4 PO; -LISI40TA PO; +LISI40TA4 PO
== END ==
LOC: SKLAB5 07:35
PROVIDERS: ATTEND Internal Medicine
DX: Z20.822 Contact with and (suspected) exposure to COVID-19 (principal)

== ENCOUNTER → 2020-09-25 | Outpatient (REF) | payer MEDICARE, MEDICAID | LOC: SKLAB5 07:07 | PROVIDERS: ATTEND Internal Medicine | DX: Z20.822 Contact with and (suspected) exposure to COVID-19 (principal) ==

== ENCOUNTER → 2020-10-02 | Outpatient (REF) | payer MEDICARE, MEDICAID ==
[~2020-10-02] MED LIST changes: -LISI10TA22 PO; +LISI10TA4 PO; +LISI40TA PO; -LISI40TA4 PO
== END ==
LOC: SKLAB5 07:21
PROVIDERS: ATTEND Internal Medicine
DX: Z20.822 Contact with and (suspected) exposure to COVID-19 (principal)

== ENCOUNTER → 2020-10-03 | Outpatient (REF) | payer MEDICARE, MEDICAID ==
[~2020-10-03] MED LIST changes: +LISI10TA22 PO; -LISI10TA4 PO; -LISI40TA PO; +LISI40TA4 PO
[2020-10-03 13:37] LABS: HEMOGLOBIN A1c 7.1 %
== END ==
LOC: SKLAB4 10:26
PROVIDERS: ATTEND Internal Medicine
DX: E11.9 Type 2 diabetes mellitus without complications (principal)

== ENCOUNTER → 2020-10-09 | Outpatient (REF) | payer MEDICARE, MEDICAID | LOC: SKLAB5 06:24 | PROVIDERS: ATTEND Internal Medicine | DX: Z20.822 Contact with and (suspected) exposure to COVID-19 (principal) ==

== ENCOUNTER → 2020-10-16 | Outpatient (REF) | payer MEDICARE, MEDICAID | LOC: SKLAB5 06:35 | PROVIDERS: ATTEND Internal Medicine | DX: Z20.822 Contact with and (suspected) exposure to COVID-19 (principal) ==

== ENCOUNTER → 2020-10-23 | Outpatient (REF) | payer MEDICARE, MEDICAID ==
[2020-10-23 11:10] LABS: AMORPHOUS SEDIMENT SMALL (NEGATIVE); APPEARANCE, URINE HAZY (CLEAR); BACTERIA, URINE AUTO 2+ (NEGATIVE); BILIRUBIN, URINE AUTO NEGATIVE (NEGATIVE); BLOOD, URINE BLOOD NEGATIVE (NEGATIVE); COLOR, URINE YELLOW (YELLOW); GLUCOSE, URINE (UA) AUTO NEGATIVE (NEGATIVE); KETONE, URINE AUTO NEGATIVE (NEGATIVE); LEUKOCYTE ESTERASE, URINE AUTO 3+ (NEGATIVE); NITRITE, URINE AUTO NEGATIVE (NEGATIVE); PROTEIN, URINE AUTO NEGATIVE (NEGATIVE); RBC, URINE AUTO 4 /HPF (0-3); SPECIFIC GRAVITY URINE AUTO 1.004 (1.002-1.035); SQUAMOUS EPITHELIAL CELL UR AU 0 /HPF (0-6); UROBILINOGEN, URINE AUTO 0.2 mg/dL (0.0-2.0); WBC, URINE AUTO 90 /HPF (0-3)
[2020-10-23 13:27] LABS: HEMATOCRIT 38.1 % (36.0-47.0); HEMOGLOBIN 11.5 g/dl (12.0-15.5); MEAN CORPUSCULAR HEMOGLOBIN 28.3 pg (27.0-33.0); MEAN CORPUSCULAR HGB CONC 30.2 g/dl (32.0-36.5); MEAN CORPUSCULAR VOLUME 93.8 fl (80.0-96.0); PLATELET COUNT, AUTOMATED 178 10^3/uL (150-450); RED BLOOD COUNT 4.06 10^6/uL (4.00-5.40); WHITE BLOOD COUNT 6.6 10^3/uL (4.0-10.0)
[2020-10-23 13:55] LABS: BLOOD UREA NITROGEN 20 MG/DL (7-18); CARBON DIOXIDE LEVEL 34 MEQ/L (21-32); CHLORIDE LEVEL 99 MEQ/L (98-107); CREATININE FOR GFR 0.82 MG/DL (0.55-1.30); GLOMERULAR FILTRATION RATE > 60.0 (>39); GLUCOSE, FASTING 173 MG/DL (70-100); POTASSIUM SERUM 4.2 MEQ/L (3.5-5.1); SODIUM LEVEL 138 MEQ/L (136-145)
== END ==
LOC: SKLAB5 10:21
PROVIDERS: ATTEND Internal Medicine
DX: Z20.822 Contact with and (suspected) exposure to COVID-19 (principal); F32.9 Major depressive disorder, single episode, unspecified; R30.0 Dysuria; N89.8 Other specified noninflammatory disorders of vagina
CPT/HCPCS: 36415; 80048; 81001; 85027; 87088; 87186; U0003

== ENCOUNTER → 2020-10-31 | Outpatient (REF) | payer MEDICARE, MEDICAID ==
[2020-10-31 08:53] LABS: HEMATOCRIT 37.6 % (36.0-47.0); HEMOGLOBIN 11.3 g/dl (12.0-15.5); MEAN CORPUSCULAR HGB CONC 30.1 g/dl (32.0-36.5); MEAN CORPUSCULAR VOLUME 93.3 fl (80.0-96.0); PLATELET COUNT, AUTOMATED 161 10^3/uL (150-450); RED BLOOD COUNT 4.03 10^6/uL (4.00-5.40); WHITE BLOOD COUNT 6.8 10^3/uL (4.0-10.0)
== END ==
LOC: SKLAB5 06:38
PROVIDERS: ATTEND Internal Medicine
DX: D64.9 Anemia, unspecified (principal); Z20.822 Contact with and (suspected) exposure to COVID-19
CPT/HCPCS: 36415; 85027; U0003

== ENCOUNTER → 2020-11-06 | Outpatient (REF) | payer MEDICARE, MEDICAID | LOC: SKLAB5 06:30 | PROVIDERS: ATTEND Internal Medicine | DX: Z20.822 Contact with and (suspected) exposure to COVID-19 (principal) ==

== ENCOUNTER → 2020-11-07 | Outpatient (REF) | payer MEDICARE, MEDICAID ==
--- NOTE | 2020-11-07 14:39 | REP ---
INDICATION: CONSTIPATION COMPARISON: None. TECHNIQUE: Portable supine view of the abdomen FINDINGS: Examination is significantly limited. The bowel gas pattern is nonspecific. IMPRESSION: Limited examination. Visualized bowel pattern is nonspecific. <Electronically signed by Julián Rapp > 11/07/20 [id number]
[2020-11-07 15:28] LABS: INFLUENZA A AMPLIFICATION NEGATIVE (NEGATIVE); INFLUENZA B AMPLIFICATION NEGATIVE (NEGATIVE)
== END ==
LOC: SKLAB5 13:52
PROVIDERS: ATTEND Internal Medicine
DX: K59.00 Constipation, unspecified (principal)

== ENCOUNTER → 2020-11-13 | Outpatient (REF) | payer MEDICARE, MEDICAID | LOC: SKLAB5 07:35 | PROVIDERS: ATTEND Internal Medicine | DX: Z20.822 Contact with and (suspected) exposure to COVID-19 (principal) ==

== ENCOUNTER → 2020-11-19 | Outpatient (CLI) | payer MEDICARE, MEDICAID ==
--- NOTE | 2020-11-19 15:52 | REP ---
INDICATION: RT LEG SWELLING PAIN ? DVT, PT ON STRETCHER IN CT WAITING AR COMPARISON: None. TECHNIQUE: Real time compression and duplex Doppler interrogation of the right lower extremity deep venous system is performed. FINDINGS: The right common femoral, superficial femoral and popliteal veins are fully compressible with transducer pressure and demonstrate normal spontaneous and phasic flow, without evidence of deep venous thrombosis. IMPRESSION: No evidence of deep venous thrombosis of the right lower extremity femoral popliteal venous system. <Electronically signed by Ayden Haddad > 11/19/20 [id number]
== END ==
LOC: M RAD 15:11
PROVIDERS: ATTEND Nurse Practitioner Family
DX: S72.352 Displaced comminuted fracture of shaft of left femur (principal); Y92.9 Unspecified place or not applicable; Y93.9 Activity, unspecified; Y99.9 Unspecified external cause status; R22.41 Localized swelling, mass and lump, right lower limb

== ENCOUNTER → 2020-11-19 | Outpatient (REF) | payer MEDICARE, MEDICAID ==
--- NOTE | 2020-11-19 08:01 | REP ---
INDICATION: FX SHAFT COMPARISON: 03/09/2020 TECHNIQUE: Left femur four views. FINDINGS: There is a severely comminuted fracture in the distal shaft and distal metaphysis of the femur stabilized with an intramedullary jhoan as previously. There are interlocking screws of the medullary jhaon proximally and distally as previously. There is been interval callus formation at the major fracture fragment. There is diffuse demineralization as previously. There is advanced osteoarthritis of the knee as previously. IMPRESSION: Intramedullary jhoan stabilizing a severely comminuted fracture of the distal femur. No significant interval change except there is been interval callus formation. <Electronically signed by Ayden Dennison > 11/19/20 [id number]
== END ==
LOC: SKLAB5 14:26
PROVIDERS: ATTEND Internal Medicine
DX: S72.352 Displaced comminuted fracture of shaft of left femur (principal); M19.90 Unspecified osteoarthritis, unspecified site

== ENCOUNTER → 2020-11-28 | Outpatient (REF) | payer MEDICARE, MEDICAID ==
[2020-11-28 10:57] LABS: ALBUMIN 2.4 GM/DL (3.2-5.2); ALT/SGPT 25 U/L (12-78); BILIRUBIN,TOTAL 0.3 MG/DL (0.2-1.0); BLOOD UREA NITROGEN 16 MG/DL (7-18); CALCIUM LEVEL 8.2 MG/DL (8.8-10.2); CARBON DIOXIDE LEVEL 32 MEQ/L (21-32); CHLORIDE LEVEL 101 MEQ/L (98-107); CREATININE FOR GFR 0.74 MG/DL (0.55-1.30); GLOMERULAR FILTRATION RATE > 60.0 (>39); GLUCOSE, FASTING 162 MG/DL (70-100); POTASSIUM SERUM 4.1 MEQ/L (3.5-5.1); SODIUM LEVEL 139 MEQ/L (136-145); TOTAL PROTEIN 6.1 GM/DL (6.4-8.2)
== END ==
LOC: SKLAB5 08:00
PROVIDERS: ATTEND Internal Medicine
DX: M06.9 Rheumatoid arthritis, unspecified (principal); N18.9 Chronic kidney disease, unspecified

== ENCOUNTER → 2020-11-29 | Outpatient (REF) | payer MEDICARE, MEDICAID | LOC: SKLAB5 07:13 | PROVIDERS: ATTEND Internal Medicine | DX: Z20.822 Contact with and (suspected) exposure to COVID-19 (principal) ==

== ENCOUNTER → 2020-12-02 | Outpatient (REF) | payer MEDICARE, MEDICAID ==
[2020-12-02 10:27] LABS: APPEARANCE, URINE TURBID (CLEAR); BACTERIA, URINE AUTO 2+ (NEGATIVE); BILIRUBIN, URINE AUTO NEGATIVE (NEGATIVE); BLOOD, URINE BLOOD 1+ (NEGATIVE); COLOR, URINE YELLOW (YELLOW); GLUCOSE, URINE (UA) AUTO NEGATIVE (NEGATIVE); KETONE, URINE AUTO NEGATIVE (NEGATIVE); LEUKOCYTE ESTERASE, URINE AUTO 3+ (NEGATIVE); MUCUS, URINE SMALL (NEGATIVE); NITRITE, URINE AUTO POSITIVE (NEGATIVE); PROTEIN, URINE AUTO 1+ mg/dL (NEGATIVE); RBC, URINE AUTO 12 /HPF (0-3); SPECIFIC GRAVITY URINE AUTO 1.013 (1.002-1.035); SQUAMOUS EPITHELIAL CELL UR AU 1 /HPF (0-6); UROBILINOGEN, URINE AUTO 0.2 mg/dL (0.0-2.0); WBC, URINE AUTO TNTC /HPF (0-3)
== END ==
LOC: SKLAB5 10:09
PROVIDERS: ATTEND Internal Medicine
DX: R30.9 Painful micturition, unspecified (principal)

== ENCOUNTER → 2020-12-03 | Outpatient (REF) | payer MEDICARE, MEDICAID ==
[2020-12-03 09:28] LABS: CHOLESTEROL RISK RATIO 1.769 (<5)
== END ==
LOC: SKLAB5 07:32
PROVIDERS: ATTEND Internal Medicine
DX: E78.5 Hyperlipidemia, unspecified (principal)

== ENCOUNTER → 2020-12-05 | Outpatient (REF) | payer MEDICARE, MEDICAID ==
[2020-12-05 10:47] LABS: HEMATOCRIT 35.6 % (36.0-47.0); HEMOGLOBIN 10.8 g/dl (12.0-15.5); MEAN CORPUSCULAR HEMOGLOBIN 28.2 pg (27.0-33.0); MEAN CORPUSCULAR HGB CONC 30.3 g/dl (32.0-36.5); PLATELET COUNT, AUTOMATED 148 10^3/uL (150-450); RED BLOOD COUNT 3.83 10^6/uL (4.00-5.40); WHITE BLOOD COUNT 5.9 10^3/uL (4.0-10.0)
--- NOTE | 2020-12-05 10:47 | ECGEPIP ---
[facility] Test Date: 2020-12-05 Pat Name: SARAH SILVA Department: Room: - Gender: Female Relationship Management Lead: SHILPA : 1940 Requested By: ARUTRO PARKS [facility] Order Number: [id number] Reading MD: Nestor Whitehead Measurements Intervals [place] Rate: 81 P: 50 [place]: 156 QRS: 18 QRSD: 92 T: 43 QT: 390 QTc: 453 Interpretive Statements Normal sinus rhythm Poor precordial R wave progression Minor T wave abnormalities Slightly different precordial lead placement from 08/26/20 Electronically Signed on 12-05-2020 10:47:00 EDT by Nestor Whitehead
--- NOTE | 2020-12-05 11:00 | REP ---
INDICATION: CHEST PAIN/SOB. COMPARISON: Portable chest dated 08/16/2020. TECHNIQUE: Portable AP chest with the patient sitting. FINDINGS: There is mild diffuse bilateral interstitial coarsening, unchanged, chronic. There are no focal infiltrates or pleural effusions. Cardiac size is mildly enlarged, unchanged. The faizan and mediastinum are unchanged. 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 There is elevation the right hemidiaphragm, unchanged. There are surgical clips in the abdominal left upper quadrant, unchanged. IMPRESSION: There are chronic stable findings as described. There are no new or acute cardiopulmonary findings. <Electronically signed by Ayden Dennison > 12/05/20 [id number]
[2020-12-05 11:21] LABS: BLOOD UREA NITROGEN 18 MG/DL (7-18); CALCIUM LEVEL 8.4 MG/DL (8.8-10.2); CARBON DIOXIDE LEVEL 32 MEQ/L (21-32); CHLORIDE LEVEL 102 MEQ/L (98-107); CREATININE FOR GFR 0.81 MG/DL (0.55-1.30); GLOMERULAR FILTRATION RATE > 60.0 (>39); GLUCOSE, FASTING 246 MG/DL (70-100); POTASSIUM SERUM 4.2 MEQ/L (3.5-5.1); SODIUM LEVEL 140 MEQ/L (136-145); TROPONIN I < 0.02 NG/ML (< 0.10)
== END ==
LOC: SKLAB5 09:57
PROVIDERS: ATTEND Internal Medicine
DX: R07.9 Chest pain, unspecified (principal); R06.02 Shortness of breath; M19.011 Primary osteoarthritis, right shoulder; M19.012 Primary osteoarthritis, left shoulder

== ENCOUNTER → 2020-12-06 | Outpatient (REF) | payer MEDICARE, MEDICAID ==
--- NOTE | 2020-12-06 10:38 | ECGEPIP ---
[facility] Test Date: 2020-12-06 Pat Name: SARAH SILVA Department: Room: - Gender: Female Broke Man: BELA : 1940 Requested By: ARTURO PARKS [facility] Order Number: [id number] Reading MD: Nestor Whitehead Measurements Intervals [place] Rate: 77 P: 46 [place]: 160 QRS: 8 QRSD: 96 T: 41 QT: 410 QTc: 463 Interpretive Statements Normal sinus rhythm Somewhat prominent precordial voltage with slow R wave progression in keeping w with LVH. No acute ST/T wave abnormality. Appearance not significantly changed from 12/05/20 Electronically Signed on 12-06-2020 10:37:53 EDT by Nestor Whitehead
== END ==
LOC: SKLAB5 06:54
PROVIDERS: ATTEND Internal Medicine
DX: R07.9 Chest pain, unspecified (principal)

== ENCOUNTER → 2021-01-02 | Outpatient (REF) | payer MEDICARE, MEDICAID ==
[2021-01-02 09:15] LABS: BASO % 0.5 % (0.0-1.0); EOS # 0.2 10^3/uL (0.0-0.5); HEMATOCRIT 37.3 % (36.0-47.0); HEMOGLOBIN 11.3 g/dl (12.0-15.5); LYMPH # 1.8 10^3/uL (1.5-5.0); LYMPH % 32.2 % (24.0-44.0); MEAN CORPUSCULAR HEMOGLOBIN 27.8 pg (27.0-33.0); MEAN CORPUSCULAR HGB CONC 30.3 g/dl (32.0-36.5); MEAN CORPUSCULAR VOLUME 91.6 fl (80.0-96.0); MONO # 0.4 10^3/uL (0.0-0.8); MONO % 7.1 % (2.0-8.0); NEUTROPHILS # 3.1 10^3/uL (1.5-8.5); PLATELET COUNT, AUTOMATED 153 10^3/uL (150-450); RED BLOOD COUNT 4.07 10^6/uL (4.00-5.40); WHITE BLOOD COUNT 5.5 10^3/uL (4.0-10.0)
[2021-01-02 09:39] LABS: ALBUMIN 2.5 GM/DL (3.2-5.2); BLOOD UREA NITROGEN 18 MG/DL (7-18); CARBON DIOXIDE LEVEL 34 MEQ/L (21-32); CHLORIDE LEVEL 102 MEQ/L (98-107); CREATININE FOR GFR 0.81 MG/DL (0.55-1.30); GLOMERULAR FILTRATION RATE > 60.0 (>39); GLUCOSE, FASTING 171 MG/DL (70-100); MAGNESIUM LEVEL 2.1 MG/DL (1.8-2.4); PHOSPHORUS LEVEL 3.9 MG/DL (2.5-4.9); POTASSIUM SERUM 4.2 MEQ/L (3.5-5.1); SODIUM LEVEL 140 MEQ/L (136-145)
[2021-01-02 11:26] LABS: AMORPHOUS SEDIMENT SMALL (NEGATIVE); APPEARANCE, URINE CLOUDY (CLEAR); BACTERIA, URINE AUTO 2+ (NEGATIVE); BILIRUBIN, URINE AUTO NEGATIVE (NEGATIVE); BLOOD, URINE BLOOD 1+ (NEGATIVE); COLOR, URINE YELLOW (YELLOW); GLUCOSE, URINE (UA) AUTO NEGATIVE (NEGATIVE); KETONE, URINE AUTO NEGATIVE (NEGATIVE); LEUKOCYTE ESTERASE, URINE AUTO 3+ (NEGATIVE); MUCUS, URINE SMALL (NEGATIVE); NITRITE, URINE AUTO NEGATIVE (NEGATIVE); PROTEIN, URINE AUTO NEGATIVE (NEGATIVE); RBC, URINE AUTO 13 /HPF (0-3); SPECIFIC GRAVITY URINE AUTO 1.005 (1.002-1.035); SQUAMOUS EPITHELIAL CELL UR AU 2 /HPF (0-6); UROBILINOGEN, URINE AUTO 0.2 mg/dL (0.0-2.0); WBC, URINE AUTO TNTC /HPF (0-3)
== END ==
LOC: SKLAB5 06:54
PROVIDERS: ATTEND Internal Medicine
DX: N18.9 Chronic kidney disease, unspecified (principal)

== ENCOUNTER → 2021-01-30 | Outpatient (REF) | payer MEDICARE, MEDICAID ==
[2021-01-30 09:24] LABS: HEMATOCRIT 37.4 % (36.0-47.0); HEMOGLOBIN 11.6 g/dl (12.0-15.5); MEAN CORPUSCULAR HEMOGLOBIN 27.8 pg (27.0-33.0); MEAN CORPUSCULAR VOLUME 89.7 fl (80.0-96.0); PLATELET COUNT, AUTOMATED 164 10^3/uL (150-450); RED BLOOD COUNT 4.17 10^6/uL (4.00-5.40); WHITE BLOOD COUNT 6.7 10^3/uL (4.0-10.0)
== END ==
LOC: SKLAB5 07:19
PROVIDERS: ATTEND Internal Medicine
DX: D64.9 Anemia, unspecified (principal)

== ENCOUNTER → 2021-02-02 | Outpatient (REF) | payer MEDICARE, OTHER ==
[2021-02-02 16:12] LABS: APPEARANCE, URINE CLOUDY (CLEAR); BACTERIA, URINE AUTO 1+ (NEGATIVE); BILIRUBIN, URINE AUTO NEGATIVE (NEGATIVE); BLOOD, URINE BLOOD 1+ (NEGATIVE); COLOR, URINE YELLOW (YELLOW); GLUCOSE, URINE (UA) AUTO NEGATIVE (NEGATIVE); KETONE, URINE AUTO NEGATIVE (NEGATIVE); LEUKOCYTE ESTERASE, URINE AUTO 3+ (NEGATIVE); NITRITE, URINE AUTO POSITIVE (NEGATIVE); PROTEIN, URINE AUTO NEGATIVE (NEGATIVE); RBC, URINE AUTO 7 /HPF (0-3); SPECIFIC GRAVITY URINE AUTO 1.005 (1.002-1.035); SQUAMOUS EPITHELIAL CELL UR AU 2 /HPF (0-6); UROBILINOGEN, URINE AUTO 0.2 mg/dL (0.0-2.0); WBC, URINE AUTO TNTC /HPF (0-3)
== END ==
LOC: M LAB 15:55 → SKLAB5 15:55
PROVIDERS: ATTEND Internal Medicine
DX: R30.0 Dysuria (principal)

== ENCOUNTER → 2021-02-03 | Outpatient (CLI) | payer MEDICARE, OTHER ==
--- NOTE | 2021-02-03 11:45 | REP ---
INDICATION: DISPL COM FX SHAFT OF L FEMUR EVAL DISTAL HEALING. COMPARISON: Radiographs 11/19/2020. TECHNIQUE: Axial CT performed, with sagittal and coronal reconstruction images. FINDINGS: Again noted in the distal femoral shaft there is a comminuted fracture. There is moderate healing callus formation predominantly posteriorly. This partially bridges the posterior fracture fragments. Some fracture lines are still visualized. Alignment is unchanged. Intramedullary jhoan in the shaft of the femur is in good position. It is fixed by metallic screws both proximally and distally. There are moderate degenerative changes at the knee joint. There are diffuse vascular calcifications. IMPRESSION: Comminuted fracture distal femoral shaft, with intramedullary jhoan. Moderate healing callus formation posteriorly partially bridges fracture fragments in this region. Some fracture lines are still visualized. <Electronically signed by Ayden Haddad > 02/03/21 [id number]
== END ==
LOC: M RAD 09:28
PROVIDERS: ATTEND Nurse Practitioner Adult Health
DX: S72.352 Displaced comminuted fracture of shaft of left femur (principal)

== ENCOUNTER → 2021-02-10 | Outpatient (REF) | payer MEDICARE, OTHER ==
[2021-02-10 09:23] LABS: BLOOD UREA NITROGEN 17 MG/DL (7-18); CALCIUM LEVEL 8.8 MG/DL (8.8-10.2); CARBON DIOXIDE LEVEL 35 MEQ/L (21-32); CHLORIDE LEVEL 102 MEQ/L (98-107); CREATININE FOR GFR 0.82 MG/DL (0.55-1.30); GLOMERULAR FILTRATION RATE > 60.0 (>39); GLUCOSE, FASTING 143 MG/DL (70-100); POTASSIUM SERUM 4.3 MEQ/L (3.5-5.1); SODIUM LEVEL 140 MEQ/L (136-145)
== END ==
LOC: SKLAB5 07:43
PROVIDERS: ATTEND Internal Medicine
DX: N18.9 Chronic kidney disease, unspecified (principal); E87.6 Hypokalemia

== ENCOUNTER → 2021-02-27 | Outpatient (REF) | payer MEDICARE, OTHER ==
[~2021-02-27] MED LIST changes: +ERGO500029 PO; -VITA50005 PO
[2021-02-27 10:07] LABS: BLOOD UREA NITROGEN 24 MG/DL (7-18); CALCIUM LEVEL 8.6 MG/DL (8.8-10.2); CARBON DIOXIDE LEVEL 33 MEQ/L (21-32); CHLORIDE LEVEL 102 MEQ/L (98-107); CREATININE FOR GFR 0.83 MG/DL (0.55-1.30); GLOMERULAR FILTRATION RATE > 60.0 (>39); GLUCOSE, FASTING 124 MG/DL (70-100); POTASSIUM SERUM 4.7 MEQ/L (3.5-5.1); SODIUM LEVEL 140 MEQ/L (136-145)
== END ==
LOC: SKLAB5 08:55
PROVIDERS: ATTEND Internal Medicine
DX: M06.9 Rheumatoid arthritis, unspecified (principal); I10 Essential (primary) hypertension

== ENCOUNTER → 2021-03-08 | Outpatient (REF) | payer MEDICARE, OTHER ==
--- NOTE | 2021-03-08 15:55 | REP ---
INDICATION: LEUKOCYTOSIS COMPARISON: 12/05/2020 TECHNIQUE: Portable AP view of the chest FINDINGS: The mediastinum and cardiac silhouette are stable and within normal limits for portable technique. The lung sr demonstrate stable chronic changes. No focal consolidation, effusion, or pneumothorax. Skeletal structures are intact. Catheter extends from the left shoulder to the left upper quadrant. IMPRESSION: No acute cardiopulmonary process appreciated. <Electronically signed by Julián Rapp > 03/08/21 [id number]
== END ==
LOC: SKLAB5 14:09
PROVIDERS: ATTEND Internal Medicine
DX: D72.829 Elevated white blood cell count, unspecified (principal)

== ENCOUNTER → 2021-03-08 | Outpatient (REF) | payer MEDICARE, OTHER ==
[2021-03-08 11:58] LABS: HEMATOCRIT 35.7 % (36.0-47.0); HEMOGLOBIN 11.1 g/dl (12.0-15.5); MEAN CORPUSCULAR HEMOGLOBIN 27.5 pg (27.0-33.0); MEAN CORPUSCULAR HGB CONC 31.1 g/dl (32.0-36.5); MEAN CORPUSCULAR VOLUME 88.6 fl (80.0-96.0); PLATELET COUNT, AUTOMATED 147 10^3/uL (150-450); RED BLOOD COUNT 4.03 10^6/uL (4.00-5.40); WHITE BLOOD COUNT 21.4 10^3/uL (4.0-10.0)
[2021-03-08 12:28] LABS: ALBUMIN 2.5 GM/DL (3.2-5.2); ALT/SGPT 69 U/L (12-78); BILIRUBIN,TOTAL 0.5 MG/DL (0.2-1.0); BLOOD UREA NITROGEN 23 MG/DL (7-18); CALCIUM LEVEL 8.3 MG/DL (8.8-10.2); CARBON DIOXIDE LEVEL 31 MEQ/L (21-32); CHLORIDE LEVEL 102 MEQ/L (98-107); GLOMERULAR FILTRATION RATE > 60.0 (>39); GLUCOSE, FASTING 256 MG/DL (70-100); POTASSIUM SERUM 4.5 MEQ/L (3.5-5.1); SODIUM LEVEL 141 MEQ/L (136-145); TOTAL PROTEIN 6.4 GM/DL (6.4-8.2)
[2021-03-08 14:46] LABS: APPEARANCE, URINE TURBID (CLEAR); BACTERIA, URINE AUTO 1+ (NEGATIVE); BILIRUBIN, URINE AUTO NEGATIVE (NEGATIVE); BLOOD, URINE BLOOD 2+ (NEGATIVE); COLOR, URINE YELLOW (YELLOW); GLUCOSE, URINE (UA) AUTO NEGATIVE (NEGATIVE); KETONE, URINE AUTO NEGATIVE (NEGATIVE); LEUKOCYTE ESTERASE, URINE AUTO 3+ (NEGATIVE); NITRITE, URINE AUTO POSITIVE (NEGATIVE); PROTEIN, URINE AUTO NEGATIVE (NEGATIVE); RBC, URINE AUTO 18 /HPF (0-3); SPECIFIC GRAVITY URINE AUTO 1.008 (1.002-1.035); SQUAMOUS EPITHELIAL CELL UR AU 0 /HPF (0-6); UROBILINOGEN, URINE AUTO 0.2 mg/dL (0.0-2.0); WBC, URINE AUTO TNTC /HPF (0-3)
== END ==
LOC: SKLAB5 11:07
PROVIDERS: ATTEND Internal Medicine
DX: R50.9 Fever, unspecified (principal)

== ENCOUNTER → 2021-03-10 | Outpatient (REF) | payer MEDICARE, OTHER ==
[2021-03-10 08:11] LABS: BASO % 0.2 % (0.0-1.0); EOS # 0.3 10^3/uL (0.0-0.5); EOS % 2.1 % (0.0-3.0); HEMATOCRIT 33.2 % (36.0-47.0); HEMOGLOBIN 10.5 g/dl (12.0-15.5); LYMPH # 1.4 10^3/uL (1.5-5.0); LYMPH % 11.3 % (24.0-44.0); MEAN CORPUSCULAR HEMOGLOBIN 27.8 pg (27.0-33.0); MEAN CORPUSCULAR HGB CONC 31.6 g/dl (32.0-36.5); MEAN CORPUSCULAR VOLUME 87.8 fl (80.0-96.0); MONO # 0.5 10^3/uL (0.0-0.8); MONO % 4.4 % (2.0-8.0); NEUTROPHILS # 9.9 10^3/uL (1.5-8.5); NEUTROPHILS % 81.4 % (36.0-66.0); PLATELET COUNT, AUTOMATED 121 10^3/uL (150-450); RED BLOOD COUNT 3.78 10^6/uL (4.00-5.40); WHITE BLOOD COUNT 12.1 10^3/uL (4.0-10.0)
[2021-03-10 08:34] LABS: BLOOD UREA NITROGEN 23 MG/DL (7-18); CALCIUM LEVEL 8.1 MG/DL (8.8-10.2); CARBON DIOXIDE LEVEL 30 MEQ/L (21-32); CHLORIDE LEVEL 102 MEQ/L (98-107); CREATININE FOR GFR 0.86 MG/DL (0.55-1.30); GLOMERULAR FILTRATION RATE > 60.0 (>39); GLUCOSE, FASTING 141 MG/DL (70-100); POTASSIUM SERUM 4.1 MEQ/L (3.5-5.1); SODIUM LEVEL 140 MEQ/L (136-145)
== END ==
LOC: SKLAB5 06:06
PROVIDERS: ATTEND Internal Medicine
DX: R50.9 Fever, unspecified (principal)

== ENCOUNTER → 2021-03-11 | Outpatient (REF) | payer MEDICARE, OTHER ==
[2021-03-11 09:52] LABS: HEMATOCRIT 36.4 % (36.0-47.0); HEMOGLOBIN 11.2 g/dl (12.0-15.5); MEAN CORPUSCULAR HEMOGLOBIN 27.5 pg (27.0-33.0); MEAN CORPUSCULAR HGB CONC 30.8 g/dl (32.0-36.5); MEAN CORPUSCULAR VOLUME 89.2 fl (80.0-96.0); PLATELET COUNT, AUTOMATED 125 10^3/uL (150-450); RED BLOOD COUNT 4.08 10^6/uL (4.00-5.40); WHITE BLOOD COUNT 7.8 10^3/uL (4.0-10.0)
== END ==
LOC: SKLAB5 12:11
PROVIDERS: ATTEND Internal Medicine
DX: D72.829 Elevated white blood cell count, unspecified (principal)

== ENCOUNTER → 2021-03-12 | Outpatient (REF) | payer MEDICARE, OTHER ==
[2021-03-12 09:16] LABS: BLOOD UREA NITROGEN 24 MG/DL (7-18); CALCIUM LEVEL 8.6 MG/DL (8.8-10.2); CARBON DIOXIDE LEVEL 33 MEQ/L (21-32); CHLORIDE LEVEL 100 MEQ/L (98-107); CREATININE FOR GFR 0.87 MG/DL (0.55-1.30); GLOMERULAR FILTRATION RATE > 60.0 (>39); GLUCOSE, FASTING 174 MG/DL (70-100); POTASSIUM SERUM 3.4 MEQ/L (3.5-5.1); SODIUM LEVEL 139 MEQ/L (136-145)
== END ==
LOC: SKLAB5 12:10
PROVIDERS: ATTEND Internal Medicine
DX: R60.9 Edema, unspecified (principal)

== ENCOUNTER → 2021-04-03 | Outpatient (REF) | payer MEDICARE, OTHER ==
[2021-04-03 10:56] LABS: HEMOGLOBIN A1c 7.6 %
== END ==
LOC: SKLAB5 09:20
PROVIDERS: ATTEND Internal Medicine
DX: E11.9 Type 2 diabetes mellitus without complications (principal)

== ENCOUNTER → 2021-04-25 | Outpatient (REF) | payer MEDICARE, OTHER ==
--- NOTE | 2021-04-25 12:23 | REP ---
INDICATION: LEFT FX DISTAL FEMUR COMPARISON: 11/19/2020 TECHNIQUE: AP and frog-lateral views of the left femur. FINDINGS: Stable healing comminuted fracture of the distal femoral metadiaphysis is appreciated. Orthopedic hardware is in stable satisfactory position. Increasing callus formation noted. Advanced degenerative changes at the knee joint. IMPRESSION: Stable healing fracture of the distal femoral metadiaphysis. <Electronically signed by Julián Rapp > 04/25/21 [id number]
== END ==
LOC: SKLAB5 07:31
PROVIDERS: ATTEND Internal Medicine
DX: S72.402A Unspecified fracture of lower end of left femur, initial encounter for closed fracture (principal)

== ENCOUNTER → 2021-05-01 | Outpatient (REF) | payer MEDICARE, OTHER ==
[2021-05-01 13:18] LABS: HEMATOCRIT 37.8 % (36.0-47.0); HEMOGLOBIN 11.5 g/dl (12.0-15.5); MEAN CORPUSCULAR HGB CONC 30.4 g/dl (32.0-36.5); MEAN CORPUSCULAR VOLUME 92.2 fl (80.0-96.0); PLATELET COUNT, AUTOMATED 179 10^3/uL (150-450); WHITE BLOOD COUNT 6.4 10^3/uL (4.0-10.0)
[2021-05-01 13:43] LABS: PHOSPHORUS LEVEL 4.6 MG/DL (2.5-4.9)
[2021-05-01 13:55] LABS: PTH INTACT 77.9 PG/ML (18.5-88.0); TOTAL 25(OH) VITAMIN D 43.7 NG/ML (30.0-100.0)
== END ==
LOC: SKLAB5 08:03
PROVIDERS: ATTEND Internal Medicine
DX: D64.9 Anemia, unspecified (principal); Z79.899 Other long term (current) drug therapy

== ENCOUNTER → 2021-05-06 | Outpatient (REF) | payer MEDICARE, OTHER ==
[2021-05-06 10:03] LABS: HEMATOCRIT 34.5 % (36.0-47.0); HEMOGLOBIN 10.3 g/dl (12.0-15.5); MEAN CORPUSCULAR HEMOGLOBIN 27.9 pg (27.0-33.0); MEAN CORPUSCULAR HGB CONC 29.9 g/dl (32.0-36.5); MEAN CORPUSCULAR VOLUME 93.5 fl (80.0-96.0); PLATELET COUNT, AUTOMATED 155 10^3/uL (150-450); RED BLOOD COUNT 3.69 10^6/uL (4.00-5.40)
[2021-05-06 10:31] LABS: BLOOD UREA NITROGEN 21 MG/DL (7-18); CALCIUM LEVEL 8.9 MG/DL (8.8-10.2); CARBON DIOXIDE LEVEL 35 MEQ/L (21-32); CHLORIDE LEVEL 102 MEQ/L (98-107); CREATININE FOR GFR 0.77 MG/DL (0.55-1.30); GLOMERULAR FILTRATION RATE > 60.0 (>39); GLUCOSE, FASTING 182 MG/DL (70-100); POTASSIUM SERUM 4.1 MEQ/L (3.5-5.1); SODIUM LEVEL 140 MEQ/L (136-145)
--- NOTE | 2021-05-06 15:02 | REP ---
INDICATION: CONSTIPATION. COMPARISON: Comparison radiograph of the abdomen November 07, 2020. TECHNIQUE: Single view. KUB. FINDINGS: Patient is status post L5 laminectomy. There is a surgical anastomotic suture line visible in the right pelvis and another in the right central abdomen. There are clips in the upper quadrant on the left. There is no evidence to suggest constipation or obstipation. There is an air-filled bowel loop in the right pelvis similar to the prior study. Psoas margins are symmetric. Flank stripes are intact. IMPRESSION: No evidence of obstruction, obstipation, or constipation. Postoperative changes as above. <Electronically signed by Papi Alberts > 05/06/21 [id number]
== END ==
LOC: SKLAB5 06:57
PROVIDERS: ATTEND Internal Medicine
DX: D64.9 Anemia, unspecified (principal); E11.9 Type 2 diabetes mellitus without complications; I10 Essential (primary) hypertension; Z93.3 Colostomy status; Z98.890 Other specified postprocedural states

== ENCOUNTER → 2021-05-14 | Outpatient (REF) | payer MEDICARE, OTHER ==
[2021-05-14 11:39] LABS: HEMOGLOBIN 11.6 g/dl (12.0-15.5); MEAN CORPUSCULAR HEMOGLOBIN 28.1 pg (27.0-33.0); MEAN CORPUSCULAR HGB CONC 30.5 g/dl (32.0-36.5); PLATELET COUNT, AUTOMATED 160 10^3/uL (150-450); RED BLOOD COUNT 4.13 10^6/uL (4.00-5.40); WHITE BLOOD COUNT 7.6 10^3/uL (4.0-10.0)
--- NOTE | 2021-05-14 11:39 | REP ---
INDICATION: SOB COMPARISON: 03/08/2020. TECHNIQUE: Frontal and lateral chest. FINDINGS: There is stable cardiomegaly and pulmonary venous hypertension. There is no acute infiltrate. The mediastinal silhouette is unchanged. Multiple metallic clips are seen in the upper abdomen. There are degenerative changes of the spine. IMPRESSION: Stable cardiomegaly and pulmonary venous hypertension. No acute infiltrate. <Electronically signed by Ayden Haddad > 05/14/21 [id number]
[2021-05-14 12:11] LABS: BLOOD UREA NITROGEN 18 MG/DL (7-18); CALCIUM LEVEL 8.9 MG/DL (8.8-10.2); CARBON DIOXIDE LEVEL 35 MEQ/L (21-32); CHLORIDE LEVEL 99 MEQ/L (98-107); CREATININE FOR GFR 0.99 MG/DL (0.55-1.30); GLOMERULAR FILTRATION RATE > 60.0 (>39); GLUCOSE, FASTING 236 MG/DL (70-100); POTASSIUM SERUM 4.5 MEQ/L (3.5-5.1); SODIUM LEVEL 138 MEQ/L (136-145)
== END ==
LOC: SKLAB5 10:05
PROVIDERS: ATTEND Internal Medicine
DX: R06.02 Shortness of breath (principal); I51.7 Cardiomegaly; I27.20 Pulmonary hypertension, unspecified

== ENCOUNTER → 2021-05-22 | Outpatient (REF) | payer MEDICARE, OTHER ==
--- NOTE | 2021-05-22 12:40 | REP ---
INDICATION: LEFT DISTAL FEMUR. COMPARISON: April 25, 2021. TECHNIQUE: AP and lateral views of the knee are provided. FINDINGS: AP and lateral views of the left knee demonstrate intramedullary jhoan in the distal femur extending to the level of the intercondylar notch and transfixing a distal femoral fracture. There is periosteal callus. Fracture appears fused posteriorly and laterally. Fracture lucency persists medially and anteriorly. There is advanced osteoarthritis of the patellofemoral articulation and the tibiotalar articulation. There is diffuse osteopenia. IMPRESSION: Status post intramedullary jhoan fixation for distal femoral fracture. Osteoporosis. Advanced 3 compartment knee joint osteoarthritis. Vascular calcification. <Electronically signed by Papi Alberts > 05/22/21 [id number]
== END ==
LOC: SKLAB5 05:43
PROVIDERS: ATTEND Internal Medicine
DX: S72.402D Unspecified fracture of lower end of left femur, subsequent encounter for closed fracture with routine healing (principal); M81.0 Age-related osteoporosis without current pathological fracture; M17.12 Unilateral primary osteoarthritis, left knee

== ENCOUNTER → 2021-06-05 | Outpatient (REF) | payer MEDICARE, OTHER ==
[2021-06-05 15:50] LABS: ALBUMIN 2.7 GM/DL (3.2-5.2); ALT/SGPT 28 U/L (12-78); BILIRUBIN,TOTAL 0.3 MG/DL (0.2-1.0); BLOOD UREA NITROGEN 22 MG/DL (7-18); CALCIUM LEVEL 9.2 MG/DL (8.8-10.2); CARBON DIOXIDE LEVEL 36 MEQ/L (21-32); CHLORIDE LEVEL 102 MEQ/L (98-107); CREATININE FOR GFR 0.99 MG/DL (0.55-1.30); GLOMERULAR FILTRATION RATE > 60.0 (>39); GLUCOSE, FASTING 339 MG/DL (70-100); POTASSIUM SERUM 5.7 MEQ/L (3.5-5.1); SODIUM LEVEL 141 MEQ/L (136-145); TOTAL PROTEIN 7.3 GM/DL (6.4-8.2)
== END ==
LOC: SKLAB5 07:02
PROVIDERS: ATTEND Internal Medicine
DX: E11.9 Type 2 diabetes mellitus without complications (principal)

== ENCOUNTER → 2021-06-06 | Outpatient (REF) | payer MEDICARE, OTHER | LOC: SKLAB5 11:50 | PROVIDERS: ATTEND Internal Medicine | DX: E87.5 Hyperkalemia (principal) ==

== ENCOUNTER → 2021-06-07 | Outpatient (REF) | payer MEDICARE, OTHER | LOC: SKLAB5 08:15 | PROVIDERS: ATTEND Internal Medicine | DX: E87.5 Hyperkalemia (principal) ==

== ENCOUNTER → 2021-06-08 | Outpatient (REF) | payer MEDICARE, OTHER | LOC: SKLAB5 08:16 | PROVIDERS: ATTEND Internal Medicine | DX: E87.5 Hyperkalemia (principal) ==

== ENCOUNTER → 2021-06-09 | Outpatient (REF) | payer MEDICARE, OTHER | LOC: SKLAB5 08:15 | PROVIDERS: ATTEND Internal Medicine | DX: E87.5 Hyperkalemia (principal) ==

== ENCOUNTER → 2021-06-16 | Outpatient (REF) | payer MEDICARE, OTHER ==
[2021-06-16 15:36] LABS: HEMATOCRIT 37.3 % (36.0-47.0); HEMOGLOBIN 11.3 g/dl (12.0-15.5); MEAN CORPUSCULAR HGB CONC 30.3 g/dl (32.0-36.5); MEAN CORPUSCULAR VOLUME 92.3 fl (80.0-96.0); PLATELET COUNT, AUTOMATED 144 10^3/uL (150-450); RED BLOOD COUNT 4.04 10^6/uL (4.00-5.40); WHITE BLOOD COUNT 5.8 10^3/uL (4.0-10.0)
[2021-06-16 15:57] LABS: BLOOD UREA NITROGEN 19 MG/DL (7-18); CALCIUM LEVEL 8.9 MG/DL (8.8-10.2); CARBON DIOXIDE LEVEL 36 MEQ/L (21-32); CHLORIDE LEVEL 103 MEQ/L (98-107); CREATININE FOR GFR 0.83 MG/DL (0.55-1.30); GLOMERULAR FILTRATION RATE > 60.0 (>39); GLUCOSE, FASTING 333 MG/DL (70-100); POTASSIUM SERUM 4.3 MEQ/L (3.5-5.1); SODIUM LEVEL 139 MEQ/L (136-145)
--- NOTE | 2021-06-16 17:22 | REP ---
INDICATION: VOMITING /ABDOMINAL PAIN. COMPARISON: 05/06/2021. TECHNIQUE: Portable views of the abdomen and pelvis. FINDINGS: There is a left lower quadrant ostomy. Air-filled bowel loop in the right pelvis is stable. Mild air is seen in portions of the colon. There is no evidence of bowel obstruction. Metallic clips are seen in the left abdomen. Multiple phleboliths are seen in the pelvis. There is an intramedullary jhoan in the proximal left femur. There are degenerative changes of the spine. IMPRESSION: No evidence of bowel obstruction. <Electronically signed by Ayden Haddad > 06/16/21 [id number]
== END ==
LOC: SKLAB5 11:01
PROVIDERS: ATTEND Internal Medicine
DX: R11.10 Vomiting, unspecified (principal); R10.9 Unspecified abdominal pain; I87.8 Other specified disorders of veins; Z93.8 Other artificial opening status

== ENCOUNTER → 2021-06-17 | Outpatient (REF) | payer MEDICARE, OTHER | LOC: SKLAB5 11:29 | PROVIDERS: ATTEND Internal Medicine | DX: Z20.822 Contact with and (suspected) exposure to COVID-19 (principal) ==

== ENCOUNTER → 2021-06-19 | Outpatient (REF) | payer MEDICARE, OTHER | LOC: SKLAB5 09:09 | PROVIDERS: ATTEND Internal Medicine | DX: Z20.822 Contact with and (suspected) exposure to COVID-19 (principal) ==

== ENCOUNTER → 2021-06-23 | Outpatient (REF) | payer MEDICARE, OTHER | LOC: SKLAB5 06:15 | PROVIDERS: ATTEND Internal Medicine | DX: Z20.822 Contact with and (suspected) exposure to COVID-19 (principal) ==

== ENCOUNTER → 2021-06-25 | Outpatient (REF) | payer MEDICARE, OTHER ==
[2021-06-25 23:48] LABS: INFLUENZA A AMPLIFICATION NEGATIVE (NEGATIVE); INFLUENZA B AMPLIFICATION NEGATIVE (NEGATIVE)
== END ==
LOC: EDSTATUS 10:52 → SKLAB5 22:25
PROVIDERS: ATTEND Internal Medicine
DX: R50.9 Fever, unspecified (principal); R09.89 Other specified symptoms and signs involving the circulatory and respiratory systems
CPT/HCPCS: 87502; U0002

== ENCOUNTER → 2021-06-27 | Outpatient (REF) | payer MEDICARE, OTHER ==
[~2021-06-27] MED LIST changes: +ACETAMINOPHEN TAB 650MG DOSE (2X325MG) PO ONE; +ALBUTEROL 90 MCG/ACT 8GM HFA INHALER INH PRN; +ALBUTEROL SULFATE 2.5 MG/0.5 ML INH NEB SOLN INH PRN; +BAMLANIVIMAB 700 MG, ETESEVIMAB 1,400 MG in NS 250 ML IV ONE; +EPINEPHrine INJ 1 MG/ML 1ML AMP IM PRN; +NS 1,000 ML IV SCH; +OMEP-173 PO; -OMEP-218 PO; +diphenhydrAMINE 50MG/ML VIAL (J1200) IV ONE; +diphenhydrAMINE 50MG/ML VIAL (J1200) IV PRN; +methylPREDNISolone 125MG 2ML VIAL IV ONE; +methylPREDNISolone 125MG 2ML VIAL IV PRN
== END ==
LOC: SKLAB5 07:00
PROVIDERS: ATTEND Internal Medicine
DX: U07.1 COVID-19 (principal)

== ENCOUNTER → 2021-06-27 | Outpatient (REF) | payer MEDICARE, OTHER ==
[~2021-06-27] MED LIST changes: -ACETAMINOPHEN TAB 650MG DOSE (2X325MG) PO ONE; -ALBUTEROL 90 MCG/ACT 8GM HFA INHALER INH PRN; -ALBUTEROL SULFATE 2.5 MG/0.5 ML INH NEB SOLN INH PRN; -BAMLANIVIMAB 700 MG, ETESEVIMAB 1,400 MG in NS 250 ML IV ONE; -EPINEPHrine INJ 1 MG/ML 1ML AMP IM PRN; -NS 1,000 ML IV SCH; -OMEP-173 PO; +OMEP-218 PO; -diphenhydrAMINE 50MG/ML VIAL (J1200) IV ONE; -diphenhydrAMINE 50MG/ML VIAL (J1200) IV PRN; -methylPREDNISolone 125MG 2ML VIAL IV ONE; -methylPREDNISolone 125MG 2ML VIAL IV PRN
[2021-06-27 11:20] LABS: HEMOGLOBIN 10.9 g/dl (12.0-15.5); MEAN CORPUSCULAR HEMOGLOBIN 27.7 pg (27.0-33.0); MEAN CORPUSCULAR HGB CONC 31.1 g/dl (32.0-36.5); MEAN CORPUSCULAR VOLUME 89.1 fl (80.0-96.0); PLATELET COUNT, AUTOMATED 120 10^3/uL (150-450); RED BLOOD COUNT 3.93 10^6/uL (4.00-5.40); WHITE BLOOD COUNT 5.3 10^3/uL (4.0-10.0)
[2021-06-27 12:49] LABS: ALBUMIN 2.1 GM/DL (3.2-5.2); ALT/SGPT 22 U/L (12-78); BILIRUBIN,TOTAL 0.2 MG/DL (0.2-1.0); BLOOD UREA NITROGEN 17 MG/DL (7-18); CALCIUM LEVEL 8.4 MG/DL (8.8-10.2); CARBON DIOXIDE LEVEL 34 MEQ/L (21-32); CHLORIDE LEVEL 96 MEQ/L (98-107); CREATININE FOR GFR 0.98 MG/DL (0.55-1.30); GLOMERULAR FILTRATION RATE > 60.0 (>39); GLUCOSE, FASTING 332 MG/DL (70-100); SODIUM LEVEL 135 MEQ/L (136-145); TOTAL PROTEIN 6.9 GM/DL (6.4-8.2)
== END ==
LOC: SKLAB5 06-26 09:44
PROVIDERS: ATTEND Internal Medicine
DX: U07.1 COVID-19 (principal); Z79.899 Other long term (current) drug therapy

== ENCOUNTER → 2021-06-30 | Outpatient (REF) | payer MEDICARE, OTHER ==
[2021-06-30 09:34] LABS: HEMATOCRIT 38.1 % (36.0-47.0); HEMOGLOBIN 11.6 g/dl (12.0-15.5); MEAN CORPUSCULAR HEMOGLOBIN 27.1 pg (27.0-33.0); MEAN CORPUSCULAR HGB CONC 30.4 g/dl (32.0-36.5); PLATELET COUNT, AUTOMATED 127 10^3/uL (150-450); RED BLOOD COUNT 4.28 10^6/uL (4.00-5.40); WHITE BLOOD COUNT 4.2 10^3/uL (4.0-10.0)
[2021-06-30 10:15] LABS: BLOOD UREA NITROGEN 27 MG/DL (7-18); CALCIUM LEVEL 7.8 MG/DL (8.8-10.2); CARBON DIOXIDE LEVEL 33 MEQ/L (21-32); CHLORIDE LEVEL 99 MEQ/L (98-107); CREATININE FOR GFR 0.85 MG/DL (0.55-1.30); GLOMERULAR FILTRATION RATE > 60.0 (>39); GLUCOSE, FASTING 155 MG/DL (70-100); POTASSIUM SERUM 4.2 MEQ/L (3.5-5.1); SODIUM LEVEL 138 MEQ/L (136-145)
== END ==
LOC: SKLAB2 09:39
PROVIDERS: ATTEND Internal Medicine
DX: U07.1 COVID-19 (principal); Z79.899 Other long term (current) drug therapy

== ENCOUNTER → 2021-07-02 | Outpatient (REF) | payer MEDICARE, OTHER ==
[2021-07-02 10:02] LABS: HEMATOCRIT 38.6 % (36.0-47.0); HEMOGLOBIN 11.9 g/dl (12.0-15.5); MEAN CORPUSCULAR HEMOGLOBIN 27.3 pg (27.0-33.0); MEAN CORPUSCULAR HGB CONC 30.8 g/dl (32.0-36.5); MEAN CORPUSCULAR VOLUME 88.5 fl (80.0-96.0); PLATELET COUNT, AUTOMATED 113 10^3/uL (150-450); RED BLOOD COUNT 4.36 10^6/uL (4.00-5.40); WHITE BLOOD COUNT 3.9 10^3/uL (4.0-10.0)
[2021-07-02 10:32] LABS: BLOOD UREA NITROGEN 27 MG/DL (7-18); CALCIUM LEVEL 8.1 MG/DL (8.8-10.2); CARBON DIOXIDE LEVEL 35 MEQ/L (21-32); CHLORIDE LEVEL 98 MEQ/L (98-107); CREATININE FOR GFR 0.85 MG/DL (0.55-1.30); GLOMERULAR FILTRATION RATE > 60.0 (>39); GLUCOSE, FASTING 261 MG/DL (70-100); POTASSIUM SERUM 3.7 MEQ/L (3.5-5.1); SODIUM LEVEL 139 MEQ/L (136-145)
== END ==
LOC: SKLAB2 07:26
PROVIDERS: ATTEND Internal Medicine
DX: U07.1 COVID-19 (principal); Z79.899 Other long term (current) drug therapy

== ENCOUNTER → 2021-07-04 | Outpatient (REF) | payer MEDICARE, OTHER ==
[2021-07-04 10:12] LABS: HEMATOCRIT 41.5 % (36.0-47.0); HEMOGLOBIN 12.6 g/dl (12.0-15.5); MEAN CORPUSCULAR HEMOGLOBIN 27.2 pg (27.0-33.0); MEAN CORPUSCULAR HGB CONC 30.4 g/dl (32.0-36.5); MEAN CORPUSCULAR VOLUME 89.4 fl (80.0-96.0); PLATELET COUNT, AUTOMATED 144 10^3/uL (150-450); RED BLOOD COUNT 4.64 10^6/uL (4.00-5.40); WHITE BLOOD COUNT 5.9 10^3/uL (4.0-10.0)
[2021-07-04 10:52] LABS: ALBUMIN 2.4 GM/DL (3.2-5.2); ALT/SGPT 34 U/L (12-78); BILIRUBIN,TOTAL 0.3 MG/DL (0.2-1.0); BLOOD UREA NITROGEN 19 MG/DL (7-18); CALCIUM LEVEL 8.3 MG/DL (8.8-10.2); CARBON DIOXIDE LEVEL 36 MEQ/L (21-32); CHLORIDE LEVEL 95 MEQ/L (98-107); CREATININE FOR GFR 0.85 MG/DL (0.55-1.30); GLOMERULAR FILTRATION RATE > 60.0 (>39); GLUCOSE, FASTING 245 MG/DL (70-100); POTASSIUM SERUM 3.8 MEQ/L (3.5-5.1); SODIUM LEVEL 137 MEQ/L (136-145); TOTAL PROTEIN 6.9 GM/DL (6.4-8.2)
== END ==
LOC: SKLAB2 07:00
PROVIDERS: ATTEND Internal Medicine
DX: U07.1 COVID-19 (principal); Z79.899 Other long term (current) drug therapy

== ENCOUNTER → 2021-07-07 | Outpatient (REF) | payer MEDICARE, OTHER ==
[2021-07-07 11:19] LABS: HEMATOCRIT 39.4 % (36.0-47.0); HEMOGLOBIN 12.1 g/dl (12.0-15.5); MEAN CORPUSCULAR HEMOGLOBIN 27.1 pg (27.0-33.0); MEAN CORPUSCULAR HGB CONC 30.7 g/dl (32.0-36.5); MEAN CORPUSCULAR VOLUME 88.3 fl (80.0-96.0); PLATELET COUNT, AUTOMATED 165 10^3/uL (150-450); RED BLOOD COUNT 4.46 10^6/uL (4.00-5.40); WHITE BLOOD COUNT 8.4 10^3/uL (4.0-10.0)
[2021-07-07 11:46] LABS: BLOOD UREA NITROGEN 17 MG/DL (7-18); CALCIUM LEVEL 8.2 MG/DL (8.8-10.2); CARBON DIOXIDE LEVEL 35 MEQ/L (21-32); CHLORIDE LEVEL 97 MEQ/L (98-107); CREATININE FOR GFR 0.87 MG/DL (0.55-1.30); GLOMERULAR FILTRATION RATE > 60.0 (>39); GLUCOSE, FASTING 331 MG/DL (70-100); POTASSIUM SERUM 3.9 MEQ/L (3.5-5.1); SODIUM LEVEL 136 MEQ/L (136-145)
== END ==
LOC: SKLAB2 11:12
PROVIDERS: ATTEND Internal Medicine
DX: U07.1 COVID-19 (principal); Z79.899 Other long term (current) drug therapy

== ENCOUNTER → 2021-07-31 | Outpatient (REF) | payer MEDICARE, OTHER ==
[2021-07-31 11:06] LABS: HEMATOCRIT 38.3 % (36.0-47.0); HEMOGLOBIN 11.4 g/dl (12.0-15.5); MEAN CORPUSCULAR HEMOGLOBIN 27.1 pg (27.0-33.0); MEAN CORPUSCULAR HGB CONC 29.8 g/dl (32.0-36.5); PLATELET COUNT, AUTOMATED 228 10^3/uL (150-450); RED BLOOD COUNT 4.21 10^6/uL (4.00-5.40); WHITE BLOOD COUNT 6.2 10^3/uL (4.0-10.0)
== END ==
LOC: SKLAB5 07:00
PROVIDERS: ATTEND Internal Medicine
DX: D64.9 Anemia, unspecified (principal); E11.9 Type 2 diabetes mellitus without complications

== ENCOUNTER → 2021-08-28 | Outpatient (REF) | payer MEDICARE, OTHER ==
--- NOTE | 2021-08-28 19:33 | REP ---
INDICATION: WHEEZING,SOB COMPARISON: 05/14/2021 TECHNIQUE: PA and lateral. FINDINGS: The mediastinum and cardiac silhouette are normal. The lung sr are clear and without acute consolidation, effusion, or pneumothorax. The skeletal structures are intact and normal. IMPRESSION: No acute cardiopulmonary process. <Electronically signed by Julián Rapp > 08/28/211928
== END ==
LOC: M RAD 18:49
PROVIDERS: ATTEND Nurse Practitioner Adult Health
DX: R06.02 Shortness of breath (principal)

== ENCOUNTER → 2021-08-28 | Outpatient (REF) ==
[2021-08-28 20:33] LABS: APPEARANCE, URINE HAZY (CLEAR); BACTERIA, URINE AUTO 1+ (NEGATIVE); BILIRUBIN, URINE AUTO NEGATIVE (NEGATIVE); BLOOD, URINE BLOOD NEGATIVE (NEGATIVE); COLOR, URINE AMBER (YELLOW); GLUCOSE, URINE (UA) AUTO NEGATIVE (NEGATIVE); KETONE, URINE AUTO NEGATIVE (NEGATIVE); LEUKOCYTE ESTERASE, URINE AUTO 3+ (NEGATIVE); MUCUS, URINE SMALL (NEGATIVE); NITRITE, URINE AUTO NEGATIVE (NEGATIVE); PROTEIN, URINE AUTO NEGATIVE (NEGATIVE); RBC, URINE AUTO 1 /HPF (0-3); SPECIFIC GRAVITY URINE AUTO 1.009 (1.002-1.035); SQUAMOUS EPITHELIAL CELL UR AU 0 /HPF (0-6); WBC, URINE AUTO 73 /HPF (0-3)
[2021-08-28 21:37] LABS: HEMATOCRIT 36.6 % (36.0-47.0); HEMOGLOBIN 10.9 g/dl (12.0-15.5); MEAN CORPUSCULAR HEMOGLOBIN 27.7 pg (27.0-33.0); MEAN CORPUSCULAR HGB CONC 29.8 g/dl (32.0-36.5); MEAN CORPUSCULAR VOLUME 92.9 fl (80.0-96.0); PLATELET COUNT, AUTOMATED 137 10^3/uL (150-450); RED BLOOD COUNT 3.94 10^6/uL (4.00-5.40); WHITE BLOOD COUNT 5.4 10^3/uL (4.0-10.0)
[2021-08-28 22:04] LABS: BLOOD UREA NITROGEN 17 MG/DL (7-18); CALCIUM LEVEL 8.2 MG/DL (8.8-10.2); CARBON DIOXIDE LEVEL 36 MEQ/L (21-32); CHLORIDE LEVEL 96 MEQ/L (98-107); CREATININE FOR GFR 1.11 MG/DL (0.55-1.30); GLOMERULAR FILTRATION RATE > 60.0 (>39); GLUCOSE, FASTING 307 MG/DL (70-100); POTASSIUM SERUM 4.7 MEQ/L (3.5-5.1); SODIUM LEVEL 136 MEQ/L (136-145)
== END ==
LOC: SKLAB5 16:39
PROVIDERS: ATTEND Internal Medicine
DX: R06.02 Shortness of breath (principal); R11.2 Nausea with vomiting, unspecified

== ENCOUNTER → 2021-09-11 | Outpatient (REF) | payer MEDICARE, OTHER ==
[2021-09-11 09:17] LABS: BLOOD UREA NITROGEN 19 MG/DL (7-18); CALCIUM LEVEL 8.8 MG/DL (8.8-10.2); CARBON DIOXIDE LEVEL 35 MEQ/L (21-32); CHLORIDE LEVEL 99 MEQ/L (98-107); GLOMERULAR FILTRATION RATE > 60.0 (>39); GLUCOSE, FASTING 249 MG/DL (70-100); POTASSIUM SERUM 4.3 MEQ/L (3.5-5.1); SODIUM LEVEL 140 MEQ/L (136-145)
== END ==
LOC: SKLAB5 07:00
PROVIDERS: ATTEND Internal Medicine
DX: D64.9 Anemia, unspecified (principal)

== ENCOUNTER → 2021-11-10 | Outpatient (REF) | payer MEDICARE, OTHER ==
[~2021-11-10] MED LIST changes: +OMEP-173 PO; -OMEP-218 PO
[2021-11-10 12:16] LABS: CHOLESTEROL RISK RATIO 2.017 (<5); MAGNESIUM LEVEL 1.9 MG/DL (1.8-2.4); THYROID STIMULATING HORMONE 2.29 uIU/ML (0.358-3.740)
[2021-11-10 12:18] LABS: HEMOGLOBIN A1c 9.3 %
== END ==
LOC: SKLAB5 08:20
PROVIDERS: ATTEND Internal Medicine
DX: E11.9 Type 2 diabetes mellitus without complications (principal)

== ENCOUNTER → 2021-11-13 | Outpatient (REF) | payer MEDICARE, OTHER ==
[2021-11-13 11:52] LABS: HEMATOCRIT 39.2 % (36.0-47.0); HEMOGLOBIN 12.1 g/dl (12.0-15.5); MEAN CORPUSCULAR HEMOGLOBIN 29.2 pg (27.0-33.0); MEAN CORPUSCULAR HGB CONC 30.9 g/dl (32.0-36.5); MEAN CORPUSCULAR VOLUME 94.7 fl (80.0-96.0); PLATELET COUNT, AUTOMATED 190 10^3/uL (150-450); RED BLOOD COUNT 4.14 10^6/uL (4.00-5.40); WHITE BLOOD COUNT 7.1 10^3/uL (4.0-10.0)
== END ==
LOC: SKLAB5 07:44
PROVIDERS: ATTEND Internal Medicine
DX: D64.9 Anemia, unspecified (principal)

== ENCOUNTER → 2021-12-08 | Outpatient (REF) | payer MEDICARE, OTHER ==
[2021-12-08 10:31] LABS: HEMATOCRIT 38.7 % (36.0-47.0); HEMOGLOBIN 12.2 g/dl (12.0-15.5); MEAN CORPUSCULAR HEMOGLOBIN 29.9 pg (27.0-33.0); MEAN CORPUSCULAR HGB CONC 31.5 g/dl (32.0-36.5); MEAN CORPUSCULAR VOLUME 94.9 fl (80.0-96.0); PLATELET COUNT, AUTOMATED 183 10^3/uL (150-450); RED BLOOD COUNT 4.08 10^6/uL (4.00-5.40); WHITE BLOOD COUNT 7.8 10^3/uL (4.0-10.0)
[2021-12-08 11:02] LABS: BLOOD UREA NITROGEN 19 MG/DL (7-18); CARBON DIOXIDE LEVEL 32 MEQ/L (21-32); CHLORIDE LEVEL 100 MEQ/L (98-107); CREATININE FOR GFR 0.96 MG/DL (0.55-1.30); GLOMERULAR FILTRATION RATE > 60.0 (>39); GLUCOSE, FASTING 229 MG/DL (70-100); POTASSIUM SERUM 4.2 MEQ/L (3.5-5.1); SODIUM LEVEL 136 MEQ/L (136-145)
[2021-12-08 11:06] LABS: APPEARANCE, URINE TURBID (CLEAR); BACTERIA, URINE AUTO 3+ (NEGATIVE); BILIRUBIN, URINE AUTO NEGATIVE (NEGATIVE); BLOOD, URINE BLOOD 2+ (NEGATIVE); COLOR, URINE AMBER (YELLOW); GLUCOSE, URINE (UA) AUTO 3+ mg/dL (NEGATIVE); KETONE, URINE AUTO NEGATIVE (NEGATIVE); LEUKOCYTE ESTERASE, URINE AUTO 3+ (NEGATIVE); NITRITE, URINE AUTO POSITIVE (NEGATIVE); PROTEIN, URINE AUTO 1+ mg/dL (NEGATIVE); RBC, URINE AUTO 49 /HPF (0-3); SPECIFIC GRAVITY URINE AUTO 1.016 (1.002-1.035); SQUAMOUS EPITHELIAL CELL UR AU 0 /HPF (0-6); UROBILINOGEN, URINE AUTO 0.2 mg/dL (0.0-2.0); WBC, URINE AUTO TNTC /HPF (0-3)
== END ==
LOC: SKLAB5 09:32
PROVIDERS: ATTEND Internal Medicine
DX: R30.9 Painful micturition, unspecified (principal)

== ENCOUNTER → 2021-12-26 | Outpatient (REF) | payer MEDICARE, OTHER | LOC: SKLAB5 09:12 | PROVIDERS: ATTEND Internal Medicine | DX: Z11.2 Encounter for screening for other bacterial diseases (principal) ==

== ENCOUNTER → 2022-01-05 | Outpatient (REF) | payer MEDICARE, OTHER | LOC: SKLAB5 09:28 | PROVIDERS: ATTEND Internal Medicine | DX: Z11.2 Encounter for screening for other bacterial diseases (principal) ==

== ENCOUNTER → 2022-01-15 | Outpatient (REF) | payer MEDICARE, OTHER ==
[~2022-01-15] MED LIST changes: -TRIA37.53 PO; +TRIA37.577 PO
== END ==
LOC: SKLAB5 09:45
PROVIDERS: ATTEND Nurse Practitioner Adult Health
DX: Z11.2 Encounter for screening for other bacterial diseases (principal)

== ENCOUNTER → 2022-02-11 | Outpatient (REF) | payer MEDICARE, OTHER | LOC: SKLAB5 11:43 | PROVIDERS: ATTEND Nurse Practitioner Adult Health | DX: M79.673 Pain in unspecified foot (principal); Z53.9 Procedure and treatment not carried out, unspecified reason ==

== ENCOUNTER → 2022-02-11 | Outpatient (CLI) | payer MEDICARE, OTHER | LOC: M RAD 15:10 | PROVIDERS: ATTEND Internal Medicine | DX: M85.871 Other specified disorders of bone density and structure, right ankle and foot (principal); M79.89 Other specified soft tissue disorders ==

== ENCOUNTER → 2022-02-17 | Outpatient (REF) | payer MEDICARE ==
[2022-02-17 12:52] LABS: HEMATOCRIT 36.2 % (36.0-47.0); HEMOGLOBIN 11.1 g/dl (12.0-15.5); MEAN CORPUSCULAR HEMOGLOBIN 29.6 pg (27.0-33.0); MEAN CORPUSCULAR HGB CONC 30.7 g/dl (32.0-36.5); MEAN CORPUSCULAR VOLUME 96.5 fl (80.0-96.0); PLATELET COUNT, AUTOMATED 168 10^3/uL (150-450); RED BLOOD COUNT 3.75 10^6/uL (4.00-5.40); WHITE BLOOD COUNT 7.1 10^3/uL (4.0-10.0)
[2022-02-17 13:16] LABS: BLOOD UREA NITROGEN 18 MG/DL (7-18); CALCIUM LEVEL 8.9 MG/DL (8.8-10.2); CARBON DIOXIDE LEVEL 34 MEQ/L (21-32); CHLORIDE LEVEL 100 MEQ/L (98-107); CREATININE FOR GFR 1.05 MG/DL (0.55-1.30); GLOMERULAR FILTRATION RATE > 60.0 (>32); GLUCOSE, FASTING 376 MG/DL (70-100); POTASSIUM SERUM 4.8 MEQ/L (3.5-5.1); SODIUM LEVEL 139 MEQ/L (136-145)
== END ==
LOC: SKLAB5 12:12
PROVIDERS: ATTEND Nurse Practitioner Adult Health
DX: R06.02 Shortness of breath (principal)

== ENCOUNTER → 2022-02-18 | Outpatient (REF) | payer MEDICARE ==
[2022-02-18 10:59] LABS: AMORPHOUS SEDIMENT SMALL (NEGATIVE); APPEARANCE, URINE CLOUDY (CLEAR); BACTERIA, URINE AUTO 3+ (NEGATIVE); BILIRUBIN, URINE AUTO NEGATIVE (NEGATIVE); BLOOD, URINE BLOOD NEGATIVE (NEGATIVE); COLOR, URINE YELLOW (YELLOW); GLUCOSE, URINE (UA) AUTO NEGATIVE (NEGATIVE); KETONE, URINE AUTO NEGATIVE (NEGATIVE); LEUKOCYTE ESTERASE, URINE AUTO 3+ (NEGATIVE); MUCUS, URINE SMALL (NEGATIVE); NITRITE, URINE AUTO NEGATIVE (NEGATIVE); PROTEIN, URINE AUTO NEGATIVE (NEGATIVE); RBC, URINE AUTO 7 /HPF (0-3); SPECIFIC GRAVITY URINE AUTO 1.011 (1.002-1.035); SQUAMOUS EPITHELIAL CELL UR AU 1 /HPF (0-6); UROBILINOGEN, URINE AUTO 0.2 mg/dL (0.0-2.0); WBC, URINE AUTO TNTC /HPF (0-3)
== END ==
LOC: SKLAB5 10:31
PROVIDERS: ATTEND Nurse Practitioner Adult Health
DX: R41.0 Disorientation, unspecified (principal)

== ENCOUNTER → 2022-02-23 | Outpatient (REF) | payer MEDICARE ==
[2022-02-23 07:37] LABS: BASO % 0.8 % (0.0-1.0); EOS # 0.4 10^3/uL (0.0-0.5); EOS % 7.7 % (0.0-3.0); HEMATOCRIT 35.8 % (36.0-47.0); HEMOGLOBIN 10.9 g/dl (12.0-15.5); LYMPH # 1.3 10^3/uL (1.5-5.0); LYMPH % 27.2 % (24.0-44.0); MEAN CORPUSCULAR HEMOGLOBIN 29.5 pg (27.0-33.0); MEAN CORPUSCULAR HGB CONC 30.4 g/dl (32.0-36.5); MONO # 0.3 10^3/uL (0.0-0.8); MONO % 6.1 % (2.0-8.0); NEUTROPHILS # 2.8 10^3/uL (1.5-8.5); PLATELET COUNT, AUTOMATED 149 10^3/uL (150-450); RED BLOOD COUNT 3.69 10^6/uL (4.00-5.40); WHITE BLOOD COUNT 4.8 10^3/uL (4.0-10.0)
[2022-02-23 08:03] LABS: ALBUMIN 2.3 GM/DL (3.2-5.2); BLOOD UREA NITROGEN 18 MG/DL (7-18); CALCIUM LEVEL 8.9 MG/DL (8.8-10.2); CARBON DIOXIDE LEVEL 38 MEQ/L (21-32); CHLORIDE LEVEL 98 MEQ/L (98-107); CREATININE FOR GFR 0.96 MG/DL (0.55-1.30); GLOMERULAR FILTRATION RATE > 60.0 (>32); GLUCOSE, FASTING 383 MG/DL (70-100); MAGNESIUM LEVEL 1.8 MG/DL (1.8-2.4); PHOSPHORUS LEVEL 3.9 MG/DL (2.5-4.9); POTASSIUM SERUM 4.4 MEQ/L (3.5-5.1); SODIUM LEVEL 138 MEQ/L (136-145)
== END ==
LOC: SKLAB5 09:46
PROVIDERS: ATTEND Internal Medicine
DX: I50.9 Heart failure, unspecified (principal); E11.9 Type 2 diabetes mellitus without complications

== ENCOUNTER → 2022-03-18 | Outpatient (REF) | payer MEDICARE | LOC: SKLAB5 08:00 | PROVIDERS: ATTEND Internal Medicine | DX: R73.09 Other abnormal glucose (principal) ==

== ENCOUNTER → 2022-03-21 | Outpatient (REF) | LOC: SKLAB5 07:34 | PROVIDERS: ATTEND Internal Medicine | DX: E11.65 Type 2 diabetes mellitus with hyperglycemia (principal); Z53.9 Procedure and treatment not carried out, unspecified reason ==

== ENCOUNTER → 2022-03-22 | Outpatient (REF) ==
[2022-03-22 04:12] LABS: HEMOGLOBIN 11.5 g/dl (12.0-15.5); MEAN CORPUSCULAR HEMOGLOBIN 29.6 pg (27.0-33.0); MEAN CORPUSCULAR HGB CONC 31.9 g/dl (32.0-36.5); MEAN CORPUSCULAR VOLUME 92.8 fl (80.0-96.0); PLATELET COUNT, AUTOMATED 156 10^3/uL (150-450); RED BLOOD COUNT 3.88 10^6/uL (4.00-5.40); WHITE BLOOD COUNT 7.6 10^3/uL (4.0-10.0)
[2022-03-22 04:47] LABS: CREATININE FOR GFR 1.24 MG/DL (0.55-1.30); GLOMERULAR FILTRATION RATE 53.7 (>32); POTASSIUM SERUM 4.8 MEQ/L (3.5-5.1)
== END ==
LOC: SKLAB2 03-21 19:41
PROVIDERS: ATTEND Internal Medicine
DX: E11.65 Type 2 diabetes mellitus with hyperglycemia (principal)

== ENCOUNTER → 2022-03-23 | Outpatient (REF) | payer MEDICARE ==
[2022-03-23 16:16] LABS: CREATININE FOR GFR 1.2 MG/DL (0.55-1.30); GLOMERULAR FILTRATION RATE 55.8 (>32)
[2022-03-23 16:17] LABS: CALCIUM LEVEL 8.8 MG/DL (8.8-10.2); POTASSIUM SERUM 4.6 MEQ/L (3.5-5.1)
== END ==
LOC: SKLAB5 11:17
PROVIDERS: ATTEND Internal Medicine
DX: E86.0 Dehydration (principal)

== ENCOUNTER → 2022-03-24 | Outpatient (REF) | payer MEDICARE ==
[2022-03-24 14:05] LABS: BLOOD UREA NITROGEN 47 MG/DL (7-18); CALCIUM LEVEL 8.5 MG/DL (8.8-10.2); CARBON DIOXIDE LEVEL 36 MEQ/L (21-32); CHLORIDE LEVEL 96 MEQ/L (98-107); CREATININE FOR GFR 0.98 MG/DL (0.55-1.30); GLOMERULAR FILTRATION RATE > 60.0 (>32); GLUCOSE, FASTING 403 MG/DL (70-100); POTASSIUM SERUM 4.1 MEQ/L (3.5-5.1); SODIUM LEVEL 135 MEQ/L (136-145)
== END ==
LOC: SKLAB5 09:48
PROVIDERS: ATTEND Nurse Practitioner Adult Health
DX: N17.9 Acute kidney failure, unspecified (principal)

== ENCOUNTER → 2022-03-31 | Outpatient (REF) | payer MEDICARE ==
[2022-03-31 09:10] LABS: BLOOD UREA NITROGEN 38 MG/DL (7-18); CALCIUM LEVEL 8.5 MG/DL (8.8-10.2); CARBON DIOXIDE LEVEL 36 MEQ/L (21-32); CHLORIDE LEVEL 99 MEQ/L (98-107); CREATININE FOR GFR 0.89 MG/DL (0.55-1.30); GLOMERULAR FILTRATION RATE > 60.0 (>32); GLUCOSE, FASTING 82 MG/DL (70-100); SODIUM LEVEL 137 MEQ/L (136-145)
[2022-03-31 09:57] LABS: HEMOGLOBIN A1c 11.6 %
== END ==
LOC: SKLAB5 07:23
PROVIDERS: ATTEND Nurse Practitioner Adult Health
DX: E87.1 Hypo-osmolality and hyponatremia (principal); Z79.899 Other long term (current) drug therapy

== ENCOUNTER → 2022-04-10 | Outpatient (REF) | payer MEDICARE | LOC: SKLAB5 13:16 | PROVIDERS: ATTEND Nurse Practitioner Adult Health | DX: R05.9 Cough, unspecified (principal); R09.89 Other specified symptoms and signs involving the circulatory and respiratory systems ==

== ENCOUNTER → 2022-04-10 | Outpatient (REF) | payer MEDICARE ==
[2022-04-10 17:12] LABS: HEMATOCRIT 33.3 % (36.0-47.0); HEMOGLOBIN 10.1 g/dl (12.0-15.5); MEAN CORPUSCULAR HEMOGLOBIN 28.7 pg (27.0-33.0); MEAN CORPUSCULAR HGB CONC 30.3 g/dl (32.0-36.5); MEAN CORPUSCULAR VOLUME 94.6 fl (80.0-96.0); PLATELET COUNT, AUTOMATED 159 10^3/uL (150-450); RED BLOOD COUNT 3.52 10^6/uL (4.00-5.40); WHITE BLOOD COUNT 6.4 10^3/uL (4.0-10.0)
[2022-04-10 17:49] LABS: BLOOD UREA NITROGEN 51 MG/DL (7-18); CALCIUM LEVEL 8.2 MG/DL (8.8-10.2); CARBON DIOXIDE LEVEL 30 MEQ/L (21-32); CHLORIDE LEVEL 102 MEQ/L (98-107); CREATININE FOR GFR 1.04 MG/DL (0.55-1.30); GLOMERULAR FILTRATION RATE > 60.0 (>32); GLUCOSE, FASTING 252 MG/DL (70-100); POTASSIUM SERUM 4.8 MEQ/L (3.5-5.1); SODIUM LEVEL 135 MEQ/L (136-145)
== END ==
LOC: SKLAB5 16:22
PROVIDERS: ATTEND Nurse Practitioner Adult Health
DX: R06.2 Wheezing (principal)

== ENCOUNTER → 2022-04-23 | Outpatient (CLI) | payer MEDICARE ==
[~2022-04-23] MED LIST changes: +GASTROGRAFIN SOLUTION 30ML (Q9963) As Ordered ONE; +ISOVUE-370 76% 100ML VIAL As Ordered ONE
== END ==
LOC: M RAD 09:10
PROVIDERS: ATTEND Nurse Practitioner Adult Health
DX: K42.9 Umbilical hernia without obstruction or gangrene (principal)
CPT/HCPCS: 74177; Q9963; Q9967

== ENCOUNTER → 2022-05-12 | Outpatient (REF) | payer MEDICARE ==
[~2022-05-12] MED LIST changes: -GASTROGRAFIN SOLUTION 30ML (Q9963) As Ordered ONE; -ISOVUE-370 76% 100ML VIAL As Ordered ONE
== END ==
LOC: SKLAB5 14:12
PROVIDERS: ATTEND Nurse Practitioner Adult Health
DX: E87.6 Hypokalemia (principal); Z53.8 Procedure and treatment not carried out for other reasons

== ENCOUNTER → 2022-05-19 | Outpatient (REF) | payer MEDICARE ==
[2022-05-19 11:59] LABS: PHOSPHORUS LEVEL 3.7 MG/DL (2.5-4.9)
[2022-05-19 12:52] LABS: PTH INTACT 82.4 PG/ML (18.5-88.0)
== END ==
LOC: SKLAB5 11:47
PROVIDERS: ATTEND Internal Medicine
DX: E21.3 Hyperparathyroidism, unspecified (principal); E55.9 Vitamin D deficiency, unspecified; Z79.899 Other long term (current) drug therapy

== ENCOUNTER → 2022-05-25 | Outpatient (REF) | payer MEDICARE ==
[2022-05-25 22:38] LABS: APPEARANCE, URINE MANUAL HAZY (CLEAR); COLOR, URINE MANUAL YELLOW (YELLOW)
[2022-05-25 22:39] LABS: BILIRUBIN, URINE MANUAL NEGATIVE (NEGATIVE); BLOOD URINE MANUAL POSITIVE (NEGATIVE); GLUCOSE, URINE (UA) MANUAL NEGATIVE (NEGATIVE); KETONE, URINE MANUAL NEGATIVE (NEGATIVE); LEUKOCYTE ESTERASE, URINE MAN POSITIVE (NEGATIVE); NITRITE, URINE MANUAL NEGATIVE (NEGATIVE); PH,URINE MAN 6.5 UNITS (5.0 - 7.0); PROTEIN, URINE MANUAL NEGATIVE (NEGATIVE); UROBILINOGEN, URINE MANUAL NORMAL (NORMAL)
[2022-05-25 22:48] LABS: SQUAMOUS EPITHELIAL CELL URINE SMALL AMOUNT /hpf (SMALL AMT); WBC, URINE TNTC /hpf (0-3)
[2022-05-25 22:49] LABS: BACTERIA, URINE LARGE AMOUNT; HYALINE CAST, URINE NONE SEEN /lpf (0-1)
[2022-05-25 23:52] LABS: HEMATOCRIT 33.2 % (36.0-47.0); HEMOGLOBIN 10.1 g/dl (12.0-15.5); MEAN CORPUSCULAR HGB CONC 30.4 g/dl (32.0-36.5); MEAN CORPUSCULAR VOLUME 95.4 fl (80.0-96.0); PLATELET COUNT, AUTOMATED 135 10^3/uL (150-450); RED BLOOD COUNT 3.48 10^6/uL (4.00-5.40); WHITE BLOOD COUNT 19.6 10^3/uL (4.0-10.0)
[2022-05-26 00:05] LABS: ALBUMIN 2.2 GM/DL (3.2-5.2); ALT/SGPT 115 U/L (12-78); BILIRUBIN,TOTAL 0.8 MG/DL (0.2-1.0); BLOOD UREA NITROGEN 20 MG/DL (7-18); CALCIUM LEVEL 8.1 MG/DL (8.8-10.2); CARBON DIOXIDE LEVEL 35 MEQ/L (21-32); CHLORIDE LEVEL 100 MEQ/L (98-107); CREATININE FOR GFR 0.95 MG/DL (0.55-1.30); GLOMERULAR FILTRATION RATE > 60.0 (>32); GLUCOSE, FASTING 163 MG/DL (70-100); POTASSIUM SERUM 3.9 MEQ/L (3.5-5.1); SODIUM LEVEL 139 MEQ/L (136-145)
== END ==
LOC: SKLAB5 21:06
PROVIDERS: ATTEND Internal Medicine
DX: R11.10 Vomiting, unspecified (principal); R50.9 Fever, unspecified

== ENCOUNTER → 2022-05-28 | Outpatient (REF) | payer MEDICARE ==
[2022-05-28 10:06] LABS: HEMATOCRIT 36.7 % (36.0-47.0); HEMOGLOBIN 10.9 g/dl (12.0-15.5); MEAN CORPUSCULAR HEMOGLOBIN 29.5 pg (27.0-33.0); MEAN CORPUSCULAR HGB CONC 29.7 g/dl (32.0-36.5); MEAN CORPUSCULAR VOLUME 99.2 fl (80.0-96.0); PLATELET COUNT, AUTOMATED 146 10^3/uL (150-450); WHITE BLOOD COUNT 6.7 10^3/uL (4.0-10.0)
[2022-05-28 10:43] LABS: ALBUMIN 2.3 GM/DL (3.2-5.2); ALT/SGPT 60 U/L (12-78); BILIRUBIN,TOTAL 0.6 MG/DL (0.2-1.0); BLOOD UREA NITROGEN 19 MG/DL (7-18); CALCIUM LEVEL 8.3 MG/DL (8.8-10.2); CARBON DIOXIDE LEVEL 36 MEQ/L (21-32); CHLORIDE LEVEL 100 MEQ/L (98-107); CREATININE FOR GFR 0.97 MG/DL (0.55-1.30); GLOMERULAR FILTRATION RATE > 60.0 (>32); GLUCOSE, FASTING 155 MG/DL (70-100); POTASSIUM SERUM 4.1 MEQ/L (3.5-5.1); SODIUM LEVEL 141 MEQ/L (136-145); TOTAL PROTEIN 6.7 GM/DL (6.4-8.2)
== END ==
LOC: SKLAB5 11:41
PROVIDERS: ATTEND Nurse Practitioner
DX: D72.829 Elevated white blood cell count, unspecified (principal)

== ENCOUNTER → 2022-06-10 | Outpatient (REF) | payer MEDICARE ==
[2022-06-10 08:41] LABS: C REACTIVE PROTEIN QUANTITATIV 0.88 MG/DL (0.00-0.30); RHEUMATOID FACTOR QUANT 15.5 IU/ML (<15.0); URIC ACID 8.4 MG/DL (2.6-6.0)
[2022-06-12 00:07] LABS: ANA (HEP2) Negative (.); CYCLIC CITRULLINATED PEPTIDE 6 units (0-19)
== END ==
LOC: SKLAB5 09:25
PROVIDERS: ATTEND Nurse Practitioner
DX: Z79.899 Other long term (current) drug therapy (principal); T37.8X5A Adverse effect of other specified systemic anti-infectives and antiparasitics, initial encounter

== ENCOUNTER → 2022-06-11 | Outpatient (REF) | payer MEDICARE ==
[2022-06-11 14:49] LABS: HEMATOCRIT 37.5 % (36.0-47.0); HEMOGLOBIN 11.3 g/dl (12.0-15.5); MEAN CORPUSCULAR HEMOGLOBIN 29.2 pg (27.0-33.0); MEAN CORPUSCULAR HGB CONC 30.1 g/dl (32.0-36.5); MEAN CORPUSCULAR VOLUME 96.9 fl (80.0-96.0); PLATELET COUNT, AUTOMATED 200 10^3/uL (150-450); RED BLOOD COUNT 3.87 10^6/uL (4.00-5.40); WHITE BLOOD COUNT 7.5 10^3/uL (4.0-10.0)
[2022-06-11 15:34] LABS: ALBUMIN 2.5 GM/DL (3.2-5.2); ALT/SGPT 38 U/L (12-78); BILIRUBIN,TOTAL 0.5 MG/DL (0.2-1.0); BLOOD UREA NITROGEN 16 MG/DL (7-18); CALCIUM LEVEL 8.7 MG/DL (8.8-10.2); CARBON DIOXIDE LEVEL 32 MEQ/L (21-32); CHLORIDE LEVEL 103 MEQ/L (98-107); GLOMERULAR FILTRATION RATE > 60.0 (>32); GLUCOSE, FASTING 263 MG/DL (70-100); POTASSIUM SERUM 4.4 MEQ/L (3.5-5.1); SODIUM LEVEL 141 MEQ/L (136-145); TOTAL PROTEIN 7.1 GM/DL (6.4-8.2)
== END ==
LOC: SKLAB5 11:43
PROVIDERS: ATTEND Nurse Practitioner
DX: Z79.899 Other long term (current) drug therapy (principal); T37.8X5A Adverse effect of other specified systemic anti-infectives and antiparasitics, initial encounter

== ENCOUNTER → 2022-06-12 | Outpatient (REF) | payer MEDICARE ==
[~2022-06-12] MED LIST changes: +ACET-897 PO; +ACET1TAB55 PO; +ACET650T15 PO; +AMLO1TAB24 PO; +ATOR1TAB21 PO; +AZIT-10 PO; +AZIT500T5 PO; +BISA10SU4 XX; +CEFT1INJ5 IM; +DECA1CAP2 PO; +DESI13CR2 EX; +ENEMENE XX; +FAMO40TA3 PO; +FURO10EL IM; +FURO80VL IM; +GUAI5EL PO; +INSULADS INJ; +IPRA0.00 INH; +LIDO1ADH10 TOP; +METO25TA PO; +PRED20TA PO; +SENN-80 PO; +TORS100T PO; +VENTAER INH; +VICT18IN SC
[2022-06-12 15:37] LABS: HEMATOCRIT 36.5 % (36.0-47.0); HEMOGLOBIN 10.7 g/dl (12.0-15.5); MEAN CORPUSCULAR HEMOGLOBIN 28.8 pg (27.0-33.0); MEAN CORPUSCULAR HGB CONC 29.3 g/dl (32.0-36.5); MEAN CORPUSCULAR VOLUME 98.4 fl (80.0-96.0); PLATELET COUNT, AUTOMATED 165 10^3/uL (150-450); RED BLOOD COUNT 3.71 10^6/uL (4.00-5.40); WHITE BLOOD COUNT 4.7 10^3/uL (4.0-10.0)
[2022-06-12 16:08] LABS: BLOOD UREA NITROGEN 14 MG/DL (7-18); CALCIUM LEVEL 8.4 MG/DL (8.8-10.2); CARBON DIOXIDE LEVEL 38 MEQ/L (21-32); CHLORIDE LEVEL 101 MEQ/L (98-107); CREATININE FOR GFR 0.96 MG/DL (0.55-1.30); GLOMERULAR FILTRATION RATE > 60.0 (>32); GLUCOSE, FASTING 294 MG/DL (70-100); POTASSIUM SERUM 3.9 MEQ/L (3.5-5.1); SODIUM LEVEL 141 MEQ/L (136-145)
== END ==
LOC: SKLAB5 14:29
PROVIDERS: ATTEND Nurse Practitioner Adult Health
DX: R06.02 Shortness of breath (principal); R06.2 Wheezing

== ENCOUNTER → 2022-06-13 | Outpatient (REF) | PROVIDERS: ATTEND Internal Medicine | DX: I50.9 Heart failure, unspecified (principal) ==

== ENCOUNTER 2022-06-14 09:11 | Inpatient (IN) | payer MEDICARE ==
[~2022-06-14] VITALS: Ht 157.5 cm; Wt 150.8 kg
[~2022-06-14 09:11] MED LIST changes: -ACET-897 PO; -ACET1TAB55 PO; -ACET650T15 PO; -AMLO1TAB24 PO; -ATOR1TAB21 PO; -AZIT-10 PO; -AZIT500T5 PO; -BISA10SU4 XX; -CEFT1INJ5 IM; -DECA1CAP2 PO; -DESI13CR2 EX; -ENEMENE XX; -FAMO40TA3 PO; -FURO10EL IM; -FURO80VL IM; -GUAI5EL PO; -INSULADS INJ; -IPRA0.00 INH; -LIDO1ADH10 TOP; -METO25TA PO; -PRED20TA PO; -SENN-80 PO; -TORS100T PO; -VENTAER INH; -VICT18IN SC
[2022-06-14] MEDS ORDERED: IPRATROPIUM 0.5MG/ALBUTEROL 2.5MG INH SOL UD 3ML (DUONEB) NEB ONE (09:40)
[2022-06-14] MEDS ORDERED: ALBUTEROL SULFATE 2.5 MG/0.5 ML INH NEB SOLN INH ONE (09:40)
[2022-06-14] MEDS ORDERED: methylPREDNISolone 125MG 2ML VIAL IV ONE (09:40)
[2022-06-14 10:02] LABS: BASO % 0.8 % (0.0-1.0); EOS # 0.1 10^3/uL (0.0-0.5); EOS % 1.6 % (0.0-3.0); HEMATOCRIT 40.2 % (36.0-47.0); HEMOGLOBIN 11.4 g/dl (12.0-15.5); LYMPH # 0.8 10^3/uL (1.5-5.0); LYMPH % 21.8 % (24.0-44.0); MEAN CORPUSCULAR HEMOGLOBIN 28.7 pg (27.0-33.0); MEAN CORPUSCULAR HGB CONC 28.4 g/dl (32.0-36.5); MEAN CORPUSCULAR VOLUME 101.3 fl (80.0-96.0); MONO # 0.2 10^3/uL (0.0-0.8); MONO % 6.1 % (2.0-8.0); NEUTROPHILS # 2.6 10^3/uL (1.5-8.5); NEUTROPHILS % 69.2 % (36.0-66.0); PLATELET COUNT, AUTOMATED 157 10^3/uL (150-450); RED BLOOD COUNT 3.97 10^6/uL (4.00-5.40); WHITE BLOOD COUNT 3.8 10^3/uL (4.0-10.0)
[2022-06-14] MEDS ORDERED: FURO10EL IM (10:17)
[2022-06-14] MEDS ORDERED: ACET1TAB55 PO (10:17)
[2022-06-14] MEDS ORDERED: IPRA0.00 INH (10:17)
[2022-06-14] MEDS ORDERED: LIDO1CRE2 TOP (10:17)
[2022-06-14] MEDS ORDERED: ACET650T15 PO (10:26)
[2022-06-14] MEDS ORDERED: VENTAER INH (10:26)
[2022-06-14] MEDS ORDERED: AZIT500T5 PO (10:26)
[2022-06-14] MEDS ORDERED: VICT18IN SC (10:26)
[2022-06-14] MEDS ORDERED: PRED20TA PO (10:26)
[2022-06-14] MEDS ORDERED: TORS100T PO (10:26)
[2022-06-14] MEDS ORDERED: FURO80VL IM (10:33)
[2022-06-14] MEDS ORDERED: DECA1CAP2 PO (10:33)
[2022-06-14] MEDS ORDERED: INSULADS INJ (10:37)
[2022-06-14] MEDS ORDERED: SENN-80 PO (10:39)
[2022-06-14 10:53] LABS: ALBUMIN 2.5 GM/DL (3.2-5.2); ALT/SGPT 45 U/L (12-78); BILIRUBIN,DIRECT 0.3 MG/DL (0.0-0.2); BILIRUBIN,TOTAL 0.5 MG/DL (0.2-1.0); BLOOD UREA NITROGEN 12 MG/DL (7-18); CALCIUM LEVEL 8.2 MG/DL (8.8-10.2); CARBON DIOXIDE LEVEL 36 MEQ/L (21-32); CHLORIDE LEVEL 99 MEQ/L (98-107); CREATININE FOR GFR 0.88 MG/DL (0.55-1.30); GLOMERULAR FILTRATION RATE > 60.0 (>32); GLUCOSE, FASTING 339 MG/DL (70-100); NT-PRO BNP 4431 PG/ML (<450); POTASSIUM SERUM 4.3 MEQ/L (3.5-5.1); SODIUM LEVEL 137 MEQ/L (136-145); THYROXINE (T4) 10.9 UG/DL (4.5-12.0); TOTAL PROTEIN 7.4 GM/DL (6.4-8.2)
[2022-06-14] MEDS ORDERED: ATOR1TAB21 PO (10:58)
[2022-06-14] MEDS ORDERED: FLUT11IN INH (10:58)
[2022-06-14] MEDS ORDERED: FAMO40TA3 PO (10:58)
[2022-06-14] MEDS ORDERED: AZIT-10 PO (11:02)
[2022-06-14] MEDS ORDERED: FUROSEMIDE 100MG/10ML VIAL (J1940) IV ONE (11:05)
[2022-06-14] MEDS ORDERED: LIDO1ADH10 TOP (11:10)
[2022-06-14] MEDS ORDERED: METO25TA PO (11:10)
[2022-06-14] MEDS ORDERED: CEFT1INJ5 IM (11:10)
[2022-06-14] MEDS ORDERED: GUAI5EL PO (11:10)
[2022-06-14] MEDS ORDERED: AMLO1TAB24 PO (11:16)
[2022-06-14] MEDS ORDERED: BISA10SU4 XX (11:16)
[2022-06-14] MEDS ORDERED: ENEMENE XX (11:16)
[2022-06-14] MEDS ORDERED: ACET-897 PO (11:22)
[2022-06-14] MEDS ORDERED: DESI13CR2 EX (11:22)
[2022-06-14] MEDS ORDERED: HOME MED LIST COMPLETE! XX SCH (11:35)
[2022-06-14] MEDS ORDERED: ISOVUE-370 76% 100ML VIAL As Ordered ONE (12:19)
[2022-06-14] MEDS ORDERED: GLUCOSE 4GM CHEW TABLET PO PRN (12:35)
[2022-06-14] MEDS ORDERED: DEXTROSE 50% 50 ML SYRINGE IV PRN (12:35)
[2022-06-14] MEDS ORDERED: GLUCAGON INJ 1MG VIAL SC PRN (12:35)
[2022-06-14 13:01] LABS: ALBUMIN 2.5 GM/DL (3.2-5.2); BILIRUBIN,DIRECT 0.3 MG/DL (0.0-0.2); BILIRUBIN,TOTAL 0.4 MG/DL (0.2-1.0); C REACTIVE PROTEIN QUANTITATIV 3.59 MG/DL (0.00-0.30); MAGNESIUM LEVEL 1.9 MG/DL (1.8-2.4); TOTAL PROTEIN 7.4 GM/DL (6.4-8.2)
[2022-06-14] MEDS: PANTOPRAZOLE 40MG VIAL IV SCH (13:44)
[2022-06-14 13:54] LABS: ABG BASE EXCESS 10.1 (-2.0-2.0); ABG HCO3 38.5 MEQ/L (22.0-26.0); ABG O2 SATURATION 95.9 % (95.0-99.0); ABG PARTIAL PRESSURE CO2 73.3 mmHg (35.0-45.0); ABG STANDARD HCO3 33.8 MEQ/L (22.0-26.0); ABG TOTAL CO2 40.7 MEQ/L (23.0-31.0); ABG pH (ARTERIAL) 7.338 UNITS (7.350-7.450)
[2022-06-14] MEDS ORDERED: VANCOMYCIN HCL 1,000 MG, VIAL MATE ADAPTER 1 EACH in NS 250 ML IV ONE (14:00)
[2022-06-14 14:19] LABS: INR 0.99; PARTIAL THROMBOPLASTIN TIME 27.6 SECONDS (24.8-34.2); PROTHROMBIN TIME 13.3 SECONDS (12.5-14.5)
[2022-06-14 14:22] LABS: D-DIMER QUANT 1552.43 ng/ml (<500)
[2022-06-14] MEDS: ALBUTEROL SULFATE 2.5 MG/0.5 ML INH NEB SOLN NEB SCH ×3 (14:43→20:06)
[2022-06-14] MEDS ORDERED: REMDESIVIR 200 MG in NS 250 ML IV ONE (16:00)
[2022-06-14] MEDS: INSULIN LISPRO (NovoLOG) PER UNIT SC SCH ×2 (17:30→20:46)
[2022-06-14] MEDS: hydrALAZINE 20MG/ML 1ML VIAL (J0360 PER 20MG) IV PRN (19:59)
[2022-06-14 20:00] VITALS: BP 182/117
[2022-06-14] MEDS: VANCOMYCIN HCL 1,000 MG, VIAL MATE ADAPTER 1 EACH in NS 250 ML IV SCH (20:44)
[2022-06-14] MEDS: ENOXAPARIN 40MG/0.4ML SYRINGE (J1650 PER 10MG) SC SCH (20:44)
[2022-06-14] MEDS: FUROSEMIDE 20MG/2ML VIAL (J1940) IV SCH (20:45)
[2022-06-14 21:00] VITALS: BP 182/87
[2022-06-14 22:00] VITALS: BP 147/68
[2022-06-14] MEDS: AZTREONAM 1 GM in D5W MINI-BAG PLUS 50 ML IV SCH (22:24)
[2022-06-14 23:00] VITALS: BP 150/66
[2022-06-15] VITALS (40 sets, daily range): BP systolic 124–169; BP diastolic 58–119; O2SAT 94–100
[2022-06-15] MEDS: AZTREONAM 1 GM in D5W MINI-BAG PLUS 50 ML IV SCH ×2 (04:10→12:38)
[2022-06-15 04:23] LABS: HEMATOCRIT 37.2 % (36.0-47.0); HEMOGLOBIN 10.9 g/dl (12.0-15.5); LYMPH # 0.6 10^3/uL (1.5-5.0); LYMPH % 28.7 % (24.0-44.0); MEAN CORPUSCULAR HEMOGLOBIN 29.1 pg (27.0-33.0); MEAN CORPUSCULAR HGB CONC 29.3 g/dl (32.0-36.5); MEAN CORPUSCULAR VOLUME 99.2 fl (80.0-96.0); MONO # 0.2 10^3/uL (0.0-0.8); MONO % 8.8 % (2.0-8.0); NEUTROPHILS # 1.4 10^3/uL (1.5-8.5); NEUTROPHILS % 62.5 % (36.0-66.0); PLATELET COUNT, AUTOMATED 141 10^3/uL (150-450); RED BLOOD COUNT 3.75 10^6/uL (4.00-5.40); WHITE BLOOD COUNT 2.2 10^3/uL (4.0-10.0)
[2022-06-15 05:16] LABS: ALBUMIN 2.1 GM/DL (3.2-5.2); ALT/SGPT 36 U/L (12-78); BILIRUBIN,DIRECT 0.1 MG/DL (0.0-0.2); BILIRUBIN,TOTAL 0.3 MG/DL (0.2-1.0); BLOOD UREA NITROGEN 19 MG/DL (7-18); CALCIUM LEVEL 8.5 MG/DL (8.8-10.2); CARBON DIOXIDE LEVEL 35 MEQ/L (21-32); CHLORIDE LEVEL 98 MEQ/L (98-107); CREATININE FOR GFR 0.95 MG/DL (0.55-1.30); GLOMERULAR FILTRATION RATE > 60.0 (>32); GLUCOSE, FASTING 325 MG/DL (70-100); MAGNESIUM LEVEL 1.9 MG/DL (1.8-2.4); POTASSIUM SERUM 3.7 MEQ/L (3.5-5.1); SODIUM LEVEL 137 MEQ/L (136-145); TOTAL PROTEIN 7.3 GM/DL (6.4-8.2)
[2022-06-15 05:46] LABS: ABG BASE EXCESS 11.7 (-2.0-2.0); ABG HCO3 37.7 MEQ/L (22.0-26.0); ABG O2 SATURATION 97.7 % (95.0-99.0); ABG PARTIAL PRESSURE CO2 56.1 mmHg (35.0-45.0); ABG PARTIAL PRESSURE O2 95.1 mmHg (75.0-100.0); ABG STANDARD HCO3 35.5 MEQ/L (22.0-26.0); ABG TOTAL CO2 39.4 MEQ/L (23.0-31.0); ABG pH (ARTERIAL) 7.445 UNITS (7.350-7.450)
[2022-06-15] MEDS: hydrALAZINE 20MG/ML 1ML VIAL (J0360 PER 20MG) IV PRN (06:24)
[2022-06-15] MEDS: ALBUTEROL SULFATE 2.5 MG/0.5 ML INH NEB SOLN NEB SCH ×2 (08:29→11:21)
[2022-06-15] MEDS ORDERED: amLODIPine 5 MG TAB PO SCH (09:00)
[2022-06-15] MEDS: ASPIRIN 81MG ENTERIC TABLET PO SCH (09:32)
[2022-06-15] MEDS: dexameTHASONE 4 MG/ML 1ML VIAL (J1100 PER 1MG) IV SCH (09:33)
[2022-06-15] MEDS: PANTOPRAZOLE 40MG VIAL IV SCH (09:33)
[2022-06-15] MEDS: FUROSEMIDE 20MG/2ML VIAL (J1940) IV SCH ×2 (09:33→20:13)
[2022-06-15] MEDS: VANCOMYCIN HCL 1,000 MG, VIAL MATE ADAPTER 1 EACH in NS 250 ML IV SCH (09:34)
[2022-06-15] MEDS: INSULIN LISPRO (NovoLOG) PER UNIT SC SCH ×4 (10:24→20:12)
[2022-06-15] MEDS: LEVALBUTEROL 1.25 MG/0.5 ML CONCENTRATE NEB INH SCH ×2 (15:45→20:13)
[2022-06-15] MEDS: AZITHROMYCIN 250MG TABLET PO SCH (16:19)
[2022-06-15 16:20] LABS: PERCENT SATURATION 10.7 % (13.2-45.0)
[2022-06-15] MEDS: REMDESIVIR 100 MG in NS 250 ML IV SCH (17:40)
[2022-06-15] MEDS ORDERED: LABETALOL 100MG/20ML VIAL IV PRN (18:00)
[2022-06-15] MEDS ORDERED: LOSARTAN 25 MG TAB PO ONE (20:00)
[2022-06-15] MEDS: ENOXAPARIN 40MG/0.4ML SYRINGE (J1650 PER 10MG) SC SCH (20:13)
[2022-06-15] MEDS ORDERED: LEVEMIR (INSULIN DETEMIR) 1 UNITS/0.01ML SC SCH ×2 (21:00)
[2022-06-16] VITALS (31 sets, daily range): BP systolic 129–180; BP diastolic 62–119; O2SAT 93
[2022-06-16] MEDS: LEVALBUTEROL 1.25 MG/0.5 ML CONCENTRATE NEB INH SCH ×6 (02:24→20:01)
[2022-06-16 05:49] LABS: BASO % 0.2 % (0.0-1.0); EOS % 0.2 % (0.0-3.0); HEMATOCRIT 34.7 % (36.0-47.0); HEMOGLOBIN 10.5 g/dl (12.0-15.5); LYMPH # 1.7 10^3/uL (1.5-5.0); LYMPH % 36.2 % (24.0-44.0); MEAN CORPUSCULAR HEMOGLOBIN 28.9 pg (27.0-33.0); MEAN CORPUSCULAR HGB CONC 30.3 g/dl (32.0-36.5); MEAN CORPUSCULAR VOLUME 95.6 fl (80.0-96.0); MONO # 0.4 10^3/uL (0.0-0.8); MONO % 8.4 % (2.0-8.0); NEUTROPHILS # 2.6 10^3/uL (1.5-8.5); NEUTROPHILS % 54.8 % (36.0-66.0); PLATELET COUNT, AUTOMATED 142 10^3/uL (150-450); RED BLOOD COUNT 3.63 10^6/uL (4.00-5.40); WHITE BLOOD COUNT 4.8 10^3/uL (4.0-10.0)
[2022-06-16 05:58] LABS: ABG BASE EXCESS 13.1 (-2.0-2.0); ABG HCO3 38.5 MEQ/L (22.0-26.0); ABG O2 SATURATION 96.8 % (95.0-99.0); ABG PARTIAL PRESSURE CO2 52.9 mmHg (35.0-45.0); ABG PARTIAL PRESSURE O2 85.9 mmHg (75.0-100.0); ABG STANDARD HCO3 36.9 MEQ/L (22.0-26.0); ABG TOTAL CO2 40.1 MEQ/L (23.0-31.0)
[2022-06-16 05:59] LABS: INR 1.12; PROTHROMBIN TIME 14.6 SECONDS (12.5-14.5)
[2022-06-16 06:00] LABS: PARTIAL THROMBOPLASTIN TIME 29.4 SECONDS (24.8-34.2)
[2022-06-16 06:25] LABS: ALBUMIN 2.2 GM/DL (3.2-5.2); BILIRUBIN,DIRECT 0.1 MG/DL (0.0-0.2); BILIRUBIN,TOTAL 0.3 MG/DL (0.2-1.0); CALCIUM LEVEL 8.2 MG/DL (8.8-10.2); CREATININE FOR GFR 1.42 MG/DL (0.55-1.30); GLOMERULAR FILTRATION RATE 45.9 (>32); POTASSIUM SERUM 3.6 MEQ/L (3.5-5.1); TOTAL PROTEIN 6.6 GM/DL (6.4-8.2)
[2022-06-16] MEDS ORDERED: LOSARTAN 25 MG TAB PO SCH (09:00)
[2022-06-16] MEDS: FUROSEMIDE 20MG/2ML VIAL (J1940) IV SCH (09:05)
[2022-06-16] MEDS: INSULIN LISPRO (NovoLOG) PER UNIT SC SCH ×4 (09:06→21:09)
[2022-06-16] MEDS: ASPIRIN 81MG ENTERIC TABLET PO SCH (09:06)
[2022-06-16] MEDS: AZITHROMYCIN 250MG TABLET PO SCH (09:06)
[2022-06-16] MEDS: PANTOPRAZOLE 40MG VIAL IV SCH (09:06)
[2022-06-16] MEDS: dexameTHASONE 4 MG/ML 1ML VIAL (J1100 PER 1MG) IV SCH (09:06)
[2022-06-16] MEDS: REMDESIVIR 100 MG in NS 250 ML IV SCH (18:20)
[2022-06-16] MEDS ORDERED: POTASSIUM CHLORIDE 10MEQ SR TABLET PO ONE (18:40)
[2022-06-16] MEDS ORDERED: LEVEMIR (INSULIN DETEMIR) 1 UNITS/0.01ML SC SCH (21:00)
[2022-06-16] MEDS: **hydrALAZINE HCL** 25 MG TAB PO SCH (21:10)
[2022-06-16] MEDS: ENOXAPARIN 40MG/0.4ML SYRINGE (J1650 PER 10MG) SC SCH (21:10)
[2022-06-17] VITALS: BP 130/61
[2022-06-17] MEDS: LEVALBUTEROL 1.25 MG/0.5 ML CONCENTRATE NEB INH SCH ×5 (00:13→21:19)
[2022-06-17 04:00] VITALS: BP 116/56
[2022-06-17] MEDS: **hydrALAZINE HCL** 25 MG TAB PO SCH ×3 (05:08→21:14)
[2022-06-17 07:19] LABS: BASO % 0.2 % (0.0-1.0); EOS % 0.6 % (0.0-3.0); HEMATOCRIT 35.5 % (36.0-47.0); HEMOGLOBIN 10.7 g/dl (12.0-15.5); LYMPH # 1.5 10^3/uL (1.5-5.0); LYMPH % 31.5 % (24.0-44.0); MEAN CORPUSCULAR HEMOGLOBIN 28.9 pg (27.0-33.0); MEAN CORPUSCULAR HGB CONC 30.1 g/dl (32.0-36.5); MEAN CORPUSCULAR VOLUME 95.9 fl (80.0-96.0); MONO # 0.3 10^3/uL (0.0-0.8); MONO % 6.6 % (2.0-8.0); NEUTROPHILS # 2.9 10^3/uL (1.5-8.5); NEUTROPHILS % 60.9 % (36.0-66.0); PLATELET COUNT, AUTOMATED 146 10^3/uL (150-450); WHITE BLOOD COUNT 4.8 10^3/uL (4.0-10.0)
[2022-06-17 08:00] VITALS: BP 156/67
[2022-06-17 08:10] LABS: FOLATE 14.9 ng/mL (>3.0)
[2022-06-17] MEDS: ASPIRIN 81MG ENTERIC TABLET PO SCH (08:30)
[2022-06-17] MEDS: dexameTHASONE 4 MG/ML 1ML VIAL (J1100 PER 1MG) IV SCH (08:30)
[2022-06-17] MEDS: AZITHROMYCIN 250MG TABLET PO SCH (08:30)
[2022-06-17] MEDS: atenoloL 25 MG TAB PO SCH (08:31)
[2022-06-17] MEDS: PANTOPRAZOLE 40MG VIAL IV SCH (08:31)
[2022-06-17] MEDS: INSULIN LISPRO (NovoLOG) PER UNIT SC SCH ×4 (08:32→21:15)
[2022-06-17] MEDS ORDERED: TORSEMIDE 100 MG TAB PO SCH (09:00)
[2022-06-17] MEDS ORDERED: FUROSEMIDE 40MG/4ML VIAL (J1940) IV SCH (09:00)
[2022-06-17 09:01] LABS: CALCIUM LEVEL 8.3 MG/DL (8.8-10.2); CREATININE FOR GFR 1.76 MG/DL (0.55-1.30); GLOMERULAR FILTRATION RATE 35.8 (>32); PHOSPHORUS LEVEL 3.9 MG/DL (2.5-4.9); POTASSIUM SERUM 3.2 MEQ/L (3.5-5.1)
[2022-06-17 12:00] VITALS: BP 149/64
[2022-06-17] MEDS ORDERED: POTASSIUM CHLORIDE 10MEQ SR TABLET PO ONE (12:20)
[2022-06-17] MEDS ORDERED: BUMETANIDE 1MG/4ML VIAL IV SCH (13:20)
[2022-06-17] MEDS: FERROUS SULFATE 325MG TAB PO SCH (14:08)
[2022-06-17] MEDS: FAMOTIDINE 20 MG TAB PO SCH (14:08)
[2022-06-17 16:00] VITALS: BP 147/68
[2022-06-17] MEDS ORDERED: INSULIN LISPRO (NovoLOG) PER UNIT SC ONE (17:00)
[2022-06-17] MEDS: REMDESIVIR 100 MG in NS 250 ML IV SCH (18:10)
[2022-06-17 20:00] VITALS: BP 163/72
[2022-06-17] MEDS ORDERED: LEVEMIR (INSULIN DETEMIR) 1 UNITS/0.01ML SC SCH (21:00)
[2022-06-17] MEDS: ENOXAPARIN 40MG/0.4ML SYRINGE (J1650 PER 10MG) SC SCH (21:15)
[2022-06-18] VITALS: BP 121/58
[2022-06-18] MEDS: LEVALBUTEROL 1.25 MG/0.5 ML CONCENTRATE NEB INH SCH ×7 (01:08→22:42)
[2022-06-18 04:00] VITALS: BP 130/60
[2022-06-18] MEDS: **hydrALAZINE HCL** 25 MG TAB PO SCH ×3 (05:17→21:13)
[2022-06-18 05:56] LABS: BASO % 0.2 % (0.0-1.0); EOS % 0.8 % (0.0-3.0); HEMATOCRIT 34.2 % (36.0-47.0); HEMOGLOBIN 10.4 g/dl (12.0-15.5); LYMPH # 1.7 10^3/uL (1.5-5.0); LYMPH % 31.6 % (24.0-44.0); MEAN CORPUSCULAR HEMOGLOBIN 28.7 pg (27.0-33.0); MEAN CORPUSCULAR HGB CONC 30.4 g/dl (32.0-36.5); MEAN CORPUSCULAR VOLUME 94.5 fl (80.0-96.0); MONO # 0.4 10^3/uL (0.0-0.8); MONO % 6.6 % (2.0-8.0); NEUTROPHILS # 3.2 10^3/uL (1.5-8.5); NEUTROPHILS % 60.6 % (36.0-66.0); PLATELET COUNT, AUTOMATED 126 10^3/uL (150-450); RED BLOOD COUNT 3.62 10^6/uL (4.00-5.40); WHITE BLOOD COUNT 5.3 10^3/uL (4.0-10.0)
[2022-06-18 06:35] LABS: ALBUMIN 2.3 GM/DL (3.2-5.2); BILIRUBIN,DIRECT 0.1 MG/DL (0.0-0.2); BILIRUBIN,TOTAL 0.2 MG/DL (0.2-1.0); CALCIUM LEVEL 7.7 MG/DL (8.8-10.2); CREATININE FOR GFR 2.11 MG/DL (0.55-1.30); GLOMERULAR FILTRATION RATE 29.1 (>32); MAGNESIUM LEVEL 1.9 MG/DL (1.8-2.4); PHOSPHORUS LEVEL 3.9 MG/DL (2.5-4.9); TOTAL PROTEIN 6.4 GM/DL (6.4-8.2)
[2022-06-18 08:00] VITALS: BP 147/66
[2022-06-18] MEDS ORDERED: LEVEMIR (INSULIN DETEMIR) 1 UNITS/0.01ML SC SCH ×2 (09:00→21:00)
[2022-06-18] MEDS: FUROSEMIDE 100MG/10ML VIAL (J1940) IV SCH ×2 (09:08→16:56)
[2022-06-18] MEDS: INSULIN LISPRO (NovoLOG) PER UNIT SC SCH ×4 (09:08→21:14)
[2022-06-18] MEDS: ASPIRIN 81MG ENTERIC TABLET PO SCH (09:09)
[2022-06-18] MEDS: atenoloL 25 MG TAB PO SCH (09:09)
[2022-06-18] MEDS: FERROUS SULFATE 325MG TAB PO SCH (09:09)
[2022-06-18] MEDS: dexameTHASONE 4 MG/ML 1ML VIAL (J1100 PER 1MG) IV SCH (09:09)
[2022-06-18] MEDS: FAMOTIDINE 20 MG TAB PO SCH (09:10)
[2022-06-18] MEDS: AZITHROMYCIN 250MG TABLET PO SCH (09:10)
[2022-06-18 12:00] VITALS: BP 109/53
[2022-06-18] MEDS ORDERED: PILL CUTTER 1 EACH XX PRN (12:20)
[2022-06-18] MEDS: NYSTATIN 500,000 U/5 ML SUSP UDC PO SCH ×3 (12:47→23:43)
[2022-06-18 16:00] VITALS: BP 120/55
[2022-06-18] MEDS: REMDESIVIR 100 MG in NS 250 ML IV SCH (17:59)
[2022-06-18] MEDS ORDERED: INSULIN LISPRO (NovoLOG) PER UNIT SC ONE (18:30)
[2022-06-18 20:00] VITALS: BP 170/69
[2022-06-18] MEDS ORDERED: ACETAMINOPHEN TAB 650MG DOSE (2X325MG) PO PRN (20:30)
[2022-06-18] MEDS: ENOXAPARIN 40MG/0.4ML SYRINGE (J1650 PER 10MG) SC SCH (21:14)
[2022-06-19] VITALS (7 sets, daily range): BP systolic 125–168; BP diastolic 61–77
[2022-06-19] MEDS: LEVALBUTEROL 1.25 MG/0.5 ML CONCENTRATE NEB INH SCH ×6 (03:19→22:57)
[2022-06-19] MEDS: NYSTATIN 500,000 U/5 ML SUSP UDC PO SCH ×4 (05:13→23:54)
[2022-06-19] MEDS: **hydrALAZINE HCL** 25 MG TAB PO SCH ×3 (05:14→21:16)
[2022-06-19 06:39] LABS: BASO % 0.2 % (0.0-1.0); EOS # 0.1 10^3/uL (0.0-0.5); EOS % 1.1 % (0.0-3.0); HEMATOCRIT 33.1 % (36.0-47.0); HEMOGLOBIN 10.2 g/dl (12.0-15.5); LYMPH % 32.6 % (24.0-44.0); MEAN CORPUSCULAR HEMOGLOBIN 28.8 pg (27.0-33.0); MEAN CORPUSCULAR HGB CONC 30.8 g/dl (32.0-36.5); MEAN CORPUSCULAR VOLUME 93.5 fl (80.0-96.0); MONO # 0.4 10^3/uL (0.0-0.8); MONO % 6.2 % (2.0-8.0); NEUTROPHILS # 3.6 10^3/uL (1.5-8.5); NEUTROPHILS % 59.6 % (36.0-66.0); PLATELET COUNT, AUTOMATED 113 10^3/uL (150-450); RED BLOOD COUNT 3.54 10^6/uL (4.00-5.40); WHITE BLOOD COUNT 6.1 10^3/uL (4.0-10.0)
[2022-06-19 07:09] LABS: CALCIUM LEVEL 7.6 MG/DL (8.8-10.2); CREATININE FOR GFR 2.01 MG/DL (0.55-1.30); GLOMERULAR FILTRATION RATE 30.7 (>32); MAGNESIUM LEVEL 2.1 MG/DL (1.8-2.4); PHOSPHORUS LEVEL 4.5 MG/DL (2.5-4.9); POTASSIUM SERUM 3.7 MEQ/L (3.5-5.1)
[2022-06-19] MEDS ORDERED: LEVEMIR (INSULIN DETEMIR) 1 UNITS/0.01ML SC SCH ×2 (09:00→21:00)
[2022-06-19] MEDS: INSULIN LISPRO (NovoLOG) PER UNIT SC SCH ×4 (09:26→21:17)
[2022-06-19] MEDS: FERROUS SULFATE 325MG TAB PO SCH (09:27)
[2022-06-19] MEDS: atenoloL 25 MG TAB PO SCH (09:27)
[2022-06-19] MEDS: FUROSEMIDE 100MG/10ML VIAL (J1940) IV SCH ×3 (09:27→20:19)
[2022-06-19] MEDS: FAMOTIDINE 20 MG TAB PO SCH (09:28)
[2022-06-19] MEDS: AZITHROMYCIN 250MG TABLET PO SCH (09:28)
[2022-06-19] MEDS: ASPIRIN 81MG ENTERIC TABLET PO SCH (09:28)
[2022-06-19] MEDS ORDERED: INSULIN LISPRO (NovoLOG) PER UNIT SC ONE (09:40)
[2022-06-19] MEDS: ENOXAPARIN 40MG/0.4ML SYRINGE (J1650 PER 10MG) SC SCH (20:20)
[2022-06-19] MEDS: POTASSIUM CHLORIDE 10MEQ SR TABLET PO SCH (20:20)
[2022-06-20] MEDS: FUROSEMIDE 100MG/10ML VIAL (J1940) IV SCH ×3 (03:08→19:38)
[2022-06-20] MEDS: LEVALBUTEROL 1.25 MG/0.5 ML CONCENTRATE NEB INH SCH ×6 (03:18→22:48)
[2022-06-20 04:00] VITALS: BP 148/78
[2022-06-20] MEDS: NYSTATIN 500,000 U/5 ML SUSP UDC PO SCH ×4 (05:08→23:58)
[2022-06-20] MEDS: **hydrALAZINE HCL** 25 MG TAB PO SCH ×3 (05:08→21:19)
[2022-06-20 05:42] LABS: ALBUMIN 2.1 GM/DL (3.2-5.2); BILIRUBIN,DIRECT 0.2 MG/DL (0.0-0.2); BILIRUBIN,TOTAL 0.2 MG/DL (0.2-1.0)
[2022-06-20] MEDS: INSULIN LISPRO (NovoLOG) PER UNIT SC SCH ×4 (07:30→21:20)
[2022-06-20 08:00] VITALS: BP 153/65
[2022-06-20] MEDS: ASPIRIN 81MG ENTERIC TABLET PO SCH (08:44)
[2022-06-20] MEDS: FERROUS SULFATE 325MG TAB PO SCH (08:45)
[2022-06-20] MEDS: POTASSIUM CHLORIDE 10MEQ SR TABLET PO SCH ×2 (08:45→21:19)
[2022-06-20] MEDS: FAMOTIDINE 20 MG TAB PO SCH (08:45)
[2022-06-20 08:47] LABS: CALCIUM LEVEL 7.8 MG/DL (8.8-10.2); CREATININE FOR GFR 1.65 MG/DL (0.55-1.30); GLOMERULAR FILTRATION RATE 38.6 (>32); POTASSIUM SERUM 3.8 MEQ/L (3.5-5.1)
[2022-06-20] MEDS: atenoloL 25 MG TAB PO SCH (08:55)
[2022-06-20] MEDS ORDERED: LEVEMIR (INSULIN DETEMIR) 1 UNITS/0.01ML SC SCH (09:00)
[2022-06-20 16:00] VITALS: BP 129/61
[2022-06-20 20:00] VITALS: BP 143/66
[2022-06-20] MEDS ORDERED: INSULIN LISPRO (NovoLOG) PER UNIT SC ONE (20:00)
[2022-06-20] MEDS: ENOXAPARIN 40MG/0.4ML SYRINGE (J1650 PER 10MG) SC SCH (21:19)
[2022-06-20] MEDS: LEVEMIR (INSULIN DETEMIR) 1 UNITS/0.01ML SC SCH (21:20)
[2022-06-21] VITALS: BP 119/54
[2022-06-21] MEDS: LEVALBUTEROL 1.25 MG/0.5 ML CONCENTRATE NEB INH SCH ×6 (02:52→23:33)
[2022-06-21] MEDS: FUROSEMIDE 100MG/10ML VIAL (J1940) IV SCH ×3 (03:40→20:41)
[2022-06-21 04:00] VITALS: BP 133/61
[2022-06-21 05:05] LABS: BASO % 0.1 % (0.0-1.0); EOS % 0.6 % (0.0-3.0); HEMATOCRIT 33.7 % (36.0-47.0); HEMOGLOBIN 10.5 g/dl (12.0-15.5); LYMPH % 29.4 % (24.0-44.0); MEAN CORPUSCULAR HEMOGLOBIN 28.6 pg (27.0-33.0); MEAN CORPUSCULAR HGB CONC 31.2 g/dl (32.0-36.5); MEAN CORPUSCULAR VOLUME 91.8 fl (80.0-96.0); MONO # 0.4 10^3/uL (0.0-0.8); MONO % 5.6 % (2.0-8.0); NEUTROPHILS # 4.3 10^3/uL (1.5-8.5); NEUTROPHILS % 64.2 % (36.0-66.0); PLATELET COUNT, AUTOMATED 138 10^3/uL (150-450); RED BLOOD COUNT 3.67 10^6/uL (4.00-5.40); WHITE BLOOD COUNT 6.7 10^3/uL (4.0-10.0)
[2022-06-21 05:35] LABS: CALCIUM LEVEL 7.4 MG/DL (8.8-10.2); CREATININE FOR GFR 1.4 MG/DL (0.55-1.30); GLOMERULAR FILTRATION RATE 46.7 (>32); MAGNESIUM LEVEL 1.9 MG/DL (1.8-2.4); PHOSPHORUS LEVEL 4.1 MG/DL (2.5-4.9); POTASSIUM SERUM 3.5 MEQ/L (3.5-5.1)
[2022-06-21] MEDS: NYSTATIN 500,000 U/5 ML SUSP UDC PO SCH ×4 (05:38→23:51)
[2022-06-21] MEDS: **hydrALAZINE HCL** 25 MG TAB PO SCH ×3 (05:39→21:51)
[2022-06-21 08:00] VITALS: BP 138/71
[2022-06-21] MEDS ORDERED: FLUTICASONE HFA 110 MCG 12 GM INHALER (FLOVENT) INH SCH (08:00)
[2022-06-21] MEDS: INSULIN LISPRO (NovoLOG) PER UNIT SC SCH ×4 (08:07→20:38)
[2022-06-21] MEDS: FAMOTIDINE 20 MG TAB PO SCH (08:08)
[2022-06-21] MEDS: FERROUS SULFATE 325MG TAB PO SCH (08:08)
[2022-06-21] MEDS: POTASSIUM CHLORIDE 10MEQ SR TABLET PO SCH ×2 (08:09→20:39)
[2022-06-21] MEDS: atenoloL 25 MG TAB PO SCH (08:09)
[2022-06-21] MEDS: ASPIRIN 81MG ENTERIC TABLET PO SCH (08:10)
[2022-06-21] MEDS ORDERED: LEVEMIR (INSULIN DETEMIR) 1 UNITS/0.01ML SC SCH (09:00)
[2022-06-21] MEDS: TIOTROPIUM INHALER/CAPSULE (SPIRIVA) INH SCH (11:29)
[2022-06-21 12:00] VITALS: BP 141/68
[2022-06-21 16:00] VITALS: BP 138/62
[2022-06-21 20:00] VITALS: BP 134/62
[2022-06-21] MEDS: LEVEMIR (INSULIN DETEMIR) 1 UNITS/0.01ML SC SCH (20:39)
[2022-06-21] MEDS: ENOXAPARIN 40MG/0.4ML SYRINGE (J1650 PER 10MG) SC SCH (20:39)
[2022-06-21] MEDS: ADVAIR HFA 230/21MCG INHALER INH SCH (22:03)
[2022-06-22] MEDS: LEVALBUTEROL 1.25 MG/0.5 ML CONCENTRATE NEB INH SCH ×5 (03:36→19:03)
[2022-06-22 04:14] VITALS: BP 112/57
[2022-06-22] MEDS: FUROSEMIDE 100MG/10ML VIAL (J1940) IV SCH (04:21)
[2022-06-22] MEDS: NYSTATIN 500,000 U/5 ML SUSP UDC PO SCH ×4 (06:26→23:14)
[2022-06-22] MEDS: **hydrALAZINE HCL** 25 MG TAB PO SCH ×3 (06:26→21:23)
[2022-06-22 06:27] LABS: BASO % 0.2 % (0.0-1.0); EOS # 0.1 10^3/uL (0.0-0.5); EOS % 1.5 % (0.0-3.0); HEMATOCRIT 33.5 % (36.0-47.0); HEMOGLOBIN 10.5 g/dl (12.0-15.5); LYMPH # 3.5 10^3/uL (1.5-5.0); LYMPH % 36.4 % (24.0-44.0); MEAN CORPUSCULAR HEMOGLOBIN 28.6 pg (27.0-33.0); MEAN CORPUSCULAR HGB CONC 31.3 g/dl (32.0-36.5); MEAN CORPUSCULAR VOLUME 91.3 fl (80.0-96.0); MONO # 0.8 10^3/uL (0.0-0.8); NEUTROPHILS # 5.1 10^3/uL (1.5-8.5); NEUTROPHILS % 53.5 % (36.0-66.0); PLATELET COUNT, AUTOMATED 143 10^3/uL (150-450); RED BLOOD COUNT 3.67 10^6/uL (4.00-5.40); WHITE BLOOD COUNT 9.5 10^3/uL (4.0-10.0)
[2022-06-22 07:12] LABS: CALCIUM LEVEL 7.9 MG/DL (8.8-10.2); CREATININE FOR GFR 1.3 MG/DL (0.55-1.30); GLOMERULAR FILTRATION RATE 50.8 (>32); MAGNESIUM LEVEL 1.9 MG/DL (1.8-2.4); POTASSIUM SERUM 3.2 MEQ/L (3.5-5.1)
[2022-06-22] MEDS ORDERED: POTASSIUM CHLORIDE 10MEQ SR TABLET PO ONE (07:30)
[2022-06-22] MEDS: INSULIN LISPRO (NovoLOG) PER UNIT SC SCH ×4 (07:30→21:21)
[2022-06-22] MEDS: TIOTROPIUM INHALER/CAPSULE (SPIRIVA) INH SCH (07:56)
[2022-06-22] MEDS: ADVAIR HFA 230/21MCG INHALER INH SCH ×2 (07:56→19:04)
[2022-06-22] MEDS: ATORVASTATIN 20 MG TAB PO SCH (09:00)
[2022-06-22] MEDS ORDERED: LEVEMIR (INSULIN DETEMIR) 1 UNITS/0.01ML SC SCH ×2 (09:00→21:00)
[2022-06-22] MEDS: FAMOTIDINE 20 MG TAB PO SCH (10:03)
[2022-06-22] MEDS: FERROUS SULFATE 325MG TAB PO SCH (10:03)
[2022-06-22] MEDS: ASPIRIN 81MG ENTERIC TABLET PO SCH (10:05)
[2022-06-22] MEDS: atenoloL 25 MG TAB PO SCH (10:05)
[2022-06-22 11:21] VITALS: O2SAT 96
[2022-06-22 11:55] VITALS: BP 115/58
[2022-06-22] MEDS ORDERED: TORSEMIDE 100 MG TAB PO ONE (12:00)
[2022-06-22] MEDS: POTASSIUM CHLORIDE 10MEQ SR TABLET PO SCH ×2 (12:40→21:21)
[2022-06-22] MEDS: TORSEMIDE 100 MG TAB PO SCH (17:44)
[2022-06-22 20:00] VITALS: BP 128/57
[2022-06-22] MEDS ORDERED: LIDOCAINE 5% (LIDODERM) PATCH TD SCH (21:00)
[2022-06-22] MEDS: ENOXAPARIN 40MG/0.4ML SYRINGE (J1650 PER 10MG) SC SCH (21:22)
[2022-06-23] MEDS: LEVALBUTEROL 1.25 MG/0.5 ML CONCENTRATE NEB INH SCH ×4 (01:21→12:27)
[2022-06-23 04:00] VITALS: BP 112/59
[2022-06-23] MEDS: **hydrALAZINE HCL** 25 MG TAB PO SCH (05:35)
[2022-06-23] MEDS: NYSTATIN 500,000 U/5 ML SUSP UDC PO SCH ×2 (05:50→13:17)
[2022-06-23 07:45] LABS: HEMATOCRIT 34.1 % (36.0-47.0); HEMOGLOBIN 10.6 g/dl (12.0-15.5); MEAN CORPUSCULAR HEMOGLOBIN 28.6 pg (27.0-33.0); MEAN CORPUSCULAR HGB CONC 31.1 g/dl (32.0-36.5); MEAN CORPUSCULAR VOLUME 91.9 fl (80.0-96.0); PLATELET COUNT, AUTOMATED 147 10^3/uL (150-450); RED BLOOD COUNT 3.71 10^6/uL (4.00-5.40); WHITE BLOOD COUNT 8.6 10^3/uL (4.0-10.0)
[2022-06-23 08:13] LABS: CREATININE FOR GFR 1.28 MG/DL (0.55-1.30); GLOMERULAR FILTRATION RATE 51.8 (>32); MAGNESIUM LEVEL 2.1 MG/DL (1.8-2.4); PHOSPHORUS LEVEL 4.3 MG/DL (2.5-4.9); POTASSIUM SERUM 4.3 MEQ/L (3.5-5.1)
[2022-06-23] MEDS: FERROUS SULFATE 325MG TAB PO SCH (08:46)
[2022-06-23] MEDS: ATORVASTATIN 20 MG TAB PO SCH (08:46)
[2022-06-23] MEDS: ASPIRIN 81MG ENTERIC TABLET PO SCH (08:46)
[2022-06-23] MEDS: INSULIN LISPRO (NovoLOG) PER UNIT SC SCH ×2 (08:46→13:17)
[2022-06-23] MEDS: FAMOTIDINE 20 MG TAB PO SCH (08:47)
[2022-06-23] MEDS: POTASSIUM CHLORIDE 10MEQ SR TABLET PO SCH (08:47)
[2022-06-23] MEDS: TORSEMIDE 100 MG TAB PO SCH (08:47)
[2022-06-23 08:51] VITALS: BP 156/69
[2022-06-23] MEDS: atenoloL 25 MG TAB PO SCH (08:52)
[2022-06-23] MEDS: TIOTROPIUM INHALER/CAPSULE (SPIRIVA) INH SCH (08:53)
[2022-06-23] MEDS: ADVAIR HFA 230/21MCG INHALER INH SCH (08:53)
[2022-06-23 12:16] VITALS: BP 101/46
[2022-06-23] MEDS ORDERED: TORS100T PO (13:09)
[2022-06-23] MEDS ORDERED: ADVA230A INH (13:12)
== END 2022-06-23 14:05 | DRG 177 ==
LOC: EDBD 09:11 → M ED 10:53 → M ED INP 11:58 → CANRESERV 13:46 → ENRESERV 13:46 → M ICU 19:15 → M 4MAIN 06-21 19:53
PROVIDERS: ADMIT Internal Medicine; ATTEND Internal Medicine
DX: U07.1 COVID-19 (principal); J12.82 Pneumonia due to coronavirus disease 2019; J96.22 Acute and chronic respiratory failure with hypercapnia; J96.21 Acute and chronic respiratory failure with hypoxia; I50.33 Acute on chronic diastolic (congestive) heart failure; J81.1 Chronic pulmonary edema; E66.2 Morbid (severe) obesity with alveolar hypoventilation; D61.818 Other pancytopenia; J44.1 Chronic obstructive pulmonary disease with (acute) exacerbation; N17.9 Acute kidney failure, unspecified; E87.3 Alkalosis; E87.29 Other acidosis; I13.0 Hypertensive heart and chronic kidney disease with heart failure and stage 1 through stage 4 chronic kidney disease, or unspecified chronic kidney disease; J45.909 Unspecified asthma, uncomplicated; I27.20 Pulmonary hypertension, unspecified; K21.9 Gastro-esophageal reflux disease without esophagitis; N18.2 Chronic kidney disease, stage 2 (mild); E11.649 Type 2 diabetes mellitus with hypoglycemia without coma; M06.9 Rheumatoid arthritis, unspecified; E11.22 Type 2 diabetes mellitus with diabetic chronic kidney disease; G47.33 Obstructive sleep apnea (adult) (pediatric); E11.51 Type 2 diabetes mellitus with diabetic peripheral angiopathy without gangrene; Z79.4 Long term (current) use of insulin; Z93.3 Colostomy status; Z79.82 Long term (current) use of aspirin; Z79.899 Other long term (current) drug therapy; Z88.0 Allergy status to penicillin

== ENCOUNTER → 2022-06-16 | Outpatient (REF) | payer MEDICARE ==
[~2022-06-16] MED LIST changes: +ACET-897 PO; +ACET1TAB55 PO; +ACET650T15 PO; +AMLO1TAB24 PO; +ATOR1TAB21 PO; +AZIT-10 PO; +AZIT500T5 PO; +BISA10SU4 XX; +CEFT1INJ5 IM; +DECA1CAP2 PO; +DESI13CR2 EX; +ENEMENE XX; +FAMO40TA3 PO; +FURO10EL IM; +FURO80VL IM; +GUAI5EL PO; +INSULADS INJ; +IPRA0.00 INH; +LIDO1ADH10 TOP; +METO25TA PO; +PRED20TA PO; +SENN-80 PO; +TORS100T PO; +VENTAER INH; +VICT18IN SC
== END ==
LOC: SKLAB5 08:47
PROVIDERS: ATTEND Nurse Practitioner Adult Health
DX: I50.9 Heart failure, unspecified (principal); Z53.8 Procedure and treatment not carried out for other reasons

== ENCOUNTER → 2022-06-16 | Outpatient (REF) | payer MEDICARE | LOC: SKLAB5 08:46 | PROVIDERS: ATTEND Internal Medicine | DX: J18.9 Pneumonia, unspecified organism (principal); Z53.8 Procedure and treatment not carried out for other reasons ==

== ENCOUNTER → 2022-07-14 | Outpatient (REF) | payer MEDICARE ==
[~2022-07-14] MED LIST changes: +ADVA230A INH
[2022-07-14 15:47] LABS: HEMOGLOBIN A1c 8.4 % (4.0-6.0)
[2022-07-14 15:52] LABS: CALCIUM LEVEL 7.8 MG/DL (8.3-10.6); CREATININE FOR GFR 1.3 MG/DL (0.55-1.30); GLOMERULAR FILTRATION RATE 50.8 (>32); POTASSIUM SERUM 4.8 MMOL/L (3.5-5.1)
== END ==
LOC: SKLAB5 07-13 15:51
PROVIDERS: ATTEND Nurse Practitioner Adult Health
DX: E11.9 Type 2 diabetes mellitus without complications (principal); I50.9 Heart failure, unspecified

== ENCOUNTER → 2022-07-30 | Outpatient (REF) | payer MEDICARE ==
[2022-07-30 13:25] LABS: HEMATOCRIT 36.7 % (36.0-47.0); HEMOGLOBIN 10.9 g/dl (12.0-15.5); MEAN CORPUSCULAR HEMOGLOBIN 28.6 pg (27.0-33.0); MEAN CORPUSCULAR HGB CONC 29.7 g/dl (32.0-36.5); MEAN CORPUSCULAR VOLUME 96.3 fl (80.0-96.0); PLATELET COUNT, AUTOMATED 176 10^3/uL (150-450); RED BLOOD COUNT 3.81 10^6/uL (4.00-5.40); WHITE BLOOD COUNT 6.2 10^3/uL (4.0-10.0)
[2022-07-30 13:36] LABS: BLOOD UREA NITROGEN 30 MG/DL (9-23); CALCIUM LEVEL 8.1 MG/DL (8.3-10.6); CARBON DIOXIDE LEVEL 35 MMOL/L (20-31); CHLORIDE LEVEL 98 MMOL/L (98-107); CREATININE FOR GFR 1.11 MG/DL (0.55-1.30); GLOMERULAR FILTRATION RATE > 60.0 (>32); GLUCOSE, FASTING 140 MG/DL (74-106); POTASSIUM SERUM 4.5 MMOL/L (3.5-5.1); SODIUM LEVEL 139 MMOL/L (136-145)
== END ==
LOC: SKLAB5 12:22
PROVIDERS: ATTEND Nurse Practitioner Adult Health
DX: I51.7 Cardiomegaly (principal)

== ENCOUNTER → 2022-07-30 | Outpatient (REF) | payer MEDICARE | LOC: SKLAB5 14:23 | PROVIDERS: ATTEND Nurse Practitioner Adult Health | DX: J06.9 Acute upper respiratory infection, unspecified (principal) ==

== ENCOUNTER → 2022-08-07 | Outpatient (REF) | payer MEDICARE ==
[2022-08-07 11:17] LABS: HEMATOCRIT 39.9 % (36.0-47.0); HEMOGLOBIN 11.9 g/dl (12.0-15.5); MEAN CORPUSCULAR HEMOGLOBIN 28.5 pg (27.0-33.0); MEAN CORPUSCULAR HGB CONC 29.8 g/dl (32.0-36.5); MEAN CORPUSCULAR VOLUME 95.7 fl (80.0-96.0); PLATELET COUNT, AUTOMATED 210 10^3/uL (150-450); RED BLOOD COUNT 4.17 10^6/uL (4.00-5.40); WHITE BLOOD COUNT 7.8 10^3/uL (4.0-10.0)
[2022-08-07 11:24] LABS: CALCIUM LEVEL 8.3 MG/DL (8.3-10.6); CREATININE FOR GFR 1.37 MG/DL (0.55-1.30); GLOMERULAR FILTRATION RATE 47.8 (>32); POTASSIUM SERUM 3.5 MMOL/L (3.5-5.1)
== END ==
LOC: SKLAB5 10:27
PROVIDERS: ATTEND Internal Medicine
DX: J98.4 Other disorders of lung (principal); I51.7 Cardiomegaly; M43.00 Spondylolysis, site unspecified

== ENCOUNTER → 2022-08-18 | Outpatient (REF) | payer MEDICARE, OTHER ==
[2022-08-18 16:47] LABS: HEMOGLOBIN 13.2 g/dl (12.0-15.5); MEAN CORPUSCULAR HEMOGLOBIN 28.4 pg (27.0-33.0); MEAN CORPUSCULAR HGB CONC 29.3 g/dl (32.0-36.5); MEAN CORPUSCULAR VOLUME 96.8 fl (80.0-96.0); PLATELET COUNT, AUTOMATED 177 10^3/uL (150-450); RED BLOOD COUNT 4.65 10^6/uL (4.00-5.40); WHITE BLOOD COUNT 8.8 10^3/uL (4.0-10.0)
[2022-08-18 17:13] LABS: CALCIUM LEVEL 8.7 MG/DL (8.3-10.6); CREATININE FOR GFR 1.21 MG/DL (0.55-1.30); GLOMERULAR FILTRATION RATE 55.2 (>32); POTASSIUM SERUM 4.5 MMOL/L (3.5-5.1)
== END ==
LOC: SKLAB5 16:03
PROVIDERS: ATTEND Nurse Practitioner Adult Health
DX: R41.82 Altered mental status, unspecified (principal)

== ENCOUNTER → 2022-08-19 | Outpatient (REF) | payer MEDICARE, OTHER ==
[2022-08-19 23:52] LABS: APPEARANCE, URINE MANUAL TURBID (CLEAR)
[2022-08-19 23:53] LABS: BILIRUBIN, URINE MANUAL NEGATIVE (NEGATIVE); BLOOD URINE MANUAL POSITIVE (NEGATIVE); COLOR, URINE MANUAL YELLOW (YELLOW); GLUCOSE, URINE (UA) MANUAL NEGATIVE (NEGATIVE); KETONE, URINE MANUAL NEGATIVE (NEGATIVE); LEUKOCYTE ESTERASE, URINE MAN POSITIVE (NEGATIVE); NITRITE, URINE MANUAL NEGATIVE (NEGATIVE); PROTEIN, URINE MANUAL 2+ mg/dL (NEGATIVE); UROBILINOGEN, URINE MANUAL NORMAL (NORMAL)
[2022-08-20 00:12] LABS: WBC, URINE 15-20 /hpf (0-3)
[2022-08-20 00:13] LABS: BACTERIA, URINE SMALL AMOUNT; HYALINE CAST, URINE NONE SEEN /lpf (0-1); MUCUS, URINE LARGE AMOUNT (NEGATIVE); SQUAMOUS EPITHELIAL CELL URINE SMALL AMOUNT /hpf (SMALL AMT)
== END ==
LOC: SKLAB5 07:00
PROVIDERS: ATTEND Nurse Practitioner Adult Health
DX: R41.82 Altered mental status, unspecified (principal)

== ENCOUNTER → 2022-09-18 | Outpatient (REF) | payer MEDICARE, OTHER ==
[2022-09-18 07:43] LABS: HEMOGLOBIN A1c 6.6 % (4.0-6.0)
[2022-09-18 07:50] LABS: BLOOD UREA NITROGEN 52 MG/DL (9-23); CALCIUM LEVEL 7.5 MG/DL (8.3-10.6); CARBON DIOXIDE LEVEL 34 MMOL/L (20-31); CHLORIDE LEVEL 103 MMOL/L (98-107); CREATININE FOR GFR 1.01 MG/DL (0.55-1.30); GLOMERULAR FILTRATION RATE > 60.0 (>32); GLUCOSE, FASTING 78 MG/DL (74-106); POTASSIUM SERUM 3.4 MMOL/L (3.5-5.1); SODIUM LEVEL 143 MMOL/L (136-145)
== END ==
LOC: SKLAB5 08:23
PROVIDERS: ATTEND Nurse Practitioner Adult Health
DX: I50.9 Heart failure, unspecified (principal); E11.9 Type 2 diabetes mellitus without complications

== ENCOUNTER → 2022-10-23 | Outpatient (REF) | payer MEDICARE, OTHER ==
[~2022-10-23] MED LIST changes: +ACET1TAB37 PO; +CALCCAP4 PO; +CEFD300CAP PO; +METO25TA4 PO; +NYST1POW9 TOP; +OMEP40CA5 PO; +SENN-186 PO; -SENN-80 PO; +SPIR50TA4 PO; +TORS20TA2 PO
[2022-10-23 08:22] LABS: ALBUMIN 1.9 G/DL (3.2-5.2); BLOOD UREA NITROGEN 22 MG/DL (9-23); CALCIUM LEVEL 7.6 MG/DL (8.3-10.6); CARBON DIOXIDE LEVEL > 40.0 MMOL/L (20-31); CHLORIDE LEVEL 102 MMOL/L (98-107); CREATININE FOR GFR 0.85 MG/DL (0.55-1.30); GLOMERULAR FILTRATION RATE > 60.0 (>32); GLUCOSE, FASTING 91 MG/DL (74-106); MAGNESIUM LEVEL 1.6 MG/DL (1.8-2.4); PHOSPHORUS LEVEL 3.9 MG/DL (2.4-5.1); POTASSIUM SERUM 3.5 MMOL/L (3.5-5.1); SODIUM LEVEL 143 MMOL/L (136-145)
[2022-10-23 09:24] LABS: BASO % 0.7 % (0.0-1.0); EOS # 0.4 10^3/uL (0.0-0.5); EOS % 7.9 % (0.0-3.0); HEMATOCRIT 34.7 % (36.0-47.0); HEMOGLOBIN 10.3 g/dl (12.0-15.5); LYMPH # 1.7 10^3/uL (1.5-5.0); LYMPH % 30.9 % (24.0-44.0); MEAN CORPUSCULAR HEMOGLOBIN 28.8 pg (27.0-33.0); MEAN CORPUSCULAR HGB CONC 29.7 g/dl (32.0-36.5); MEAN CORPUSCULAR VOLUME 96.9 fl (80.0-96.0); MONO # 0.5 10^3/uL (0.0-0.8); MONO % 8.2 % (2.0-8.0); NEUTROPHILS # 2.9 10^3/uL (1.5-8.5); NEUTROPHILS % 51.9 % (36.0-66.0); PLATELET COUNT, AUTOMATED 158 10^3/uL (150-450); RED BLOOD COUNT 3.58 10^6/uL (4.00-5.40); WHITE BLOOD COUNT 5.6 10^3/uL (4.0-10.0)
== END ==
LOC: SKLAB5 07:00
PROVIDERS: ATTEND Nurse Practitioner Adult Health
DX: E11.22 Type 2 diabetes mellitus with diabetic chronic kidney disease (principal); N18.9 Chronic kidney disease, unspecified

== ENCOUNTER → 2022-10-30 | Outpatient (REF) | payer MEDICARE, OTHER ==
[~2022-10-30] MED LIST changes: -ACET1TAB37 PO; -CALCCAP4 PO; -CEFD300CAP PO; -METO25TA4 PO; -NYST1POW9 TOP; -OMEP40CA5 PO; -SENN-186 PO; +SENN-80 PO; -SPIR50TA4 PO; -TORS20TA2 PO
[2022-10-30 13:03] LABS: CREATININE,RANDOM URINE 29.6 MG/DL
== END ==
LOC: SKLAB5 07:00
PROVIDERS: ATTEND Nurse Practitioner Adult Health
DX: E11.9 Type 2 diabetes mellitus without complications (principal)

== ENCOUNTER → 2022-11-13 | Outpatient (REF) | payer MEDICARE, OTHER ==
[2022-11-13 11:04] LABS: CALCIUM LEVEL 8.3 MG/DL (8.3-10.6); CREATININE FOR GFR 1.15 MG/DL (0.55-1.30); GLOMERULAR FILTRATION RATE 58.6 (>32); POTASSIUM SERUM 4.4 MMOL/L (3.5-5.1)
== END ==
LOC: SKLAB5 09:40
PROVIDERS: ATTEND Nurse Practitioner Adult Health
DX: D64.9 Anemia, unspecified (principal)

== ENCOUNTER 2022-12-04 15:02 | Inpatient (IN) | payer MEDICARE, OTHER ==
[~2022-12-04] VITALS: Ht 167.6 cm; Wt 135.7 kg
[~2022-12-04 15:02] MED LIST changes: -ACET1TAB37 PO; -CALCCAP4 PO; -METO25TA4 PO; -NYST1POW9 TOP; -OMEP40CA5 PO; -SPIR50TA4 PO
[2022-12-04] MEDS ORDERED: LIDOCAINE 2% 5ML JELLY UROJET TOP ONE (15:25)
[2022-12-04] MEDS ORDERED: NS 500 ML IV ONE ×2 (15:30)
[2022-12-04 16:28] LABS: BASO % 0.5 % (0.0-1.0); EOS # 0.2 10^3/uL (0.0-0.5); EOS % 1.8 % (0.0-3.0); HEMATOCRIT 39.5 % (36.0-47.0); HEMOGLOBIN 12.4 g/dl (12.0-15.5); LYMPH # 3.3 10^3/uL (1.5-5.0); LYMPH % 37.5 % (24.0-44.0); MEAN CORPUSCULAR HEMOGLOBIN 29.2 pg (27.0-33.0); MEAN CORPUSCULAR HGB CONC 31.4 g/dl (32.0-36.5); MEAN CORPUSCULAR VOLUME 92.9 fl (80.0-96.0); MONO # 0.6 10^3/uL (0.0-0.8); MONO % 6.3 % (2.0-8.0); NEUTROPHILS # 4.7 10^3/uL (1.5-8.5); NEUTROPHILS % 53.7 % (36.0-66.0); PLATELET COUNT, AUTOMATED 161 10^3/uL (150-450); RED BLOOD COUNT 4.25 10^6/uL (4.00-5.40); WHITE BLOOD COUNT 8.7 10^3/uL (4.0-10.0)
[2022-12-04 17:02] LABS: BILIRUBIN,DIRECT 0.2 MG/DL (<0.4); BILIRUBIN,TOTAL 0.4 MG/DL (0.3-1.2); CREATININE FOR GFR 3.87 MG/DL (0.55-1.30); GLOMERULAR FILTRATION RATE 14.4 (>32); MAGNESIUM LEVEL 2.3 MG/DL (1.8-2.4); POTASSIUM SERUM 5.5 MMOL/L (3.5-5.1); TOTAL PROTEIN 7.2 G/DL (5.7-8.2)
[2022-12-04 17:04] LABS: FREE T4 1.45 NG/DL (0.89-1.76)
[2022-12-04 17:08] LABS: RSV AMPLIFICATION NEGATIVE (NEGATIVE)
[2022-12-04] MEDS ORDERED: GLUCOSE 4GM CHEW TABLET PO PRN (17:45)
[2022-12-04] MEDS ORDERED: GLUCAGON INJ 1MG VIAL SC PRN (17:45)
[2022-12-04] MEDS ORDERED: DEXTROSE 50% 50ML SYRINGE IV PRN (17:45)
[2022-12-04 17:46] LABS: THYROID STIMULATING HORMONE 0.839 uIU/ML (0.55-4.78)
[2022-12-04] MEDS ORDERED: DEXTROSE 50% 50ML SYRINGE IV STA (17:50)
[2022-12-04] MEDS ORDERED: ALBUTEROL SULFATE 2.5MG/0.5ML INH NEB SOLN NEB ONE (17:50)
[2022-12-04] MEDS ORDERED: HumuLIN R (REGULAR) INSULIN (NovoLIN R) **100U/ML** PER UNIT IV STA (17:50)
[2022-12-04] MEDS ORDERED: CALCIUM GLUCONATE 1,000 MG in D5W MINI-BAG PLUS 100 ML IV ONE (17:50)
[2022-12-04] MEDS ORDERED: PATIROMER SORBITEX CALCIUM 8.4 GM POWDER PACKET (VELTASSA) PO ONE (17:50)
[2022-12-04] MEDS ORDERED: ONDANSETRON 4MG 2ML VIAL IV PRN (18:30)
[2022-12-04 19:06] LABS: CREATININE,RANDOM URINE 27.5 MG/DL
[2022-12-04] MEDS ORDERED: TORS100T PO (19:34)
[2022-12-04] MEDS ORDERED: CALCCAP4 PO (19:34)
[2022-12-04] MEDS ORDERED: OMEP40CA5 PO (19:34)
[2022-12-04] MEDS ORDERED: METO25TA4 PO (19:34)
[2022-12-04] MEDS ORDERED: NYST1POW9 TOP (19:34)
[2022-12-04] MEDS ORDERED: FLUT11IN INH (19:34)
[2022-12-04] MEDS ORDERED: ACET1TAB37 PO (19:34)
[2022-12-04] MEDS ORDERED: SPIR50TA4 PO (19:34)
[2022-12-04] MEDS ORDERED: BISACODYL 10MG SUPP XX PRN (19:40)
[2022-12-04] MEDS ORDERED: HOME MED LIST COMPLETE! XX SCH (19:40)
[2022-12-04] MEDS: NS 1,000 ML IV SCH ×2 (19:54→22:14)
[2022-12-04] MEDS: ALBUTEROL SULFATE 2.5MG/0.5ML INH NEB SOLN NEB SCH (20:50)
[2022-12-04] MEDS ORDERED: LEVEMIR (INSULIN DETEMIR) 1 UNITS/0.01ML SC SCH (21:00)
[2022-12-04 22:28] VITALS: BP 113/53
[2022-12-04] MEDS: METOPROLOL TART 25 MG TABLET PO SCH (22:48)
[2022-12-04] MEDS: MIRALAX *UNIT DOSE* 17GM PACKET PO SCH (22:59)
[2022-12-04] MEDS: CALCIUM/VITAMIN D 500 MG TAB PO SCH (22:59)
[2022-12-04] MEDS: LEVEMIR (INSULIN DETEMIR) 1 UNITS/0.01ML SC SCH (23:00)
[2022-12-04] MEDS: BENZOCAINE 10% 9GM TUBE (ANBESOL) TOP PRN (23:25)
[2022-12-04] MEDS: ACETAMINOPHEN TAB 650MG DOSE (2X325MG) PO PRN (23:25)
[2022-12-04] MEDS: NYSTATIN 100,000 UNITS/GM TOPICAL PWD 15GM TOP SCH (23:25)
[2022-12-04] MEDS: AZELASTINE 137MCG NASAL SPY 30 ML (ASTELIN) SCH (23:25)
[2022-12-04 23:30] LABS: CALCIUM LEVEL 8.9 MG/DL (8.3-10.6); CREATININE FOR GFR 3.61 MG/DL (0.55-1.30); GLOMERULAR FILTRATION RATE 15.6 (>32); POTASSIUM SERUM 4.5 MMOL/L (3.5-5.1)
[2022-12-05] VITALS: BP 120/57
[2022-12-05] MEDS: ALBUTEROL SULFATE 2.5MG/0.5ML INH NEB SOLN NEB SCH ×4 (02:45→20:32)
[2022-12-05 03:48] VITALS: BP 111/55
[2022-12-05] MEDS: HEPARIN SOD (PORCINE) 5000UNITS/ML 1ML VIAL/SYRINGE SC SCH ×3 (05:25→21:14)
[2022-12-05 05:39] LABS: BASO % 0.4 % (0.0-1.0); EOS # 0.2 10^3/uL (0.0-0.5); EOS % 2.6 % (0.0-3.0); HEMATOCRIT 39.7 % (36.0-47.0); HEMOGLOBIN 12.2 g/dl (12.0-15.5); LYMPH # 2.5 10^3/uL (1.5-5.0); LYMPH % 32.9 % (24.0-44.0); MEAN CORPUSCULAR HGB CONC 30.7 g/dl (32.0-36.5); MEAN CORPUSCULAR VOLUME 94.3 fl (80.0-96.0); MONO # 0.7 10^3/uL (0.0-0.8); MONO % 8.9 % (2.0-8.0); NEUTROPHILS # 4.2 10^3/uL (1.5-8.5); NEUTROPHILS % 55.1 % (36.0-66.0); PLATELET COUNT, AUTOMATED 141 10^3/uL (150-450); RED BLOOD COUNT 4.21 10^6/uL (4.00-5.40); WHITE BLOOD COUNT 7.7 10^3/uL (4.0-10.0)
[2022-12-05 05:57] LABS: CALCIUM LEVEL 8.8 MG/DL (8.3-10.6); CREATININE FOR GFR 3.47 MG/DL (0.55-1.30); GLOMERULAR FILTRATION RATE 16.4 (>32); POTASSIUM SERUM 5.2 MMOL/L (3.5-5.1)
[2022-12-05] MEDS: FLUTICASONE HFA 110MCG 12GM INHALER (FLOVENT) INH SCH ×2 (07:16→20:30)
[2022-12-05 07:33] VITALS: BP 116/56
[2022-12-05] MEDS: OMEPRAZOLE 20MG CAP PO SCH (08:21)
[2022-12-05] MEDS: MIRALAX *UNIT DOSE* 17GM PACKET PO SCH ×2 (08:21→20:10)
[2022-12-05] MEDS: LORATADINE 10 MG TAB PO SCH (08:22)
[2022-12-05] MEDS: ASPIRIN 81MG ENTERIC TABLET PO SCH (08:22)
[2022-12-05] MEDS: SENNA 8.6 MG TAB (SENOKOT) PO SCH (08:22)
[2022-12-05] MEDS: METOPROLOL TART 25 MG TABLET PO SCH ×3 (08:22→20:12)
[2022-12-05] MEDS: CALCIUM/VITAMIN D 500 MG TAB PO SCH ×2 (08:22→20:11)
[2022-12-05] MEDS: ATORVASTATIN 20 MG TAB PO SCH (08:22)
[2022-12-05] MEDS: LEVEMIR (INSULIN DETEMIR) 1 UNITS/0.01ML SC SCH ×2 (08:23→20:10)
[2022-12-05] MEDS: INSULIN LISPRO (NovoLOG) PER UNIT SC SCH ×3 (08:23→17:28)
[2022-12-05] MEDS: NYSTATIN 100,000 UNITS/GM TOPICAL PWD 15GM TOP SCH ×2 (08:24→20:11)
[2022-12-05] MEDS: AZELASTINE 137MCG NASAL SPY 30 ML (ASTELIN) SCH ×2 (08:24→20:11)
[2022-12-05] MEDS ORDERED: cefTRIAXone SOD 2 GM in D5W MINI-BAG PLUS 50 ML IV SCH (09:00)
[2022-12-05 11:41] VITALS: BP 114/53
[2022-12-05] MEDS: NS 1,000 ML IV SCH (18:10)
[2022-12-05 20:00] VITALS: BP 113/56
[2022-12-05] MEDS: ACETAMINOPHEN TAB 650MG DOSE (2X325MG) PO PRN (20:16)
[2022-12-05] MEDS: BENZOCAINE 10% 9GM TUBE (ANBESOL) TOP PRN (20:16)
[2022-12-06 02:10] VITALS: BP 119/57
[2022-12-06] MEDS: ALBUTEROL SULFATE 2.5MG/0.5ML INH NEB SOLN NEB SCH ×4 (03:06→20:58)
[2022-12-06 03:36] LABS: CREATININE FOR GFR 2.83 MG/DL (0.55-1.30); GLOMERULAR FILTRATION RATE 20.7 (>32); POTASSIUM SERUM 4.4 MMOL/L (3.5-5.1)
[2022-12-06 03:48] VITALS: BP 114/57
[2022-12-06] MEDS: HEPARIN SOD (PORCINE) 5000UNITS/ML 1ML VIAL/SYRINGE SC SCH ×3 (05:19→21:04)
[2022-12-06] MEDS: FLUTICASONE HFA 110MCG 12GM INHALER (FLOVENT) INH SCH ×2 (07:10→20:58)
[2022-12-06] MEDS: NS 1,000 ML IV SCH (07:46)
[2022-12-06] MEDS: INSULIN LISPRO (NovoLOG) PER UNIT SC SCH ×3 (07:47→18:34)
[2022-12-06 07:58] VITALS: BP 127/60
[2022-12-06] MEDS: SENNA 8.6 MG TAB (SENOKOT) PO SCH (10:05)
[2022-12-06] MEDS: CEFDINIR 300 MG CAP (OMNICEF) PO SCH (10:05)
[2022-12-06] MEDS: OMEPRAZOLE 20MG CAP PO SCH (10:05)
[2022-12-06] MEDS: ASPIRIN 81MG ENTERIC TABLET PO SCH (10:05)
[2022-12-06] MEDS: LEVEMIR (INSULIN DETEMIR) 1 UNITS/0.01ML SC SCH ×2 (10:05→21:04)
[2022-12-06] MEDS: MIRALAX *UNIT DOSE* 17GM PACKET PO SCH ×2 (10:05→21:04)
[2022-12-06] MEDS: ATORVASTATIN 20 MG TAB PO SCH (10:06)
[2022-12-06] MEDS: LORATADINE 10 MG TAB PO SCH (10:06)
[2022-12-06] MEDS: CALCIUM/VITAMIN D 500 MG TAB PO SCH ×2 (10:06→21:04)
[2022-12-06] MEDS: METOPROLOL TART 25 MG TABLET PO SCH ×2 (10:06→21:00)
[2022-12-06] MEDS: AZELASTINE 137MCG NASAL SPY 30 ML (ASTELIN) SCH ×2 (10:06→21:36)
[2022-12-06] MEDS: NYSTATIN 100,000 UNITS/GM TOPICAL PWD 15GM TOP SCH ×2 (10:07→21:05)
[2022-12-06] MEDS: ACETAMINOPHEN TAB 650MG DOSE (2X325MG) PO PRN ×2 (10:47→21:35)
[2022-12-06 19:28] VITALS: BP 125/60
[2022-12-07] MEDS: ALBUTEROL SULFATE 2.5MG/0.5ML INH NEB SOLN NEB SCH ×4 (01:08→19:37)
[2022-12-07 04:16] VITALS: BP 109/53
[2022-12-07] MEDS: HEPARIN SOD (PORCINE) 5000UNITS/ML 1ML VIAL/SYRINGE SC SCH (05:25)
[2022-12-07 07:19] LABS: HEMATOCRIT 34.2 % (36.0-47.0); HEMOGLOBIN 10.4 g/dl (12.0-15.5); MEAN CORPUSCULAR HEMOGLOBIN 28.7 pg (27.0-33.0); MEAN CORPUSCULAR HGB CONC 30.4 g/dl (32.0-36.5); MEAN CORPUSCULAR VOLUME 94.5 fl (80.0-96.0); PLATELET COUNT, AUTOMATED 110 10^3/uL (150-450); RED BLOOD COUNT 3.62 10^6/uL (4.00-5.40); WHITE BLOOD COUNT 5.5 10^3/uL (4.0-10.0)
[2022-12-07] MEDS: FLUTICASONE HFA 110MCG 12GM INHALER (FLOVENT) INH SCH ×2 (07:20→19:37)
[2022-12-07 07:47] LABS: CALCIUM LEVEL 7.9 MG/DL (8.3-10.6); CREATININE FOR GFR 1.99 MG/DL (0.55-1.30); GLOMERULAR FILTRATION RATE 31.1 (>32); POTASSIUM SERUM 5.1 MMOL/L (3.5-5.1)
[2022-12-07] MEDS: INSULIN LISPRO (NovoLOG) PER UNIT SC SCH ×3 (07:53→17:04)
[2022-12-07 07:55] VITALS: BP 117/58
[2022-12-07] MEDS: ASPIRIN 81MG ENTERIC TABLET PO SCH (09:52)
[2022-12-07] MEDS: ATORVASTATIN 20 MG TAB PO SCH (09:53)
[2022-12-07] MEDS: OMEPRAZOLE 20MG CAP PO SCH (09:53)
[2022-12-07] MEDS: MIRALAX *UNIT DOSE* 17GM PACKET PO SCH ×2 (09:53→20:31)
[2022-12-07] MEDS: METOPROLOL TART 25 MG TABLET PO SCH ×2 (09:55→20:23)
[2022-12-07] MEDS: SENNA 8.6 MG TAB (SENOKOT) PO SCH (09:55)
[2022-12-07] MEDS: CALCIUM/VITAMIN D 500 MG TAB PO SCH ×2 (09:56→20:31)
[2022-12-07] MEDS: LORATADINE 10 MG TAB PO SCH (09:56)
[2022-12-07] MEDS: AZELASTINE 137MCG NASAL SPY 30 ML (ASTELIN) SCH ×2 (09:58→20:32)
[2022-12-07] MEDS: NYSTATIN 100,000 UNITS/GM TOPICAL PWD 15GM TOP SCH ×2 (09:58→20:32)
[2022-12-07] MEDS: LEVEMIR (INSULIN DETEMIR) 1 UNITS/0.01ML SC SCH ×2 (09:59→20:31)
[2022-12-07] MEDS: CEFDINIR 300 MG CAP (OMNICEF) PO SCH (10:24)
[2022-12-07 16:15] VITALS: BP 116/56
[2022-12-07] MEDS ORDERED: RIVAROXABAN 10MG TAB (XARELTO) PO SCH (18:00)
[2022-12-07 20:03] VITALS: BP 115/56
[2022-12-08 00:28] VITALS: BP 115/53
[2022-12-08] MEDS: ACETAMINOPHEN TAB 650MG DOSE (2X325MG) PO PRN (00:41)
[2022-12-08] MEDS: ALBUTEROL SULFATE 2.5MG/0.5ML INH NEB SOLN NEB SCH ×2 (01:23→07:10)
[2022-12-08 03:33] VITALS: BP 110/53
[2022-12-08 06:13] LABS: BASO % 0.3 % (0.0-1.0); EOS # 0.2 10^3/uL (0.0-0.5); EOS % 3.6 % (0.0-3.0); HEMOGLOBIN 9.9 g/dl (12.0-15.5); LYMPH # 2.1 10^3/uL (1.5-5.0); LYMPH % 33.7 % (24.0-44.0); MEAN CORPUSCULAR HEMOGLOBIN 28.9 pg (27.0-33.0); MEAN CORPUSCULAR HGB CONC 30.9 g/dl (32.0-36.5); MEAN CORPUSCULAR VOLUME 93.3 fl (80.0-96.0); MONO # 0.4 10^3/uL (0.0-0.8); MONO % 6.2 % (2.0-8.0); NEUTROPHILS # 3.5 10^3/uL (1.5-8.5); NEUTROPHILS % 55.9 % (36.0-66.0); PLATELET COUNT, AUTOMATED 106 10^3/uL (150-450); RED BLOOD COUNT 3.43 10^6/uL (4.00-5.40); WHITE BLOOD COUNT 6.2 10^3/uL (4.0-10.0)
[2022-12-08 06:30] LABS: ALBUMIN 2.2 G/DL (3.2-5.2); BILIRUBIN,TOTAL 0.4 MG/DL (0.3-1.2); CALCIUM LEVEL 7.7 MG/DL (8.3-10.6); CREATININE FOR GFR 1.69 MG/DL (0.55-1.30); GLOMERULAR FILTRATION RATE 37.6 (>32); POTASSIUM SERUM 4.9 MMOL/L (3.5-5.1); TOTAL PROTEIN 5.5 G/DL (5.7-8.2)
[2022-12-08] MEDS: FLUTICASONE HFA 110MCG 12GM INHALER (FLOVENT) INH SCH (07:11)
[2022-12-08 08:00] VITALS: BP 111/56
[2022-12-08] MEDS ORDERED: TORS20TA2 PO (08:46)
[2022-12-08] MEDS ORDERED: CEFD300CAP PO (08:47)
[2022-12-08] MEDS: LEVEMIR (INSULIN DETEMIR) 1 UNITS/0.01ML SC SCH (08:58)
[2022-12-08] MEDS: SENNA 8.6 MG TAB (SENOKOT) PO SCH (08:58)
[2022-12-08] MEDS: INSULIN LISPRO (NovoLOG) PER UNIT SC SCH (08:58)
[2022-12-08] MEDS: MIRALAX *UNIT DOSE* 17GM PACKET PO SCH (08:58)
[2022-12-08] MEDS: ATORVASTATIN 20 MG TAB PO SCH (08:58)
[2022-12-08] MEDS: ASPIRIN 81MG ENTERIC TABLET PO SCH (08:58)
[2022-12-08] MEDS: LORATADINE 10 MG TAB PO SCH (08:58)
[2022-12-08] MEDS: CALCIUM/VITAMIN D 500 MG TAB PO SCH (08:59)
[2022-12-08] MEDS: OMEPRAZOLE 20MG CAP PO SCH (08:59)
[2022-12-08] MEDS: CEFDINIR 300 MG CAP (OMNICEF) PO SCH (08:59)
[2022-12-08] MEDS: NYSTATIN 100,000 UNITS/GM TOPICAL PWD 15GM TOP SCH (09:00)
[2022-12-08] MEDS: AZELASTINE 137MCG NASAL SPY 30 ML (ASTELIN) SCH (09:00)
[2022-12-08] MEDS ORDERED: TORSEMIDE 20 MG TAB PO SCH (09:00)
[2022-12-08 09:05] VITALS: BP 125/58
[2022-12-08] MEDS: METOPROLOL TART 25 MG TABLET PO SCH (09:05)
[2022-12-08 11:54] VITALS: BP 118/55
== END 2022-12-08 12:16 | DRG 683 ==
LOC: M ED 15:02 → M ED INP 17:45 → ENRESERV 20:52 → M PCU 22:22
PROVIDERS: ADMIT Internal Medicine; ATTEND Internal Medicine
DX: N17.9 Acute kidney failure, unspecified (principal); J96.11 Chronic respiratory failure with hypoxia; E66.2 Morbid (severe) obesity with alveolar hypoventilation; I50.32 Chronic diastolic (congestive) heart failure; N39.0 Urinary tract infection, site not specified; I13.0 Hypertensive heart and chronic kidney disease with heart failure and stage 1 through stage 4 chronic kidney disease, or unspecified chronic kidney disease; E87.1 Hypo-osmolality and hyponatremia; Z68.42 Body mass index [BMI] 45.0-49.9, adult; D61.818 Other pancytopenia; E78.5 Hyperlipidemia, unspecified; E11.22 Type 2 diabetes mellitus with diabetic chronic kidney disease; J45.909 Unspecified asthma, uncomplicated; J44.9 Chronic obstructive pulmonary disease, unspecified; R63.0 Anorexia; E87.5 Hyperkalemia; I27.20 Pulmonary hypertension, unspecified; N18.9 Chronic kidney disease, unspecified; K59.00 Constipation, unspecified; K21.9 Gastro-esophageal reflux disease without esophagitis; B96.1 Klebsiella pneumoniae [K. pneumoniae] as the cause of diseases classified elsewhere; R32 Unspecified urinary incontinence; I50.810 Right heart failure, unspecified; Z93.3 Colostomy status; Z99.81 Dependence on supplemental oxygen; Z88.8 Allergy status to other drugs, medicaments and biological substances; Z79.82 Long term (current) use of aspirin; Z79.4 Long term (current) use of insulin; Z79.899 Other long term (current) drug therapy; Z88.0 Allergy status to penicillin; Z74.01 Bed confinement status

== ENCOUNTER → 2022-12-04 | Outpatient (REF) | payer MEDICARE, OTHER ==
[~2022-12-04] MED LIST changes: +ACET1TAB37 PO; +CALCCAP4 PO; +METO25TA4 PO; +NYST1POW9 TOP; +OMEP40CA5 PO; +SENN-186 PO; -SENN-80 PO; +SPIR50TA4 PO
[2022-12-04 12:19] LABS: HEMATOCRIT 40.3 % (36.0-47.0); HEMOGLOBIN 12.5 g/dl (12.0-15.5); MEAN CORPUSCULAR HEMOGLOBIN 28.8 pg (27.0-33.0); MEAN CORPUSCULAR VOLUME 92.9 fl (80.0-96.0); PLATELET COUNT, AUTOMATED 189 10^3/uL (150-450); RED BLOOD COUNT 4.34 10^6/uL (4.00-5.40); WHITE BLOOD COUNT 8.9 10^3/uL (4.0-10.0)
[2022-12-04 12:48] LABS: BILIRUBIN,TOTAL 0.5 MG/DL (0.3-1.2); CALCIUM LEVEL 8.9 MG/DL (8.3-10.6); CREATININE FOR GFR 3.95 MG/DL (0.55-1.30); GLOMERULAR FILTRATION RATE 14.1 (>32); POTASSIUM SERUM 5.4 MMOL/L (3.5-5.1); TOTAL PROTEIN 7.3 G/DL (5.7-8.2)
== END ==
LOC: SKLAB5 11:40
PROVIDERS: ATTEND Nurse Practitioner Adult Health
DX: R63.4 Abnormal weight loss (principal)

== ENCOUNTER → 2022-12-11 | Outpatient (REF) | payer MEDICARE, OTHER ==
[~2022-12-11] MED LIST changes: +ACET1TAB37 PO; +CALCCAP4 PO; +CEFD300CAP PO; +METO25TA4 PO; +NYST1POW9 TOP; +OMEP40CA5 PO; +SPIR50TA4 PO; +TORS20TA2 PO
[2022-12-11 07:42] LABS: CALCIUM LEVEL 8.1 MG/DL (8.3-10.6); CREATININE FOR GFR 1.9 MG/DL (0.55-1.30); GLOMERULAR FILTRATION RATE 32.8 (>32); MAGNESIUM LEVEL 1.9 MG/DL (1.8-2.4); POTASSIUM SERUM 5.3 MMOL/L (3.5-5.1)
== END ==
LOC: SKLAB5 07:00
PROVIDERS: ATTEND Nurse Practitioner Adult Health
DX: N18.9 Chronic kidney disease, unspecified (principal)

== ENCOUNTER → 2022-12-14 | Outpatient (REF) | payer MEDICARE, OTHER ==
[2022-12-14 09:07] LABS: CALCIUM LEVEL 8.1 MG/DL (8.3-10.6); CREATININE FOR GFR 1.81 MG/DL (0.55-1.30); GLOMERULAR FILTRATION RATE 34.7 (>32); POTASSIUM SERUM 5.1 MMOL/L (3.5-5.1)
== END ==
LOC: SKLAB5 07:44
PROVIDERS: ATTEND Nurse Practitioner Adult Health
DX: N18.9 Chronic kidney disease, unspecified (principal)

== ENCOUNTER → 2022-12-18 | Outpatient (REF) | payer MEDICARE, OTHER ==
[2022-12-18 09:35] LABS: HEMATOCRIT 32.8 % (36.0-47.0); HEMOGLOBIN 10.1 g/dl (12.0-15.5); MEAN CORPUSCULAR HEMOGLOBIN 29.4 pg (27.0-33.0); MEAN CORPUSCULAR HGB CONC 30.8 g/dl (32.0-36.5); MEAN CORPUSCULAR VOLUME 95.3 fl (80.0-96.0); PLATELET COUNT, AUTOMATED 128 10^3/uL (150-450); RED BLOOD COUNT 3.44 10^6/uL (4.00-5.40); WHITE BLOOD COUNT 5.2 10^3/uL (4.0-10.0)
[2022-12-18 09:53] LABS: HEMOGLOBIN A1c 7.7 % (4.0-6.0)
[2022-12-18 10:01] LABS: ALBUMIN 2.3 G/DL (3.2-5.2); BILIRUBIN,TOTAL 0.5 MG/DL (0.3-1.2); CALCIUM LEVEL 8.3 MG/DL (8.3-10.6); CREATININE FOR GFR 1.37 MG/DL (0.55-1.30); GLOMERULAR FILTRATION RATE 47.8 (>32); MAGNESIUM LEVEL 1.6 MG/DL (1.8-2.4); POTASSIUM SERUM 4.3 MMOL/L (3.5-5.1); TOTAL PROTEIN 5.8 G/DL (5.7-8.2)
== END ==
LOC: SKLAB5 09:22
PROVIDERS: ATTEND Nurse Practitioner Adult Health
DX: I50.9 Heart failure, unspecified (principal); N18.9 Chronic kidney disease, unspecified; Z79.899 Other long term (current) drug therapy

== ENCOUNTER → 2022-12-25 | Outpatient (REF) | payer MEDICARE, OTHER ==
[2022-12-25 08:08] LABS: CALCIUM LEVEL 7.9 MG/DL (8.3-10.6); CREATININE FOR GFR 1.47 MG/DL (0.55-1.30); GLOMERULAR FILTRATION RATE 44.1 (>32); MAGNESIUM LEVEL 1.6 MG/DL (1.8-2.4); POTASSIUM SERUM 4.4 MMOL/L (3.5-5.1)
== END ==
LOC: SKLAB5 07:00
PROVIDERS: ATTEND Nurse Practitioner Adult Health
DX: N18.9 Chronic kidney disease, unspecified (principal)

== ENCOUNTER → 2022-12-31 | Outpatient (REF) | payer MEDICARE, OTHER ==
[2022-12-31 13:17] LABS: HEMATOCRIT 37.7 % (36.0-47.0); HEMOGLOBIN 11.3 g/dl (12.0-15.5); MEAN CORPUSCULAR HEMOGLOBIN 29.7 pg (27.0-33.0); PLATELET COUNT, AUTOMATED 205 10^3/uL (150-450); RED BLOOD COUNT 3.81 10^6/uL (4.00-5.40)
[2022-12-31 13:34] LABS: CALCIUM LEVEL 8.6 MG/DL (8.3-10.6); CREATININE FOR GFR 1.34 MG/DL (0.55-1.30); GLOMERULAR FILTRATION RATE 49.1 (>32); POTASSIUM SERUM 4.5 MMOL/L (3.5-5.1)
[2022-12-31 13:36] LABS: ALBUMIN 2.6 G/DL (3.2-5.2); CALCIUM LEVEL 8.7 MG/DL (8.3-10.6); CREATININE FOR GFR 1.32 MG/DL (0.55-1.30); GLOMERULAR FILTRATION RATE 49.9 (>32); MAGNESIUM LEVEL 1.7 MG/DL (1.8-2.4); PHOSPHORUS LEVEL 4.2 MG/DL (2.4-5.1); POTASSIUM SERUM 4.5 MMOL/L (3.5-5.1)
== END ==
LOC: SKLAB5 12:21
PROVIDERS: ATTEND Nurse Practitioner Adult Health
DX: R53.83 Other fatigue (principal)

== ENCOUNTER 2023-01-02 10:36 | Emergency (ER) | payer MEDICARE, MEDICAID ==
[~2023-01-02] VITALS: Ht 167.6 cm; Wt 142.9 kg
[2023-01-02] MEDS ORDERED: NS IV ONE (10:40)
[2023-01-02] MEDS ORDERED: cefTRIAXone SOD 2 GM in D5W MINI-BAG PLUS 50 ML IV ONE (10:40)
[2023-01-02] MEDS ORDERED: TORS20TA2 PO (11:14)
[2023-01-02] MEDS ORDERED: HOME MED LIST COMPLETE! XX SCH (11:15)
[2023-01-02 12:35] LABS: VENOUS BASE EXCESS -1.7 (-2.0-2.0); VENOUS HCO3 25.3 MMOL/L (23.0-27.0); VENOUS O2 SATURATION 59.3 % (60.0-80.0); VENOUS PARTIAL PRESSURE CO2 52.5 mmHg (38.0-50.0); VENOUS PARTIAL PRESSURE O2 33.8 mmHg (30.0-50.0); VENOUS STANDARD HCO3 22.3 MMOL/L; VENOUS TOTAL CO2 26.9 MMOL/L (24.0-28.0)
[2023-01-02 12:39] LABS: BASO % 0.3 % (0.0-1.0); EOS # 0.1 10^3/uL (0.0-0.5); HEMATOCRIT 35.7 % (36.0-47.0); HEMOGLOBIN 10.8 g/dl (12.0-15.5); LYMPH # 2.9 10^3/uL (1.5-5.0); LYMPH % 28.1 % (24.0-44.0); MEAN CORPUSCULAR HGB CONC 30.3 g/dl (32.0-36.5); MEAN CORPUSCULAR VOLUME 99.2 fl (80.0-96.0); MONO # 0.9 10^3/uL (0.0-0.8); MONO % 9.1 % (2.0-8.0); NEUTROPHILS # 6.3 10^3/uL (1.5-8.5); PLATELET COUNT, AUTOMATED 157 10^3/uL (150-450); WHITE BLOOD COUNT 10.2 10^3/uL (4.0-10.0)
[2023-01-02] MEDS ORDERED: ALBUTEROL SULFATE 2.5MG/0.5ML INH NEB SOLN INH ONE (12:40)
[2023-01-02] MEDS ORDERED: methylPREDNISolone 125MG 2ML VIAL IV ONE (12:40)
[2023-01-02] MEDS ORDERED: IPRATROPIUM 0.5MG/ALBUTEROL 2.5MG INH SOL UD 3ML (DUONEB) NEB ONE (12:40)
[2023-01-02 12:53] LABS: INR 1.08; PARTIAL THROMBOPLASTIN TIME 28.8 SECONDS (24.8-34.2); PROTHROMBIN TIME 14.2 SECONDS (12.5-14.5)
[2023-01-02 12:59] LABS: CK-MB VALUE MASS < 1.0 NG/ML (<3.6)
[2023-01-02 13:00] LABS: AMYLASE 44 U/L (30-118)
[2023-01-02 13:02] LABS: ALBUMIN 2.3 G/DL (3.2-5.2); ALKALINE PHOSPHATASE 602 U/L (46-116); ALT/SGPT 67 U/L (7.0-40); AST/SGOT 68 U/L (<34); BILIRUBIN,DIRECT 0.4 MG/DL (<0.4); BILIRUBIN,TOTAL 0.8 MG/DL (0.3-1.2); BLOOD UREA NITROGEN 37 MG/DL (9-23); CALCIUM LEVEL 8.3 MG/DL (8.3-10.6); CARBON DIOXIDE LEVEL 29 MMOL/L (20-31); CHLORIDE LEVEL 109 MMOL/L (98-107); CPK CREATINE PHOSPHOKINASE 20 U/L (34-145); CREATININE FOR GFR 1.34 MG/DL (0.55-1.30); GLOMERULAR FILTRATION RATE 49.1 (>32); GLUCOSE, FASTING 143 MG/DL (74-106); POTASSIUM SERUM 4.1 MMOL/L (3.5-5.1); SODIUM LEVEL 144 MMOL/L (136-145); TOTAL PROTEIN 6.1 G/DL (5.7-8.2)
[2023-01-02 14:53] LABS: APPEARANCE, URINE CLOUDY (CLEAR); BACTERIA, URINE AUTO NEGATIVE (NEGATIVE); BILIRUBIN, URINE AUTO NEGATIVE (NEGATIVE); BLOOD, URINE BLOOD 1+ (NEGATIVE); COLOR, URINE YELLOW (YELLOW); GLUCOSE, URINE (UA) AUTO NEGATIVE (NEGATIVE); KETONE, URINE AUTO NEGATIVE (NEGATIVE); LEUKOCYTE ESTERASE, URINE AUTO 3+ (NEGATIVE); NITRITE, URINE AUTO NEGATIVE (NEGATIVE); PROTEIN, URINE AUTO NEGATIVE (NEGATIVE); RBC, URINE AUTO 24 /HPF (0-3); SPECIFIC GRAVITY URINE AUTO 1.009 (1.002-1.035); SQUAMOUS EPITHELIAL CELL UR AU 9 /HPF (0-6); URIC ACID CRYSTALS MODERATE; UROBILINOGEN, URINE AUTO 0.2 mg/dL (0.0-2.0); WBC, URINE AUTO 155 /HPF (0-3)
[2023-01-02] MEDS ORDERED: PRED20TA PO (15:44)
[2023-01-02 15:58] VITALS: BP 144/70
== END 2023-01-02 16:48 | disposition home or self-care (01) ==
LOC: M ED 10:36
DX: J44.1 Chronic obstructive pulmonary disease with (acute) exacerbation (principal); E11.9 Type 2 diabetes mellitus without complications; I50.20 Unspecified systolic (congestive) heart failure; I10 Essential (primary) hypertension; J45.909 Unspecified asthma, uncomplicated; Z88.1 Allergy status to other antibiotic agents; Z79.82 Long term (current) use of aspirin; Z79.51 Long term (current) use of inhaled steroids
CPT/HCPCS: 71045; 71250; 80048; 80076; 81001; 82150; 82550; 82553; 82803; 83605; 84484; 85025; 85610; 85730; 86140; 86850; 86900; 86901; 87040; 87186; 87486; 87581; 87633; 87798; 93005; 93041; 94640; 94760; 96361; 96365; 96375; 99284; J0696; J2930

== ENCOUNTER → 2023-01-21 | Outpatient (REF) | payer MEDICARE, OTHER ==
[2023-01-21 15:45] LABS: HEMATOCRIT 33.6 % (36.0-47.0); HEMOGLOBIN 10.1 g/dl (12.0-15.5); MEAN CORPUSCULAR HEMOGLOBIN 29.5 pg (27.0-33.0); MEAN CORPUSCULAR HGB CONC 30.1 g/dl (32.0-36.5); MEAN CORPUSCULAR VOLUME 98.2 fl (80.0-96.0); PLATELET COUNT, AUTOMATED 110 10^3/uL (150-450); RED BLOOD COUNT 3.42 10^6/uL (4.00-5.40); WHITE BLOOD COUNT 5.7 10^3/uL (4.0-10.0)
[2023-01-21 16:13] LABS: BLOOD UREA NITROGEN 21 MG/DL (9-23); CALCIUM LEVEL 7.3 MG/DL (8.3-10.6); CARBON DIOXIDE LEVEL 30 MMOL/L (20-31); CHLORIDE LEVEL 108 MMOL/L (98-107); CREATININE FOR GFR 0.93 MG/DL (0.55-1.30); GLOMERULAR FILTRATION RATE > 60.0 (>32); GLUCOSE, FASTING 211 MG/DL (74-106); SODIUM LEVEL 142 MMOL/L (136-145)
== END ==
LOC: SKLAB5 15:07
PROVIDERS: ATTEND Nurse Practitioner Adult Health
DX: N18.9 Chronic kidney disease, unspecified (principal)

== ENCOUNTER → 2023-01-21 | Outpatient (REF) | payer MEDICARE, OTHER | LOC: SKLAB5 15:06 | PROVIDERS: ATTEND Nurse Practitioner Adult Health | DX: N18.9 Chronic kidney disease, unspecified (principal); Z53.8 Procedure and treatment not carried out for other reasons ==

== ENCOUNTER → 2023-01-26 | Outpatient (REF) | payer MEDICARE, OTHER ==
[2023-01-26 09:28] LABS: HEMOGLOBIN 10.4 g/dl (12.0-15.5); MEAN CORPUSCULAR HGB CONC 29.7 g/dl (32.0-36.5); MEAN CORPUSCULAR VOLUME 97.5 fl (80.0-96.0); PLATELET COUNT, AUTOMATED 140 10^3/uL (150-450); RED BLOOD COUNT 3.59 10^6/uL (4.00-5.40); WHITE BLOOD COUNT 6.7 10^3/uL (4.0-10.0)
[2023-01-26 09:56] LABS: BLOOD UREA NITROGEN 19 MG/DL (9-23); CALCIUM LEVEL 7.4 MG/DL (8.3-10.6); CARBON DIOXIDE LEVEL 36 MMOL/L (20-31); CHLORIDE LEVEL 103 MMOL/L (98-107); GLOMERULAR FILTRATION RATE > 60.0 (>32); GLUCOSE, FASTING 115 MG/DL (74-106); POTASSIUM SERUM 3.6 MMOL/L (3.5-5.1); SODIUM LEVEL 142 MMOL/L (136-145)
== END ==
LOC: SKLAB5 11:00
PROVIDERS: ATTEND Nurse Practitioner Adult Health
DX: N18.9 Chronic kidney disease, unspecified (principal)

== ENCOUNTER → 2023-02-15 | Outpatient (REF) | payer MEDICARE, OTHER ==
[~2023-02-15] MED LIST changes: -FLUT11IN INH; +FLUT12AE6 INH; -HYDR200T3 PO; +HYDR200T46 PO
[2023-02-15 14:14] LABS: HEMATOCRIT 38.5 % (36.0-47.0); MEAN CORPUSCULAR HEMOGLOBIN 28.9 pg (27.0-33.0); MEAN CORPUSCULAR HGB CONC 28.6 g/dl (32.0-36.5); PLATELET COUNT, AUTOMATED 167 10^3/uL (150-450); RED BLOOD COUNT 3.81 10^6/uL (4.00-5.40); WHITE BLOOD COUNT 7.7 10^3/uL (4.0-10.0)
[2023-02-15 14:36] LABS: BLOOD UREA NITROGEN 17 MG/DL (9-23); CALCIUM LEVEL 7.8 MG/DL (8.3-10.6); CARBON DIOXIDE LEVEL 36 MMOL/L (20-31); CHLORIDE LEVEL 104 MMOL/L (98-107); CREATININE FOR GFR 0.88 MG/DL (0.55-1.30); GLOMERULAR FILTRATION RATE > 60.0 (>32); GLUCOSE, FASTING 109 MG/DL (74-106); POTASSIUM SERUM 4.3 MMOL/L (3.5-5.1); SODIUM LEVEL 143 MMOL/L (136-145)
== END ==
LOC: SKLAB5 13:20
PROVIDERS: ATTEND Nurse Practitioner Adult Health
DX: I50.9 Heart failure, unspecified (principal)

== ENCOUNTER → 2023-02-22 | Outpatient (REF) | payer MEDICARE, OTHER ==
[2023-02-22 06:45] LABS: HEMATOCRIT 32.4 % (36.0-47.0); HEMOGLOBIN 9.5 g/dl (12.0-15.5); MEAN CORPUSCULAR HEMOGLOBIN 29.5 pg (27.0-33.0); MEAN CORPUSCULAR HGB CONC 29.3 g/dl (32.0-36.5); MEAN CORPUSCULAR VOLUME 100.6 fl (80.0-96.0); PLATELET COUNT, AUTOMATED 144 10^3/uL (150-450); RED BLOOD COUNT 3.22 10^6/uL (4.00-5.40); WHITE BLOOD COUNT 5.5 10^3/uL (4.0-10.0)
[2023-02-22 07:14] LABS: CALCIUM LEVEL 7.5 MG/DL (8.3-10.6); CREATININE FOR GFR 1.17 MG/DL (0.55-1.30); GLOMERULAR FILTRATION RATE 57.3 (>32); POTASSIUM SERUM 3.6 MMOL/L (3.5-5.1)
== END ==
LOC: SKLAB5 09:35
PROVIDERS: ATTEND Internal Medicine
DX: N18.9 Chronic kidney disease, unspecified (principal); I50.9 Heart failure, unspecified

== ENCOUNTER → 2023-02-26 | Outpatient (REF) | payer MEDICARE, OTHER ==
[2023-02-26 09:56] LABS: HEMATOCRIT 35.8 % (36.0-47.0); HEMOGLOBIN 10.5 g/dl (12.0-15.5); MEAN CORPUSCULAR HEMOGLOBIN 29.2 pg (27.0-33.0); MEAN CORPUSCULAR HGB CONC 29.3 g/dl (32.0-36.5); MEAN CORPUSCULAR VOLUME 99.4 fl (80.0-96.0); PLATELET COUNT, AUTOMATED 166 10^3/uL (150-450); WHITE BLOOD COUNT 6.3 10^3/uL (4.0-10.0)
[2023-02-26 10:05] LABS: BLOOD UREA NITROGEN 21 MG/DL (9-23); CARBON DIOXIDE LEVEL 40 MMOL/L (20-31); CHLORIDE LEVEL 101 MMOL/L (98-107); CREATININE FOR GFR 0.82 MG/DL (0.55-1.30); GLOMERULAR FILTRATION RATE > 60.0 (>32); GLUCOSE, FASTING 75 MG/DL (74-106); POTASSIUM SERUM 3.5 MMOL/L (3.5-5.1); SODIUM LEVEL 142 MMOL/L (136-145)
== END ==
LOC: SKLAB5 08:41
PROVIDERS: ATTEND Internal Medicine
DX: I50.9 Heart failure, unspecified (principal); I27.20 Pulmonary hypertension, unspecified; J81.1 Chronic pulmonary edema; M51.34 Other intervertebral disc degeneration, thoracic region; R09.02 Hypoxemia; R06.2 Wheezing

== ENCOUNTER → 2023-03-01 | Outpatient (REF) | payer MEDICARE, OTHER ==
[2023-03-01 07:15] LABS: HEMATOCRIT 35.4 % (36.0-47.0); HEMOGLOBIN 10.3 g/dl (12.0-15.5); MEAN CORPUSCULAR HGB CONC 29.1 g/dl (32.0-36.5); MEAN CORPUSCULAR VOLUME 99.7 fl (80.0-96.0); PLATELET COUNT, AUTOMATED 146 10^3/uL (150-450); RED BLOOD COUNT 3.55 10^6/uL (4.00-5.40); WHITE BLOOD COUNT 6.4 10^3/uL (4.0-10.0)
[2023-03-01 07:42] LABS: BLOOD UREA NITROGEN 22 MG/DL (9-23); CALCIUM LEVEL 7.9 MG/DL (8.3-10.6); CARBON DIOXIDE LEVEL 39 MMOL/L (20-31); CHLORIDE LEVEL 100 MMOL/L (98-107); CREATININE FOR GFR 0.88 MG/DL (0.55-1.30); GLOMERULAR FILTRATION RATE > 60.0 (>32); GLUCOSE, FASTING 55 MG/DL (74-106); SODIUM LEVEL 141 MMOL/L (136-145)
== END ==
LOC: SKLAB5 07:00
PROVIDERS: ATTEND Internal Medicine
DX: I50.9 Heart failure, unspecified (principal)

== ENCOUNTER → 2023-04-08 | Outpatient (REF) | payer MEDICARE, OTHER ==
[~2023-04-08] MED LIST changes: +INSU100I24 SC; -INSU100I9 SC
== END ==
LOC: SKLAB5 13:24
PROVIDERS: ATTEND Nurse Practitioner Adult Health
DX: J02.9 Acute pharyngitis, unspecified (principal); R05.9 Cough, unspecified

== ENCOUNTER → 2023-04-16 | Outpatient (REF) | payer MEDICARE, OTHER ==
[2023-04-16 07:22] LABS: BLOOD UREA NITROGEN 27 MG/DL (9-23); CALCIUM LEVEL 8.1 MG/DL (8.3-10.6); CARBON DIOXIDE LEVEL 39 MMOL/L (20-31); CHLORIDE LEVEL 100 MMOL/L (98-107); CREATININE FOR GFR 0.96 MG/DL (0.55-1.30); GLOMERULAR FILTRATION RATE > 60.0 (>32); GLUCOSE, FASTING 80 MG/DL (74-106); POTASSIUM SERUM 3.5 MMOL/L (3.5-5.1); SODIUM LEVEL 143 MMOL/L (136-145)
== END ==
LOC: SKLAB5 07:00
PROVIDERS: ATTEND Nurse Practitioner Adult Health
DX: I50.9 Heart failure, unspecified (principal)

== ENCOUNTER → 2023-04-20 | Outpatient (REF) | payer MEDICARE, OTHER ==
[2023-04-20 09:47] LABS: URIC ACID 11.2 MG/DL (3.1-7.8)
[2023-04-20 09:49] LABS: MAGNESIUM LEVEL 1.7 MG/DL (1.8-2.4)
[2023-04-20 09:52] LABS: ALBUMIN 2.3 G/DL (3.2-5.2); BLOOD UREA NITROGEN 26 MG/DL (9-23); CALCIUM LEVEL 7.9 MG/DL (8.3-10.6); CARBON DIOXIDE LEVEL > 40.0 MMOL/L (20-31); CHLORIDE LEVEL 99 MMOL/L (98-107); CREATININE FOR GFR 0.92 MG/DL (0.55-1.30); GLOMERULAR FILTRATION RATE > 60.0 (>32); GLUCOSE, FASTING 113 MG/DL (74-106); PHOSPHORUS LEVEL 3.9 MG/DL (2.4-5.1); POTASSIUM SERUM 4.3 MMOL/L (3.5-5.1); SODIUM LEVEL 142 MMOL/L (136-145)
[2023-04-20 10:49] LABS: TOTAL PROTEIN,RANDOM URINE 11.2 MG/DL (0.0-14.0)
[2023-04-20 10:54] LABS: CREATININE,RANDOM URINE 44.7 MG/DL
[2023-04-20 15:45] LABS: APPEARANCE, URINE CLOUDY (CLEAR); BACTERIA, URINE AUTO 2+ (NEGATIVE); BILIRUBIN, URINE AUTO NEGATIVE (NEGATIVE); BLOOD, URINE BLOOD 1+ (NEGATIVE); COLOR, URINE YELLOW (YELLOW); GLUCOSE, URINE (UA) AUTO NEGATIVE (NEGATIVE); KETONE, URINE AUTO NEGATIVE (NEGATIVE); LEUKOCYTE ESTERASE, URINE AUTO 3+ (NEGATIVE); NITRITE, URINE AUTO NEGATIVE (NEGATIVE); PROTEIN, URINE AUTO NEGATIVE (NEGATIVE); RBC, URINE AUTO 15 /HPF (0-3); SQUAMOUS EPITHELIAL CELL UR AU 6 /HPF (0-6); UROBILINOGEN, URINE AUTO 0.2 mg/dL (0.0-2.0); WBC, URINE AUTO TNTC /HPF (0-3)
== END ==
LOC: SKLAB5 08:34
PROVIDERS: ATTEND Nurse Practitioner Adult Health
DX: N18.9 Chronic kidney disease, unspecified (principal)

== ENCOUNTER → 2023-04-28 | Outpatient (REF) | payer MEDICARE, OTHER ==
[2023-04-28 15:07] LABS: HEMATOCRIT 37.8 % (36.0-47.0); HEMOGLOBIN 10.9 g/dl (12.0-15.5); MEAN CORPUSCULAR HEMOGLOBIN 27.7 pg (27.0-33.0); MEAN CORPUSCULAR HGB CONC 28.8 g/dl (32.0-36.5); MEAN CORPUSCULAR VOLUME 95.9 fl (80.0-96.0); PLATELET COUNT, AUTOMATED 167 10^3/uL (150-450); RED BLOOD COUNT 3.94 10^6/uL (4.00-5.40); WHITE BLOOD COUNT 7.8 10^3/uL (4.0-10.0)
[2023-04-28 15:29] LABS: CALCIUM LEVEL 8.3 MG/DL (8.3-10.6); CREATININE FOR GFR 1.22 MG/DL (0.55-1.30); GLOMERULAR FILTRATION RATE 54.6 (>32); POTASSIUM SERUM 4.5 MMOL/L (3.5-5.1)
== END ==
LOC: SKLAB5 14:22
PROVIDERS: ATTEND Nurse Practitioner Adult Health
DX: I50.9 Heart failure, unspecified (principal)

== ENCOUNTER → 2023-05-04 | Outpatient (REF) | payer MEDICARE, OTHER ==
[2023-05-04 08:42] LABS: HEMATOCRIT 33.1 % (36.0-47.0); HEMOGLOBIN 9.7 g/dl (12.0-15.5); MEAN CORPUSCULAR HGB CONC 29.3 g/dl (32.0-36.5); MEAN CORPUSCULAR VOLUME 95.4 fl (80.0-96.0); PLATELET COUNT, AUTOMATED 142 10^3/uL (150-450); RED BLOOD COUNT 3.47 10^6/uL (4.00-5.40); WHITE BLOOD COUNT 6.1 10^3/uL (4.0-10.0)
== END ==
LOC: SKLAB5 08:04
PROVIDERS: ATTEND Nurse Practitioner Adult Health
DX: I50.9 Heart failure, unspecified (principal)

== ENCOUNTER → 2023-05-04 | Outpatient (REF) | payer MEDICARE, OTHER ==
[2023-05-04 07:59] LABS: BLOOD UREA NITROGEN 43 MG/DL (9-23); CARBON DIOXIDE LEVEL > 40.0 MMOL/L (20-31); CHLORIDE LEVEL 99 MMOL/L (98-107); CREATININE FOR GFR 1.41 MG/DL (0.55-1.30); GLOMERULAR FILTRATION RATE 46.2 (>32); GLUCOSE, FASTING 153 MG/DL (74-106); POTASSIUM SERUM 3.6 MMOL/L (3.5-5.1); SODIUM LEVEL 145 MMOL/L (136-145)
== END ==
LOC: SKLAB5 07:00
PROVIDERS: ATTEND Nurse Practitioner Adult Health
DX: I50.9 Heart failure, unspecified (principal)

== ENCOUNTER → 2023-05-07 | Outpatient (REF) | payer MEDICARE, OTHER ==
[2023-05-07 09:28] LABS: HEMATOCRIT 35.2 % (36.0-47.0); HEMOGLOBIN 10.2 g/dl (12.0-15.5); MEAN CORPUSCULAR HEMOGLOBIN 27.8 pg (27.0-33.0); MEAN CORPUSCULAR VOLUME 95.9 fl (80.0-96.0); PLATELET COUNT, AUTOMATED 150 10^3/uL (150-450); RED BLOOD COUNT 3.67 10^6/uL (4.00-5.40); WHITE BLOOD COUNT 8.6 10^3/uL (4.0-10.0)
[2023-05-07 10:00] LABS: BLOOD UREA NITROGEN 40 MG/DL (9-23); CARBON DIOXIDE LEVEL > 40.0 MMOL/L (20-31); CHLORIDE LEVEL 96 MMOL/L (98-107); CREATININE FOR GFR 1.17 MG/DL (0.55-1.30); GLOMERULAR FILTRATION RATE 57.3 (>32); GLUCOSE, FASTING 53 MG/DL (74-106); POTASSIUM SERUM 3.6 MMOL/L (3.5-5.1); SODIUM LEVEL 144 MMOL/L (136-145)
== END ==
LOC: SKLAB5 08:34
PROVIDERS: ATTEND Nurse Practitioner Family
DX: I51.7 Cardiomegaly (principal); J90 Pleural effusion, not elsewhere classified; Z98.890 Other specified postprocedural states

== ENCOUNTER 2023-05-13 16:19 | Emergency (ER) | payer MEDICARE, OTHER ==
[~2023-05-13] VITALS: Ht 167.6 cm; Wt 149.0 kg
[2023-05-13 16:53] LABS: ABG BASE EXCESS 13.6 (-2.0-2.0); ABG HCO3 38.9 MMOL/L (22.0-26.0); ABG O2 SATURATION 93.2 % (95.0-99.0); ABG PARTIAL PRESSURE CO2 52.4 mmHg (35.0-45.0); ABG PARTIAL PRESSURE O2 67.6 mmHg (75.0-100.0); ABG STANDARD HCO3 37.3 MMOL/L. (22.0-26.0); ABG TOTAL CO2 40.5 MMOL/L (23.0-31.0); ABG pH (ARTERIAL) 7.488 UNITS (7.350-7.450)
[2023-05-13 17:31] LABS: BASO % 0.6 % (0.0-1.0); EOS # 0.1 10^3/uL (0.0-0.5); EOS % 2.1 % (0.0-3.0); HEMATOCRIT 35.4 % (36.0-47.0); HEMOGLOBIN 10.1 g/dl (12.0-15.5); LYMPH # 1.6 10^3/uL (1.5-5.0); LYMPH % 25.6 % (24.0-44.0); MEAN CORPUSCULAR HEMOGLOBIN 27.3 pg (27.0-33.0); MEAN CORPUSCULAR HGB CONC 28.5 g/dl (32.0-36.5); MEAN CORPUSCULAR VOLUME 95.7 fl (80.0-96.0); MONO # 0.3 10^3/uL (0.0-0.8); MONO % 4.8 % (2.0-8.0); NEUTROPHILS # 4.2 10^3/uL (1.5-8.5); NEUTROPHILS % 66.7 % (36.0-66.0); PLATELET COUNT, AUTOMATED 164 10^3/uL (150-450); WHITE BLOOD COUNT 6.2 10^3/uL (4.0-10.0)
[2023-05-13 17:46] LABS: INR 1.22
[2023-05-13 17:58] LABS: THYROXINE (T4) 14.2 UG/DL (4.5-10.9)
[2023-05-13 18:04] LABS: PROCALCITONIN 0.16 ng/ml
[2023-05-13 18:05] LABS: ALBUMIN 2.2 G/DL (3.2-5.2); ALKALINE PHOSPHATASE 576 U/L (46-116); ALT/SGPT 30 U/L (7.0-40); AST/SGOT 72 U/L (<34); BILIRUBIN,DIRECT 0.2 MG/DL (<0.4); BILIRUBIN,TOTAL 0.4 MG/DL (0.3-1.2); BLOOD UREA NITROGEN 33 MG/DL (9-23); CALCIUM LEVEL 8.1 MG/DL (8.3-10.6); CARBON DIOXIDE LEVEL > 40.0 MMOL/L (20-31); CHLORIDE LEVEL 95 MMOL/L (98-107); CK-MB VALUE MASS < 1.0 NG/ML (<3.6); CPK CREATINE PHOSPHOKINASE 52 U/L (34-145); CREATININE FOR GFR 1.17 MG/DL (0.55-1.30); GLOMERULAR FILTRATION RATE 57.3 (>32); GLUCOSE, FASTING 183 MG/DL (74-106); MB/CK RELATIVE INDEX 1.92 (< OR =4); POTASSIUM SERUM 5.1 MMOL/L (3.5-5.1); SODIUM LEVEL 145 MMOL/L (136-145); TOTAL PROTEIN 6.5 G/DL (5.7-8.2)
[2023-05-13 20:47] VITALS: BP 167/73; TEMP 98.1; O2SAT 91
[2023-05-13 20:51] LABS: CK-MB VALUE MASS < 1.0 NG/ML (<3.6)
[2023-05-13 20:53] LABS: CPK CREATINE PHOSPHOKINASE 29 U/L (34-145); MB/CK RELATIVE INDEX 3.44 (< OR =4)
[2023-05-14 08:55] LABS: PHOSPHORUS LEVEL 3.2 MG/DL (2.4-5.1)
[2023-05-14 08:58] LABS: TOTAL 25(OH) VITAMIN D 55.1 NG/ML (20.0-100.0)
[2023-05-15 06:24] LABS: PTH INTACT 170.7 PG/ML (18.5-88.0)
== END 2023-05-13 22:58 | disposition home or self-care (01) ==
LOC: M ED 16:19 → EDBD 16:19 → M ED 22:58
DX: J96.10 Chronic respiratory failure, unspecified whether with hypoxia or hypercapnia (principal); E11.9 Type 2 diabetes mellitus without complications; I10 Essential (primary) hypertension; J45.909 Unspecified asthma, uncomplicated; J44.9 Chronic obstructive pulmonary disease, unspecified; N18.9 Chronic kidney disease, unspecified; E78.5 Hyperlipidemia, unspecified; Z88.1 Allergy status to other antibiotic agents; Z79.82 Long term (current) use of aspirin; Z79.52 Long term (current) use of systemic steroids; Z79.811 Long term (current) use of aromatase inhibitors; Z79.899 Other long term (current) drug therapy; I50.9 Heart failure, unspecified

== ENCOUNTER → 2023-05-13 | Outpatient (REF) | payer MEDICARE, OTHER | LOC: SKLAB5 08:08 | PROVIDERS: ATTEND Nurse Practitioner Adult Health | DX: J81.1 Chronic pulmonary edema (principal) ==

== ENCOUNTER → 2023-05-13 | Outpatient (REF) | payer MEDICARE, OTHER ==
[2023-05-13 10:37] LABS: HEMOGLOBIN 11.1 g/dl (12.0-15.5); MEAN CORPUSCULAR HEMOGLOBIN 27.9 pg (27.0-33.0); MEAN CORPUSCULAR HGB CONC 29.2 g/dl (32.0-36.5); MEAN CORPUSCULAR VOLUME 95.5 fl (80.0-96.0); PLATELET COUNT, AUTOMATED 169 10^3/uL (150-450); RED BLOOD COUNT 3.98 10^6/uL (4.00-5.40); WHITE BLOOD COUNT 7.4 10^3/uL (4.0-10.0)
[2023-05-13 11:00] LABS: BLOOD UREA NITROGEN 34 MG/DL (9-23); CALCIUM LEVEL 8.4 MG/DL (8.3-10.6); CARBON DIOXIDE LEVEL > 40.0 MMOL/L (20-31); CHLORIDE LEVEL 95 MMOL/L (98-107); CREATININE FOR GFR 1.18 MG/DL (0.55-1.30); GLOMERULAR FILTRATION RATE 56.7 (>32); GLUCOSE, FASTING 81 MG/DL (74-106); POTASSIUM SERUM 3.1 MMOL/L (3.5-5.1); SODIUM LEVEL 147 MMOL/L (136-145)
== END ==
LOC: SKLAB5 09:54
PROVIDERS: ATTEND Nurse Practitioner Adult Health
DX: I50.9 Heart failure, unspecified (principal)

== ENCOUNTER → 2023-05-14 | Outpatient (REF) | payer MEDICARE, OTHER | LOC: SKLAB5 08:47 | PROVIDERS: ATTEND Nurse Practitioner Adult Health | DX: E21.3 Hyperparathyroidism, unspecified (principal); E55.9 Vitamin D deficiency, unspecified; Z53.8 Procedure and treatment not carried out for other reasons ==

== ENCOUNTER → 2023-05-17 | Outpatient (REF) | payer MEDICARE, OTHER ==
[2023-05-17 07:57] LABS: BLOOD UREA NITROGEN 39 MG/DL (9-23); CALCIUM LEVEL 7.5 MG/DL (8.3-10.6); CARBON DIOXIDE LEVEL > 40.0 MMOL/L (20-31); CHLORIDE LEVEL 101 MMOL/L (98-107); CREATININE FOR GFR 1.54 MG/DL (0.55-1.30); GLOMERULAR FILTRATION RATE 41.7 (>32); GLUCOSE, FASTING 239 MG/DL (74-106); POTASSIUM SERUM 3.6 MMOL/L (3.5-5.1); SODIUM LEVEL 147 MMOL/L (136-145)
== END ==
LOC: SKLAB5 08:58
PROVIDERS: ATTEND Nurse Practitioner Adult Health
DX: N18.9 Chronic kidney disease, unspecified (principal)

== ENCOUNTER → 2023-05-18 | Outpatient (REF) | payer MEDICARE, OTHER ==
[2023-05-18 07:31] LABS: HEMATOCRIT 37.2 % (36.0-47.0); HEMOGLOBIN 10.4 g/dl (12.0-15.5); MEAN CORPUSCULAR HEMOGLOBIN 27.4 pg (27.0-33.0); MEAN CORPUSCULAR VOLUME 98.2 fl (80.0-96.0); PLATELET COUNT, AUTOMATED 148 10^3/uL (150-450); RED BLOOD COUNT 3.79 10^6/uL (4.00-5.40); WHITE BLOOD COUNT 7.8 10^3/uL (4.0-10.0)
[2023-05-18 07:55] LABS: BLOOD UREA NITROGEN 43 MG/DL (9-23); CALCIUM LEVEL 7.8 MG/DL (8.3-10.6); CARBON DIOXIDE LEVEL > 40.0 MMOL/L (20-31); CHLORIDE LEVEL 100 MMOL/L (98-107); CREATININE FOR GFR 1.53 MG/DL (0.55-1.30); GLUCOSE, FASTING 215 MG/DL (74-106); POTASSIUM SERUM 3.9 MMOL/L (3.5-5.1); SODIUM LEVEL 146 MMOL/L (136-145)
== END ==
LOC: SKLAB5 08:02
PROVIDERS: ATTEND Nurse Practitioner Adult Health
DX: I50.9 Heart failure, unspecified (principal)

== ENCOUNTER → 2023-06-18 | Outpatient (REF) | payer MEDICARE, OTHER ==
[2023-06-18 07:44] LABS: HEMATOCRIT 35.9 % (36.0-47.0); HEMOGLOBIN 10.6 g/dl (12.0-15.5); MEAN CORPUSCULAR HEMOGLOBIN 27.8 pg (27.0-33.0); MEAN CORPUSCULAR HGB CONC 29.5 g/dl (32.0-36.5); MEAN CORPUSCULAR VOLUME 94.2 fl (80.0-96.0); PLATELET COUNT, AUTOMATED 155 10^3/uL (150-450); RED BLOOD COUNT 3.81 10^6/uL (4.00-5.40); WHITE BLOOD COUNT 4.8 10^3/uL (4.0-10.0)
[2023-06-19 10:26] LABS: BLOOD UREA NITROGEN 57 MG/DL (7-21); CREATININE FOR GFR 1.4 MG/DL (0.7-1.5); GLOMERULAR FILTRATION RATE 46.6 (>32); GLUCOSE, FASTING 106 MG/DL
[2023-06-19 10:27] LABS: ALBUMIN 2.5 G/DL (3.9-5.0); ALKALINE PHOSPHATASE 448 U/L (35-104); ALT/SGPT 20 U/L (1-33); AST/SGOT 31 U/L (5-40); BILIRUBIN,TOTAL < 0.7 MG/DL (0.2-1.3); CALCIUM LEVEL 8.5 MG/DL (8.8-10.2); CARBON DIOXIDE LEVEL 40 MEQ/L (22-30); CHLORIDE LEVEL 94 MEQ/L (98-107); POTASSIUM SERUM 3.5 MEQ/L (3.6-5.0); SODIUM LEVEL 144 MEQ/L (134-153); TOTAL PROTEIN 5.7 G/DL (6.3-8.2)
== END ==
LOC: SKLAB5 06:45
PROVIDERS: ATTEND Nurse Practitioner Adult Health
DX: N18.9 Chronic kidney disease, unspecified (principal); I50.9 Heart failure, unspecified; Z79.899 Other long term (current) drug therapy

== ENCOUNTER → 2023-06-23 | Outpatient (REF) | payer MEDICARE, OTHER ==
[2023-06-23 07:56] LABS: BLOOD UREA NITROGEN 61 MG/DL (9-23); CALCIUM LEVEL 8.2 MG/DL (8.3-10.6); CARBON DIOXIDE LEVEL > 40.0 MMOL/L (20-31); CHLORIDE LEVEL 94 MMOL/L (98-107); CREATININE FOR GFR 1.34 MG/DL (0.55-1.30); GLUCOSE, FASTING 111 MG/DL (74-106); POTASSIUM SERUM 3.9 MMOL/L (3.5-5.1); SODIUM LEVEL 140 MMOL/L (136-145)
== END ==
LOC: SKLAB5 09:19
PROVIDERS: ATTEND Nurse Practitioner Adult Health
DX: I50.9 Heart failure, unspecified (principal)

== ENCOUNTER → 2023-06-24 | Outpatient (CLI) | payer MEDICARE, OTHER | LOC: M RAD 15:37 | PROVIDERS: ATTEND Internal Medicine | DX: M85.862 Other specified disorders of bone density and structure, left lower leg (principal); M20.42 Other hammer toe(s) (acquired), left foot; M77.32 Calcaneal spur, left foot; M21.062 Valgus deformity, not elsewhere classified, left knee ==

== ENCOUNTER → 2023-06-24 | Outpatient (REF) | payer MEDICARE, OTHER | LOC: SKLAB4 15:05 | PROVIDERS: ATTEND Nurse Practitioner Adult Health | DX: Z53.8 Procedure and treatment not carried out for other reasons (principal) ==

== ENCOUNTER → 2023-07-26 | Outpatient (REF) | payer MEDICARE ==
[2023-07-26 13:57] LABS: CALCIUM LEVEL 8.9 MG/DL (8.3-10.6); CREATININE FOR GFR 1.75 MG/DL (0.55-1.30); POTASSIUM SERUM 3.4 MMOL/L (3.5-5.1)
== END ==
LOC: SKLAB5 12:02
PROVIDERS: ATTEND Nurse Practitioner Adult Health
DX: I50.9 Heart failure, unspecified (principal)

== ENCOUNTER → 2023-08-05 | Outpatient (CLI) | payer MEDICARE, MEDICAID | LOC: M RAD 15:04 | PROVIDERS: ATTEND Nurse Practitioner Adult Health | DX: R22.42 Localized swelling, mass and lump, left lower limb (principal) ==

== ENCOUNTER → 2023-08-25 | Outpatient (REF) | payer MEDICARE ==
[2023-08-25 07:08] LABS: BASO % 0.3 % (0.0-1.0); EOS # 0.2 10^3/uL (0.0-0.5); EOS % 1.6 % (0.0-3.0); HEMATOCRIT 33.5 % (36.0-47.0); HEMOGLOBIN 10.4 g/dl (12.0-15.5); LYMPH # 3.1 10^3/uL (1.5-5.0); LYMPH % 31.5 % (24.0-44.0); MEAN CORPUSCULAR VOLUME 96.5 fl (80.0-96.0); MONO # 0.6 10^3/uL (0.0-0.8); MONO % 5.8 % (2.0-8.0); NEUTROPHILS # 5.9 10^3/uL (1.5-8.5); NEUTROPHILS % 60.5 % (36.0-66.0); PLATELET COUNT, AUTOMATED 169 10^3/uL (150-450); RED BLOOD COUNT 3.47 10^6/uL (4.00-5.40); WHITE BLOOD COUNT 9.7 10^3/uL (4.0-10.0)
[2023-08-25 07:36] LABS: ALBUMIN 1.9 G/DL (3.2-5.2); CALCIUM LEVEL 8.1 MG/DL (8.3-10.6); CREATININE FOR GFR 1.8 MG/DL (0.55-1.30); GLOMERULAR FILTRATION RATE 34.8 (>32); MAGNESIUM LEVEL 1.6 MG/DL (1.8-2.4); POTASSIUM SERUM 3.1 MMOL/L (3.5-5.1)
== END ==
LOC: SKLAB5 07:00
PROVIDERS: ATTEND Nurse Practitioner Adult Health
DX: N18.9 Chronic kidney disease, unspecified (principal)

== ENCOUNTER → 2023-08-25 | Outpatient (REF) | payer MEDICARE, MEDICAID, OTHER ==
[2023-08-25 11:05] LABS: APPEARANCE, URINE MANUAL HAZY (CLEAR); BILIRUBIN, URINE MANUAL NEGATIVE (NEGATIVE); BLOOD URINE MANUAL POSITIVE (NEGATIVE); COLOR, URINE MANUAL YELLOW (YELLOW); KETONE, URINE MANUAL NEGATIVE (NEGATIVE); LEUKOCYTE ESTERASE, URINE MAN POSITIVE (NEGATIVE); UROBILINOGEN, URINE MANUAL NORMAL (NORMAL)
[2023-08-25 11:06] LABS: GLUCOSE, URINE (UA) MANUAL TRACE(50 MG/DL) mg/dL (NEGATIVE); NITRITE, URINE MANUAL NEGATIVE (NEGATIVE); PROTEIN, URINE MANUAL TRACE mg/dL (NEGATIVE)
[2023-08-25 11:20] LABS: WBC, URINE TNTC /hpf (0-3)
[2023-08-25 11:22] LABS: AMORPHOUS SEDIMENT, URINE MOD AMOUNT (NEGATIVE); BACTERIA, URINE MOD AMOUNT; HYALINE CAST, URINE NONE SEEN /lpf (0-1); SQUAMOUS EPITHELIAL CELL URINE SMALL AMOUNT /hpf (SMALL AMT)
== END ==
LOC: SKLAB5 10:24
PROVIDERS: ATTEND Internal Medicine
DX: R39.9 Unspecified symptoms and signs involving the genitourinary system (principal)

== ENCOUNTER 2023-08-27 23:10 | Emergency (ER) | payer MEDICAID, MEDICARE, OTHER ==
[~2023-08-27] VITALS: Ht 167.6 cm; Wt 125.0 kg
[2023-08-27] MEDS ORDERED: NS 1,000 ML IV ONE (23:25)
[2023-08-27] MEDS ORDERED: LevoFLOXacin IV 500 MG in IV 1 EA IV ONE (23:25)
[2023-08-27 23:26] VITALS: TEMP 97.6
[2023-08-27] MEDS ORDERED: cefTRIAXone SOD 1 GM in D5W MINI-BAG PLUS 50 ML IV ONE (23:30)
[2023-08-28 00:30] VITALS: BP 105/51; O2SAT 99
== END 2023-08-28 00:40 | disposition home or self-care (01) ==
LOC: M ED 23:10 → EDBD 23:10 → M ED 08-28 00:40
DX: Z45.2 Encounter for adjustment and management of vascular access device (principal); N39.0 Urinary tract infection, site not specified; R11.0 Nausea; N18.9 Chronic kidney disease, unspecified; Z88.0 Allergy status to penicillin; Z79.52 Long term (current) use of systemic steroids; Z79.82 Long term (current) use of aspirin; Z79.51 Long term (current) use of inhaled steroids
CPT/HCPCS: 74018; 96361; 96365; 99284; J0696

== ENCOUNTER → 2023-08-27 | Outpatient (REF) ==
[2023-08-27 18:46] LABS: HEMATOCRIT 32.1 % (36.0-47.0); HEMOGLOBIN 9.8 g/dl (12.0-15.5); MEAN CORPUSCULAR HEMOGLOBIN 29.6 pg (27.0-33.0); MEAN CORPUSCULAR HGB CONC 30.5 g/dl (32.0-36.5); PLATELET COUNT, AUTOMATED 184 10^3/uL (150-450); RED BLOOD COUNT 3.31 10^6/uL (4.00-5.40); WHITE BLOOD COUNT 11.8 10^3/uL (4.0-10.0)
[2023-08-27 19:19] LABS: CALCIUM LEVEL 7.5 MG/DL (8.3-10.6); CREATININE FOR GFR 2.14 MG/DL (0.55-1.30); GLOMERULAR FILTRATION RATE 28.5 (>32); POTASSIUM SERUM 3.5 MMOL/L (3.5-5.1)
== END ==
LOC: SKLAB5 16:44
PROVIDERS: ATTEND Internal Medicine
DX: N17.9 Acute kidney failure, unspecified (principal)

== ENCOUNTER → 2023-08-29 | Outpatient (REF) | payer MEDICARE, MEDICAID, OTHER ==
[2023-08-29 08:14] LABS: BASO % 0.3 % (0.0-1.0); EOS # 0.2 10^3/uL (0.0-0.5); EOS % 2.1 % (0.0-3.0); HEMATOCRIT 29.8 % (36.0-47.0); HEMOGLOBIN 8.7 g/dl (12.0-15.5); LYMPH # 2.2 10^3/uL (1.5-5.0); LYMPH % 25.3 % (24.0-44.0); MEAN CORPUSCULAR HEMOGLOBIN 29.4 pg (27.0-33.0); MEAN CORPUSCULAR HGB CONC 29.2 g/dl (32.0-36.5); MEAN CORPUSCULAR VOLUME 100.7 fl (80.0-96.0); MONO # 0.5 10^3/uL (0.0-0.8); MONO % 5.5 % (2.0-8.0); NEUTROPHILS # 5.8 10^3/uL (1.5-8.5); NEUTROPHILS % 66.5 % (36.0-66.0); PLATELET COUNT, AUTOMATED 150 10^3/uL (150-450); RED BLOOD COUNT 2.96 10^6/uL (4.00-5.40); WHITE BLOOD COUNT 8.7 10^3/uL (4.0-10.0)
[2023-08-29 08:34] LABS: CALCIUM LEVEL 6.9 MG/DL (8.3-10.6); CREATININE FOR GFR 1.44 MG/DL (0.55-1.30); GLOMERULAR FILTRATION RATE 45.1 (>32); POTASSIUM SERUM 3.3 MMOL/L (3.5-5.1)
== END ==
LOC: SKLAB5 08-27 14:33
PROVIDERS: ATTEND Internal Medicine
DX: R11.0 Nausea (principal)

== ENCOUNTER → 2023-08-31 | Outpatient (REF) | payer MEDICARE, MEDICAID, OTHER ==
[2023-08-31 13:46] LABS: HEMATOCRIT 31.5 % (36.0-47.0); HEMOGLOBIN 9.2 g/dl (12.0-15.5); MEAN CORPUSCULAR HEMOGLOBIN 29.7 pg (27.0-33.0); MEAN CORPUSCULAR HGB CONC 29.2 g/dl (32.0-36.5); MEAN CORPUSCULAR VOLUME 101.6 fl (80.0-96.0); PLATELET COUNT, AUTOMATED 161 10^3/uL (150-450); WHITE BLOOD COUNT 9.3 10^3/uL (4.0-10.0)
[2023-08-31 14:00] LABS: CALCIUM LEVEL 7.8 MG/DL (8.3-10.6); CREATININE FOR GFR 1.5 MG/DL (0.55-1.30); POTASSIUM SERUM 3.8 MMOL/L (3.5-5.1)
== END ==
LOC: SKLAB5 12:40
PROVIDERS: ATTEND Nurse Practitioner Adult Health
DX: N17.9 Acute kidney failure, unspecified (principal)

== ENCOUNTER → 2023-09-17 | Outpatient (REF) | payer MEDICARE ==
[2023-09-17 09:50] LABS: HEMATOCRIT 30.6 % (36.0-47.0); MEAN CORPUSCULAR HEMOGLOBIN 29.5 pg (27.0-33.0); MEAN CORPUSCULAR HGB CONC 29.4 g/dl (32.0-36.5); MEAN CORPUSCULAR VOLUME 100.3 fl (80.0-96.0); PLATELET COUNT, AUTOMATED 230 10^3/uL (150-450); RED BLOOD COUNT 3.05 10^6/uL (4.00-5.40)
[2023-09-17 10:39] LABS: HEMOGLOBIN A1c 6.5 % (4.0-6.0)
== END ==
LOC: SKLAB5 08:38
PROVIDERS: ATTEND Nurse Practitioner Adult Health
DX: N18.9 Chronic kidney disease, unspecified (principal); I50.9 Heart failure, unspecified; E11.22 Type 2 diabetes mellitus with diabetic chronic kidney disease

== ENCOUNTER → 2023-09-20 | Outpatient (REF) | payer MEDICARE ==
[2023-09-20 13:04] LABS: HEMATOCRIT 35.6 % (36.0-47.0); HEMOGLOBIN 10.9 g/dl (12.0-15.5); MEAN CORPUSCULAR HEMOGLOBIN 29.8 pg (27.0-33.0); MEAN CORPUSCULAR HGB CONC 30.6 g/dl (32.0-36.5); MEAN CORPUSCULAR VOLUME 97.3 fl (80.0-96.0); PLATELET COUNT, AUTOMATED 285 10^3/uL (150-450); RED BLOOD COUNT 3.66 10^6/uL (4.00-5.40); WHITE BLOOD COUNT 14.2 10^3/uL (4.0-10.0)
[2023-09-20 13:26] LABS: CALCIUM LEVEL 8.2 MG/DL (8.3-10.6); CREATININE FOR GFR 1.65 MG/DL (0.55-1.30); GLOMERULAR FILTRATION RATE 38.5 (>32); POTASSIUM SERUM 3.2 MMOL/L (3.5-5.1)
== END ==
LOC: SKLAB5 11:52
PROVIDERS: ATTEND Nurse Practitioner Adult Health
DX: R05.9 Cough, unspecified (principal); Z79.899 Other long term (current) drug therapy

== ENCOUNTER → 2023-09-21 | Outpatient (REF) | payer MEDICARE ==
[2023-09-21 07:44] LABS: HEMATOCRIT 31.7 % (36.0-47.0); HEMOGLOBIN 9.6 g/dl (12.0-15.5); MEAN CORPUSCULAR HEMOGLOBIN 29.8 pg (27.0-33.0); MEAN CORPUSCULAR HGB CONC 30.3 g/dl (32.0-36.5); MEAN CORPUSCULAR VOLUME 98.4 fl (80.0-96.0); PLATELET COUNT, AUTOMATED 235 10^3/uL (150-450); RED BLOOD COUNT 3.22 10^6/uL (4.00-5.40)
[2023-09-21 08:04] LABS: CALCIUM LEVEL 7.9 MG/DL (8.3-10.6); CREATININE FOR GFR 1.86 MG/DL (0.55-1.30); GLOMERULAR FILTRATION RATE 33.5 (>32); POTASSIUM SERUM 3.7 MMOL/L (3.5-5.1)
== END ==
LOC: SKLAB5 08:29
PROVIDERS: ATTEND Nurse Practitioner Adult Health
DX: E87.6 Hypokalemia (principal)

== ENCOUNTER → 2023-09-22 | Outpatient (REF) | payer MEDICARE ==
[2023-09-22 13:41] LABS: HEMATOCRIT 34.2 % (36.0-47.0); MEAN CORPUSCULAR HEMOGLOBIN 29.1 pg (27.0-33.0); MEAN CORPUSCULAR HGB CONC 29.2 g/dl (32.0-36.5); MEAN CORPUSCULAR VOLUME 99.4 fl (80.0-96.0); PLATELET COUNT, AUTOMATED 257 10^3/uL (150-450); RED BLOOD COUNT 3.44 10^6/uL (4.00-5.40); WHITE BLOOD COUNT 15.7 10^3/uL (4.0-10.0)
[2023-09-22 14:02] LABS: CALCIUM LEVEL 8.1 MG/DL (8.3-10.6); CREATININE FOR GFR 1.82 MG/DL (0.55-1.30); GLOMERULAR FILTRATION RATE 34.4 (>32)
== END ==
LOC: SKLAB5 08:50
PROVIDERS: ATTEND Nurse Practitioner Adult Health
DX: E87.6 Hypokalemia (principal)

== ENCOUNTER → 2023-09-24 | Outpatient (REF) | payer MEDICARE, OTHER ==
[2023-09-24 11:51] LABS: HEMATOCRIT 31.2 % (36.0-47.0); HEMOGLOBIN 9.1 g/dl (12.0-15.5); MEAN CORPUSCULAR HEMOGLOBIN 29.2 pg (27.0-33.0); MEAN CORPUSCULAR HGB CONC 29.2 g/dl (32.0-36.5); PLATELET COUNT, AUTOMATED 204 10^3/uL (150-450); RED BLOOD COUNT 3.12 10^6/uL (4.00-5.40); WHITE BLOOD COUNT 13.1 10^3/uL (4.0-10.0)
[2023-09-24 12:24] LABS: CALCIUM LEVEL 6.8 MG/DL (8.3-10.6); CREATININE FOR GFR 1.64 MG/DL (0.55-1.30); GLOMERULAR FILTRATION RATE 38.8 (>32); POTASSIUM SERUM 3.3 MMOL/L (3.5-5.1)
== END ==
LOC: SKLAB5 09:33
PROVIDERS: ATTEND Nurse Practitioner Adult Health
DX: I50.9 Heart failure, unspecified (principal)

== ENCOUNTER → 2023-09-27 | Outpatient (REF) | payer MEDICARE, OTHER ==
[2023-09-27 07:24] LABS: HEMATOCRIT 32.2 % (36.0-47.0); HEMOGLOBIN 9.4 g/dl (12.0-15.5); MEAN CORPUSCULAR HEMOGLOBIN 28.7 pg (27.0-33.0); MEAN CORPUSCULAR HGB CONC 29.2 g/dl (32.0-36.5); MEAN CORPUSCULAR VOLUME 98.5 fl (80.0-96.0); PLATELET COUNT, AUTOMATED 235 10^3/uL (150-450); RED BLOOD COUNT 3.27 10^6/uL (4.00-5.40); WHITE BLOOD COUNT 14.2 10^3/uL (4.0-10.0)
[2023-09-27 07:49] LABS: CALCIUM LEVEL 7.7 MG/DL (8.3-10.6); CREATININE FOR GFR 2.09 MG/DL (0.55-1.30); GLOMERULAR FILTRATION RATE 29.3 (>32); POTASSIUM SERUM 3.8 MMOL/L (3.5-5.1)
== END ==
LOC: SKLAB5 07:56
PROVIDERS: ATTEND Nurse Practitioner Adult Health
DX: E87.6 Hypokalemia (principal)

== ENCOUNTER → 2023-09-28 | Outpatient (REF) | payer MEDICARE, OTHER ==
[2023-09-28 08:55] LABS: HEMATOCRIT 32.4 % (36.0-47.0); HEMOGLOBIN 9.6 g/dl (12.0-15.5); MEAN CORPUSCULAR HEMOGLOBIN 29.1 pg (27.0-33.0); MEAN CORPUSCULAR HGB CONC 29.6 g/dl (32.0-36.5); MEAN CORPUSCULAR VOLUME 98.2 fl (80.0-96.0); PLATELET COUNT, AUTOMATED 279 10^3/uL (150-450); WHITE BLOOD COUNT 13.9 10^3/uL (4.0-10.0)
[2023-09-28 09:26] LABS: CREATININE FOR GFR 2.07 MG/DL (0.55-1.30); GLOMERULAR FILTRATION RATE 29.6 (>32); POTASSIUM SERUM 4.1 MMOL/L (3.5-5.1)
== END ==
LOC: SKLAB5 08:22
PROVIDERS: ATTEND Nurse Practitioner Adult Health
DX: N18.9 Chronic kidney disease, unspecified (principal)

== ENCOUNTER → 2023-09-29 | Outpatient (REF) | payer MEDICARE, OTHER ==
[2023-09-29 07:54] LABS: HEMATOCRIT 32.9 % (36.0-47.0); HEMOGLOBIN 9.8 g/dl (12.0-15.5); MEAN CORPUSCULAR HEMOGLOBIN 28.8 pg (27.0-33.0); MEAN CORPUSCULAR HGB CONC 29.8 g/dl (32.0-36.5); MEAN CORPUSCULAR VOLUME 96.8 fl (80.0-96.0); PLATELET COUNT, AUTOMATED 287 10^3/uL (150-450); WHITE BLOOD COUNT 12.8 10^3/uL (4.0-10.0)
[2023-09-29 08:23] LABS: CALCIUM LEVEL 7.7 MG/DL (8.3-10.6); CREATININE FOR GFR 2.16 MG/DL (0.55-1.30); GLOMERULAR FILTRATION RATE 28.2 (>32); POTASSIUM SERUM 3.9 MMOL/L (3.5-5.1)
== END ==
LOC: SKLAB5 09:27
PROVIDERS: ATTEND Nurse Practitioner Adult Health
DX: N18.9 Chronic kidney disease, unspecified (principal)

== ENCOUNTER → 2023-09-29 | Outpatient (CLI) | payer MEDICARE, OTHER | LOC: M RAD 11:49 | PROVIDERS: ATTEND Nurse Practitioner Adult Health | DX: J06.9 Acute upper respiratory infection, unspecified (principal); E04.1 Nontoxic single thyroid nodule; R59.9 Enlarged lymph nodes, unspecified; J84.89 Other specified interstitial pulmonary diseases; N18.9 Chronic kidney disease, unspecified ==

== ENCOUNTER → 2023-09-30 | Outpatient (REF) | payer MEDICARE, OTHER ==
[2023-09-30 08:26] LABS: HEMATOCRIT 32.8 % (36.0-47.0); HEMOGLOBIN 9.8 g/dl (12.0-15.5); MEAN CORPUSCULAR HEMOGLOBIN 28.8 pg (27.0-33.0); MEAN CORPUSCULAR HGB CONC 29.9 g/dl (32.0-36.5); MEAN CORPUSCULAR VOLUME 96.5 fl (80.0-96.0); PLATELET COUNT, AUTOMATED 292 10^3/uL (150-450); WHITE BLOOD COUNT 16.5 10^3/uL (4.0-10.0)
[2023-09-30 08:52] LABS: CALCIUM LEVEL 7.9 MG/DL (8.3-10.6); CREATININE FOR GFR 2.03 MG/DL (0.55-1.30); GLOMERULAR FILTRATION RATE 30.3 (>32); POTASSIUM SERUM 4.3 MMOL/L (3.5-5.1)
== END ==
LOC: SKLAB5 11:02
PROVIDERS: ATTEND Nurse Practitioner Adult Health
DX: N18.9 Chronic kidney disease, unspecified (principal)

== ENCOUNTER → 2023-10-01 | Outpatient (REF) | payer MEDICARE, OTHER ==
[2023-10-01 06:55] LABS: HEMATOCRIT 31.2 % (36.0-47.0); HEMOGLOBIN 9.5 g/dl (12.0-15.5); MEAN CORPUSCULAR HEMOGLOBIN 28.7 pg (27.0-33.0); MEAN CORPUSCULAR HGB CONC 30.4 g/dl (32.0-36.5); MEAN CORPUSCULAR VOLUME 94.3 fl (80.0-96.0); PLATELET COUNT, AUTOMATED 278 10^3/uL (150-450); RED BLOOD COUNT 3.31 10^6/uL (4.00-5.40)
[2023-10-01 07:22] LABS: CALCIUM LEVEL 7.8 MG/DL (8.3-10.6); CREATININE FOR GFR 2.08 MG/DL (0.55-1.30); GLOMERULAR FILTRATION RATE 29.5 (>32); POTASSIUM SERUM 4.9 MMOL/L (3.5-5.1)
== END ==
LOC: SKLAB5 07:00
PROVIDERS: ATTEND Nurse Practitioner Adult Health
DX: N18.9 Chronic kidney disease, unspecified (principal)

== ENCOUNTER → 2023-10-04 | Outpatient (REF) | payer MEDICARE, OTHER ==
[2023-10-04 11:53] LABS: HEMATOCRIT 30.5 % (36.0-47.0); HEMOGLOBIN 8.9 g/dl (12.0-15.5); MEAN CORPUSCULAR HEMOGLOBIN 28.5 pg (27.0-33.0); MEAN CORPUSCULAR HGB CONC 29.2 g/dl (32.0-36.5); MEAN CORPUSCULAR VOLUME 97.8 fl (80.0-96.0); PLATELET COUNT, AUTOMATED 251 10^3/uL (150-450); RED BLOOD COUNT 3.12 10^6/uL (4.00-5.40); WHITE BLOOD COUNT 11.7 10^3/uL (4.0-10.0)
[2023-10-04 12:18] LABS: CALCIUM LEVEL 7.5 MG/DL (8.3-10.6); CREATININE FOR GFR 1.78 MG/DL (0.55-1.30); GLOMERULAR FILTRATION RATE 35.3 (>32); POTASSIUM SERUM 4.6 MMOL/L (3.5-5.1)
== END ==
LOC: SKLAB5 08:05
PROVIDERS: ATTEND Nurse Practitioner
DX: N18.9 Chronic kidney disease, unspecified (principal)

== ENCOUNTER → 2023-10-04 | Outpatient (CLI) | payer MEDICARE, OTHER | LOC: M RAD 12:55 | PROVIDERS: ATTEND Nurse Practitioner Adult Health | DX: E04.1 Nontoxic single thyroid nodule (principal); I89.0 Lymphedema, not elsewhere classified; N18.9 Chronic kidney disease, unspecified ==

== ENCOUNTER → 2023-10-07 | Outpatient (REF) | payer MEDICARE ==
[2023-10-07 07:13] LABS: HEMATOCRIT 32.7 % (36.0-47.0); HEMOGLOBIN 9.4 g/dl (12.0-15.5); MEAN CORPUSCULAR HEMOGLOBIN 28.1 pg (27.0-33.0); MEAN CORPUSCULAR HGB CONC 28.7 g/dl (32.0-36.5); MEAN CORPUSCULAR VOLUME 97.9 fl (80.0-96.0); PLATELET COUNT, AUTOMATED 233 10^3/uL (150-450); RED BLOOD COUNT 3.34 10^6/uL (4.00-5.40)
[2023-10-07 07:54] LABS: CALCIUM LEVEL 7.8 MG/DL (8.3-10.6); CREATININE FOR GFR 1.66 MG/DL (0.55-1.30); GLOMERULAR FILTRATION RATE 38.2 (>32); POTASSIUM SERUM 3.6 MMOL/L (3.5-5.1)
== END ==
LOC: SKLAB5 07:58
PROVIDERS: ATTEND Nurse Practitioner
DX: N18.9 Chronic kidney disease, unspecified (principal)

== ENCOUNTER → 2023-10-11 | Outpatient (REF) | payer MEDICARE, OTHER ==
[2023-10-11 07:05] LABS: MEAN CORPUSCULAR HEMOGLOBIN 28.9 pg (27.0-33.0); MEAN CORPUSCULAR HGB CONC 30.3 g/dl (32.0-36.5); MEAN CORPUSCULAR VOLUME 95.4 fl (80.0-96.0); PLATELET COUNT, AUTOMATED 198 10^3/uL (150-450); RED BLOOD COUNT 3.46 10^6/uL (4.00-5.40); WHITE BLOOD COUNT 11.4 10^3/uL (4.0-10.0)
[2023-10-11 07:30] LABS: BLOOD UREA NITROGEN 47 MG/DL (9-23); CALCIUM LEVEL 7.7 MG/DL (8.3-10.6); CARBON DIOXIDE LEVEL 37 MMOL/L (20-31); CHLORIDE LEVEL 103 MMOL/L (98-107); CREATININE FOR GFR 1.11 MG/DL (0.55-1.30); GLOMERULAR FILTRATION RATE > 60.0 (>32); GLUCOSE, FASTING 69 MG/DL (74-106); POTASSIUM SERUM 3.2 MMOL/L (3.5-5.1); SODIUM LEVEL 142 MMOL/L (136-145)
[2023-10-11 07:31] LABS: FREE T4 1.45 NG/DL (0.89-1.76)
[2023-10-11 07:32] LABS: THYROID STIMULATING HORMONE 1.764 uIU/ML (0.55-4.78)
[2023-10-11 15:08] LABS: FREE T3 2.6 PG/ML (2.3-4.2)
== END ==
LOC: SKLAB5 08:03
PROVIDERS: ATTEND Nurse Practitioner Adult Health
DX: N18.9 Chronic kidney disease, unspecified (principal); Z79.899 Other long term (current) drug therapy

== ENCOUNTER → 2023-10-13 | Outpatient (REF) | payer MEDICARE, OTHER ==
[~2023-10-13] MED LIST changes: -ASPI-161 PO; +ASPI-615 PO
[2023-10-13 10:10] LABS: CALCIUM LEVEL 7.3 MG/DL (8.3-10.6); CREATININE FOR GFR 1.19 MG/DL (0.55-1.30); GLOMERULAR FILTRATION RATE 56.2 (>32); POTASSIUM SERUM 4.4 MMOL/L (3.5-5.1)
[2023-10-13 11:19] LABS: HEMATOCRIT 38.3 % (36.0-47.0); MEAN CORPUSCULAR HEMOGLOBIN 28.6 pg (27.0-33.0); MEAN CORPUSCULAR HGB CONC 28.7 g/dl (32.0-36.5); MEAN CORPUSCULAR VOLUME 99.7 fl (80.0-96.0); PLATELET COUNT, AUTOMATED 225 10^3/uL (150-450); RED BLOOD COUNT 3.84 10^6/uL (4.00-5.40)
== END ==
LOC: SKLAB5 11:00
PROVIDERS: ATTEND Nurse Practitioner Adult Health
DX: N18.9 Chronic kidney disease, unspecified (principal)

== ENCOUNTER → 2023-10-15 | Outpatient (REF) | payer MEDICARE ==
[2023-10-15 14:35] LABS: ALBUMIN 1.7 G/DL (3.2-5.2); BILIRUBIN,TOTAL 0.3 MG/DL (0.3-1.2); CALCIUM LEVEL 7.8 MG/DL (8.3-10.6); CREATININE FOR GFR 1.39 MG/DL (0.55-1.30); GLOMERULAR FILTRATION RATE 46.9 (>32); POTASSIUM SERUM 4.6 MMOL/L (3.5-5.1); TOTAL PROTEIN 6.8 G/DL (5.7-8.2)
== END ==
LOC: SKLAB5 11:02
PROVIDERS: ATTEND Nurse Practitioner Adult Health
DX: I10 Essential (primary) hypertension (principal)

== ENCOUNTER → 2023-10-18 | Outpatient (REF) | payer MEDICARE ==
[2023-10-18 15:09] LABS: CREATININE FOR GFR 1.63 MG/DL (0.55-1.30); GLOMERULAR FILTRATION RATE 39.1 (>32)
== END ==
LOC: SKLAB5 10:19
PROVIDERS: ATTEND Internal Medicine
DX: E11.9 Type 2 diabetes mellitus without complications (principal)

== ENCOUNTER → 2023-11-15 | Outpatient (REF) | payer MEDICARE, OTHER ==
[~2023-11-15] MED LIST changes: -SENN1TAB41 PO; +SENN1TAB85 PO
== END ==
LOC: SKLAB5 12:27
PROVIDERS: ATTEND Nurse Practitioner Adult Health
DX: Z53.9 Procedure and treatment not carried out, unspecified reason (principal)

== ENCOUNTER → 2023-11-18 | Outpatient (REF) | payer MEDICARE, OTHER ==
[2023-11-18 10:23] LABS: CALCIUM LEVEL 7.6 MG/DL (8.3-10.6); CREATININE FOR GFR 1.24 MG/DL (0.55-1.30); GLOMERULAR FILTRATION RATE 53.5 (>32); POTASSIUM SERUM 3.1 MMOL/L (3.5-5.1)
== END ==
LOC: SKLAB5 13:58
PROVIDERS: ATTEND Nurse Practitioner Adult Health
DX: N18.9 Chronic kidney disease, unspecified (principal)

== ENCOUNTER → 2023-11-24 | Outpatient (REF) | payer MEDICARE, OTHER ==
[2023-11-24 10:17] LABS: CREATININE FOR GFR 1.49 MG/DL (0.55-1.30); GLOMERULAR FILTRATION RATE 43.3 (>32); POTASSIUM SERUM 2.8 MMOL/L (3.5-5.1)
== END ==
LOC: SKLAB5 08:30
PROVIDERS: ATTEND Nurse Practitioner Adult Health
DX: N18.9 Chronic kidney disease, unspecified (principal); I50.9 Heart failure, unspecified

== ENCOUNTER → 2023-11-25 | Outpatient (REF) | payer MEDICARE, OTHER | LOC: SKLAB5 07:00 | PROVIDERS: ATTEND Nurse Practitioner Adult Health | DX: E87.6 Hypokalemia (principal) ==

== ENCOUNTER → 2023-12-01 | Outpatient (REF) | payer MEDICARE, OTHER ==
[2023-12-01 09:18] LABS: CALCIUM LEVEL 7.5 MG/DL (8.3-10.6); CREATININE FOR GFR 1.39 MG/DL (0.55-1.30); GLOMERULAR FILTRATION RATE 46.9 (>32); POTASSIUM SERUM 3.1 MMOL/L (3.5-5.1)
== END ==
LOC: SKLAB5 10:51
PROVIDERS: ATTEND Nurse Practitioner Adult Health
DX: N18.9 Chronic kidney disease, unspecified (principal)

== ENCOUNTER → 2023-12-03 | Outpatient (REF) | payer MEDICARE, OTHER ==
[2023-12-03 13:34] LABS: HEMATOCRIT 33.3 % (36.0-47.0); HEMOGLOBIN 9.8 g/dl (12.0-15.5); MEAN CORPUSCULAR HEMOGLOBIN 29.3 pg (27.0-33.0); MEAN CORPUSCULAR HGB CONC 29.4 g/dl (32.0-36.5); MEAN CORPUSCULAR VOLUME 99.7 fl (80.0-96.0); PLATELET COUNT, AUTOMATED 197 10^3/uL (150-450); RED BLOOD COUNT 3.34 10^6/uL (4.00-5.40); WHITE BLOOD COUNT 8.1 10^3/uL (4.0-10.0)
[2023-12-03 14:04] LABS: ALBUMIN 1.6 G/DL (3.2-5.2); BILIRUBIN,TOTAL 0.4 MG/DL (0.3-1.2); CREATININE FOR GFR 1.23 MG/DL (0.55-1.30); GLOMERULAR FILTRATION RATE 54.1 (>32); MAGNESIUM LEVEL 1.3 MG/DL (1.8-2.4); POTASSIUM SERUM 4.2 MMOL/L (3.5-5.1); TOTAL PROTEIN 5.7 G/DL (5.7-8.2)
== END ==
LOC: SKLAB5 12:42
PROVIDERS: ATTEND Nurse Practitioner Adult Health
DX: R11.0 Nausea (principal)

== ENCOUNTER → 2023-12-08 | Outpatient (REF) | payer MEDICARE, OTHER ==
[2023-12-07 06:20] LABS: CALCIUM LEVEL 7.6 MG/DL (8.3-10.6); CREATININE FOR GFR 1.19 MG/DL (0.55-1.30); GLOMERULAR FILTRATION RATE 56.2 (>32); POTASSIUM SERUM 3.6 MMOL/L (3.5-5.1)
== END ==
LOC: SKLAB5 09:34
PROVIDERS: ATTEND Nurse Practitioner Adult Health
DX: E83.42 Hypomagnesemia (principal); R11.0 Nausea

== ENCOUNTER → 2023-12-14 | Outpatient (REF) | payer MEDICARE, OTHER ==
[2023-12-14 08:35] LABS: HEMATOCRIT 30.6 % (36.0-47.0); HEMOGLOBIN 9.1 g/dl (12.0-15.5); MEAN CORPUSCULAR HEMOGLOBIN 29.4 pg (27.0-33.0); MEAN CORPUSCULAR HGB CONC 29.7 g/dl (32.0-36.5); PLATELET COUNT, AUTOMATED 198 10^3/uL (150-450); RED BLOOD COUNT 3.09 10^6/uL (4.00-5.40); WHITE BLOOD COUNT 9.2 10^3/uL (4.0-10.0)
[2023-12-14 08:59] LABS: CHOLESTEROL RISK RATIO 1.88 (<5); LDL CHOLESTEROL 26.8 MG/DL (<100)
== END ==
LOC: SKLAB5 07:00
PROVIDERS: ATTEND Nurse Practitioner Adult Health
DX: N18.9 Chronic kidney disease, unspecified (principal)

== ENCOUNTER → 2023-12-22 | Outpatient (CLI) | payer MEDICARE, OTHER | LOC: M RAD 13:52 | PROVIDERS: ATTEND Physician Assistant | DX: L97.922 Non-pressure chronic ulcer of unspecified part of left lower leg with fat layer exposed (principal); S81.801A Unspecified open wound, right lower leg, initial encounter; Y93.9 Activity, unspecified; Y92.9 Unspecified place or not applicable ==

== ENCOUNTER → 2024-01-19 | Outpatient (REF) | payer MEDICARE | LOC: SKLAB5 15:20 | PROVIDERS: ATTEND Internal Medicine | DX: N18.9 Chronic kidney disease, unspecified (principal); Z79.899 Other long term (current) drug therapy ==

== ENCOUNTER → 2024-01-19 | Outpatient (REF) | payer MEDICARE ==
[2024-01-19 09:31] LABS: BASO # 0.1 10^3/uL (0.0-0.2); BASO % 0.8 % (0.0-1.0); EOS # 0.3 10^3/uL (0.0-0.5); EOS % 3.8 % (0.0-3.0); HEMATOCRIT 32.1 % (36.0-47.0); HEMOGLOBIN 9.9 g/dl (12.0-15.5); LYMPH # 3.4 10^3/uL (1.5-5.0); MEAN CORPUSCULAR HEMOGLOBIN 28.6 pg (27.0-33.0); MEAN CORPUSCULAR HGB CONC 30.8 g/dl (32.0-36.5); MEAN CORPUSCULAR VOLUME 92.8 fl (80.0-96.0); MONO # 0.6 10^3/uL (0.0-0.8); MONO % 7.4 % (2.0-8.0); NEUTROPHILS # 3.7 10^3/uL (1.5-8.5); NEUTROPHILS % 45.7 % (36.0-66.0); PLATELET COUNT, AUTOMATED 220 10^3/uL (150-450); RED BLOOD COUNT 3.46 10^6/uL (4.00-5.40)
[2024-01-19 09:58] LABS: ALBUMIN 1.3 G/DL (3.2-5.2); CREATININE FOR GFR 1.13 MG/DL (0.55-1.30); GLOMERULAR FILTRATION RATE 59.5 (>32); MAGNESIUM LEVEL 1.4 MG/DL (1.8-2.4); PHOSPHORUS LEVEL 3.9 MG/DL (2.4-5.1); POTASSIUM SERUM 3.3 MMOL/L (3.5-5.1)
[2024-01-19 15:10] LABS: APPEARANCE, URINE TURBID (CLEAR); BACTERIA, URINE AUTO 3+ (NEGATIVE); BILIRUBIN, URINE AUTO NEGATIVE (NEGATIVE); BLOOD, URINE BLOOD 1+ (NEGATIVE); COLOR, URINE YELLOW (YELLOW); GLUCOSE, URINE (UA) AUTO NEGATIVE (NEGATIVE); KETONE, URINE AUTO NEGATIVE (NEGATIVE); LEUKOCYTE ESTERASE, URINE AUTO 2+ (NEGATIVE); MUCUS, URINE LARGE (NEGATIVE); NITRITE, URINE AUTO NEGATIVE (NEGATIVE); PROTEIN, URINE AUTO 2+ mg/dL (NEGATIVE); RBC, URINE AUTO 159 /HPF (0-3); SPECIFIC GRAVITY URINE AUTO 1.012 (1.002-1.035); SQUAMOUS EPITHELIAL CELL UR AU 17 /HPF (0-6); UROBILINOGEN, URINE AUTO 0.2 mg/dL (0.0-2.0); WBC, URINE AUTO TNTC /HPF (0-3)
[2024-01-19 15:27] LABS: TOTAL PROTEIN,RANDOM URINE 43.8 MG/DL (0.0-14.0)
== END ==
LOC: SKLAB5 08:02
PROVIDERS: ATTEND Internal Medicine
DX: N18.9 Chronic kidney disease, unspecified (principal); Z79.899 Other long term (current) drug therapy

== ENCOUNTER → 2024-01-23 | Outpatient (REF) | payer MEDICARE ==
[2024-01-23 22:11] LABS: CALCIUM LEVEL 7.8 MG/DL (8.3-10.6); CREATININE FOR GFR 1.17 MG/DL (0.55-1.30); GLOMERULAR FILTRATION RATE 57.1 (>32)
== END ==
LOC: SKLAB5 21:00
PROVIDERS: ATTEND Internal Medicine
DX: N18.9 Chronic kidney disease, unspecified (principal)

== ENCOUNTER → 2024-01-29 | Outpatient (REF) | payer MEDICARE ==
[2024-01-29 12:25] LABS: HEMATOCRIT 29.9 % (36.0-47.0); HEMOGLOBIN 9.3 g/dl (12.0-15.5); MEAN CORPUSCULAR HEMOGLOBIN 29.1 pg (27.0-33.0); MEAN CORPUSCULAR HGB CONC 31.1 g/dl (32.0-36.5); MEAN CORPUSCULAR VOLUME 93.4 fl (80.0-96.0); PLATELET COUNT, AUTOMATED 222 10^3/uL (150-450); WHITE BLOOD COUNT 7.8 10^3/uL (4.0-10.0)
[2024-01-29 12:51] LABS: BLOOD UREA NITROGEN 49 MG/DL (9-23); CALCIUM LEVEL 8.4 MG/DL (8.3-10.6); CARBON DIOXIDE LEVEL 34 MMOL/L (20-31); CHLORIDE LEVEL 96 MMOL/L (98-107); CREATININE FOR GFR 1.09 MG/DL (0.55-1.30); GLOMERULAR FILTRATION RATE > 60.0 (>32); GLUCOSE, FASTING 93 MG/DL (74-106); POTASSIUM SERUM 3.8 MMOL/L (3.5-5.1); SODIUM LEVEL 134 MMOL/L (136-145)
== END ==
LOC: SKLAB5 11:27
PROVIDERS: ATTEND Internal Medicine
DX: N93.8 Other specified abnormal uterine and vaginal bleeding (principal)

== ENCOUNTER → 2024-02-02 | Outpatient (CLI) | payer MEDICARE | LOC: M RAD 12:53 | PROVIDERS: ATTEND Nurse Practitioner Adult Health | DX: E04.1 Nontoxic single thyroid nodule (principal) ==

== ENCOUNTER → 2024-02-14 | Outpatient (REF) | payer MEDICARE ==
[2024-02-14 11:57] LABS: HEMATOCRIT 27.5 % (36.0-47.0); HEMOGLOBIN 8.4 g/dl (12.0-15.5); MEAN CORPUSCULAR HEMOGLOBIN 28.7 pg (27.0-33.0); MEAN CORPUSCULAR HGB CONC 30.5 g/dl (32.0-36.5); MEAN CORPUSCULAR VOLUME 93.9 fl (80.0-96.0); PLATELET COUNT, AUTOMATED 245 10^3/uL (150-450); RED BLOOD COUNT 2.93 10^6/uL (4.00-5.40); WHITE BLOOD COUNT 17.8 10^3/uL (4.0-10.0)
[2024-02-14 12:20] LABS: CALCIUM LEVEL 7.7 MG/DL (8.3-10.6); CREATININE FOR GFR 1.83 MG/DL (0.55-1.30); GLOMERULAR FILTRATION RATE 34.1 (>32)
== END ==
LOC: SKLAB5 11:00
PROVIDERS: ATTEND Internal Medicine
DX: J06.9 Acute upper respiratory infection, unspecified (principal); N18.9 Chronic kidney disease, unspecified; R50.9 Fever, unspecified

== ENCOUNTER → 2024-02-14 | Outpatient (CLI) | payer MEDICARE | LOC: M RAD 13:26 | PROVIDERS: ATTEND Internal Medicine | DX: R05.9 Cough, unspecified (principal); R50.9 Fever, unspecified; J06.9 Acute upper respiratory infection, unspecified; N18.9 Chronic kidney disease, unspecified ==

== ENCOUNTER → 2024-03-08 | Outpatient (REF) | payer MEDICARE ==
[2024-03-08 11:22] LABS: HEMOGLOBIN 9.6 g/dl (12.0-15.5); MEAN CORPUSCULAR HEMOGLOBIN 27.5 pg (27.0-33.0); MEAN CORPUSCULAR VOLUME 88.8 fl (80.0-96.0); PLATELET COUNT, AUTOMATED 368 10^3/uL (150-450); RED BLOOD COUNT 3.49 10^6/uL (4.00-5.40); WHITE BLOOD COUNT 16.5 10^3/uL (4.0-10.0)
[2024-03-08 11:48] LABS: CREATININE FOR GFR 1.64 MG/DL (0.55-1.30); GLOMERULAR FILTRATION RATE 38.7 (>32); POTASSIUM SERUM 4.8 MMOL/L (3.5-5.1)
== END ==
LOC: SKLAB5 08:59
PROVIDERS: ATTEND Internal Medicine
DX: R41.82 Altered mental status, unspecified (principal)

== ENCOUNTER → 2024-03-08 | Outpatient (REF) | payer MEDICARE ==
[2024-03-08 11:49] LABS: APPEARANCE, URINE MANUAL TURBID (CLEAR); COLOR, URINE MANUAL DK YELLOW (YELLOW)
[2024-03-08 11:50] LABS: BILIRUBIN, URINE MANUAL NEGATIVE (NEGATIVE); BLOOD URINE MANUAL POSITIVE (NEGATIVE); GLUCOSE, URINE (UA) MANUAL NEGATIVE (NEGATIVE); KETONE, URINE MANUAL NEGATIVE (NEGATIVE); LEUKOCYTE ESTERASE, URINE MAN POSITIVE (NEGATIVE); NITRITE, URINE MANUAL NEGATIVE (NEGATIVE); PROTEIN, URINE MANUAL 3+ mg/dL (NEGATIVE); UROBILINOGEN, URINE MANUAL NORMAL (NORMAL)
[2024-03-08 11:59] LABS: RBC, URINE TNTC /hpf (0-3); SQUAMOUS EPITHELIAL CELL URINE MOD AMOUNT /hpf (SMALL AMT); WBC, URINE TNTC /hpf (0-3)
[2024-03-08 12:00] LABS: BACTERIA, URINE SMALL AMOUNT; HYALINE CAST, URINE NONE SEEN /lpf (0-1)
== END ==
LOC: SKLAB5 11:09
PROVIDERS: ATTEND Internal Medicine
DX: R41.82 Altered mental status, unspecified (principal)

== ENCOUNTER → 2024-03-10 | Outpatient (REF) | payer MEDICARE, MEDICAID ==
[2024-03-10 11:15] LABS: HEMATOCRIT 26.9 % (36.0-47.0); HEMOGLOBIN 8.5 g/dl (12.0-15.5); MEAN CORPUSCULAR HEMOGLOBIN 27.6 pg (27.0-33.0); MEAN CORPUSCULAR HGB CONC 31.6 g/dl (32.0-36.5); MEAN CORPUSCULAR VOLUME 87.3 fl (80.0-96.0); PLATELET COUNT, AUTOMATED 334 10^3/uL (150-450); RED BLOOD COUNT 3.08 10^6/uL (4.00-5.40); WHITE BLOOD COUNT 15.8 10^3/uL (4.0-10.0)
[2024-03-10 11:35] LABS: CALCIUM LEVEL 8.2 MG/DL (8.3-10.6); CREATININE FOR GFR 2.2 MG/DL (0.55-1.30); GLOMERULAR FILTRATION RATE 27.6 (>32); POTASSIUM SERUM 5.3 MMOL/L (3.5-5.1)
== END ==
LOC: SKLAB5 08:55
PROVIDERS: ATTEND Internal Medicine
DX: N39.0 Urinary tract infection, site not specified (principal)

== ENCOUNTER → 2024-03-11 | Outpatient (REF) | payer MEDICARE, MEDICAID ==
[2024-03-11 10:37] LABS: HEMATOCRIT 25.5 % (36.0-47.0); HEMOGLOBIN 8.2 g/dl (12.0-15.5); MEAN CORPUSCULAR HEMOGLOBIN 28.2 pg (27.0-33.0); MEAN CORPUSCULAR HGB CONC 32.2 g/dl (32.0-36.5); MEAN CORPUSCULAR VOLUME 87.6 fl (80.0-96.0); PLATELET COUNT, AUTOMATED 274 10^3/uL (150-450); RED BLOOD COUNT 2.91 10^6/uL (4.00-5.40); WHITE BLOOD COUNT 14.6 10^3/uL (4.0-10.0)
[2024-03-11 11:07] LABS: CALCIUM LEVEL 7.5 MG/DL (8.3-10.6); CREATININE FOR GFR 2.11 MG/DL (0.55-1.30); GLOMERULAR FILTRATION RATE 28.9 (>32); POTASSIUM SERUM 4.7 MMOL/L (3.5-5.1)
== END ==
LOC: SKLAB5 09:00
PROVIDERS: ATTEND Internal Medicine
DX: N17.9 Acute kidney failure, unspecified (principal)

== ENCOUNTER → 2024-03-13 | Outpatient (REF) | payer MEDICARE, MEDICAID ==
[2024-03-13 10:53] LABS: HEMATOCRIT 25.5 % (36.0-47.0); MEAN CORPUSCULAR HEMOGLOBIN 27.8 pg (27.0-33.0); MEAN CORPUSCULAR HGB CONC 31.4 g/dl (32.0-36.5); MEAN CORPUSCULAR VOLUME 88.5 fl (80.0-96.0); PLATELET COUNT, AUTOMATED 288 10^3/uL (150-450); RED BLOOD COUNT 2.88 10^6/uL (4.00-5.40); WHITE BLOOD COUNT 15.7 10^3/uL (4.0-10.0)
[2024-03-13 11:24] LABS: CALCIUM LEVEL 7.5 MG/DL (8.3-10.6); CREATININE FOR GFR 1.91 MG/DL (0.55-1.30); GLOMERULAR FILTRATION RATE 32.4 (>32); POTASSIUM SERUM 4.6 MMOL/L (3.5-5.1)
== END ==
LOC: SKLAB5 09:16
PROVIDERS: ATTEND Internal Medicine
DX: N17.9 Acute kidney failure, unspecified (principal)

== ENCOUNTER → 2024-03-14 | Outpatient (REF) | payer MEDICARE, MEDICAID ==
[2024-03-14 10:19] LABS: HEMATOCRIT 24.9 % (36.0-47.0); HEMOGLOBIN 7.7 g/dl (12.0-15.5); MEAN CORPUSCULAR HEMOGLOBIN 27.9 pg (27.0-33.0); MEAN CORPUSCULAR HGB CONC 30.9 g/dl (32.0-36.5); MEAN CORPUSCULAR VOLUME 90.2 fl (80.0-96.0); PLATELET COUNT, AUTOMATED 230 10^3/uL (150-450); RED BLOOD COUNT 2.76 10^6/uL (4.00-5.40)
[2024-03-14 10:48] LABS: CALCIUM LEVEL 7.1 MG/DL (8.3-10.6); CREATININE FOR GFR 1.7 MG/DL (0.55-1.30); GLOMERULAR FILTRATION RATE 37.1 (>32); POTASSIUM SERUM 4.3 MMOL/L (3.5-5.1)
== END ==
LOC: SKLAB5 09:03
PROVIDERS: ATTEND Internal Medicine
DX: D72.829 Elevated white blood cell count, unspecified (principal); R09.89 Other specified symptoms and signs involving the circulatory and respiratory systems

== ENCOUNTER → 2024-03-15 | Outpatient (REF) | payer MEDICARE, MEDICAID ==
[2024-03-15 12:15] LABS: HEMATOCRIT 23.4 % (36.0-47.0); HEMOGLOBIN 7.1 g/dl (12.0-15.5); MEAN CORPUSCULAR HEMOGLOBIN 27.6 pg (27.0-33.0); MEAN CORPUSCULAR HGB CONC 30.3 g/dl (32.0-36.5); MEAN CORPUSCULAR VOLUME 91.1 fl (80.0-96.0); PLATELET COUNT, AUTOMATED 221 10^3/uL (150-450); RED BLOOD COUNT 2.57 10^6/uL (4.00-5.40); WHITE BLOOD COUNT 13.3 10^3/uL (4.0-10.0)
[2024-03-15 12:50] LABS: CALCIUM LEVEL 7.3 MG/DL (8.3-10.6); CREATININE FOR GFR 1.57 MG/DL (0.55-1.30); GLOMERULAR FILTRATION RATE 40.7 (>32); POTASSIUM SERUM 4.3 MMOL/L (3.5-5.1)
== END ==
LOC: SKLAB5 09:52
PROVIDERS: ATTEND Internal Medicine
DX: N18.9 Chronic kidney disease, unspecified (principal); D63.1 Anemia in chronic kidney disease

== ENCOUNTER → 2024-03-16 | Outpatient (REF) | payer MEDICARE, MEDICAID | LOC: SKLAB5 12:39 | PROVIDERS: ATTEND Internal Medicine | DX: Z53.8 Procedure and treatment not carried out for other reasons (principal) ==

== ENCOUNTER → 2024-03-16 | Outpatient (REF) | payer MEDICARE, MEDICAID ==
[2024-03-16 10:32] LABS: HEMOGLOBIN 7.4 g/dl (12.0-15.5); MEAN CORPUSCULAR HEMOGLOBIN 28.2 pg (27.0-33.0); MEAN CORPUSCULAR HGB CONC 30.8 g/dl (32.0-36.5); MEAN CORPUSCULAR VOLUME 91.6 fl (80.0-96.0); PLATELET COUNT, AUTOMATED 261 10^3/uL (150-450); RED BLOOD COUNT 2.62 10^6/uL (4.00-5.40)
[2024-03-16 10:51] LABS: CALCIUM LEVEL 7.7 MG/DL (8.3-10.6); CREATININE FOR GFR 1.54 MG/DL (0.55-1.30); GLOMERULAR FILTRATION RATE 41.6 (>32); POTASSIUM SERUM 4.9 MMOL/L (3.5-5.1)
== END ==
LOC: SKLAB5 08:19
PROVIDERS: ATTEND Internal Medicine
DX: N18.9 Chronic kidney disease, unspecified (principal); D63.1 Anemia in chronic kidney disease

== ENCOUNTER → 2024-03-17 | Outpatient (CLI) | payer MEDICARE | LOC: M RAD 16:13 | PROVIDERS: ATTEND Nurse Practitioner Adult Health | DX: L03.90 Cellulitis, unspecified (principal) ==

== ENCOUNTER → 2024-03-17 | Outpatient (REF) | payer MEDICARE ==
[2024-03-21 09:31] LABS: HEMOGLOBIN 7.3 g/dl (12.0-15.5); MEAN CORPUSCULAR HGB CONC 30.4 g/dl (32.0-36.5); PLATELET COUNT, AUTOMATED 282 10^3/uL (150-450); RED BLOOD COUNT 2.61 10^6/uL (4.00-5.40)
[2024-03-21 09:41] LABS: CALCIUM LEVEL 7.8 MG/DL (8.3-10.6); CREATININE FOR GFR 1.57 MG/DL (0.55-1.30); GLOMERULAR FILTRATION RATE 40.7 (>32); POTASSIUM SERUM 4.6 MMOL/L (3.5-5.1)
== END ==
LOC: SKLAB5 09:00
PROVIDERS: ATTEND Internal Medicine
DX: N18.9 Chronic kidney disease, unspecified (principal); D63.1 Anemia in chronic kidney disease

== ENCOUNTER → 2024-03-18 | Outpatient (REF) | payer MEDICARE | LOC: SKLAB5 13:09 | PROVIDERS: ATTEND Internal Medicine | DX: R71.0 Precipitous drop in hematocrit (principal) ==

== ENCOUNTER → 2024-03-20 | Outpatient (REF) | payer MEDICARE | LOC: SKLAB5 12:18 | PROVIDERS: ATTEND Internal Medicine | DX: D72.829 Elevated white blood cell count, unspecified (principal) ==

== ENCOUNTER → 2024-03-20 | Outpatient (REF) | payer MEDICARE ==
[2024-03-20 10:01] LABS: HEMATOCRIT 25.2 % (36.0-47.0); HEMOGLOBIN 7.6 g/dl (12.0-15.5); MEAN CORPUSCULAR HEMOGLOBIN 28.1 pg (27.0-33.0); MEAN CORPUSCULAR HGB CONC 30.2 g/dl (32.0-36.5); MEAN CORPUSCULAR VOLUME 93.3 fl (80.0-96.0); PLATELET COUNT, AUTOMATED 287 10^3/uL (150-450); WHITE BLOOD COUNT 15.2 10^3/uL (4.0-10.0)
[2024-03-20 10:35] LABS: CALCIUM LEVEL 8.1 MG/DL (8.3-10.6); CREATININE FOR GFR 1.71 MG/DL (0.55-1.30); GLOMERULAR FILTRATION RATE 36.9 (>32); POTASSIUM SERUM 4.8 MMOL/L (3.5-5.1)
== END ==
LOC: SKLAB5 08:42
PROVIDERS: ATTEND Internal Medicine
DX: N18.9 Chronic kidney disease, unspecified (principal); D63.1 Anemia in chronic kidney disease; D72.829 Elevated white blood cell count, unspecified

== ENCOUNTER 2024-03-21 12:25 | Outpatient (CLI) | payer MEDICARE ==
[2024-03-21] VITALS (9 sets, daily range): BP systolic 103–129; BP diastolic 54–66; TEMP 97–98; O2SAT 97–100
[2024-03-21] MEDS: FUROSEMIDE 40MG/4ML VIAL IV ONE (16:15)
== END 2024-03-21 19:30 ==
LOC: M INFU 12:25
PROVIDERS: ATTEND Nurse Practitioner Adult Health
DX: D64.9 Anemia, unspecified (principal); N18.9 Chronic kidney disease, unspecified; Z88.1 Allergy status to other antibiotic agents; Z88.8 Allergy status to other drugs, medicaments and biological substances
CPT/HCPCS: 36415; 36430; 80048; 85027; J1940; P9016

== ENCOUNTER → 2024-03-21 | Outpatient (REF) | payer MEDICARE ==
[2024-03-21 10:04] LABS: HEMATOCRIT 23.6 % (36.0-47.0); HEMOGLOBIN 7.1 g/dl (12.0-15.5); MEAN CORPUSCULAR HEMOGLOBIN 28.3 pg (27.0-33.0); MEAN CORPUSCULAR HGB CONC 30.1 g/dl (32.0-36.5); PLATELET COUNT, AUTOMATED 235 10^3/uL (150-450); RED BLOOD COUNT 2.51 10^6/uL (4.00-5.40); WHITE BLOOD COUNT 12.6 10^3/uL (4.0-10.0)
[2024-03-21 10:26] LABS: CALCIUM LEVEL 7.7 MG/DL (8.3-10.6); CREATININE FOR GFR 1.7 MG/DL (0.55-1.30); GLOMERULAR FILTRATION RATE 37.1 (>32); POTASSIUM SERUM 4.1 MMOL/L (3.5-5.1)
== END ==
LOC: SKLAB5 08:11
PROVIDERS: ATTEND Internal Medicine
DX: N18.9 Chronic kidney disease, unspecified (principal); D63.1 Anemia in chronic kidney disease

== ENCOUNTER → 2024-03-22 | Outpatient (REF) | payer MEDICARE | LOC: SKLAB5 10:59 | PROVIDERS: ATTEND Internal Medicine | DX: S71.101A Unspecified open wound, right thigh, initial encounter (principal) ==

== ENCOUNTER → 2024-03-22 | Outpatient (REF) | payer MEDICARE ==
[2024-03-22 11:22] LABS: HEMATOCRIT 29.2 % (36.0-47.0); MEAN CORPUSCULAR HEMOGLOBIN 29.1 pg (27.0-33.0); MEAN CORPUSCULAR HGB CONC 31.5 g/dl (32.0-36.5); MEAN CORPUSCULAR VOLUME 92.4 fl (80.0-96.0); PLATELET COUNT, AUTOMATED 230 10^3/uL (150-450); RED BLOOD COUNT 3.16 10^6/uL (4.00-5.40); WHITE BLOOD COUNT 14.5 10^3/uL (4.0-10.0)
[2024-03-22 11:42] LABS: HEMOGLOBIN 9.2 g/dl (12.0-15.5)
[2024-03-22 11:51] LABS: CALCIUM LEVEL 7.6 MG/DL (8.3-10.6); CREATININE FOR GFR 1.67 MG/DL (0.55-1.30); GLOMERULAR FILTRATION RATE 37.9 (>32); POTASSIUM SERUM 4.3 MMOL/L (3.5-5.1)
== END ==
LOC: SKLAB5 08:46
PROVIDERS: ATTEND Internal Medicine
DX: N18.9 Chronic kidney disease, unspecified (principal); D63.1 Anemia in chronic kidney disease; S71.101A Unspecified open wound, right thigh, initial encounter

== ENCOUNTER → 2024-03-23 | Outpatient (REF) | payer MEDICARE ==
[2024-03-23 10:13] LABS: HEMATOCRIT 30.1 % (36.0-47.0); HEMOGLOBIN 9.5 g/dl (12.0-15.5); MEAN CORPUSCULAR HEMOGLOBIN 29.1 pg (27.0-33.0); MEAN CORPUSCULAR HGB CONC 31.6 g/dl (32.0-36.5); PLATELET COUNT, AUTOMATED 241 10^3/uL (150-450); RED BLOOD COUNT 3.27 10^6/uL (4.00-5.40); WHITE BLOOD COUNT 16.3 10^3/uL (4.0-10.0)
[2024-03-23 10:35] LABS: CALCIUM LEVEL 8.1 MG/DL (8.3-10.6); CREATININE FOR GFR 1.47 MG/DL (0.55-1.30); GLOMERULAR FILTRATION RATE 43.9 (>32); POTASSIUM SERUM 4.1 MMOL/L (3.5-5.1)
== END ==
LOC: SKLAB5 08:43
PROVIDERS: ATTEND Internal Medicine
DX: N18.9 Chronic kidney disease, unspecified (principal); D63.1 Anemia in chronic kidney disease

== ENCOUNTER → 2024-03-24 | Outpatient (REF) | payer MEDICARE ==
[2024-03-24 13:04] LABS: HEMATOCRIT 33.9 % (36.0-47.0); HEMOGLOBIN 10.6 g/dl (12.0-15.5); MEAN CORPUSCULAR HEMOGLOBIN 29.1 pg (27.0-33.0); MEAN CORPUSCULAR HGB CONC 31.3 g/dl (32.0-36.5); MEAN CORPUSCULAR VOLUME 93.1 fl (80.0-96.0); PLATELET COUNT, AUTOMATED 283 10^3/uL (150-450); RED BLOOD COUNT 3.64 10^6/uL (4.00-5.40); WHITE BLOOD COUNT 16.7 10^3/uL (4.0-10.0)
[2024-03-24 13:08] LABS: CALCIUM LEVEL 8.1 MG/DL (8.3-10.6); CREATININE FOR GFR 1.36 MG/DL (0.55-1.30); POTASSIUM SERUM 4.6 MMOL/L (3.5-5.1)
== END ==
LOC: SKLAB5 11:49
PROVIDERS: ATTEND Internal Medicine
DX: N18.9 Chronic kidney disease, unspecified (principal); D63.1 Anemia in chronic kidney disease

== ENCOUNTER → 2024-03-30 | Outpatient (REF) | payer MEDICARE ==
[2024-03-30 10:25] LABS: HEMATOCRIT 34.7 % (36.0-47.0); HEMOGLOBIN 10.6 g/dl (12.0-15.5); MEAN CORPUSCULAR HEMOGLOBIN 28.7 pg (27.0-33.0); MEAN CORPUSCULAR HGB CONC 30.5 g/dl (32.0-36.5); PLATELET COUNT, AUTOMATED 362 10^3/uL (150-450); RED BLOOD COUNT 3.69 10^6/uL (4.00-5.40); WHITE BLOOD COUNT 16.8 10^3/uL (4.0-10.0)
[2024-03-30 10:46] LABS: CALCIUM LEVEL 7.7 MG/DL (8.3-10.6); CREATININE FOR GFR 1.48 MG/DL (0.55-1.30); GLOMERULAR FILTRATION RATE 43.6 (>32); POTASSIUM SERUM 4.3 MMOL/L (3.5-5.1)
== END ==
LOC: SKLAB5 06:31
PROVIDERS: ATTEND Internal Medicine
DX: D64.9 Anemia, unspecified (principal); N18.9 Chronic kidney disease, unspecified

== ENCOUNTER → 2024-04-03 | Outpatient (CLI) | payer MEDICARE ==
[~2024-04-03] MED LIST changes: +GASTROGRAFIN SOLUTION 30ML As Ordered ONE; +ISOVUE-370 76% 100ML VIAL As Ordered ONE
== END ==
LOC: M RAD 12:53
PROVIDERS: ATTEND Nurse Practitioner Adult Health
DX: K43.9 Ventral hernia without obstruction or gangrene (principal); N18.9 Chronic kidney disease, unspecified
CPT/HCPCS: 36415; 74177; 80048; 85027; Q9963; Q9967

== ENCOUNTER → 2024-04-03 | Outpatient (REF) | payer MEDICARE ==
[~2024-04-03] MED LIST changes: -GASTROGRAFIN SOLUTION 30ML As Ordered ONE; -ISOVUE-370 76% 100ML VIAL As Ordered ONE
[2024-04-03 12:36] LABS: HEMATOCRIT 32.3 % (36.0-47.0); HEMOGLOBIN 9.8 g/dl (12.0-15.5); MEAN CORPUSCULAR HEMOGLOBIN 28.7 pg (27.0-33.0); MEAN CORPUSCULAR HGB CONC 30.3 g/dl (32.0-36.5); MEAN CORPUSCULAR VOLUME 94.4 fl (80.0-96.0); PLATELET COUNT, AUTOMATED 337 10^3/uL (150-450); RED BLOOD COUNT 3.42 10^6/uL (4.00-5.40); WHITE BLOOD COUNT 20.4 10^3/uL (4.0-10.0)
[2024-04-03 13:22] LABS: CALCIUM LEVEL 7.8 MG/DL (8.3-10.6); CREATININE FOR GFR 1.5 MG/DL (0.55-1.30); GLOMERULAR FILTRATION RATE 42.9 (>32); POTASSIUM SERUM 4.7 MMOL/L (3.5-5.1)
== END ==
LOC: SKLAB5 11:28
PROVIDERS: ATTEND Internal Medicine
DX: N18.9 Chronic kidney disease, unspecified (principal)